=== PATIENT | female | born 1955 | race Caucasian/White ===

== ENCOUNTER 2020-05-30 11:46 | Outpatient (REF) | payer MEDICARE, MEDICAID, SELFPAY | END 2020-05-30 11:47 | disposition home or self-care (01) | LOC: HO.LAB 11:46 | PROVIDERS: Visit Provider Internal Medicine | DX: Z20.822 Contact with and (suspected) exposure to COVID-19 (principal) | CPT/HCPCS: 36415; C9803; U0003; U0005 ==

== ENCOUNTER 2020-06-06 14:12 | Outpatient (REF) | payer MEDICARE, MEDICAID, SELFPAY ==
--- NOTE | ~2020-06-06 | XR_ITS ---
EXAMINATION: XR CHEST CLINICAL INFORMATION: Trauma COMPARISON: Previous chest x-ray September 2015 TECHNIQUE: 2 views of the chest were obtained. FINDINGS: The cardiac and mediastinal contours are stable. The lungs are well inflated. The lungs are clear. There is no pleural effusion or pneumothorax. Bony structures are unremarkable. XR/XR chest 2V IMPRESSION: No evidence for acute disease in the chest.
== END 2020-06-06 14:13 | disposition home or self-care (01) ==
LOC: HO.XRAY 14:12
PROVIDERS: PCP Internal Medicine; Visit Provider Nurse Practitioner Family
DX: S29.9XXA Unspecified injury of thorax, initial encounter (principal)
CPT/HCPCS: 71046

== ENCOUNTER 2020-08-22 08:55 | Outpatient (REF) | payer MEDICARE, MEDICAID, SELFPAY ==
[2020-08-22 09:34] LABS: MANUAL DIFF FLAG NO
[2020-08-22 09:52] LABS: Basophils Percent Auto 0.4 % (0-2); Eosinophils Absolute Auto 0.2 X10*3/uL (0.0-0.4); Eosinophils Percent Auto 2.4 % (0-4); Hematocrit 43.4 % (37-47); Hemoglobin 14.8 g/dl (12.0-16.0); Imm Gran Abs Auto 0.02 X10*3/uL (0.00-0.03); Imm Gran Pct Auto 0.3 % (0.0-0.4); Lymphocytes Absolute Auto 1.7 X10*3/uL (1.2-4.9); Lymphocytes Percent Auto 23.2 % (20-40); Mean Corpuscular HGB Conc 34.1 g/dl (31.0-35.0); Mean Corpuscular Hemoglobin 30.5 pg (27.0-33.0); Mean Corpuscular Volume 89.3 fL (80-98); Mean Platelet Volume 9.1 fL (9.4-12.3); Monocytes Absolute Auto 0.5 X10*3/uL (0.1-1.2); Monocytes Percent Auto 6.9 % (2-11); Neutrophils Absolute Auto 4.8 X10*3/uL (2.0-8.3); Neutrophils Percent Auto 66.8 % (45-73); Platelet Count 224 X10*3/uL (160-400); Red Blood Count 4.86 X10*6/uL (4.20-5.50); Red Cell Distribution Width 13.4 % (11.0-16.0); White Blood Count 7.2 X10*3/uL (4.8-10.8)
[2020-08-22 10:12] LABS: Estimated Average Glucose 123 mg/dL; Hemoglobin A1C 148.4672 umol/L; Hemoglobin A1c % 5.9 %
[2020-08-22 10:17] LABS: Alanine Aminotransferase 11 U/L (0-31); Albumin Level 4.7 g/dL (3.5-5.0); Alkaline Phosphatase 72 U/L (39-117); Anion Gap 12 (12-20); Aspartate Amino Transferase 15 U/L (5-31); Bilirubin Total 0.6 mg/dL (0.0-1.0); Calcium 9.3 mg/dL (8.4-10.2); Carbon Dioxide 30 mmol/L (22-29); Chloride 95 mmol/L (96-108); Cholesterol 224 mg/dL; Estimated Glomerular Filt Rate > 60; Glucose Fasting 117 mg/dL (60-99); HDL Cholesterol 48 mg/dL; LDL Cholesterol Calculated 156 mg/dl; Potassium 4.1 mmol/L (3.3-5.1); Sodium 133 mmol/L (135-145); Total Protein 6.8 g/dL (6.5-8.0); Triglycerides 100 mg/dL
[2020-08-22 10:27] LABS: Free T4 (Free Thyroxine) 0.96 ng/dL (0.71-1.85)
[2020-08-22 10:32] LABS: Blood Urea Nitrogen 2 mg/dL (9-16)
[2020-08-22 11:00] LABS: Folate 6.3 ng/mL (> or = 4.0); Vitamin B12 350 pg/mL (200-900)
== END 2020-08-22 08:56 | disposition home or self-care (01) ==
LOC: HO.LAB 08:55
PROVIDERS: Nurse Practitioner Family; PCP Internal Medicine; Visit Provider Psychiatry & Neurology Psychiatry
DX: E87.1 Hypo-osmolality and hyponatremia (principal); S29.9XXA Unspecified injury of thorax, initial encounter; X58.XXXA Exposure to other specified factors, initial encounter; Y93.9 Activity, unspecified; Y92.9 Unspecified place or not applicable; Y99.9 Unspecified external cause status
CPT/HCPCS: 36415; 80053; 80061; 82607; 82746; 83036; 84439; 84443; 85025

== ENCOUNTER 2020-10-19 11:48 | Outpatient (REF) | payer MEDICARE, MEDICAID, SELFPAY ==
--- NOTE | ~2020-10-19 | XR_ITS ---
EXAMINATION: XR KNEE, RIGHT CLINICAL INFORMATION: Pain in the right knee COMPARISON: None TECHNIQUE: Four views of the right knee. FINDINGS: Bones and soft tissues are normal. No fracture or joint effusion. Alignment is anatomic. Joint spaces are well maintained. No abnormal soft tissue calcification. XR/XR knee RT 4V IMPRESSION: Normal right knee.
== END 2020-10-19 11:49 | disposition home or self-care (01) ==
LOC: HO.XRAY 11:48
PROVIDERS: PCP Internal Medicine; Visit Provider Nurse Practitioner Family
DX: M25.561 Pain in right knee (principal)
CPT/HCPCS: 73564

== ENCOUNTER 2020-10-31 11:43 | Inpatient (IN) | payer MEDICARE, MEDICAID, SELFPAY ==
--- NOTE | ~2020-10-31 | CT_ITS ---
EXAMINATION: CT ABDOMEN AND PELVIS WITH CONTRAST CLINICAL INFORMATION: Right lower quadrant pain with leukocytosis and vomiting. COMPARISON: None TECHNIQUE: Multidetector volumetric images were obtained from the superior aspect of the liver through the pubic symphysis following administration 85 mL of Omnipaque 350 intravenous contrast. Sagittal and coronal reformatted images were obtained on the technologist's workstation. Oral contrast: No This CT examination was performed using dose optimization techniques as appropriate, variously including the following: *Automated exposure control *Adjustment of mA and/or kV according to patient size (this includes techniques or standardized protocols for targeted exams where dose is matched to indication/reason for exam; i.e. extremities or head) *Use of iterative reconstruction technique DLP: 439 mGy-cm FINDINGS: LUNG BASES: The visualized lung bases are unremarkable. Heart normal size. Coronary artery calcifications seen. No pleural or pericardial effusion. LIVER, GALLBLADDER, AND BILIARY TREE: The liver is normal in size, shape, and attenuation. No focal hepatic lesion. There is mild intrahepatic bile duct prominence without filling defects seen within the common bile duct. Status post cholecystectomy. PANCREAS: Unremarkable. SPLEEN: Unremarkable. ADRENAL GLANDS: Unremarkable. KIDNEYS AND URETERS: The kidneys are normal in size, shape, and attenuation. No hydronephrosis, hydroureter, or calculi seen. No perinephric stranding. BLADDER: Unremarkable. GASTROINTESTINAL TRACT: No free air is seen. There is a small amount of fluid seen about the right colon. There are dilated loops of right and transverse colon as well as multiple distended fluid-filled loops of small bowel proximal to a 3.2 x 2.9 x 3.1 cm low density mass in the sigmoid colon but which may be an intramural lesion. This could represent possible malignancy or phlegmon. I do not believe this represents intussusception. No air-fluid level is appreciated within this. Within the right colon there are some peripheral bubbles of gas seen however there is no wall thickening present and this probably does not represent pneumatosis intestinalis. There is sigmoid diverticulosis. No portal venous gas is seen. ABDOMINAL WALL: No significant hernia is appreciated. LYMPH NODES: No lymphadenopathy appreciated. VASCULAR: There is mild calcified plaque seen in the aortoiliac system. There is noted to be some ostial calcification at the origin of the visceral vessels and I cannot tell whether there may be a hemodynamically significant stenosis at the origin of the superior mesenteric artery on this study. PELVIC VISCERA: Sigmoid colon findings as described. No other suspicious mass identified. OSSEOUS STRUCTURES: No destructive bony lesions identified. There are bilateral prominent L5 pars defects with a grade [address]ylolisthesis L5-S1. CT/CT abdomen pelvis w con IMPRESSION: Mild intrahepatic duct dilatation. Approximately 3 cm mass either intramural all within the sigmoid colon with dilated loops of large or small bowel bowel proximal to this. This lesion could represent a malignant or infectious process. Calcified plaque origin of the superior mesenteric artery which may be hemodynamically significant. Grade 3 spondylolisthesis with L5 spondylolysis at the L5-S1 level.
[2020-10-31 11:47] VITALS: BP 141/82; PULSE 101; RESP 16; TEMP 36.8; O2SAT 96; BMI 22.3
[2020-10-31 13:29] LABS: MANUAL DIFF FLAG NO
[2020-10-31 13:32] LABS: Basophils Percent Auto 0.2 % (0-2); Eosinophils Percent Auto 0.1 % (0-4); Hematocrit 44.7 % (37-47); Hemoglobin 15.7 g/dl (12.0-16.0); Imm Gran Abs Auto 0.08 X10*3/uL (0.00-0.03); Imm Gran Pct Auto 0.5 % (0.0-0.4); Lymphocytes Absolute Auto 0.8 X10*3/uL (1.2-4.9); Lymphocytes Percent Auto 4.5 % (20-40); Mean Corpuscular HGB Conc 35.1 g/dl (31.0-35.0); Mean Corpuscular Volume 85.5 fL (80-98); Mean Platelet Volume 8.6 fL (9.4-12.3); Monocytes Absolute Auto 1.2 X10*3/uL (0.1-1.2); Monocytes Percent Auto 6.7 % (2-11); Neutrophils Absolute Auto 15.5 X10*3/uL (2.0-8.3); Platelet Count 319 X10*3/uL (160-400); Red Blood Count 5.23 X10*6/uL (4.20-5.50); White Blood Count 17.6 X10*3/uL (4.8-10.8)
[2020-10-31 14:12] LABS: Anion Gap 16 (12-20); Blood Urea Nitrogen 15 mg/dL (9-16); Calcium 9.7 mg/dL (8.4-10.2); Carbon Dioxide 30 mmol/L (22-29); Chloride 86 mmol/L (96-108); Creatinine Clr Calc Pharmacy 46.2; Estimated Glomerular Filt Rate 54; Glucose Random 166 mg/dL (60-115); Potassium 3.5 mmol/L (3.3-5.1); Sodium 128 mmol/L (135-145)
--- NOTE | 2020-10-31 15:24 | ED_ITS ---
HPI - Abdominal Pain General Chief Complaint: Abdominal Pain Stated Complaint: abd pain Time Seen by Provider: 10/31/20 14:53 Source: patient and family Mode of arrival: ambulatory Limitations: no limitations History of Present Illness HPI narrative: 65 y/o female with history of bipolar disorder, DM, depression/anxiety, history of hepatitis C s/p treatment, s/p cholecystectomy, remote history of alcohol and substance abuse sober since 1979 who presents to the ER from home c/o constant sharp RLQ pain for the last 3 days. She vomited this morning. She had a normal BM yesterday. No fever or chills. MD elicited complaint: abdominal pain Pertinent past history: none Onset (ago): day(s) (3) Pain Consistency: constant Location: RLQ Severity: severe Pain scale (0-10): 8 Quality: stabbing Radiation: none Migration to: no migration Exacerbating factors: nothing Relieving factors: nothing Associated symptoms: nausea and vomiting Related Data Home Medications Medication Instructions Recorded Confirmed buspirone 5 mg tablet 10 mg PO BID 03/30/20 10/19/20 clonidine HCl 0.1 mg tablet 0.1 mg PO BEDTIME 03/30/20 10/19/20 lorazepam 1 mg tablet 1 mg PO TID 03/30/20 10/19/20 sertraline 100 mg tablet 100 mg PO DAILY 03/30/20 10/19/20 aspirin 81 mg tablet,delayed 81 mg PO DAILY 06/06/20 10/19/20 release lactulose 10 gram/15 mL oral 30 ml PO BID PRN 07/04/20 10/19/20 solution ziprasidone HCl 60 mg capsule 60 mg PO BID 07/04/20 10/19/20 Previous Rx's Medication Instructions Recorded multivitamin 1 tab PO DAILY #30 cap 03/24/20 omeprazole 20 mg capsule,delayed 20 mg PO DAILY 90 Days #90 cap 03/28/20 release ondansetron 8 mg disintegrating 8 mg PO Q12H PRN 30 Days #60 tab 05/30/20 tablet ibuprofen 600 mg tablet 600 mg PO Q8H PRN #42 tab 06/08/20 nystatin 100,000 unit/mL oral 8 ml PO QID #320 cap 06/19/20 suspension lactulose 20 gram/30 mL oral 20 g PO BID PRN 30 Days #1800 ml 07/04/20 solution acetaminophen 325 mg capsule 650 mg PO Q6H PRN #40 cap 10/19/20 (Tylenol) simethicone 42 mg chewable tablet 126 mg PO BEDTIME PRN 90 Days #90 10/30/20 (Mylanta Gas Minis) tab Allergies Allergy/AdvReac Type Severity Reaction Status Date / Time No Known Allergies Allergy Verified 10/19/20 11:08 Review of Systems Constitutional: Denies chills and Denies fever(s) Eyes: Reports no additional eye complaints Denies dizziness, Denies odynophagia and Denies sore throat Cardiovascular: Denies chest pain, Denies syncope, Denies lightheadedness and Denies dyspnea Respiratory: Denies cough and Denies dyspnea Gastrointestinal: Reports abdominal pain, Denies change in bowel habits, Denies diarrhea, Reports nausea, Denies odynophagia and Reports vomiting Genitourinary: Denies dysuria Musculoskeletal: Denies myalgias Skin/Breast: Denies rash Denies confusion, Denies dizziness and Denies syncope Psychiatric: Denies confusion Hematologic/Lymphatic: Denies easy bleeding Physical Exam Vital Signs: Vital Signs: Last Vital Signs Temp 98.2 F 10/31/20 15:55 Pulse 91 10/31/20 15:55 Resp 18 10/31/20 15:55 BP 129/73 10/31/20 15:55 Pulse Ox 94 10/31/20 15:55 Body Mass Index 22.3 Const: General: cooperative, comfortable and no acute distress; No confusion Nutritional Appearance: average body habitus Orientation/consciousness: patient oriented x3 and No confusion HENMT: Head: Yes normal to inspection Ears: hearing grossly normal bilaterally General nose exam: Normal external nose present Face and sinus: Yes normal facial exam Mouth: Normal oral and palatal mucosa present and moist mucous membranes Teeth and gingiva: dentition normal and gingiva normal Throat: Yes posterior oropharynx normal Eyes: General: appearance normal, both eyes and all related structures Neck: Neck: Yes normal visual inspection and Yes supple Chest: Chest palpation & inspection: normal inspection of the chest Resp: Effort & Inspection: normal respiratory effort and able to speak in complete sentences Auscultation: clear to auscultation bilaterally Cardio: Rate: regular rate Rhythm: regular rhythm Heart sounds: S1 normal heart sound present and S2 normal heart sound present GI: Inspection: Yes distended Palpation (GI): Soft to palpation and Tenderness to palpation present (GI) in the LLQ and in the RLQ Percussion: Yes dullness to percussion Auscultation: normal bowel sounds Rectal Exam - Female: deferred Skin: General skin exam: no rashes or lesions noted Neuro: General: patient oriented x3 and No confusion Extrem: General: Yes normal to inspection, Yes full ROM and Yes normal exam except as noted Course Course Course Narrative: 65 y/o female presenting with RLQ pain x3 days with associated vomiting this morning. Abd exam reveals moderate distention, RLQ & LLQ tenderness with rebound. She is non-toxic appearing, slightly tachycardic on arrival 101, likely from pain. No fevers. Lab workup showing leukocytosis which could be reactive from vomiting. Will get CT scan to r/o appendicitis and diverticulitis. She also has acute on chronic hyponatremia. Sodium 128 today, 133 two months ago. She most likely has SIADH from her multiple psychaitric medications as well as mild hypovolemia due to vomiting today. IVF ordered. Reevaluation(s) Reevaluation #1: CT scan done. Patient more comfortable after morphine and zofran. Given 1 L IVF. Repeat sodium pending. Reevaluation #2: CT scan showing Mild intrahepatic duct dilatation. Approximately 3 cm mass either intramural all within the sigmoid colon with dilated loops of large or small bowel bowel proximal to this. This lesion could represent a malignant or infectious process.?Calcified plaque origin of the superior mesenteric artery which may be hemodynamically significant. Grade 3 spondylolisthesis with L5 spondylolysis at the L5-S1 level. CT scan was reviewed by Dr. Douglas. He is recommending evaluation via colono scopy. Given her significant leukocytosis and ongoing pain with concern for possible phlegmon, will cover with Zosyn. Will check lactic acid and cultures. Will plan for medicine admission with probable GI and surgical consults. Reevaluation #3: Repeat sodium 128 down to 127 after IVF. Will check urine sodium, serum sodium and plan for fluid restriction and holding her psych meds for now given this is most likely due to SIADH. Additional Reevaluation(s): Spoke with Dr. Rojo, unlikely to have time to perform colonoscopy tomorrow. Hold off on colon prep for now and he will see her tomorrow. Additional IV morphine ordered for ongoing 8/10 pain. Hospitalist TT for admission but will defer to photographer aerial. Consultations Consultation #1: GI - Dr. Rojo. Consultation #2: Dr. Douglas MDM - Abdominal Pain Lab Data Result diagrams: 10/31/20 13:25 10/31/20 16:57 Labs: Lab Results 10/31/20 10/31/20 10/31/20 Range/Units 13:25 13:25 16:57 WBC 17.6 H (4.8-10.8) X10*3/uL RBC 5.23 (4.20-5.50) X10*6/uL Hgb 15.7 (12.0-16.0) g/dl Hct 44.7 (37-47) % MCV 85.5 (80-98) fL MCH 30.0 (27.0-33.0) pg MCHC 35.1 H (31.0-35.0) g/dl RDW 13.0 (11.0-16.0) % Plt Count 319 D (160-400) X10*3/uL MPV 8.6 L (9.4-12.3) fL Immature Gran % (Auto) 0.5 H (0.0-0.4) % Neut % (Auto) 88.0 H (45-73) % Lymph % (Auto) 4.5 L (20-40) % Catron % (Auto) 6.7 (2-11) % Eos % (Auto) 0.1 (0-4) % Baso % (Auto) 0.2 (0-2) % Lymph # (Auto) 0.8 L (1.2-4.9) X10*3/uL Catron # (Auto) 1.2 (0.1-1.2) X10*3/uL Eos # (Auto) 0.0 (0.0-0.4) X10*3/uL Baso # (Auto) 0.0 (0.0-0.2) X10*3/uL Abs Immat Gran (auto) 0.08 H (0.00-0.03) X10*3/uL Absolute Neuts (auto) 15.5 H (2.0-8.3) X10*3/uL Absolute Nucleated RBC 0.000 (0.0-0.012) X10*3/uL Nucleated RBC % (auto) 0.0 (0.0-0.2) /100WBC Sodium 128 L 127 L (135-145) mmol/L Potassium 3.5 (3.3-5.1) mmol/L Chloride 86 L (96-108) mmol/L Carbon Dioxide 30 H (22-29) mmol/L Anion Gap 16 (12-20) BUN 15 D (9-16) mg/dL Creatinine 1.02 (0.5-1.4) mg/dL Estim Creat Clear Calc 46.2 Estimated GFR 54 Random Glucose 166 H (60-115) mg/dL Calcium 9.7 (8.4-10.2) mg/dL Discharge Plan Discharge Clinical Impression: Colonic mass, Hyponatremia Patient Disposition: Admitted As Inpatient [facility] Past Medical History Attestation statement: The following information was validated with the patient. Medical History Bipolar 1 disorder Chronic idiopathic constipation Depression with anxiety Diabetes mellitus Rib injury Right knee pain Surgical History History of cholecystectomy Family History Family History Father No problems noted. Mother No problems noted. Other Mental health disorder Social History Social History Housing: House Alcohol intake: former Patient Tobacco Use Status: Current everyday Tobacco user Tobacco use type: Cigarette Cigarette Packs Per Day: 1 Advance Directives: Yes Advance Directives Information Provided: Yes Advance Directives on File: No service: No Current occupational status: unemployed
[2020-10-31] MEDS: Morphine Sulfate 4 MG/ML CARTRIDGE IVPUSH ×3 (15:31→20:37)
[2020-10-31] MEDS: 0.9 % Sodium Chloride 1,000 ML 999 ML IVCONT (15:31)
[2020-10-31] MEDS: ondansetron HCL 4 MG/2 ML VIAL IVPUSH (15:31)
[2020-10-31 15:55] VITALS: BP 129/73; PULSE 91; RESP 18; TEMP 36.8; O2SAT 94
[2020-10-31] MEDS: iohexoL 350 MG/ML 100 ML INFUS..BTL 85 ML IV (15:55)
[2020-10-31 17:21] LABS: Sodium 127 mmol/L (135-145)
--- NOTE | 2020-10-31 18:02 | PHA.MEDREC ---
Pharmacy Consult ? Medication Reconciliation Pharmacy has completed the medication reconciliation.
[2020-10-31 18:07] VITALS: BP 153/80; PULSE 84; RESP 16; O2SAT 99
[2020-10-31] MEDS: Piperacillin Sodium/Tazobactam 3.375 GM in 0.9 % Sodium Chloride 50 ML IV (18:13)
[2020-10-31] MEDS: Nicotine 21 MG PATCH.TD24 TRANSDERMA (18:13)
[2020-10-31 18:19] LABS: Osmolality, Serum 264 mosm/kg (281-305)
[2020-10-31 18:28] LABS: Glucose Urine UA NEG (NEG); Leukocyte Esterase Urine NEG (NEG); Nitrite Urine NEG (NEG); PH 6.5 (5.0-8.0); UACC Culture Trigger NO; Urine Blood NEG (NEG); Urine Ketones 5 MG/DL (NEG); Urine Protein 2+ MG/DL (NEG-TRACE)
[2020-10-31 18:30] LABS: Appearance Urine CLEAR; Color Urine YELLOW
[2020-10-31 18:33] LABS: Lactic Acid 1.8 mmol/L (0.5-2.0)
[2020-10-31 18:34] LABS: Sodium Urine Random < 20.0 mmol/L
[2020-10-31] MEDS: Nicotine Polacrilex 2 MG GUM BUCCAL (18:43)
[2020-10-31 18:47] LABS: Osmolality Urine 521 mosm/kg (373-1093)
[2020-10-31 19:01] LABS: Bacteria Urine 1+ /LPF; RBC Urine 0-2 /HPF (0); Squamous Epithelial Cell Urine 1+ /LPF; WBC Urine 0 /HPF (0-4)
[2020-10-31 19:22] LABS: Influenza A PCR NEGATIVE (Negative); Influenza B PCR NEGATIVE (Negative); Resp Syncy Virus RNA Qual PCR NEGATIVE (Negative); SARS COV2 PCR INHOUSE NEGATIVE (Negative)
[2020-10-31 20:35] VITALS: BP 136/74; PULSE 84; RESP 16; TEMP 37.5; O2SAT 90
--- NOTE | 2020-10-31 20:39 | PC.NURSE ---
PATIENT SATING 87 ON RA. pLACED ON 2L NC.
[2020-10-31 21:48] VITALS: BP 130/75; PULSE 97; RESP 18; TEMP 37.3; O2SAT 96
[2020-10-31] MEDS: 0.9 % Sodium Chloride Flush 3 ML SYRINGE IVFLUSH (21:52)
[2020-10-31] MEDS: 0.9 % Sodium Chloride 1,000 ML 100 ML IVCONT (21:53)
[2020-10-31 21:54] VITALS: BP 130/75; PULSE 96
[2020-10-31] MEDS: cloNIDine HCL 0.1 MG TABLET PO (21:54)
[2020-10-31] MEDS: busPIRone HCl 10 MG TABLET PO (21:54)
[2020-10-31] MEDS: Heparin Sodium,Porcine 5,000 UNIT/ML VIAL 5000 UNIT SUBCUT (21:55)
[2020-10-31] MEDS: LORazepam 1 MG TABLET PO (21:55)
[2020-10-31] MEDS: Ziprasidone 60 MG CAPSULE PO (21:55)
[2020-10-31] MEDS: metroNIDAZOLE/NS 500 MG/100 ML PIGGYBACK 100 MG IV (21:56)
[2020-10-31 22:29] LABS: Osmolality, Serum 263 mosm/kg (281-305)
[2020-11-01] VITALS (7 sets, daily range): BP systolic 107–170; BP diastolic 51–92; PULSE 70–108; RESP 16–18; TEMP 36.2–36.9; O2SAT 92–98
[2020-11-01] MEDS: cefTRIAXone sodium 1 GM in 0.9 % Sodium Chloride 50 ML IV ×2 (01:19→23:52)
[2020-11-01] MEDS: Nicotine Polacrilex 2 MG GUM 4 MG BUCCAL ×4 (03:05→23:58)
[2020-11-01] MEDS: Omeprazole 20 MG CAPSULE.DR PO (05:55)
[2020-11-01] MEDS: metroNIDAZOLE/NS 500 MG/100 ML PIGGYBACK 100 MG IV ×3 (05:55→21:05)
--- NOTE | 2020-11-01 06:07 | P.HPHOSP_ITS ---
History of Present Illness Date of Service: 10/31/20 Chief Complaint: Abdominal pain This is a 65-year-old female with past medical history of bipolar disorder, chronic idiopathic constipation, depression with anxiety, diabetes, who presents hospital with complaints of abdominal pain. Pain is all over the abdomen but worse on the right lower quadrant. This started 3 days ago, constant, 8/10, nonradiating, worse with movement and walking, better if she lays on her left side. Patient reports constipation, last BM was the day prior to presentation. She has some nausea and 1 episode of vomiting. She denies any recent melena or blood per rectum. She reports about 30 lb weight loss over the past 1 year bec ause she intentionally reduced her oral intake. For the past 3 days she has had loss of appetite, denies any fever or chills. Denies any chest pain, no shortness of breath, no urinary symptoms and no lower extremity edema. No numbness weakness or tingling. On arrival To the ED patient hemodynamically stable with a temperature of 98.2?, heart rate of 101, respiratory rate of 16, blood pressure of 141/82, satting 96% on room air Labs are significant for WBC count of 17.6, sodium of 127 which is chronically low for her, UA positive for protein with no infection, COVID negative, serum osmolality 264, urine osmolality of [address] shows mild intrahepatic duct dilatation, proximally 3 cm mass either intramural within the sigmoid colon with dilated loops of large or small bowels proximal to this. This lesion could represent a malignant or infectious process. Patient reports that she has never had colonoscopy in the past. Patient will be admitted for further evaluation of mass. Review of Systems Review of Systems: Yes all other systems are reviewed and are negative [facility] Medical History Bipolar 1 disorder Chronic idiopathic constipation Depression with anxiety Diabetes mellitus Rib injury Right knee pain Family History Father No problems noted. Mother No problems noted. Other Mental health disorder Surgical History History of cholecystectomy Social History Household Members: Spouse Housing: House Do you presently have visiting nurse or other home services: No Alcohol intake: former Patient Tobacco Use Status: Current everyday Tobacco user Tobacco use type: Cigarette Cigarette Packs Per Day: 1 Smoked in Last 30 Days: Yes Patient Interested in Nicotine Replacement: Yes Patient Given Instructions on How to Stop Smoking: No Second Hand Smoke Exposure: No Use of substances other than those prescribed or required for medical reasons: No Have you been hit, kicked, punched, or otherwise hurt by someone within the past year? If so, by whom?: No Do you feel safe in your current relationship?: No Is there a partner from a previous relationship who is making you feel unsafe now?: No Are you made to feel afraid or neglected: No Advance Directives: No Advance Directives Information Provided: No Advance Directives on File: No Do you have thoughts of harming others: None Do you have a plan to hurt others: No Plan Recently lost weight without trying: No How much weight loss: 24-33 pounds Eating poorly because of decreased appetite: No Nutrition screen score: 3 Nutrition Risks: No Nutritional Risk Patient : No : No Poor oral hygiene: No service: No Current occupational status: unemployed Meds Allergies Allergy/AdvReac Type Severity Reaction Status Date / Time No Known Allergies Allergy Verified 10/19/20 11:08 Active Medications: Current Medications Generic Name Dose Route Start Last Admin Trade Name Freq PRN Reason Stop Dose Admin Acetaminophen 650 mg 10/31/20 21:12 Acetaminophen 325 Mg Tablet PO Q6H PRN Pain, Mild (Pain Scale 1-3) Buspirone HCl 10 mg 10/31/20 21:30 10/31/20 21:54 Buspirone Hcl 10 Mg Tablet PO 10 mg BID MARCI Administration Clonidine HCl 0.1 mg 10/31/20 21:30 10/31/20 21:54 Clonidine Hcl 0.1 Mg Tablet PO 0.1 mg BEDTIME MARCI Administration Protocol Heparin Sodium (Porcine) 5,000 unit 10/31/20 22:00 10/31/20 21:55 Heparin Sodium,Porcine 5,000 Unit/Ml Vial SUBCUT 5,000 unit Q12H MARCI Administration Ceftriaxone Sodium 1 gm/ 50 mls @ 100 mls/hr 10/31/20 23:00 11/01/20 03:02 Sodium Chloride IV Infused Q24H MARCI Infusion Metronidazole 500 mg in 100 mls @ 100 mls/hr 10/31/20 22:00 11/01/20 05:55 Flagyl IV 100 mls/hr Q8H MARCI Administration Sodium Chloride 1,000 mls @ 100 mls/hr 10/31/20 21:30 10/31/20 21:53 Ns IVCONT 100 mls/hr .Q10H MARCI Administration Lactulose 20 gm 10/31/20 21:30 Lactulose 20 Gm/30 Ml Solution PO BID PRN constipation Lorazepam 1 mg 10/31/20 21:30 10/31/20 21:55 Lorazepam 1 Mg Tablet PO 1 mg TID MARCI Administration Morphine Sulfate 4 mg 10/31/20 20:14 10/31/20 20:37 Morphine Sulfate 4 Mg/Ml Cartridge IVPUSH 4 mg Q4H PRN Administration Pain, Severe (Pain Scale 7-10) Protocol Nicotine 21 mg 11/01/20 00:25 11/01/20 03:02 Nicotine 21 Mg Patch.Td24 TRANSDERMA Not Given DAILY [facility] Nicotine Polacrilex 4 mg 11/01/20 02:49 11/01/20 03:05 Nicotine Polacrilex 2 Mg Gum BUCCAL 4 mg Q1H PRN Administration Nicotine Cravings Omeprazole 20 mg 11/01/20 06:30 11/01/20 05:55 Omeprazole 20 Mg Capsule. PO 20 mg DAILY@0630 MARCI Administration Ondansetron HCl 4 mg 10/31/20 21:12 Ondansetron Hcl 4 Mg/2 Ml Vial IVPUSH Q8H PRN Nausea and Vomiting Pharmacy Consult 1 each 10/31/20 17:12 Consult Rx Perform Med Rec MISCELLANE ONCE PRN Consult order Sertraline HCl 100 mg 11/01/20 09:00 Sertraline Hcl 100 Mg Tablet PO DAILY MARCI Sodium Chloride 3 ml 11/01/20 00:00 10/31/20 21:52 0.9 % Sodium Chloride Flush 3 Ml Syringe IVFLUSH 3 ml QSHIFT MARCI Administration Ziprasidone 60 mg 10/31/20 21:30 10/31/20 21:55 Ziprasidone 60 Mg Capsule PO 60 mg BID MARCI Administration Home Medications Medication Instructions Recorded Confirmed Last Taken Type buspirone 5 mg tablet 10 mg PO BID 03/30/20 10/31/20 10/30/20 History clonidine HCl 0.1 mg tablet 0.1 mg PO BEDTIME 03/30/20 10/31/20 10/30/20 History lorazepam 1 mg tablet 1 mg PO TID 03/30/20 10/31/20 10/31/20 History sertraline 100 mg tablet 100 mg PO DAILY 03/30/20 10/31/20 10/30/20 History ziprasidone HCl 60 mg capsule 60 mg PO BID 07/04/20 10/31/20 10/30/20 History ondansetron 8 mg disintegrating 1 tab PO Q12H PRN 10/31/20 10/31/20 Unknown History tablet Physical Exam Vital Signs and Narrative: Vital Signs: Last Vital Signs Temp 98.0 F 11/01/20 04:00 Pulse 70 11/01/20 04:00 Resp 16 11/01/20 04:00 BP 133/64 11/01/20 04:00 Pulse Ox 98 11/01/20 04:00 Body Mass Index 22.3 Const: Other: Patient lying comfortably on her left side in bed General: cooperative and no acute distress Orientation/consciousness: patient oriented x3 Eyes: General: appearance normal, both eyes and all related structures Resp: Effort & Inspection: normal respiratory effort and able to speak in c omplete sentences Auscultation: clear to auscultation bilaterally Cardio: Rate: regular rate Rhythm: regular rhythm GI: Other: Tender in the right lower quadrant, no rebound, no guarding Palpation (GI): Soft to palpation Auscultation: normal bowel sounds Skin: General skin exam: no rashes or lesions noted Neuro: General: patient oriented x3 Cognition (Neuro): normal cognition Extrem: General: Yes normal to inspection and Yes no pedal edema Results Labs CBC and Chem 7: 10/31/20 13:25 10/31/20 16:57 Labs: Laboratory Results - last 24 hr 10/31/20 10/31/20 10/31/20 13:25 13:25 13:25 MCV 85.5 MCH 30.0 MCHC 35.1 H RDW 13.0 Plt Count 319 D MPV 8.6 L Immature Gran % (Auto) 0.5 H Neut % (Auto) 88.0 H Lymph % (Auto) 4.5 L [place] % (Auto) 6.7 Eos % (Auto) 0.1 Baso % (Auto) 0.2 Lymph # (Auto) 0.8 L [place] # (Auto) 1.2 Eos # (Auto) 0.0 Baso # (Auto) 0.0 Abs Immat Gran (auto) 0.08 H Absolute Neuts (auto) 15.5 H Absolute Nucleated RBC 0.000 Nucleated RBC % (auto) 0.0 Anion Gap 16 Estim Creat Clear Calc 46.2 Estimated GFR 54 Random Glucose 166 H Osmolality 264 L Lactic Acid Calcium 9.7 Urine Color Urine Appearance Urine pH Ur Specific [place] Urine Protein Urine Glucose (UA) Urine Ketones Urine Blood Urine Nitrite Ur Leukocyte Esterase Urine RBC Urine WBC Ur Squamous Epith Cells Urine Bacteria Urine Osmolality Ur Random Sodium Coronavirus (PCR) Influenza Type A (PCR) Influenza Type B (PCR) RSV RNA Qual (PCR) 10/31/20 10/31/20 10/31/20 17:49 17:50 17:50 MCV MCH MCHC RDW Plt Count MPV Immature Gran % (Auto) Neut % (Auto) Lymph % (Auto) [place] % (Auto) Eos % (Auto) Baso % (Auto) Lymph # (Auto) [place] # (Auto) Eos # (Auto) Baso # (Auto) Abs Immat Gran (auto) Absolute Neuts (auto) Absolute Nucleated RBC Nucleated RBC % (auto) Anion Gap Estim Creat Clear Calc Estimated GFR Random Glucose Osmolality Lactic Acid Calcium Urine Color YELLOW Urine Appearance CLEAR Urine pH 6.5 Ur Specific [place] 1.010 Urine Protein 2+ H Urine Glucose (UA) NEG Urine Ketones 5 Urine Blood NEG Urine Nitrite NEG Ur Leukocyte Esterase NEG Urine RBC 0-2 Urine WBC 0 Ur Squamous Epith Cells 1+ Urine Bacteria 1+ Urine Osmolality 521 Ur Random Sodium < 20.0 Coronavirus (PCR) Influenza Type A (PCR) Influenza Type B (PCR) RSV RNA Qual (PCR) 10/31/20 10/31/20 10/31/20 18:05 18:05 21:50 MCV MCH MCHC RDW Plt Count MPV Immature Gran % (Auto) Neut % (Auto) Lymph % (Auto) [place] % (Auto) Eos % (Auto) Baso % (Auto) Lymph # (Auto) [place] # (Auto) Eos # (Auto) Baso # (Auto) Abs Immat Gran (auto) Absolute Neuts (auto) Absolute Nucleated RBC Nucleated RBC % (auto) Anion Gap Estim Creat Clear Calc Estimated GFR Random Glucose Osmolality 263 L Lactic Acid 1.8 Calcium Urine Color Urine Appearance Urine pH Ur Specific [place] Urine Protein Urine Glucose (UA) Urine Ketones Urine Blood Urine Nitrite Ur Leukocyte Esterase Urine RBC Urine WBC Ur Squamous Epith Cells Urine Bacteria Urine Osmolality Ur Random Sodium Coronavirus (PCR) NEGATIVE Influenza Type A (PCR) NEGATIVE Influenza Type B (PCR) NEGATIVE RSV RNA Qual (PCR) NEGATIVE Imaging Radiologist's Impressions: Impressions Abdomen/Pelvis CT 10/31/20 14:53 IMPRESSION: Mild intrahepatic duct dilatation. Approximately 3 cm mass either intramural all within the sigmoid colon with dilated loops of large or small bowel bowel proximal to this. This lesion could represent a malignant or infectious process. Calcified plaque origin of the superior mesenteric artery which may be hemodynamically significant. Grade 3 spondylolisthesis with L5 spondylolysis at the L5-S1 level. Assessment and Plan (1) Colonic mass: Status: Acute (2) Hyponatremia: Status: Acute (3) Nausea & vomiting: Status: Acute (4) Leukocytosis: Status: Acute This is a 65-year-old female with past medical history of bipolar disorder, chronic constipation who presents to the hospital with or abdominal pain found to have a sigmoid colon mass. # colonic mass - infectious versus malignant - patient does have leukocytosis, tachycardia which is concerning for infectious etiology - denies any unintentional weight loss and no history of colonoscopy in the past - at this time will start her with ceftriaxone and Flagyl for possible intra- abdominal infection - follow cultures - GI consulted for evaluation with colonoscopy # nausea vomiting - secondary to above - supportive measure - Zofran p.r.n. # leukocytosis -most likely secondary to intra-abdominal infection - antibiotics as above - follow CBC # hyponatremia - patient's baseline sodium is around 133 - and has a serum osmolality of 264 and a urine osmolality of 500 - most likely secondary to her psych medications - nephrology consulted - follow BMP # bipolar disorder - continue home medications DVT prophylaxis: Heparin subQ Quality Stroke Does the patient have a stroke diagnosis?: No VTE Prior VTE?: No VTE Risk Level:: Medical - moderate - high VTE Device Contraindication: Treatment Not Indicated VTE Drug Contraindication: N/A - Med Ordered
[2020-11-01 06:10] LABS: Osmolality Urine 565 mosm/kg (373-1093)
[2020-11-01 06:27] LABS: MANUAL DIFF FLAG NO
[2020-11-01 06:54] LABS: Basophils Percent Auto 0.2 % (0-2); Eosinophils Absolute Auto 0.2 X10*3/uL (0.0-0.4); Eosinophils Percent Auto 1.3 % (0-4); Hemoglobin 13.7 g/dl (12.0-16.0); Imm Gran Abs Auto 0.07 X10*3/uL (0.00-0.03); Imm Gran Pct Auto 0.6 % (0.0-0.4); Lymphocytes Absolute Auto 0.9 X10*3/uL (1.2-4.9); Lymphocytes Percent Auto 6.8 % (20-40); Mean Corpuscular HGB Conc 35.1 g/dl (31.0-35.0); Mean Corpuscular Hemoglobin 30.5 pg (27.0-33.0); Mean Corpuscular Volume 86.9 fL (80-98); Mean Platelet Volume 8.7 fL (9.4-12.3); Monocytes Absolute Auto 0.6 X10*3/uL (0.1-1.2); Neutrophils Absolute Auto 10.9 X10*3/uL (2.0-8.3); Neutrophils Percent Auto 86.1 % (45-73); Platelet Count 247 X10*3/uL (160-400); Red Blood Count 4.49 X10*6/uL (4.20-5.50); Red Cell Distribution Width 13.2 % (11.0-16.0); White Blood Count 12.7 X10*3/uL (4.8-10.8)
[2020-11-01 07:13] LABS: Anion Gap 13 (12-20); Blood Urea Nitrogen 10 mg/dL (9-16); Calcium 7.9 mg/dL (8.4-10.2); Carbon Dioxide 27 mmol/L (22-29); Chloride 91 mmol/L (96-108); Creatinine Clr Calc Pharmacy 66.4; Estimated Glomerular Filt Rate > 60; Glucose Random 149 mg/dL (60-115); Potassium 3.5 mmol/L (3.3-5.1); Sodium 127 mmol/L (135-145)
--- NOTE | 2020-11-01 09:10 | MHC.CM.PN ---
IMM 11/01/20, EMR REVIEWED, PT ADMITTED W/AN ABD MASS AND INTRACTABLE PAIN, CM MET W/PT WHO REPORTS SHE LIVES W/ AND 12YO PUG, PT REPORTS SHE IS INDEPENDENT W/ALL CARE, HAS NO DME OR HOME SERVICES AND IS INTERESTED IN [facility] SERVICES, MAINLY A HOME HEALTH AID TO ASSIST W/CLEANING, REFERRAL DONE IN ALLSCRIPTS. PT VERIFIED PCP, PHARMACY AND DENIES HAVING A HCP, PT PROVIDED W/INFORMATION AND IMPORTANCE OF HCP, PT DECLINING TO COMPLETE AT THIS TIME. D/C PLAN: HOME SELF-CARE W/REFERRAL TO [facility], PT WILL CALL FOR TRANSPORT WHEN READY FOR D/C. PCP: ANAMIKA DONALD
[2020-11-01] MEDS: 0.9 % Sodium Chloride 1,000 ML 100 ML IVCONT ×2 (09:22→20:13)
[2020-11-01] MEDS: Nicotine 21 MG PATCH.TD24 TRANSDERMA (09:22)
[2020-11-01] MEDS: busPIRone HCl 10 MG TABLET PO ×2 (09:23→20:13)
[2020-11-01] MEDS: LORazepam 1 MG TABLET PO ×3 (09:23→20:13)
[2020-11-01] MEDS: Sertraline HCL 100 MG TABLET PO (09:23)
[2020-11-01] MEDS: Ziprasidone 60 MG CAPSULE PO ×2 (09:23→20:13)
[2020-11-01] MEDS: Heparin Sodium,Porcine 5,000 UNIT/ML VIAL 5000 UNIT SUBCUT (09:26)
--- NOTE | 2020-11-01 12:52 | P.CONNP_ITS ---
History of Present Illness Reason for Consult Consult date: 11/01/20 Reason for consult: hyponatremia Chief Complaint Chief complaint: abdominal mass, intractable pain History of Present Illness Narrative: 65-year-old female with past medical history of bipolar disorder, chronic idiopathic constipation, depression with anxiety, diabetes, who presents hospital with complaints of abdominal pain we are asked to see for low na Review of Systems Review of Systems Yes all other systems are reviewed and are negative Constitutional: Denies chills and Denies fever(s) Eyes: Reports no additional eye complaints Denies dizziness, Denies odynophagia and Denies sore throat Cardiovascular: Denies chest pain, Denies syncope, Denies lightheadedness and Denies dyspnea Respiratory: Denies cough and Denies dyspnea Gastrointestinal: Reports abdominal pain, Denies change in bowel habits, Denies diarrhea, Reports nausea, Denies odynophagia and Reports vomiting Musculoskeletal: Denies myalgias Skin/Breast: Denies rash Denies confusion, Denies dizziness and Denies syncope Psychiatric: Denies confusion Hematologic/Lymphatic: Denies easy bleeding PMFSH Past Medical History Medical History Bipolar 1 disorder Chronic idiopathic constipation Depression with anxiety Diabetes mellitus Rib injury Right knee pain Family History Family History Father No problems noted. Mother No problems noted. Other Mental health disorder Surgical History Surgical History History of cholecystectomy Social History Social History Household Members: Spouse Housing: House Do you presently have visiting nurse or other home services: No Alcohol intake: former Patient Tobacco Use Status: Current everyday Tobacco user Tobacco use type: Cigarette Cigarette Packs Per Day: 1 Smoked in Last 30 Days: Yes Patient Interested in Nicotine Replacement: Yes Patient Given Instructions on How to Stop Smoking: No Second Hand Smoke Exposure: No Use of substances other than those prescribed or required for medical reasons: No Currently Displaying Signs/Symptoms of Drug Intoxication Withdrawal: No Have you been hit, kicked, punched, or otherwise hurt by someone within the past year? If so, by whom?: No Do you feel safe in your current relationship?: No Is there a partner from a previous relationship who is making you feel unsafe now?: No Are you made to feel afraid or neglected: No Advance Directives: No Advance Directives Information Provided: No Advance Directives on File: No Do you have thoughts of harming others: None Do you have a plan to hurt others: No Plan Recently lost weight without trying: No How much weight loss: 24-33 pounds Eating poorly because of decreased appetite: No Nutrition screen score: 3 Nutrition Risks: No Nutritional Risk Patient : No : No Poor oral hygiene: No service: No Current occupational status: unemployed Meds Allergies Allergy/AdvReac Type Severity Reaction Status Date / Time No Known Allergies Allergy Verified 10/19/20 11:08 Active Medications: Current Medications Generic Name Dose Route Start Last Admin Trade Name Freq PRN Reason Stop Dose Admin Acetaminophen 650 mg 10/31/20 21:12 Acetaminophen 325 Mg Tablet PO Q6H PRN Pain, Mild (Pain Scale 1-3) Buspirone HCl 10 mg 10/31/20 21:30 11/01/20 09:23 Buspirone Hcl 10 Mg Tablet PO 10 mg BID MARCI Administration Clonidine HCl 0.1 mg 10/31/20 21:30 10/31/20 21:54 Clonidine Hcl 0.1 Mg Tablet PO 0.1 mg BEDTIME MARCI Administration Protocol Heparin Sodium (Porcine) 5,000 unit 10/31/20 22:00 11/01/20 09:26 Heparin Sodium,Porcine 5,000 Unit/Ml Vial SUBCUT 5,000 unit Q12H MARCI Administration Ceftriaxone Sodium 1 gm/ 50 mls @ 100 mls/hr 10/31/20 23:00 11/01/20 03:02 Sodium Chloride IV Infused Q24H MARCI Infusion Metronidazole 500 mg in 100 mls @ 100 mls/hr 10/31/20 22:00 11/01/20 09:26 Flagyl IV Infused Q8H MARCI Infusion Sodium Chloride 1,000 mls @ 100 mls/hr 10/31/20 21:30 11/01/20 09:22 Ns IVCONT 100 mls/hr .Q10H MARCI Administration Lactulose 20 gm 10/31/20 21:30 Lactulose 20 Gm/30 Ml Solution PO BID PRN constipation Lorazepam 1 mg 10/31/20 21:30 11/01/20 09:23 Lorazepam 1 Mg Tablet PO 1 mg TID MARCI Administration Morphine Sulfate 4 mg 10/31/20 20:14 10/31/20 20:37 Morphine Sulfate 4 Mg/Ml Cartridge IVPUSH 4 mg Q4H PRN Administration Pain, Severe (Pain Scale 7-10) Protocol Nicotine 21 mg 11/01/20 00:25 11/01/20 09:22 Nicotine 21 Mg Patch.Td24 TRANSDERMA 21 mg DAILY MARCI Administration Nicotine Polacrilex 4 mg 11/01/20 02:49 11/01/20 10:49 Nicotine Polacrilex 2 Mg Gum BUCCAL 4 mg Q1H PRN Administration Nicotine Cravings Omeprazole 20 mg 11/01/20 06:30 11/01/20 05:55 Omeprazole 20 Mg Capsule. PO 20 mg DAILY@0630 MARCI Administration Ondansetron HCl 4 mg 10/31/20 21:12 Ondansetron Hcl 4 Mg/2 Ml Vial IVPUSH Q8H PRN Nausea and Vomiting Pharmacy Consult 1 each 10/31/20 17:12 Consult Rx Perform Med Rec MISCELLANE ONCE PRN Consult order Sertraline HCl 100 mg 11/01/20 09:00 11/01/20 09:23 Sertraline Hcl 100 Mg Tablet PO 100 mg DAILY MARCI Administration Sodium Chloride 3 ml 11/01/20 00:00 11/01/20 08:59 0.9 % Sodium Chloride Flush 3 Ml Syringe IVFLUSH Not Given QSHIFT MARCI Ziprasidone 60 mg 10/31/20 21:30 11/01/20 09:23 Ziprasidone 60 Mg Capsule PO 60 mg BID MARCI Administration Home Medications Medication Instructions Recorded Confirmed Last Taken Type buspirone 5 mg tablet 10 mg PO BID 03/30/20 10/31/20 10/30/20 History clonidine HCl 0.1 mg tablet 0.1 mg PO BEDTIME 03/30/20 10/31/20 10/30/20 History lorazepam 1 mg tablet 1 mg PO TID 03/30/20 10/31/20 10/31/20 History sertraline 100 mg tablet 100 mg PO DAILY 03/30/20 10/31/20 10/30/20 History ziprasidone HCl 60 mg capsule 60 mg PO BID 07/04/20 10/31/20 10/30/20 History ondansetron 8 mg disintegrating 1 tab PO Q12H PRN 10/31/20 10/31/20 Unknown Hi story tablet Physical Exam Vital Signs: Last Vital Signs Temp 98.5 F 11/01/20 11:17 Pulse 87 11/01/20 11:17 Resp 18 11/01/20 11:17 BP 107/51 L 11/01/20 11:17 Pulse Ox 93 11/01/20 11:17 Body Mass Index 22.3 Const Other: Patient lying comfortably on her left side in bed General: cooperative, comfortable and no acute distress; No confusion Nutritional Appearance: average body habitus Orientation/consciousness: patient oriented x3 and No confusion HENMT Head: Yes normal to inspection Ears: hearing grossly normal bilaterally General nose exam: Normal external nose present Face and sinus: Yes normal facial exam Mouth: Normal oral and palatal mucosa present and moist mucous membranes Teeth and gingiva: dentition normal and gingiva normal Throat: Yes posterior oropharynx normal Eyes General: appearance normal, both eyes and all related structures Neck Neck: Yes normal visual inspection and Yes supple Chest Chest palpation & inspection: normal inspection of the chest Resp Effort & Inspection: normal respiratory effort and able to speak in complete sentences Auscultation: clear to auscultation bilaterally Cardio Rate: regular rate Rhythm: regular rhythm Heart sounds: S1 normal heart sound present and S2 normal heart sound present GI Other: Tender in the right lower quadrant, no rebound, no guarding Inspection: Yes distended Palpation (GI): Soft to palpation and Tenderness to palpation present (GI) in the LLQ and in the RLQ Percussion: Yes dullness to percussion Auscultation: normal bowel sounds Rectal Exam - Female: deferred Skin General skin exam: no rashes or lesions noted Neuro General: patient oriented x3 and No confusion Cognition (Neuro): normal cognition Extrem General: Yes normal to inspection, Yes full ROM, Yes normal exam except as noted and Yes no pedal edema Results Lab Results Result Diagrams: 11/01/20 05:51 11/01/20 05:51 Lab results: Chemistry 10/31/20 10/31/20 11/01/20 13:25 16:57 05:51 Sodium 128 L 127 L 127 L Potassium 3.5 3.5 Carbon Dioxide 30 H 27 BUN 15 D 10 Creatinine 1.02 0.71 Calcium 9.7 7.9 L D Hematology 08/11/21 08/12/21 13:25 05:51 WBC 17.6 H 12.7 H Hgb 15.7 13.7 Plt Count 319 D 247 Urinalysis 10/31/20 17:50 Urine Color YELLOW Urine Appearance CLEAR Urine pH 6.5 Ur Specific [place] 1.010 Urine Protein 2+ H Urine Glucose (UA) NEG Urine Ketones 5 Urine Blood NEG Urine Nitrite NEG Ur Leukocyte Esterase NEG Urine RBC 0-2 Urine WBC 0 Ur Squamous Epith Cells 1+ Urine Studies 10/31/20 11/01/20 17:50 05:20 Urine Osmolality 521 565 Assessment and Plan (1) Colonic mass: Status: Acute (2) Hyponatremia: Status: Acute she has a low urine na. the hyponatremia is 2nd to volume depletion. it should resolve with IV NS and limit water PO (3) Nausea & vomiting: Status: Acute (4) Leukocytosis: Status: Acute This is a 65-year-old female with past medical history of bipolar disorder, chronic constipation who presents to the hospital with or abdominal pain found to have a sigmoid colon mass. # colonic mass - infectious versus malignant - patient does have leukocytosis, tachycardia which is concerning for infectious etiology - denies any unintentional weight loss and no history of colonoscopy in the past - at this time will start her with ceftriaxone and Flagyl for possible intra-abd ominal infection - follow cultures - GI consulted for evaluation with colonoscopy # nausea vomiting - secondary to above - supportive measure - Zofran p.r.n. # leukocytosis -most likely secondary to intra-abdominal infection - antibiotics as above - follow CBC # hyponatremia - patient's baseline sodium is around 133 - and has a serum osmolality of 264 and a urine osmolality of 500 - most likely secondary to her psych medications - nephrology consulted - follow BMP # bipolar disorder - continue home medications DVT prophylaxis: Heparin subQ Procedures Date of Service Date of Service: 11/01/20
[2020-11-01] MEDS: PEG 3350/Na Sulf,Bicarb,Cl/KCL 4,000 ML SOLN.RECON 4000 ML PO (13:06)
[2020-11-01] MEDS: Morphine Sulfate 4 MG/ML CARTRIDGE IVPUSH (16:16)
--- NOTE | 2020-11-01 16:56 | HO.PM.IMPN ---
Subjective Subjective Date of Service: 11/01/20 Interval History: the patient was seen and evaluated this morning Laying in bed, feels comfortable Complaining for nausea Denies any fever, chills or shortness of breath No reported other overnight events. Systemic review: No fever, chills or weakness No chest pain, palpitation No shortness of breath or coughing No abdominal pain, but has nausea o No urinary symptoms No any rash or wounds Physical Exam Vital Signs: Vital Signs: Last Vital Signs Temp 97.8 F 11/01/20 15:09 Pulse 103 H 11/01/20 15:09 Resp 17 11/01/20 15:09 BP 166/92 H 11/01/20 15:09 Pulse Ox 96 11/01/20 15:09 Body Mass Index 22.3 Const: Other: Constitutional : Alert, oriented, not in distress Neck : Normal inspection, Supple Cardiovascular : RRR, S1 S2, no lower extremity edema Respiratory : Good bilateral air entry, no crackles, wheezes or rhonchi Gastrointestinal: soft, lax, Normal bowel sounds, Non tender Skin : Warm, Dry Neurological : Alert & oriented x3, No focal deficit Objective Data Current Medications Generic Name Dose Route Start Last Admin Trade Name Freq PRN Reason Stop Dose Admin Acetaminophen 650 mg 10/31/20 21:12 Acetaminophen 325 Mg Tablet PO Q6H PRN Pain, Mild (Pain Scale 1-3) Buspirone HCl 10 mg 10/31/20 21:30 11/01/20 09:23 Buspirone Hcl 10 Mg Tablet PO 10 mg BID MARCI Administration Clonidine HCl 0.1 mg 10/31/20 21:30 10/31/20 21:54 Clonidine Hcl 0.1 Mg Tablet PO 0.1 mg BEDTIME MARCI Administration Protocol Heparin Sodium (Porcine) 5,000 unit 10/31/20 22:00 11/01/20 09:26 Heparin Sodium,Porcine 5,000 Unit/Ml Vial SUBCUT 5,000 unit Q12H MARCI Administration Ceftriaxone Sodium 1 gm/ 50 mls @ 100 mls/hr 10/31/20 23:00 11/01/20 03:02 Sodium Chloride IV Infused Q24H MARCI Infusion Metronidazole 500 mg in 100 mls @ 100 mls/hr 10/31/20 22:00 11/01/20 15:23 Flagyl IV Infused Q8H MARCI Infusion Sodium Chloride 1,000 mls @ 100 mls/hr 10/31/20 21:30 11/01/20 09:22 Ns IVCONT 100 mls/hr .Q10H MARCI Administration Lactulose 20 gm 10/31/20 21:30 Lactulose 20 Gm/30 Ml Solution PO BID PRN constipation Lorazepam 1 mg 10/31/20 21:30 11/01/20 15:40 Lorazepam 1 Mg Tablet PO 1 mg TID MARCI Administration Morphine Sulfate 4 mg 10/31/20 20:14 11/01/20 16:16 Morphine Sulfate 4 Mg/Ml Cartridge IVPUSH 4 mg Q4H PRN Administration Pain, Severe (Pain Scale 7-10) Protocol Nicotine 21 mg 11/01/20 00:25 11/01/20 09:22 Nicotine 21 Mg Patch.Td24 TRANSDERMA 21 mg DAILY MARCI Administration Nicotine Polacrilex 4 mg 11/01/20 02:49 11/01/20 10:49 Nicotine Polacrilex 2 Mg Gum BUCCAL 4 mg Q1H PRN Administration Nicotine Cravings Omeprazole 20 mg 11/01/20 06:30 11/01/20 05:55 Omeprazole 20 Mg Capsule.Dr PO 20 mg DAILY@0630 MARCI Administration Ondansetron HCl 4 mg 10/31/20 21:12 Ondansetron Hcl 4 Mg/2 Ml Vial IVPUSH Q8H PRN Nausea and Vomiting Pharmacy Consult 1 each 10/31/20 17:12 Consult Rx Perform Med Rec MISCELLANE ONCE PRN Consult order Sertraline HCl 100 mg 11/01/20 09:00 11/01/20 09:23 Sertraline Hcl 100 Mg Tablet PO 100 mg DAILY MARCI Administration Sodium Chloride 3 ml 11/01/20 00:00 11/01/20 15:40 0.9 % Sodium Chloride Flush 3 Ml Syringe IVFLUSH Not Given QSHIFT MARCI Ziprasidone 60 mg 10/31/20 21:30 11/01/20 09:23 Ziprasidone 60 Mg Capsule PO 60 mg BID MARCI Administration Labs CBC & Chem 7: 11/01/20 05:51 11/01/20 05:51 Labs: Laboratory Results - last 24 hr 10/31/20 10/31/20 10/31/20 13:25 17:49 17:50 MCV MCH MCHC RDW Plt Count MPV Immature Gran % (Auto) Neut % (Auto) Lymph % (Auto) [place] % (Auto) Eos % (Auto) Baso % (Auto) Lymph # (Auto) [place] # (Auto) Eos # (Auto) Baso # (Auto) Abs Immat Gran (auto) Absolute Neuts (auto) Absolute Nucleated RBC Nucleated RBC % (auto) Anion Gap Estim Creat Clear Calc Estimated GFR Random Glucose Osmolality 264 L Lactic Acid Calcium Urine Color YELLOW Urine Appearance CLEAR Urine pH 6.5 Ur Specific [place] 1.010 Urine Protein 2+ H Urine Glucose (UA) NEG Urine Ketones 5 Urine Blood NEG Urine Nitrite NEG Ur Leukocyte Esterase NEG Urine RBC 0-2 Urine WBC 0 Ur Squamous Epith Cells 1+ Urine Bacteria 1+ Urine Osmolality Ur Random Sodium < 20.0 Coronavirus (PCR) Influenza Type A (PCR) Influenza Type B (PCR) RSV RNA Qual (PCR) 10/31/20 10/31/20 10/31/20 17:50 18:05 18:05 MCV MCH MCHC RDW Plt Count MPV Immature Gran % (Auto) Neut % (Auto) Lymph % (Auto) [place] % (Auto) Eos % (Auto) Baso % (Auto) Lymph # (Auto) [place] # (Auto) Eos # (Auto) Baso # (Auto) Abs Immat Gran (auto) Absolute Neuts (auto) Absolute Nucleated RBC Nucleated RBC % (auto) Anion Gap Estim Creat Clear Calc Estimated GFR Random Glucose Osmolality Lactic Acid 1.8 Calcium Urine Color Urine Appearance Urine pH Ur Specific [place] Urine Protein Urine Glucose (UA) Urine Ketones Urine Blood Urine Nitrite Ur Leukocyte Esterase Urine RBC Urine WBC Ur Squamous Epith Cells Urine Bacteria Urine Osmolality 521 Ur Random Sodium Coronavirus (PCR) NEGATIVE Influenza Type A (PCR) NEGATIVE Influenza Type B (PCR) NEGATIVE RSV RNA Qual (PCR) NEGATIVE 10/31/20 11/01/20 11/01/20 21:50 05:20 05:51 MCV 86.9 MCH 30.5 MCHC 35.1 H RDW 13.2 Plt Count 247 MPV 8.7 L Immature Gran % (Auto) 0.6 H Neut % (Auto) 86.1 H Lymph % (Auto) 6.8 L [place] % (Auto) 5.0 Eos % (Auto) 1.3 Baso % (Auto) 0.2 Lymph # (Auto) 0.9 L [place] # (Auto) 0.6 Eos # (Auto) 0.2 Baso # (Auto) 0.0 Abs Immat Gran (auto) 0.07 H Absolute Neuts (auto) 10.9 H Absolute Nucleated RBC 0.000 Nucleated RBC % (auto) 0.0 Anion Gap Estim Creat Clear Calc Estimated GFR Random Glucose Osmolality 263 L Lactic Acid Calcium Urine Color Urine Appearance Urine pH Ur Specific [place] Urine Protein Urine Glucose (UA) Urine Ketones Urine Blood Urine Nitrite Ur Leukocyte Esterase Urine RBC Urine WBC Ur Squamous Epith Cells Urine Bacteria Urine Osmolality 565 Ur Random Sodium Coronavirus (PCR) Influenza Type A (PCR) Influenza Type B (PCR) RSV RNA Qual (PCR) 11/01/20 05:51 MCV MCH MCHC RDW Plt Count MPV Immature Gran % (Auto) Neut % (Auto) Lymph % (Auto) [place] % (Auto) Eos % (Auto) Baso % (Auto) Lymph # (Auto) [place] # (Auto) Eos # (Auto) Baso # (Auto) Abs Immat Gran (auto) Absolute Neuts (auto) Absolute Nucleated RBC Nucleated RBC % (auto) Anion Gap 13 Estim Creat Clear Calc 66.4 Estimated GFR > 60 Random Glucose 149 H Osmolality Lactic Acid Calcium 7.9 L D Urine Color Urine Appearance Urine pH Ur Specific [place] Urine Protein Urine Glucose (UA) Urine Ketones Urine Blood Urine Nitrite Ur Leukocyte Esterase Urine RBC Urine WBC Ur Squamous Epith Cells Urine Bacteria Urine Osmolality Ur Random Sodium Coronavirus (PCR) Influenza Type A (PCR) Influenza Type B (PCR) RSV RNA Qual (PCR) Assessment and Plan (1) Hyponatremia: Status: Acute (2) Colonic mass: Status: Acute (3) Nausea & vomiting: Status: Acute (4) Leukocytosis: Status: Acute Assessment and Plan: This is a 65-year-old female with past medical history of bipolar disorder, chronic constipation who presents to the hospital with or abdominal pain found to have a sigmoid colon mass. # colonic mass # possible colitis infection versus malignant Has leukocytosis, tachycardia which is concerning for infectious etiology No history of weight loss and no history of colonoscopy in the past Continue ceftriaxone and Flagyl for possible intra-abdominal infection follow cultures GI consult pending Claudia p.r.n. # hyponatremia baseline sodium is around 133, today 127 serum osmolality of 264 and a urine osmolality of 500 secondary to dehydration nephrology input appreciated follow BMP # bipolar disorder continue home medications DVT prophylaxis: Heparin subQ Quality Stroke Does the patient have a stroke diagnosis?: No VTE Prior VTE?: No VTE Risk Level:: Medical - moderate - high VTE Device Contraindication: Treatment Not Indicated VTE Drug Contraindication: N/A - Med Ordered
--- NOTE | 2020-11-01 18:53 | CONS_ITS ---
DATE OF SERVICE: 11/01/2020 REFERRING PHYSICIAN: Azeem Remy REASON FOR CONSULTATION: Abnormal CT scan of the colon. HISTORY OF PRESENT ILLNESS: The patient is a 65-year-old woman, who was admitted to the hospital after presenting to the emergency room with 3 days of abdominal pain and cramping. There was associated nausea and a single non-bloody emesis. She has a history of chronic constipation, for which she takes lactulose and has been moving her bowels without much difficulty. She has never undergone colonoscopy. She does report voluntary weight loss over the past year by restricting calories. She was evaluated in the emergency room and CT scanning was obtained, which shows a mass in the sigmoid that was thought to be possibly intramural. The differential diagnosis included a mass versus abscess. The patient has had no fevers or chills and denies a prior history of diverticular disease. PAST MEDICAL HISTORY: 1. Chronic constipation. 2. Anxiety/depression. 3. Diabetes. 4. Knee pain. 5. Bipolar disorder. CURRENT MEDICATIONS: Her current medication list is reviewed in the chart. ALLERGIES: THERE ARE NONE REPORTED. FAMILY HISTORY: This is negative for GI malignancy. SOCIAL HISTORY: She does smoke. She formally used marijuana and alcohol, but quit these several years ago. REVIEW OF SYSTEMS: SKIN: No pruritus. HEENT: Negative. CARDIOPULMONARY: She denies shortness of breath or chest pain. GASTROINTESTINAL: As above. GENITOURINARY: Negative. NEUROPSYCHIATRIC: Negative. PHYSICAL EXAMINATION: GENERAL: Shows a pleasant female, sitting up in bed. VITAL SIGNS: Reviewed in the electronic medical record and are stable. SKIN: Anicteric. HEENT: Shows no scleral icterus. NECK: Without lymphadenopathy or thyromegaly. LUNGS: Clear. HEART: Shows a regular rate and rhythm. S1, S2. No murmur. ABDOMEN: Soft without focal masses or tenderness. Bowel sounds are present. There is mild diffuse tenderness to palpation. No organomegaly is noted. EXTREMITIES: Without edema. LABORATORY DATA: Reviewed as is her CT scan. IMPRESSION: Abnormal CT scan of the colon. I discussed with her the need for colonoscopy for further evaluation of this lesion to determine if it is an abscess or mass due to malignancy. We discussed risks and benefits of colonoscopy today. She understands these and agrees to proceed. This will be scheduled for tomorrow. MD DENI Cortes/LILIANE / [phone]
[2020-11-01 19:28] LABS: Anion Gap 14 (12-20); Blood Urea Nitrogen 5 mg/dL (9-16); Calcium 7.7 mg/dL (8.4-10.2); Carbon Dioxide 27 mmol/L (22-29); Chloride 91 mmol/L (96-108); Creatinine Clr Calc Pharmacy 68.3; Estimated Glomerular Filt Rate > 60; Glucose Random 231 mg/dL (60-115); Potassium 2.9 mmol/L (3.3-5.1); Sodium 129 mmol/L (135-145)
[2020-11-01] MEDS: cloNIDine HCL 0.1 MG TABLET PO (20:13)
[2020-11-01] MEDS: Magnesium Hydrox/Alum Hydrox 30 ML ORAL.SUSP PO (20:13)
[2020-11-02] VITALS (7 sets, daily range): BP systolic 138–174; BP diastolic 77–85; PULSE 84–103; RESP 17–20; TEMP 36.9–37.6; O2SAT 92–94
[2020-11-02] MEDS: metroNIDAZOLE/NS 500 MG/100 ML PIGGYBACK 100 MG IV ×3 (05:38→21:09)
[2020-11-02 06:58] LABS: Anion Gap 13 (12-20); Blood Urea Nitrogen 4 mg/dL (9-16); Calcium 7.5 mg/dL (8.4-10.2); Carbon Dioxide 27 mmol/L (22-29); Chloride 90 mmol/L (96-108); Creatinine Clr Calc Pharmacy 85.7; Estimated Glomerular Filt Rate > 60; Glucose Random 121 mg/dL (60-115); Potassium 2.4 mmol/L (3.3-5.1); Sodium 128 mmol/L (135-145)
--- NOTE | 2020-11-02 07:01 | PM.EVENT ---
Event Note Date of Service: 11/02/20 Event Note: hypokalemic. will give 40 of IV K
[2020-11-02] MEDS: Nicotine 21 MG PATCH.TD24 TRANSDERMA (07:25)
[2020-11-02] MEDS: Potassium Chloride/H20 10 MEQ/100 ML PIGGYBACK 100 MEQ IV ×4 (07:26→11:11)
--- NOTE | 2020-11-02 07:30 | PC.NURSE ---
ALERTED BY FACILITIES OPERATIONS TECHNICIAN OF PATIENTS POTASSIUM LEVEL OF 2.4 THIS AM. PATIENT WAS PREPPED, WASHED, VOIDED, AND WAS SITTING IN WHEELCHAIR FOR DELIVERY TO [facility] FOR PLANNED COLONOSCOPY. MD ALERTED AND IV K INFUSION ORDERED AND WILL BE ACKNOWLEDGED AND ADMINISTERED BY DAY RN. [facility]SS RN CAME TO FLOOR TO TRANSPORT PT, HOSPITALIST WAS ASKED AND STATED OKAY TO CONTINUE WITH SCOPE PLAN, HOWEVER, [facility] SECOND RN TEXTED THEY NEED A K OF 2.7 TO GO FORWARD. WILL RECHECK LEVEL AFTER INFUSION AND DAY RN UPDATED ON ALL MESSAGES AND WILL CONTINUE TO FOLLOW THRU WITH ALL CARE
[2020-11-02] MEDS: Ziprasidone 60 MG CAPSULE PO ×2 (07:34→20:09)
[2020-11-02] MEDS: LORazepam 1 MG TABLET PO ×3 (07:34→20:08)
[2020-11-02] MEDS: Omeprazole 20 MG CAPSULE.DR PO ×2 (07:34→07:37)
[2020-11-02] MEDS: busPIRone HCl 10 MG TABLET PO ×2 (07:34→20:09)
[2020-11-02] MEDS: Sertraline HCL 100 MG TABLET PO (07:35)
[2020-11-02] MEDS: Nicotine Polacrilex 2 MG GUM 4 MG BUCCAL ×2 (08:59→20:07)
--- NOTE | 2020-11-02 09:19 | PM.PNNEP ---
Subjective Subjective Date of Service: 11/02/20 Interval history: the patient was seen and evaluated this morning Laying in bed, feels comfortable Physical Exam Vital Signs: Vital Signs: Last Vital Signs Temp 98.5 F 11/02/20 08:00 Pulse 88 11/02/20 08:00 Resp 17 11/02/20 08:00 BP 138/77 11/02/20 08:00 Pulse Ox 92 11/02/20 08:00 Body Mass Index 22.3 Const: Other: Constitutional : Alert, oriented, not in distress Neck : Normal inspection, Supple Cardiovascular : RRR, S1 S2, no lower extremity edema Respiratory : Good bilateral air entry, no crackles, wheezes or rhonchi Gastrointestinal: soft, lax, Normal bowel sounds, Non tender Skin : Warm, Dry Neurological : Alert & oriented x3, No focal deficit General: cooperative, comfortable and no acute distress; No confusion Nutritional Appearance: average body habitus Orientation/consciousness: patient oriented x3 and No confusion HENMT: Head: Yes normal to inspection Ears: hearing grossly normal bilaterally General nose exam: Normal external nose present Face and sinus: Yes normal facial exam Mouth: Normal oral and palatal mucosa present and moist mucous membranes Teeth and gingiva: dentition normal and gingiva normal Throat: Yes posterior oropharynx normal Eyes: General: appearance normal, both eyes and all related structures Neck: Neck: Yes normal visual inspection and Yes supple Chest: Chest palpation & inspection: normal inspection of the chest Resp: Effort & Inspection: normal respiratory effort and able to speak in complete sentences Auscultation: clear to auscultation bilaterally Cardio: Rate: regular rate Rhythm: regular rhythm Heart sounds: S1 normal heart sound present and S2 normal heart sound present GI: Other: Tender in the right lower quadrant, no rebound, no guarding Inspection: Yes distended Palpation (GI): Soft to palpation and Tenderness to palpation present (GI) in the LLQ and in the RLQ Percussion: Yes dullness to percussion Auscultation: normal bowel sounds Rectal Exam - Female: deferred Skin: General skin exam: no rashes or lesions noted Neuro: General: patient oriented x3 and No confusion Cognition (Neuro): normal cognition Extrem: General: Yes normal to inspection, Yes full ROM, Yes normal exam except as noted and Yes no pedal edema Objective Data Labs CBC & Chem 7: 11/01/20 05:51 11/02/20 05:43 Labs: Laboratory Results - last 24 hr 11/01/20 11/02/20 18:48 05:43 Sodium 129 L 128 L Potassium 2.9 L 2.4 L* Chloride 91 L 90 L Carbon Dioxide 27 27 Anion Gap 14 13 BUN 5 L 4 L Creatinine 0.69 0.55 Estim Creat Clear Calc 68.3 85.7 Estimated GFR > 60 > 60 Random Glucose 231 H D 121 H D Calcium 7.7 L 7.5 L Microbiology Microbiology Results: Microbiology 10/31/20 18:05 Blood - Venous Blood Culture - Preliminary No growth after 24 hours. 10/31/20 18:05 Blood - Venous Blood Culture - Preliminary No growth after 24 hours. Procedures Date of Service Date of Service: 11/02/20 Assessment & Plan Assessment and plan (1) Hyponatremia: Status: Acute Assessment and Plan: stable low brijesh c/w pre renal picture K dropped more give IV kcl (2) Colonic mass: Status: Acute (3) Nausea & vomiting: Status: Acute (4) Leukocytosis: Status: Acute Assessment and Plan: This is a 65-year-old female with past medical history of bipolar disorder, chronic constipation who presents to the hospital with or abdominal pain found to have a sigmoid colon mass. # colonic mass # possible colitis infection versus malignant Has leukocytosis, tachycardia which is concerning for infectious etiology No history of weight loss and no history of colonoscopy in the past Continue ceftriaxone and Flagyl for possible intra-abdominal infection follow cultures GI consult pending Claudia p.r.n. # hyponatremia baseline sodium is around 133, today 127 serum osmolality of 264 and a urine osmolality of 500 secondary to dehydration Time Spent With Patient Time: Total time spent is greater than 50% in coordination of care (as documented) at patient's floor/unit and/or counseling patient: Progress Note: Quality Stroke Does the patient have a stroke diagnosis?: No
[2020-11-02 10:37] LABS: Anion Gap 11 (12-20); Blood Urea Nitrogen 3 mg/dL (9-16); Calcium 7.6 mg/dL (8.4-10.2); Carbon Dioxide 31 mmol/L (22-29); Chloride 89 mmol/L (96-108); Creatinine Clr Calc Pharmacy 78.5; Estimated Glomerular Filt Rate > 60; Glucose Random 117 mg/dL (60-115); Potassium 2.4 mmol/L (3.3-5.1); Sodium 129 mmol/L (135-145)
--- NOTE | 2020-11-02 10:49 | PM.GIPN ---
Subjective Subjective Date of Service: 11/02/20 Critical Care Time (minutes): 0 Comment: no complaints of abd pain Physical Exam Vital Signs: Vital Signs: Last Vital Signs Temp 98.5 F 11/02/20 08:00 Pulse 88 11/02/20 08:00 Resp 17 11/02/20 08:00 BP 138/77 11/02/20 08:00 Pulse Ox 92 11/02/20 08:00 Body Mass Index 22.3 Const: Other: alert and oriented GI: Other: soft, nontender, no masses Objective Data Labs CBC & Chem 7: 11/01/20 05:51 11/02/20 09:54 Microbiology Microbiology Results: Microbiology 10/31/20 18:05 Blood - Venous Blood Culture - Preliminary No growth after 24 hours. 10/31/20 18:05 Blood - Venous Blood Culture - Preliminary No growth after 24 hours. Procedures Date of Service Date of Service: 11/02/20 Progress Note: A&P Assessment and plan (1) Abnormal CT scan, colon: Status: Acute Assessment and Plan: colonoscopy cancelled by Dr West today because of hypokalemia. currently receiving potassium replacement. Dr De Los Santos has graciously agreed to do colonoscopy tomorrow after potassium is corrected. Patient is aware and consents. Clear liquids today and NPO after MN except meds for procedure 11/03. Fall Risk Details Current Medications: Current Medications Generic Name Dose Route Start Last Admin Trade Name Freq PRN Reason Stop Dose Admin Acetaminophen 650 mg 10/31/20 21:12 Acetaminophen 325 Mg Tablet PO Q6H PRN Pain, Mild (Pain Scale 1-3) Al Hydroxide/Mg Hydroxide 30 ml 11/01/20 19:55 11/01/20 20:13 Magnesium Hydrox/Alum Hydrox 30 Ml Oral.Susp PO 30 ml Q4H PRN Administration Heartburn Buspirone HCl 10 mg 10/31/20 21:30 11/02/20 07:34 Buspirone Hcl 10 Mg Tablet PO 10 mg BID MARCI Administration Clonidine HCl 0.1 mg 10/31/20 21:30 11/01/20 20:13 Clonidine Hcl 0.1 Mg Tablet PO 0.1 mg BEDTIME MARCI Administration Protocol Heparin Sodium (Porcine) 5,000 unit 10/31/20 22:00 11/01/20 19:39 Heparin Sodium,Porcine 5,000 Unit/Ml Vial SUBCUT Not Given Q12H MARCI Ceftriaxone Sodium 1 gm/ 50 mls @ 100 mls/hr 10/31/20 23:00 11/02/20 00:29 Sodium Chloride IV Infused Q24H MARCI Infusion Metronidazole 500 mg in 100 mls @ 100 mls/hr 10/31/20 22:00 11/02/20 06:40 Flagyl IV Infused Q8H MARCI Infusion Potassium Chloride 10 meq in 100 mls @ 100 mls/hr 11/02/20 07:00 11/02/20 10:05 IV 11/02/20 10:59 100 mls/hr Q1H MARCI Administration Lactated Ringer's 1,000 mls @ 80 mls/hr 11/02/20 08:30 Lr IVCONT .[id number] MARCI Lactulose 20 gm 10/31/20 21:30 Lactulose 20 Gm/30 Ml Solution PO BID PRN constipation Lorazepam 1 mg 10/31/20 21:30 11/02/20 07:34 Lorazepam 1 Mg Tablet PO 1 mg TID MARCI Administration Morphine Sulfate 4 mg 10/31/20 20:14 11/01/20 16:16 Morphine Sulfate 4 Mg/Ml Cartridge IVPUSH 4 mg Q4H PRN Administration Pain, Severe (Pain Scale 7-10) Protocol Nicotine 21 mg 11/01/20 00:25 11/02/20 07:25 Nicotine 21 Mg Patch.Td24 TRANSDERMA 21 mg DAILY MARCI Administration Nicotine Polacrilex 4 mg 11/01/20 02:49 11/02/20 08:59 Nicotine Polacrilex 2 Mg Gum BUCCAL 4 mg Q1H PRN Administration Nicotine Cravings Omeprazole 20 mg 11/01/20 06:30 11/02/20 07:37 Omeprazole 20 Mg Capsule.Dr PO 20 mg DAILY@0630 MARCI Administration Ondansetron HCl 4 mg 10/31/20 21:12 Ondansetron Hcl 4 Mg/2 Ml Vial IVPUSH Q8H PRN Nausea and Vomiting Pharmacy Consult 1 each 10/31/20 17:12 Consult Rx Perform Med Rec MISCELLANE ONCE PRN Consult order Potassium Chloride 40 meq 11/02/20 08:30 Potassium Chloride Packet 20 Meq Packet PO 11/02/20 20:31 Q4H MARCI Sertraline HCl 100 mg 11/01/20 09:00 11/02/20 07:35 Sertraline Hcl 100 Mg Tablet PO 100 mg DAILY MARCI Administration Sodium Chloride 3 ml 11/01/20 00:00 11/02/20 07:34 0.9 % Sodium Chloride Flush 3 Ml Syringe IVFLUSH Not Given QSHIFT MARCI Ziprasidone 60 mg 10/31/20 21:30 11/02/20 07:34 Ziprasidone 60 Mg Capsule PO 60 mg BID MARCI Administration Time Spent With Patient Time: Total time spent is greater than 50% in coordination of care (as documented) at patient's floor/unit and/or counseling patient: Time with patient: less than 15 minutes Quality Stroke Does the patient have a stroke diagnosis?: No VTE Prior VTE?: No VTE Risk Level:: Medical - moderate - high VTE Device Contraindication: Treatment Not Indicated VTE Drug Contraindication: N/A - Med Ordered
[2020-11-02] MEDS: Lactated Ringers 1,000 ML 80 ML IVCONT ×2 (11:13→22:33)
[2020-11-02] MEDS: Potassium Chloride Packet 20 MEQ PACKET 40 MEQ PO ×4 (11:14→20:08)
--- NOTE | 2020-11-02 12:11 | MHC.CM.PN ---
EMR REVIEWED, PT'S K WAS 2.4 THIS AM PER NSGING PT WILL NEED A K OF 2.7 TO PROCEED W/COLONOSCOPY, PT TRANSFUSED A K REMAINS AT 2.4, PER HOSPITALIST COLONOSCOPY SCHEDULED FOR TOMORROW , NO PLAN FOR D/C TODAY, ANTICIPATE PT WILL REMAIN INPT THROUGH [facility]. D/C PLAN: HOME W/NEW REFERRAL FOR [facility], TO [facility].
--- NOTE | 2020-11-02 13:44 | MHC.CLN ---
NUTRITION ASKED PATIENT ABOUT REPORTED WEIGHT LOSS OF 30#. STATED THAT WEIGHT LOSS OCCURRED A WHILE AGO . REVIEW OF WEIGHT HISTORY X 6 MONTHS SHOWS WEIGHT ESSENTIALLY STABLE X 6 MONTHS. 10/31=59 KG; 10/20=61.3 KG; 07/05=60.3 KG;06/05=61.2 KG. PATIENT SCHEDULED FOR COLONOSCOPY TOMORROW.
--- NOTE | 2020-11-02 14:36 | HO.PM.IMPN ---
Subjective Subjective Date of Service: 11/02/20 Interval History: the patient was seen and evaluated this morning Laying in bed, feels comfortable Found to have hyponatremia and hypokalemia this morning Colonoscopy postpone until tomorrow Denies any fever, chills or shortness of breath No reported other overnight events. Systemic review: No fever, chills or weakness No chest pain, palpitation No shortness of breath or coughing No abdominal pain, but has nausea o No urinary symptoms No any rash or wounds Physical Exam Vital Signs: Vital Signs: Last Vital Signs Temp 98.5 F 11/02/20 08:00 Pulse 88 11/02/20 08:00 Resp 17 11/02/20 08:00 BP 138/77 11/02/20 08:00 Pulse Ox 92 11/02/20 08:00 Body Mass Index 22.3 Const: Other: Constitutional : Alert, oriented, not in distress Neck : Normal inspection, Supple Cardiovascular : RRR, S1 S2, no lower extremity edema Respiratory : Good bilateral air entry, no crackles, wheezes or rhonchi Gastrointestinal: soft, lax, Normal bowel sounds, Non tender Skin : Warm, Dry Neurological : Alert & oriented x3, No focal deficit Objective Data Current Medications Generic Name Dose Route Start Last Admin Trade Name Freq PRN Reason Stop Dose Admin Acetaminophen 650 mg 10/31/20 21:12 Acetaminophen 325 Mg Tablet PO Q6H PRN Pain, Mild (Pain Scale 1-3) Al Hydroxide/Mg Hydroxide 30 ml 11/01/20 19:55 11/01/20 20:13 Magnesium Hydrox/Alum Hydrox 30 Ml Oral.Susp PO 30 ml Q4H PRN Administration Heartburn Buspirone HCl 10 mg 10/31/20 21:30 11/02/20 07:34 Buspirone Hcl 10 Mg Tablet PO 10 mg BID MARCI Administration Clonidine HCl 0.1 mg 10/31/20 21:30 11/01/20 20:13 Clonidine Hcl 0.1 Mg Tablet PO 0.1 mg BEDTIME MARCI Administration Protocol Heparin Sodium (Porcine) 5,000 unit 10/31/20 22:00 11/01/20 19:39 Heparin Sodium,Porcine 5,000 Unit/Ml Vial SUBCUT Not Given Q12H MARCI Ceftriaxone Sodium 1 gm/ 50 mls @ 100 mls/hr 10/31/20 23:00 11/02/20 00:29 Sodium Chloride IV Infused Q24H MARCI Infusion Metronidazole 500 mg in 100 mls @ 100 mls/hr 10/31/20 22:00 11/02/20 14:02 Flagyl IV 100 mls/hr Q8H MARCI Administration Lactated Ringer's 1,000 mls @ 80 mls/hr 11/02/20 08:30 11/02/20 11:13 Lr IVCONT 80 mls/hr .[id number] MARCI Administration Lactulose 20 gm 10/31/20 21:30 Lactulose 20 Gm/30 Ml Solution PO BID PRN constipation Lorazepam 1 mg 10/31/20 21:30 11/02/20 14:00 Lorazepam 1 Mg Tablet PO 1 mg TID MARCI Administration Morphine Sulfate 4 mg 10/31/20 20:14 11/01/20 16:16 Morphine Sulfate 4 Mg/Ml Cartridge IVPUSH 4 mg Q4H PRN Administration Pain, Severe (Pain Scale 7-10) Protocol Nicotine 21 mg 11/01/20 00:25 11/02/20 07:25 Nicotine 21 Mg Patch.Td24 TRANSDERMA 21 mg DAILY MARCI Administration Nicotine Polacrilex 4 mg 11/01/20 02:49 11/02/20 08:59 Nicotine Polacrilex 2 Mg Gum BUCCAL 4 mg Q1H PRN Administration Nicotine Cravings Omeprazole 20 mg 11/01/20 06:30 11/02/20 07:37 Omeprazole 20 Mg Capsule.Dr PO 20 mg DAILY@0630 MARCI Administration Ondansetron HCl 4 mg 10/31/20 21:12 Ondansetron Hcl 4 Mg/2 Ml Vial IVPUSH Q8H PRN Nausea and Vomiting Pharmacy Consult 1 each 10/31/20 17:12 Consult Rx Perform Med Rec MISCELLANE ONCE PRN Consult order Potassium Chloride 40 meq 11/02/20 08:30 11/02/20 14:01 Potassium Chloride Packet 20 Meq Packet PO 11/02/20 20:31 40 meq Q4H MARCI Administration Sertraline HCl 100 mg 11/01/20 09:00 11/02/20 07:35 Sertraline Hcl 100 Mg Tablet PO 100 mg DAILY MARCI Administration Sodium Chloride 3 ml 11/01/20 00:00 11/02/20 07:34 0.9 % Sodium Chloride Flush 3 Ml Syringe IVFLUSH Not Given QSHIFT MARCI Ziprasidone 60 mg 10/31/20 21:30 11/02/20 07:34 Ziprasidone 60 Mg Capsule PO 60 mg BID MARCI Administration Labs CBC & Chem 7: 11/01/20 05:51 11/02/20 09:54 Labs: Laboratory Results - last 24 hr 11/01/20 11/02/20 11/02/20 18:48 05:43 09:54 Anion Gap 14 13 11 L Estim Creat Clear Calc 68.3 85.7 78.5 Estimated GFR > 60 > 60 > 60 Random Glucose 231 H D 121 H D 117 H Calcium 7.7 L 7.5 L 7.6 L Microbiology Microbiology Results: Microbiology 10/31/20 18:05 Blood Culture - Preliminary Blood - Venous No growth after 24 hours. 10/31/20 18:05 Blood Culture - Preliminary Blood - Venous No growth after 24 hours. Assessment and Plan (1) Nausea & vomiting: Status: Acute (2) Abnormal CT scan, colon: Status: Acute (3) Hyponatremia: Status: Acute (4) Hypokalemia: Status: Acute Assessment and Plan: This is a 65-year-old female with past medical history of bipolar disorder, chronic constipation who presents to the hospital with or abdominal pain found to have a sigmoid colon mass. # colonic mass # possible colitis infection versus malignant No history of weight loss and no history of colonoscopy in the past Continue ceftriaxone and Flagyl follow cultures GI consult , for colonoscopy tomorrow Zofran p.r.n. # hyponatremia baseline sodium is around 133, today 129 serum osmolality of 264 and a urine osmolality of 500 secondary to dehydration nephrology input appreciated, continue IV fluids follow BMP # hypokalemia Potassium of 2.4 this morning and on recurrence To give replacement IV and p.o. Repeat BMP The # bipolar disorder continue home medications DVT prophylaxis: Heparin subQ Quality Stroke Does the patient have a stroke diagnosis?: No VTE Prior VTE?: No VTE Risk Level:: Medical - moderate - high VTE Device Contraindication: Treatment Not Indicated VTE Drug Contraindication: N/A - Med Ordered
[2020-11-02 15:26] LABS: Anion Gap 12 (12-20); Blood Urea Nitrogen 2 mg/dL (9-16); Calcium 7.7 mg/dL (8.4-10.2); Carbon Dioxide 28 mmol/L (22-29); Chloride 92 mmol/L (96-108); Creatinine Clr Calc Pharmacy 72.5; Estimated Glomerular Filt Rate > 60; Glucose Random 196 mg/dL (60-115); Sodium 129 mmol/L (135-145)
--- NOTE | 2020-11-02 15:40 | PC.NURSE ---
1200 Maintaining cl liq diet. scheduled colonoscopy postponed until tomorrow am Pt aware, due to low potassium recieved replacement KCL IV and PO.
[2020-11-02] MEDS: cloNIDine HCL 0.1 MG TABLET PO (20:08)
[2020-11-02] MEDS: cefTRIAXone sodium 1 GM in 0.9 % Sodium Chloride 50 ML IV (22:33)
[2020-11-03] VITALS (14 sets, daily range): BP systolic 112–190; BP diastolic 57–95; PULSE 68–92; RESP 16–85; TEMP 36.1–37.4; O2SAT 90–97
[2020-11-03] MEDS: metroNIDAZOLE/NS 500 MG/100 ML PIGGYBACK 100 MG IV ×3 (05:14→21:06)
[2020-11-03 06:49] LABS: Hematocrit 33.1 % (37-47); Hemoglobin 11.4 g/dl (12.0-16.0); Mean Corpuscular HGB Conc 34.4 g/dl (31.0-35.0); Mean Corpuscular Hemoglobin 29.8 pg (27.0-33.0); Mean Corpuscular Volume 86.6 fL (80-98); Platelet Count 225 X10*3/uL (160-400); Red Blood Count 3.82 X10*6/uL (4.20-5.50); White Blood Count 9.7 X10*3/uL (4.8-10.8)
[2020-11-03 07:10] LABS: Anion Gap 11 (12-20); Calcium 7.9 mg/dL (8.4-10.2); Carbon Dioxide 31 mmol/L (22-29); Chloride 92 mmol/L (96-108); Creatinine Clr Calc Pharmacy 81.3; Estimated Glomerular Filt Rate > 60; Glucose Random 117 mg/dL (60-115); Potassium 3.1 mmol/L (3.3-5.1); Sodium 131 mmol/L (135-145)
[2020-11-03 07:28] LABS: Blood Urea Nitrogen < 2 mg/dL (9-16)
[2020-11-03] MEDS: Ziprasidone 60 MG CAPSULE PO ×2 (07:28→20:17)
[2020-11-03] MEDS: Sertraline HCL 100 MG TABLET PO (07:28)
[2020-11-03] MEDS: Nicotine 21 MG PATCH.TD24 TRANSDERMA (07:29)
[2020-11-03] MEDS: LORazepam 1 MG TABLET PO ×3 (07:29→20:17)
[2020-11-03] MEDS: busPIRone HCl 10 MG TABLET PO ×2 (07:29→20:17)
[2020-11-03] MEDS: Nicotine Polacrilex 2 MG GUM 4 MG BUCCAL ×2 (07:33→17:41)
--- NOTE | 2020-11-03 11:56 | P.CONAN_ITS ---
[facility] Active Problems Active Problems: All Active Problems (Updated 11/02/20 @ 14:45 by Joesph mendoza MD) Hypokalemia (Acute) Abnormal CT scan, colon (Acute) Leukocytosis (Acute) Nausea & vomiting (Acute) Colonic mass (Acute) Hyponatremia (Acute) Right knee pain (Acute) Depression with anxiety (Acute) Chronic idiopathic constipation (Acute) Bipolar 1 disorder (Acute) Rib injury (Acute) Chest pain (Acute) Diabetes mellitus (Acute) Past Medical History Medical History Bipolar 1 disorder Chronic idiopathic constipation Depression with anxiety Diabetes mellitus Rib injury Right knee pain Functional capacity: independent ambulation Patient : No Family History Family History Father No problems noted. Mother No problems noted. Other Mental health disorder Surgical History Surgical History History of cholecystectomy History of Problems with Anesthesia: No Social History Social History Household Members: Spouse Housing: House Do you presently have visiting nurse or other home services: No Alcohol intake: former Patient Tobacco Use Status: Current everyday Tobacco user Tobacco use type: Cigarette Cigarette Packs Per Day: 1 Smoked in Last 30 Days: Yes Patient Interested in Nicotine Replacement: Yes Patient Given Instructions on How to Stop Smoking: No Second Hand Smoke Exposure: No Use of substances other than those prescribed or required for medical reasons: No Currently Displaying Signs/Symptoms of Drug Intoxication Withdrawal: No Have you been hit, kicked, punched, or otherwise hurt by someone within the past year? If so, by whom?: No Do you feel safe in your current relationship?: No Is there a partner from a previous relationship who is making you feel unsafe now?: No Are you made to feel afraid or neglected: No Advance Directives: No Advance Directives Information Provided: No Advance Directives on File: No Do you have thoughts of harming others: None Do you have a plan to hurt others: No Plan Recently lost weight without trying: No How much weight loss: 24-33 pounds Eating poorly because of decreased appetite: No Nutrition screen score: 3 Nutrition Risks: No Nutritional Risk Patient : No : No Poor oral hygiene: No service: No Current occupational status: unemployed Meds Allergies Allergy/AdvReac Type Severity Reaction Status Date / Time No Known Allergies Allergy Verified 10/19/20 11:08 Active Medications: Current Medications Generic Name Dose Route Start Last Admin Trade Name Freq PRN Reason Stop Dose Admin Acetaminophen 650 mg 10/31/20 21:12 Acetaminophen 325 Mg Tablet PO Q6H PRN Pain, Mild (Pain Scale 1-3) Al Hydroxide/Mg Hydroxide 30 ml 11/01/20 19:55 11/01/20 20:13 Magnesium Hydrox/Alum Hydrox 30 Ml Oral.Susp PO 30 ml Q4H PRN Administration Heartburn Buspirone HCl 10 mg 10/31/20 21:30 11/03/20 07:29 Buspirone Hcl 10 Mg Tablet PO 10 mg BID MARCI Administration Clonidine HCl 0.1 mg 10/31/20 21:30 11/02/20 20:08 Clonidine Hcl 0.1 Mg Tablet PO 0.1 mg BEDTIME MARCI Administration Protocol Heparin Sodium (Porcine) 5,000 unit 10/31/20 22:00 11/03/20 10:33 Heparin Sodium,Porcine 5,000 Unit/Ml Vial SUBCUT Not Given Q12H MARCI Ceftriaxone Sodium 1 gm/ 50 mls @ 100 mls/hr 10/31/20 23:00 11/02/20 23:25 Sodium Chloride IV Infused Q24H MARCI Infusion Metronidazole 500 mg in 100 mls @ 100 mls/hr 10/31/20 22:00 11/03/20 06:21 Flagyl IV Infused Q8H MARCI Infusion Lactated Ringer's 1,000 mls @ 80 mls/hr 11/02/20 08:30 11/03/20 06:21 Lr IVCONT 80 mls/hr .[id number] MARCI Infusion Lactulose 20 gm 10/31/20 21:30 Lactulose 20 Gm/30 Ml Solution PO BID PRN constipation Lorazepam 1 mg 10/31/20 21:30 11/03/20 07:29 Lorazepam 1 Mg Tablet PO 1 mg TID MARCI Administration Morphine Sulfate 4 mg 10/31/20 20:14 11/01/20 16:16 Morphine Sulfate 4 Mg/Ml Cartridge IVPUSH 4 mg Q4H PRN Administration Pain, Severe (Pain Scale 7-10) Protocol Nicotine 21 mg 11/01/20 00:25 11/03/20 07:29 Nicotine 21 Mg Patch.Td24 TRANSDERMA 21 mg DAILY MARCI Administration Nicotine Polacrilex 4 mg 11/01/20 02:49 11/03/20 07:33 Nicotine Polacrilex 2 Mg Gum BUCCAL 4 mg Q1H PRN Administration Nicotine Cravings Omeprazole 20 mg 11/01/20 06:30 11/02/20 07:37 Omeprazole 20 Mg Capsule.Dr PO 20 mg DAILY@0630 MARCI Administration Ondansetron HCl 4 mg 10/31/20 21:12 Ondansetron Hcl 4 Mg/2 Ml Vial IVPUSH Q8H PRN Nausea and Vomiting Pharmacy Consult 1 each 10/31/20 17:12 Consult Rx Perform Med Rec MISCELLANE ONCE PRN Consult order Sertraline HCl 100 mg 11/01/20 09:00 11/03/20 07:28 Sertraline Hcl 100 Mg Tablet PO 100 mg DAILY MARCI Administration Sodium Chloride 3 ml 11/01/20 00:00 11/03/20 07:34 0.9 % Sodium Chloride Flush 3 Ml Syringe IVFLUSH Not Given QSHIFT MARCI Ziprasidone 60 mg 10/31/20 21:30 11/03/20 07:28 Ziprasidone 60 Mg Capsule PO 60 mg BID MARCI Administration Home Medications Medication Instructions Recorded Confirmed Last Taken Type buspirone 5 mg tablet 10 mg PO BID 03/30/20 10/31/20 10/30/20 History clonidine HCl 0.1 mg tablet 0.1 mg PO BEDTIME 03/30/20 10/31/20 10/30/20 History lorazepam 1 mg tablet 1 mg PO TID 03/30/20 10/31/20 10/31/20 History sertraline 100 mg tablet 100 mg PO DAILY 03/30/20 10/31/20 10/30/20 History ziprasidone HCl 60 mg capsule 60 mg PO BID 07/04/20 10/31/20 10/30/20 History ondansetron 8 mg disintegrating 1 tab PO Q12H PRN 10/31/20 10/31/20 Unknown History tablet Exam Exam Date and Time: November 03, 2020 1156 Height,Weight and Vital Signs: Height 5 ft 4 in Weight 58.967 kg Last Vital Signs Temp 98 F 11/03/20 11:14 Pulse 85 11/03/20 11:14 Resp 85 H 11/03/20 11:14 BP 178/95 H 11/03/20 11:14 Pulse Ox 96 11/03/20 11:14 Pertinent Lab Results Pertinent Lab Results: Laboratory Tests 10/31/20 10/31/20 10/31/20 13:25 13:25 13:25 WBC 17.6 H RBC 5.23 Hgb 15.7 Hct 44.7 MCV 85.5 MCH 30.0 MCHC 35.1 H RDW 13.0 Plt Count 319 D MPV 8.6 L Immature Gran % (Auto) 0.5 H Neut % (Auto) 88.0 H Lymph % (Auto) 4.5 L [place] % (Auto) 6.7 Eos % (Auto) 0.1 Baso % (Auto) 0.2 Lymph # (Auto) 0.8 L [place] # (Auto) 1.2 Eos # (Auto) 0.0 Baso # (Auto) 0.0 Abs Immat Gran (auto) 0.08 H Absolute Neuts (auto) 15.5 H Absolute Nucleated RBC 0.000 Nucleated RBC % (auto) 0.0 Sodium 128 L Potassium 3.5 Chloride 86 L Carbon Dioxide 30 H Anion Gap 16 BUN 15 D Creatinine 1.02 Estim Creat Clear Calc 46.2 Estimated GFR 54 Random Glucose 166 H Osmolality 264 L Lactic Acid Calcium 9.7 Urine Color Urine Appearance Urine pH Ur Specific [place] Urine Protein Urine Glucose (UA) Urine Ketones Urine Blood Urine Nitrite Ur Leukocyte Esterase Urine RBC Urine WBC Ur Squamous Epith Cells Urine Bacteria Urine Osmolality Ur Random Sodium Coronavirus (PCR) Influenza Type A (PCR) Influenza Type B (PCR) RSV RNA Qual (PCR) 10/31/20 10/31/20 10/31/20 16:57 17:49 17:50 WBC RBC Hgb Hct MCV MCH MCHC RDW Plt Count MPV Immature Gran % (Auto) Neut % (Auto) Lymph % (Auto) [place] % (Auto) Eos % (Auto) Baso % (Auto) Lymph # (Auto) [place] # (Auto) Eos # (Auto) Baso # (Auto) Abs Immat Gran (auto) Absolute Neuts (auto) Absolute Nucleated RBC Nucleated RBC % (auto) Sodium 127 L Potassium Chloride Carbon Dioxide Anion Gap BUN Creatinine Estim Creat Clear Calc Estimated GFR Random Glucose Osmolality Lactic Acid Calcium Urine Color YELLOW Urine Appearance CLEAR Urine pH 6.5 Ur Specific [place] 1.010 Urine Protein 2+ H Urine Glucose (UA) NEG Urine Ketones 5 Urine Blood NEG Urine Nitrite NEG Ur Leukocyte Esterase NEG Urine RBC 0-2 Urine WBC 0 Ur Squamous Epith Cells 1+ Urine Bacteria 1+ Urine Osmolality Ur Random Sodium < 20.0 Coronavirus (PCR) Influenza Type A (PCR) Influenza Type B (PCR) RSV RNA Qual (PCR) 10/31/20 10/31/20 10/31/20 17:50 18:05 18:05 WBC RBC Hgb Hct MCV MCH MCHC RDW Plt Count MPV Immature Gran % (Auto) Neut % (Auto) Lymph % (Auto) [place] % (Auto) Eos % (Auto) Baso % (Auto) Lymph # (Auto) [place] # (Auto) Eos # (Auto) Baso # (Auto) Abs Immat Gran (auto) Absolute Neuts (auto) Absolute Nucleated RBC Nucleated RBC % (auto) Sodium Potassium Chloride Carbon Dioxide Anion Gap BUN Creatinine Estim Creat Clear Calc Estimated GFR Random Glucose Osmolality Lactic Acid 1.8 Calcium Urine Color Urine Appearance Urine pH Ur Specific [place] Urine Protein Urine Glucose (UA) Urine Ketones Urine Blood Urine Nitrite Ur Leukocyte Esterase Urine RBC Urine WBC Ur Squamous Epith Cells Urine Bacteria Urine Osmolality 521 Ur Random Sodium Coronavirus (PCR) NEGATIVE Influenza Type A (PCR) NEGATIVE Influenza Type B (PCR) NEGATIVE RSV RNA Qual (PCR) NEGATIVE 10/31/20 11/01/20 11/01/20 21:50 05:20 05:51 WBC 12.7 H RBC 4.49 Hgb 13.7 Hct 39.0 MCV 86.9 MCH 30.5 MCHC 35.1 H RDW 13.2 Plt Count 247 MPV 8.7 L Immature Gran % (Auto) 0.6 H Neut % (Auto) 86.1 H Lymph % (Auto) 6.8 L [place] % (Auto) 5.0 Eos % (Auto) 1.3 Baso % (Auto) 0.2 Lymph # (Auto) 0.9 L [place] # (Auto) 0.6 Eos # (Auto) 0.2 Baso # (Auto) 0.0 Abs Immat Gran (auto) 0.07 H Absolute Neuts (auto) 10.9 H Absolute Nucleated RBC 0.000 Nucleated RBC % (auto) 0.0 Sodium Potassium Chloride Carbon Dioxide Anion Gap BUN Creatinine Estim Creat Clear Calc Estimated GFR Random Glucose Osmolality 263 L Lactic Acid Calcium Urine Color Urine Appearance Urine pH Ur Specific [place] Urine Protein Urine Glucose (UA) Urine Ketones Urine Blood Urine Nitrite Ur Leukocyte Esterase Urine RBC Urine WBC Ur Squamous Epith Cells Urine Bacteria Urine Osmolality 565 Ur Random Sodium Coronavirus (PCR) Influenza Type A (PCR) Influenza Type B (PCR) RSV RNA Qual (PCR) 11/01/20 11/01/20 11/02/20 05:51 18:48 05:43 WBC RBC Hgb Hct MCV MCH MCHC RDW Plt Count MPV Immature Gran % (Auto) Neut % (Auto) Lymph % (Auto) [place] % (Auto) Eos % (Auto) Baso % (Auto) Lymph # (Auto) [place] # (Auto) Eos # (Auto) Baso # (Auto) Abs Immat Gran (auto) Absolute Neuts (auto) Absolute Nucleated RBC Nucleated RBC % (auto) Sodium 127 L 129 L 128 L Potassium 3.5 2.9 L 2.4 L* Chloride 91 L 91 L 90 L Carbon Dioxide 27 27 27 Anion Gap 13 14 13 BUN 10 5 L 4 L Creatinine 0.71 0.69 0.55 Estim Creat Clear Calc 66.4 68.3 85.7 Estimated GFR > 60 > 60 > 60 Random Glucose 149 H 231 H D 121 H D Osmolality Lactic Acid Calcium 7.9 L D 7.7 L 7.5 L Urine Color Urine Appearance Urine pH Ur Specific [place] Urine Protein Urine Glucose (UA) Urine Ketones Urine Blood Urine Nitrite Ur Leukocyte Esterase Urine RBC Urine WBC Ur Squamous Epith Cells Urine Bacteria Urine Osmolality Ur Random Sodium Coronavirus (PCR) Influenza Type A (PCR) Influenza Type B (PCR) RSV RNA Qual (PCR) 11/02/20 11/02/20 11/03/20 09:54 14:54 05:57 WBC 9.7 RBC 3.82 L Hgb 11.4 L Hct 33.1 L MCV 86.6 MCH 29.8 MCHC 34.4 RDW 13.0 Plt Count 225 MPV 9.0 L Immature Gran % (Auto) Neut % (Auto) Lymph % (Auto) [place] % (Auto) Eos % (Auto) Baso % (Auto) Lymph # (Auto) [place] # (Auto) Eos # (Auto) Baso # (Auto) Abs Immat Gran (auto) Absolute Neuts (auto) Absolute Nucleated RBC 0.000 Nucleated RBC % (auto) 0.0 Sodium 129 L 129 L Potassium 2.4 L* 3.0 L D Chloride 89 L 92 L Carbon Dioxide 31 H 28 Anion Gap 11 L 12 BUN 3 L 2 L Creatinine 0.60 0.65 Estim Creat Clear Calc 78.5 72.5 Estimated GFR > 60 > 60 Random Glucose 117 H 196 H D Osmolality Lactic Acid Calcium 7.6 L 7.7 L Urine Color Urine Appearance Urine pH Ur Specific [place] Urine Protein Urine Glucose (UA) Urine Ketones Urine Blood Urine Nitrite Ur Leukocyte Esterase Urine RBC Urine WBC Ur Squamous Epith Cells Urine Bacteria Urine Osmolality Ur Random Sodium Coronavirus (PCR) Influenza Type A (PCR) Influenza Type B (PCR) RSV RNA Qual (PCR) 11/03/20 05:57 WBC RBC Hgb Hct MCV MCH MCHC RDW Plt Count MPV Immature Gran % (Auto) Neut % (Auto) Lymph % (Auto) [place] % (Auto) Eos % (Auto) Baso % (Auto) Lymph # (Auto) [place] # (Auto) Eos # (Auto) Baso # (Auto) Abs Immat Gran (auto) Absolute Neuts (auto) Absolute Nucleated RBC Nucleated RBC % (auto) Sodium 131 L Potassium 3.1 L Chloride 92 L Carbon Dioxide 31 H Anion Gap 11 L BUN < 2 L Creatinine 0.58 Estim Creat Clear Calc 81.3 Estimated GFR > 60 Random Glucose 117 H D Osmolality Lactic Acid Calcium 7.9 L Urine Color Urine Appearance Urine pH Ur Specific [place] Urine Protein Urine Glucose (UA) Urine Ketones Urine Blood Urine Nitrite Ur Leukocyte Esterase Urine RBC Urine WBC Ur Squamous Epith Cells Urine Bacteria Urine Osmolality Ur Random Sodium Coronavirus (PCR) Influenza Type A (PCR) Influenza Type B (PCR) RSV RNA Qual (PCR) Airway Mallampati Class: II Neck ROM: Full Heart: RRR Lungs: CTA Assessment and Plan Final Anesthetic Review History of Problems with Anesthesia: No
--- NOTE | 2020-11-03 12:04 | P.BOP_ITS ---
Brief Operative Note Date of Service: 11/03/20 Pre-op diagnosis: Partial colon obstruction, abnormal CT scan of [place] Post-op diagnosis: other (severe diverticulosis with sigmoid colon stricture, colon polyp, hemorrhoids) Procedure: FLEXIBLE SIGMOIDOSCOPY TILL 60 CMS WITH BIOPSIES Consent: Indications for the procedure and potential complications of bleeding, perforation, reaction to medications and missed diagnosis were discussed with the patient and informed consent was obtained. Instrument: Olympus PCF H 190 L variable stiffness pediatric colonoscope and Mid size upper endoscope Monitoring: Vital signs and clinical assessment, intermittent blood pressure monitoring, continuous EKG monitoring, Pulse oximetry and Carbon Dioxide monitoring were done throughout the procedure. Procedure: The patient was placed in the left lateral decubitis position and pre-procedure medications were administered. After a digital rectal examination of the ano-rectum, the video colonoscope was inserted into the rectum and advanced through the colon to 50 cms. It was not possible to advance further due to severe diverticulosis with stricture. The colonoscopy was removed, a mid-size upper endoscope was introduced into the rectum and advanced to the sigmoid colon to 60 cms. It was not possible to advanced further due to narrowing and looping of the scope. The upper endoscope was slowly withdrawn in a retrograde panoramic fashion and the colon mucosa was carefully examined including a retroflexed view of the rectum. Findings and interventions are described below. Procedure Difficulty: difficult due to sigmoid stricture, incomplete col onoscopy Findings: Sigmoid Colon: Severe diverticulosis with edematous folds and luminal narrowing and tight stricture from 25 to 55 cms - biopsies were obtained. An 8-9 mm sessile polyp within a diverticulum at 25 cms - not removed. No mass lesion was seen. Ainsley ink was injected at 25 cms - at the distal end of sigmoid stricture Rectum: Normal Ano-rectum: Moderate internal hemorrhoids Colon preparation: Good after some irrigation Impression and Post Procedure Diagnosis: Colonoscopy Findings: An 8-9 mm sessile polyp within a diverticulum at 25 cms - not removed. Severe diverticulosis with edematous folds and luminal narrowing and tight stricture from 25 to 55 cms - biopsies were obtained. No mass visualized Moderate hemorrhoids on retroflexed exam. Plan: Await pathology results Surgery consult - pt discussed with Dr Mccormick. Full colonoscopy in 1 year or after patient recovers from surgery Above findings were reviewed with the patient. Surgeon: Mahsa De Los Santos MD Anesthesia: MAC (Dr Salas) Was an Auto Suspension And Steering Mechanic used for this Procedure?: Yes Auto Suspension And Steering Mechanic: Yulisa Andrea Estimated blood loss (mL): 0 Pathology: other (a: bx's sigmoid stricture at 50 cm) Condition: stable Disposition: PACU
--- NOTE | 2020-11-03 12:04 | MHC.SHP ---
Pre-Procedural Eval Section A Date of Service: 11/03/20 The patient is an INPATIENT: Yes Changes since office visit: Yes New Medical Problems, Yes Changes in Medication and Yes Patient answered all questions; No Cold of Flu in the past 2 weeks The History & Physical has been completed within 30 days and I have reviewed it.: Yes Section B Chief Complaint: abdominal mass, intractable pain Allergies: Allergies Allergy/AdvReac Type Severity Reaction Status Date / Time No Known Allergies Allergy Verified 10/19/20 11:08 Plan I have reviewed the history and physical and performed a pertinent physical examination on my patient. No changes have occurred unless specified.
[2020-11-03] MEDS: Labetalol HCL 100 MG/20 ML VIAL 20 MG IVPUSH (13:34)
--- NOTE | 2020-11-03 15:36 | HO.PM.IMPN ---
Subjective Subjective Date of Service: 11/04/20 Interval History: the patient was seen and evaluated this morning Laying in bed, feels comfortable waiting colonoscopy Denies any fever, chills or shortness of breath No reported other overnight events. Systemic review: No fever, chills or weakness No chest pain, palpitation No shortness of breath or coughing No abdominal pain, but has nausea o No urinary symptoms No any rash or wounds Physical Exam Vital Signs: Vital Signs: Last Vital Signs Temp 98 F 11/03/20 14:08 Pulse 68 11/03/20 14:08 Resp 20 11/03/20 14:08 BP 158/80 H 11/03/20 14:08 Pulse Ox 95 11/03/20 14:08 Body Mass Index 22.3 Const: Other: Constitutional : Alert, oriented, not in distress Neck : Normal inspection, Supple Cardiovascular : RRR, S1 S2, no lower extremity edema Respiratory : Good bilateral air entry, no crackles, wheezes or rhonchi Gastrointestinal: soft, lax, Normal bowel sounds, Non tender Skin : Warm, Dry Neurological : Alert & oriented x3, No focal deficit Objective Data Current Medications Generic Name Dose Route Start Last Admin Trade Name Freq PRN Reason Stop Dose Admin Acetaminophen 650 mg 10/31/20 21:12 Acetaminophen 325 Mg Tablet PO Q6H PRN Pain, Mild (Pain Scale 1-3) Al Hydroxide/Mg Hydroxide 30 ml 11/01/20 19:55 11/01/20 20:13 Magnesium Hydrox/Alum Hydrox 30 Ml Oral.Susp PO 30 ml Q4H PRN Administration Heartburn Buspirone HCl 10 mg 10/31/20 21:30 11/03/20 07:29 Buspirone Hcl 10 Mg Tablet PO 10 mg BID MARCI Administration Clonidine HCl 0.1 mg 10/31/20 21:30 11/02/20 20:08 Clonidine Hcl 0.1 Mg Tablet PO 0.1 mg BEDTIME MARCI Administration Protocol Heparin Sodium (Porcine) 5,000 unit 10/31/20 22:00 11/03/20 10:33 Heparin Sodium,Porcine 5,000 Unit/Ml Vial SUBCUT Not Given Q12H MARCI Ceftriaxone Sodium 1 gm/ 50 mls @ 100 mls/hr 10/31/20 23:00 11/02/20 23:25 Sodium Chloride IV Infused Q24H MARCI Infusion Metronidazole 500 mg in 100 mls @ 100 mls/hr 10/31/20 22:00 11/03/20 14:22 Flagyl IV 100 mls/hr Q8H MARCI Administration Labetalol HCl 20 mg 11/03/20 13:25 11/03/20 13:34 Labetalol Hcl 100 Mg/20 Ml Vial IVPUSH 20 mg Q20M PRN Administration SBP > 160 Lactulose 20 gm 10/31/20 21:30 Lactulose 20 Gm/30 Ml Solution PO BID PRN constipation Lorazepam 1 mg 10/31/20 21:30 11/03/20 14:20 Lorazepam 1 Mg Tablet PO 1 mg TID MARCI Administration Morphine Sulfate 4 mg 10/31/20 20:14 11/01/20 16:16 Morphine Sulfate 4 Mg/Ml Cartridge IVPUSH 4 mg Q4H PRN Administration Pain, Severe (Pain Scale 7-10) Protocol Nicotine 21 mg 11/01/20 00:25 11/03/20 07:29 Nicotine 21 Mg Patch.Td24 TRANSDERMA 21 mg DAILY MARCI Administration Nicotine Polacrilex 4 mg 11/01/20 02:49 11/03/20 07:33 Nicotine Polacrilex 2 Mg Gum BUCCAL 4 mg Q1H PRN Administration Nicotine Cravings Omeprazole 20 mg 11/01/20 06:30 11/02/20 07:37 Omeprazole 20 Mg Capsule.Dr PO 20 mg DAILY@0630 MARCI Administration Ondansetron HCl 4 mg 10/31/20 21:12 Ondansetron Hcl 4 Mg/2 Ml Vial IVPUSH Q8H PRN Nausea and Vomiting Pharmacy Consult 1 each 10/31/20 17:12 Consult Rx Perform Med Rec MISCELLANE ONCE PRN Consult order Sertraline HCl 100 mg 11/01/20 09:00 11/03/20 07:28 Sertraline Hcl 100 Mg Tablet PO 100 mg DAILY MARCI Administration Sodium Chloride 3 ml 11/01/20 00:00 11/03/20 07:34 0.9 % Sodium Chloride Flush 3 Ml Syringe IVFLUSH Not Given QSHIFT MARCI Ziprasidone 60 mg 10/31/20 21:30 11/03/20 07:28 Ziprasidone 60 Mg Capsule PO 60 mg BID MARCI Administration Labs CBC & Chem 7: 11/03/20 05:57 11/04/20 05:39 Labs: Laboratory Results - last 24 hr 11/03/20 11/03/20 05:57 05:57 MCV 86.6 MCH 29.8 MCHC 34.4 RDW 13.0 Plt Count 225 MPV 9.0 L Absolute Nucleated RBC 0.000 Nucleated RBC % (auto) 0.0 Anion Gap 11 L Estim Creat Clear Calc 81.3 Estimated GFR > 60 Random Glucose 117 H D Calcium 7.9 L Microbiology Microbiology Results: Microbiology 10/31/20 18:05 Blood Culture - Preliminary Blood - Venous No growth after 48 hours. 10/31/20 18:05 Blood Culture - Preliminary Blood - Venous No growth after 48 hours. Assessment and Plan (1) Hypokalemia: Status: Acute (2) Leukocytosis: Status: Acute (3) Colon stricture: Status: Acute Assessment and Plan: This is a 65-year-old female with past medical history of bipolar disorder, chronic constipation who presents to the hospital with or abdominal pain found to have a sigmoid colon mass. # colonic mass # possible colitis infection versus malignant No history of weight loss and no history of colonoscopy in the past Continue ceftriaxone and Flagyl negative cultures GI following, Colonoscopy showed long partially obstructing stricture Pending surgery cecily Taylor p.r.n. # hyponatremia baseline sodium is around 133, today 131 serum osmolality of 264 and a urine osmolality of 500 secondary to dehydration nephrology input appreciated, continue IV fluids follow BMP # hypokalemia Potassium of 3.1 this morning and on recurrence To give replacement IV and p.o. Repeat BMP # bipolar disorder continue home medications DVT prophylaxis: Heparin subQ Quality Stroke Does the patient have a stroke diagnosis?: No VTE Prior VTE?: No VTE Risk Level:: Medical - moderate - high VTE Device Contraindication: Treatment Not Indicated VTE Drug Contraindication: N/A - Med Ordered
--- NOTE | 2020-11-03 15:40 | P.CONGS_ITS ---
History of Present Illness Consult details Consult date: 11/03/20 Requesting physician: Mahsa De Los Santos Narrative: This is a 65-year-old female who presented to the emergency department 2 days ago for evaluation of abdominal pain. She reports that, prior to admission, she had moderately severe diffuse abdominal pain for 3 days. She had 1 episode of bilious vomiting. She gives a long history of constipation. She reports that she had been passing flatus. She has not had similar problems in the past. CT scan of the abdomen and pelvis was obtained in the emergency department and demonstrated findings of a 3 cm mass possibly within the wall or the lumen of t he sigmoid colon. The more proximal colon and small bowel were noted to be dilated and fluid filled. She was able to tolerate a bowel prep and underwent colonoscopy today with Dr. De Los Santos. Dr. De Los Santos identified an inflamed and narrowed area of colon extending from 25 cm to at least 60 cm. A sessile polyp was present within a diverticulum at 25 cm and was not removed. Based upon findings, it appeared that surgical resection of the involved segment of colon including the area containing the polyp would be needed. The patient reports no prior history of diverticulitis. Review of Systems Constitutional: Constitutional: Denies chills, Denies fever(s) and Reports weight loss (Over past year, intentional, approximately 25 lb) Cardiovascular: Cardiovascular: Denies chest pain, Denies dyspnea and Denies paroxysmal nocturnal dyspnea Respiratory: Respiratory: Reports cough, Denies dyspnea and Denies wheezing Gastrointestinal: Gastrointestinal: Reports as per HPI Musculoskeletal: Musculoskeletal: Reports no additional musculoskeletal complaints Psychiatric: Comments: History of bipolar disorder Allergic/Immunologic: Allergic/Immunologic: Denies wheezing PMFSH Past Medical History Medical History Bipolar 1 disorder Chronic idiopathic constipation Depression with anxiety Diabetes mellitus Rib injury Right knee pain Functional capacity: independent ambulation Family History Family History Father No problems noted. Mother No problems noted. Other Mental health disorder Surgical History Surgical History History of cholecystectomy Social History Social History Household Members: Spouse Housing: House Do you presently have visiting nurse or other home services: No Alcohol intake: former Patient Tobacco Use Status: Current everyday Tobacco user Tobacco use type: Cigarette Cigarette Packs Per Day: 1 Smoked in Last 30 Days: Yes Patient Interested in Nicotine Replacement: Yes Patient Given Instructions on How to Stop Smoking: No Second Hand Smoke Exposure: No Use of substances other than those prescribed or required for medical reasons: No Currently Displaying Signs/Symptoms of Drug Intoxication Withdrawal: No Have you been hit, kicked, punched, or otherwise hurt by someone within the past year? If so, by whom?: No Do you feel safe in your current relationship?: No Is there a partner from a previous relationship who is making you feel unsafe now?: No Are you made to feel afraid or neglected: No Advance Directives: No Advance Directives Information Provided: No Advance Directives on File: No Do you have thoughts of harming others: None Do you have a plan to hurt others: No Plan Recently lost weight without trying: No How much weight loss: 24-33 pounds Eating poorly because of decreased appetite: No Nutrition screen score: 3 Nutrition Risks: No Nutritional Risk Patient : No : No Poor oral hygiene: No service: No Current occupational status: unemployed Meds Allergies Allergy/AdvReac Type Severity Reaction Status Date / Time No Known Allergies Allergy Verified 10/19/20 11:08 Active Medications: Current Medications Generic Name Dose Route Start Last Admin Trade Name Freq PRN Reason Stop Dose Admin Acetaminophen 650 mg 10/31/20 21:12 Acetaminophen 325 Mg Tablet PO Q6H PRN Pain, Mild (Pain Scale 1-3) Al Hydroxide/Mg Hydroxide 30 ml 11/01/20 19:55 11/01/20 20:13 Magnesium Hydrox/Alum Hydrox 30 Ml Oral.Susp PO 30 ml Q4H PRN Administration Heartburn Buspirone HCl 10 mg 10/31/20 21:30 11/03/20 07:29 Buspirone Hcl 10 Mg Tablet PO 10 mg BID MARCI Administration Clonidine HCl 0.1 mg 10/31/20 21:30 11/02/20 20:08 Clonidine Hcl 0.1 Mg Tablet PO 0.1 mg BEDTIME MARCI Administration Protocol Heparin Sodium (Porcine) 5,000 unit 10/31/20 22:00 11/03/20 10:33 Heparin Sodium,Porcine 5,000 Unit/Ml Vial SUBCUT Not Given Q12H MARCI Ceftriaxone Sodium 1 gm/ 50 mls @ 100 mls/hr 10/31/20 23:00 11/02/20 23:25 Sodium Chloride IV Infused Q24H MARCI Infusion Metronidazole 500 mg in 100 mls @ 100 mls/hr 10/31/20 22:00 11/03/20 14:22 Flagyl IV 100 mls/hr Q8H MARCI Administration Labetalol HCl 20 mg 11/03/20 13:25 11/03/20 13:34 Labetalol Hcl 100 Mg/20 Ml Vial IVPUSH 20 mg Q20M PRN Administration SBP > 160 Lactulose 20 gm 10/31/20 21:30 Lactulose 20 Gm/30 Ml Solution PO BID PRN constipation Lorazepam 1 mg 10/31/20 21:30 11/03/20 14:20 Lorazepam 1 Mg Tablet PO 1 mg TID MARCI Administration Morphine Sulfate 4 mg 10/31/20 20:14 11/01/20 16:16 Morphine Sulfate 4 Mg/Ml Cartridge IVPUSH 4 mg Q4H PRN Administration Pain, Severe (Pain Scale 7-10) Protocol Nicotine 21 mg 11/01/20 00:25 11/03/20 07:29 Nicotine 21 Mg Patch.Td24 TRANSDERMA 21 mg DAILY MARCI Administration Nicotine Polacrilex 4 mg 11/01/20 02:49 11/03/20 07:33 Nicotine Polacrilex 2 Mg Gum BUCCAL 4 mg Q1H PRN Administration Nicotine Cravings Omeprazole 20 mg 11/01/20 06:30 11/02/20 07:37 Omeprazole 20 Mg Capsule.Dr PO 20 mg DAILY@0630 MARCI Administration Ondansetron HCl 4 mg 10/31/20 21:12 Ondansetron Hcl 4 Mg/2 Ml Vial IVPUSH Q8H PRN Nausea and Vomiting Pharmacy Consult 1 each 10/31/20 17:12 Consult Rx Perform Med Rec MISCELLANE ONCE PRN Consult order Sertraline HCl 100 mg 11/01/20 09:00 11/03/20 07:28 Sertraline Hcl 100 Mg Tablet PO 100 mg DAILY MARCI Administration Sodium Chloride 3 ml 11/01/20 00:00 11/03/20 07:34 0.9 % Sodium Chloride Flush 3 Ml Syringe IVFLUSH Not Given QSHIFT [facility] Ziprasidone 60 mg 10/31/20 21:30 11/03/20 07:28 Ziprasidone 60 Mg Capsule PO 60 mg BID MARCI Administration Home Medications Medication Instructions Recorded Confirmed Last Taken Type buspirone 5 mg tablet 10 mg PO BID 03/30/20 10/31/20 10/30/20 History clonidine HCl 0.1 mg tablet 0.1 mg PO BEDTIME 03/30/20 10/31/20 10/30/20 History lorazepam 1 mg tablet 1 mg PO TID 03/30/20 10/31/20 10/31/20 History sertraline 100 mg tablet 100 mg PO DAILY 03/30/20 10/31/20 10/30/20 History ziprasidone HCl 60 mg capsule 60 mg PO BID 07/04/20 10/31/20 10/30/20 History ondansetron 8 mg disintegrating 1 tab PO Q12H PRN 10/31/20 10/31/20 Unknown History tablet Physical Exam Vital Signs: Vital Signs: Last Vital Signs Temp 97.9 F 11/03/20 15:38 Pulse 69 11/03/20 15:38 Resp 16 11/03/20 15:38 BP 125/88 11/03/20 15:38 Pulse Ox 97 11/03/20 15:38 Body Mass Index 22.3 Const: General: cooperative, no acute distress and alert HENMT: Head: Yes normocephalic and Yes atraumatic Resp: Effort & Inspection: normal respiratory effort Auscultation: clear to auscultation bilaterally and diminished lung sounds bilateral Cardio: Rate: regular rate Rhythm: regular rhythm GI: Other: Round, soft, mildly distended, nontender, no palpable masses Skin: General skin exam: no rashes or lesions noted Extrem: General: Yes normal to inspection Results Labs Result diagrams: 11/03/20 05:57 11/03/20 05:57 Labs: Abnormal lab results 11/03/20 11/03/20 Range/Units 05:57 05:57 RBC 3.82 L (4.20-5.50) X10*6/uL Hgb 11.4 L (12.0-16.0) g/dl Hct 33.1 L (37-47) % MPV 9.0 L (9.4-12.3) fL Sodium 131 L (135-145) mmol/L Potassium 3.1 L (3.3-5.1) mmol/L Chloride 92 L (96-108) mmol/L Carbon Dioxide 31 H (22-29) mmol/L Anion Gap 11 L (12-20) BUN < 2 L (9-16) mg/dL Random Glucose 117 H D (60-115) mg/dL Calcium 7.9 L (8.4-10.2) mg/dL Short CBC 11/03/20 Range/Units 05:57 WBC 9.7 (4.8-10.8) X10*3/uL Hgb 11.4 L (12.0-16.0) g/dl Hct 33.1 L (37-47) % Plt Count 225 (160-400) X10*3/uL BMP 11/03/20 05:57 Sodium 131 L Potassium 3.1 L Chloride 92 L Carbon Dioxide 31 H BUN < 2 L Creatinine 0.58 Calcium 7.9 L Urine 10/31/20 Range/Units 17:50 Urine Color YELLOW Urine Appearance CLEAR Urine pH 6.5 (5.0-8.0) Ur Specific [place] 1.010 (1.005-1.025) Urine Protein 2+ H (NEG-TRACE) MG/DL Urine Glucose (UA) NEG (NEG) MG/DL All other labs normal. Assessment and Plan (1) Abnormal CT scan, colon: Status: Acute (2) Nausea & vomiting: Status: Acute (3) Colonic mass: Status: Acute 65-year-old female with long segment of inflamed and narrowed sigmoid colon causing partial obstruction. Diverticular stricture appears the most likely etiology at this time, but other etiologies are possible. Biopsies were taken at colonoscopy today. Based upon findings, it appears highly likely that resection will be needed. I have discussed this with her and with her who was present at the time of my visit. We discussed the possibility that she will not tolerate a solid diet and also reviewed the need for repeat bowel prep preoperatively and the reasons for it, primarily risks of anastomotic leak and postoperative infection. We reviewed that a temporary colostomy might be needed. We also discussed the role of smoking in impaired wound healing. Will await results of biopsies. Anticipate that surgery will be scheduled in the coming week. Procedures Date of Service Date of Service: 11/03/20
[2020-11-03] MEDS: 0.9 % Sodium Chloride Flush 3 ML SYRINGE IVFLUSH (17:42)
[2020-11-03] MEDS: cloNIDine HCL 0.1 MG TABLET PO (20:17)
[2020-11-03] MEDS: Heparin Sodium,Porcine 5,000 UNIT/ML VIAL 5000 UNIT SUBCUT (20:18)
[2020-11-03] MEDS: cefTRIAXone sodium 1 GM in 0.9 % Sodium Chloride 50 ML IV (22:16)
[2020-11-04] VITALS (7 sets, daily range): BP systolic 120–168; BP diastolic 59–87; PULSE 64–82; RESP 16–20; TEMP 35.5–36.7; O2SAT 92–98
[2020-11-04] MEDS: 0.9 % Sodium Chloride Flush 3 ML SYRINGE IVFLUSH ×3 (00:34→15:41)
[2020-11-04] MEDS: Nicotine Polacrilex 2 MG GUM 4 MG BUCCAL ×3 (04:53→19:55)
[2020-11-04] MEDS: Omeprazole 20 MG CAPSULE.DR PO (06:23)
[2020-11-04] MEDS: metroNIDAZOLE/NS 500 MG/100 ML PIGGYBACK 100 MG IV ×3 (06:24→21:08)
[2020-11-04 07:18] LABS: Anion Gap 13 (12-20); Blood Urea Nitrogen 2 mg/dL (9-16); Calcium 7.9 mg/dL (8.4-10.2); Carbon Dioxide 32 mmol/L (22-29); Chloride 88 mmol/L (96-108); Creatinine Clr Calc Pharmacy 71.4; Estimated Glomerular Filt Rate > 60; Glucose Random 232 mg/dL (60-115); Potassium 2.9 mmol/L (3.3-5.1); Sodium 130 mmol/L (135-145)
--- NOTE | 2020-11-04 07:58 | P.PNNP_ITS ---
Subjective Subjective Date of Service: 11/04/20 Interval history: the patient was seen and evaluated this morning Physical Exam Vital Signs: Vital Signs: Last Vital Signs Temp 97 F 11/04/20 06:51 Pulse 72 11/04/20 06:51 Resp 20 11/04/20 06:51 BP 120/59 L 11/04/20 06:51 Pulse Ox 92 11/04/20 06:51 Body Mass Index 22.3 Const: Other: Constitutional : Alert, oriented, not in distress Neck : Normal inspection, Supple Cardiovascular : RRR, S1 S2, no lower extremity edema Respiratory : Good bilateral air entry, no crackles, wheezes or rhonchi Gastrointestinal: soft, lax, Normal bowel sounds, Non tender Skin : Warm, Dry Neurological : Alert & oriented x3, No focal deficit General: cooperative, comfortable, no acute distress and alert; No confusion Nutritional Appearance: average body habitus Orientation/consciousness: patient oriented x3 and No confusion HENMT: Head: Yes normal to inspection, Yes normocephalic and Yes atraumatic Ears: hearing grossly normal bilaterally General nose exam: Normal external nose present Face and sinus: Yes normal facial exam Mouth: Normal oral and palatal mucosa present and moist mucous membranes Teeth and gingiva: dentition normal and gingiva normal Throat: Yes posterior oropharynx normal Eyes: General: appearance normal, both eyes and all related structures Neck: Neck: Yes normal visual inspection and Yes supple Chest: Chest palpation & inspection: normal inspection of the chest Resp: Effort & Inspection: normal respiratory effort and able to speak in complete sentences Auscultation: clear to auscultation bilaterally and diminished lung sounds bilateral Cardio: Rate: regular rate Rhythm: regular rhythm Heart sounds: S1 normal heart sound present and S2 normal heart sound present GI: Other: Round, soft, mildly distended, nontender, no palpable masses Inspe ction: Yes distended Palpation (GI): Soft to palpation and Tenderness to palpation present (GI) in the LLQ and in the RLQ Percussion: Yes dullness to percussion Auscultation: normal bowel sounds Rectal Exam - Female: deferred Skin: General skin exam: no rashes or lesions noted Neuro: General: patient oriented x3 and No confusion Cognition (Neuro): normal cognition Extrem: General: Yes normal to inspection, Yes full ROM, Yes normal exam except as noted and Yes no pedal edema Objective Data Labs CBC & Chem 7: 11/03/20 05:57 11/04/20 05:39 Labs: Laboratory Results - last 24 hr 11/04/20 05:39 Sodium 130 L Potassium 2.9 L Chloride 88 L Carbon Dioxide 32 H Anion Gap 13 BUN 2 L Creatinine 0.66 Estim Creat Clear Calc 71.4 Estimated GFR > 60 Random Glucose 232 H D Calcium 7.9 L Microbiology Microbiology Results: Microbiology 10/31/20 18:05 Blood - Venous Blood Culture - Preliminary No growth after 48 hours. 10/31/20 18:05 Blood - Venous Blood Culture - Preliminary No growth after 48 hours. Procedures Date of Service Date of Service: 11/04/20 Assessment & Plan Assessment and plan (1) Hypokalemia: Status: Acute Assessment and Plan: persistant low K will check urine K to see if renal wasting (2) Hyponatremia: Status: Acute Assessment and Plan: persistant low na with a low urine na will repeat brijesh this am Assessment and Plan: 65-year-old female with long segment of inflamed and narrowed sigmoid colon causing partial obstruction. Time Spent With Patient Time: Total time spent is greater than 50% in coordination of care (as documented) at patient's floor/unit and/or counseling patient: Progress Note: Quality Stroke Does the patient have a stroke diagnosis?: No
[2020-11-04] MEDS: LORazepam 1 MG TABLET PO ×3 (08:09→19:57)
[2020-11-04] MEDS: busPIRone HCl 10 MG TABLET PO ×2 (08:09→19:56)
[2020-11-04] MEDS: Sertraline HCL 100 MG TABLET PO (08:09)
[2020-11-04] MEDS: Ziprasidone 60 MG CAPSULE PO ×2 (08:09→19:57)
[2020-11-04] MEDS: Potassium Chloride ER 20 MEQ TAB.ER.PRT PO ×2 (08:09→19:57)
[2020-11-04] MEDS: Nicotine 21 MG PATCH.TD24 TRANSDERMA (08:10)
[2020-11-04] MEDS: Heparin Sodium,Porcine 5,000 UNIT/ML VIAL 5000 UNIT SUBCUT ×2 (08:10→21:08)
[2020-11-04] MEDS: Potassium Chloride/H20 10 MEQ/100 ML PIGGYBACK 100 MEQ IV ×2 (10:07→11:13)
[2020-11-04 11:12] LABS: Potassium Urine Random 6.6 mmol/L
[2020-11-04] MEDS: Acetaminophen 325 MG TABLET 650 MG PO (11:12)
[2020-11-04 11:15] LABS: Osmolality Urine 112 mosm/kg (373-1093)
[2020-11-04 11:18] LABS: Creatinine Urine 10.83 mg/dL; Microalbumin Urine < 5.0 mg/L
--- NOTE | 2020-11-04 11:47 | PM.PNGS ---
Subjective Subjective Date of Service: 11/04/20 Interval history: On commode continuously this morning. Reports passing stool. Tolerating low residue diet. No significant abdominal pain or nausea. Very focused on IV medications and on eating. It difficult to conduct a coherent discussion with her about plans for surgery. Physical Exam Vital Signs: Vital Signs: Last Vital Signs Temp 96 F L 11/04/20 10:55 Pulse 72 11/04/20 10:55 Resp 20 11/04/20 10:55 BP 140/72 H 11/04/20 10:55 Pulse Ox 94 11/04/20 10:55 Body Mass Index 22.3 Laboratory Results - last 24 hr 11/04/20 11/04/20 11/04/20 05:39 10:30 10:30 Sodium 130 L Potassium 2.9 L Chloride 88 L Carbon Dioxide 32 H Anion Gap 13 BUN 2 L Creatinine 0.66 Estim Creat Clear Calc 71.4 Estimated GFR > 60 Random Glucose 232 H D Calcium 7.9 L Urine Osmolality Ur Random Sodium 36.0 Ur Random Potassiu m Urine Creatinine Cancelled 10.83 Urine Microalbumin < 5.0 Microalb/Creat Rat io TNP 11/04/20 11/04/20 10:30 10:30 Sodium Potassium Chloride Carbon Dioxide Anion Gap BUN Creatinine Estim Creat Clear Calc Estimated GFR Random Glucose Calcium Urine Osmolality 112 L Ur Random Sodium Ur Random Potassiu m 6.6 Urine Creatinine Urine Microalbumin Microalb/Creat Rat io Const: General: no acute distress and alert Procedures Date of Service Date of Service: 11/04/20 Progress Note: A&P Assessment and plan (1) Colonic mass: Status: Acute (2) Abnormal CT scan, colon: Status: Acute Assessment and Plan: 65-year-old female presenting with strictured area sigmoid colon and partial bowel obstruction. She is passing flatus and moving her bowels. On low residue diet. Resection will be needed. Biopsy results are pending. Anticipate that resection will be performed sometime this week by either Dr. Douglas or Dr. Kim. I reviewed the anticipated course of postoperative hospitalization with the patient and her and also reviewed the need for preoperative bowel preparation. Because the date of surgery is unknown at this time and because bowel prep will be needed preoperatively, I will place her back on a clear liquid diet after midnight tonight pending decision regarding the timing of surgery. I discussed this with them and explained the reasons for it. Received p.o. potassium this morning and is receiving an IV bolus for treatment of hypokalemia. Also has hyponatremia with sodium of 130. This appears to be more chronic in nature. Fall Risk Details Current Medications: Current Medications Generic Name Dose Route Start Last Admin Trade Name Freq PRN Reason Stop Dose Admin Acetaminophen 650 mg 10/31/20 21:12 11/04/20 11:12 Acetaminophen 325 Mg Tablet PO 650 mg Q6H PRN Administration Pain, Mild (Pain Scale 1-3) Al Hydroxide/Mg Hydroxide 30 ml 11/01/20 19:55 11/01/20 20:13 Magnesium Hydrox/Alum Hydrox 30 Ml Oral.Susp PO 30 ml Q4H PRN Administration Heartburn Buspirone HCl 10 mg 10/31/20 21:30 11/04/20 08:09 Buspirone Hcl 10 Mg Tablet PO 10 mg BID MARCI Administration Clonidine HCl 0.1 mg 10/31/20 21:30 11/03/20 20:17 Clonidine Hcl 0.1 Mg Tablet PO 0.1 mg BEDTIME MARCI Administration Protocol Heparin Sodium (Porcine) 5,000 unit 10/31/20 22:00 11/04/20 08:10 Heparin Sodium,Porcine 5,000 Unit/Ml Vial SUBCUT 5,000 unit Q12H MARCI Administration Ceftriaxone Sodium 1 gm/ 50 mls @ 100 mls/hr 10/31/20 23:00 11/03/20 22:49 Sodium Chloride IV Infused Q24H MARCI Infusion Metronidazole 500 mg in 100 mls @ 100 mls/hr 10/31/20 22:00 11/04/20 07:36 Flagyl IV Infused Q8H MARCI Infusion Potassium Chloride 10 meq in 100 mls @ 100 mls/hr 11/04/20 10:00 11/04/20 11:13 IV 11/04/20 11:59 100 mls/hr Q1H MARCI Administration Labetalol HCl 20 mg 11/03/20 13:25 11/03/20 13:34 Labetalol Hcl 100 Mg/20 Ml Vial IVPUSH 20 mg Q20M PRN Administration SBP > 160 Lactulose 20 gm 10/31/20 21:30 Lactulose 20 Gm/30 Ml Solution PO BID PRN constipation Lorazepam 1 mg 10/31/20 21:30 11/04/20 08:09 Lorazepam 1 Mg Tablet PO 1 mg TID MARCI Administration Morphine Sulfate 4 mg 10/31/20 20:14 11/01/20 16:16 Morphine Sulfate 4 Mg/Ml Cartridge IVPUSH 4 mg Q4H PRN Administration Pain, Severe (Pain Scale 7-10) Protocol Nicotine 21 mg 11/01/20 00:25 11/04/20 08:10 Nicotine 21 Mg Patch.Td24 TRANSDERMA 21 mg DAILY MARCI Administration Nicotine Polacrilex 4 mg 11/01/20 02:49 11/04/20 04:53 Nicotine Polacrilex 2 Mg Gum BUCCAL 4 mg Q1H PRN Administration Nicotine Cravings Omeprazole 20 mg 11/01/20 06:30 11/04/20 06:23 Omeprazole 20 Mg Capsule.Dr PO 20 mg DAILY@0630 MARCI Administration Ondansetron HCl 4 mg 10/31/20 21:12 Ondansetron Hcl 4 Mg/2 Ml Vial IVPUSH Q8H PRN Nausea and Vomiting Pharmacy Consult 1 each 10/31/20 17:12 Consult Rx Perform Med Rec MISCELLANE ONCE PRN Consult order Potassium Chloride 20 meq 11/04/20 09:00 11/04/20 08:09 Potassium Chloride Er 20 Meq Tab.Er.Prt PO 20 meq BID MARCI Administration Sertraline HCl 100 mg 11/01/20 09:00 11/04/20 08:09 Sertraline Hcl 100 Mg Tablet PO 100 mg DAILY MARCI Administration Sodium Chloride 3 ml 11/01/20 00:00 11/04/20 08:09 0.9 % Sodium Chloride Flush 3 Ml Syringe IVFLUSH 3 ml QSHIFT MARCI Administration Ziprasidone 60 mg 10/31/20 21:30 11/04/20 08:09 Ziprasidone 60 Mg Capsule PO 60 mg BID MARCI Administration Time Spent With Patient Time: Total time spent is greater than 50% in coordination of care (as documented) at patient's floor/unit and/or counseling patient: Time with patient: less than 15 minutes Quality Stroke Does the patient have a stroke diagnosis?: No VTE Prior VTE?: No VTE Risk Level:: Medical - moderate - high VTE Device Contraindication: Treatment Not Indicated VTE Drug Contraindication: N/A - Med Ordered
--- NOTE | 2020-11-04 12:17 | HO.PM.IMPN ---
Subjective Subjective Date of Service: 11/04/20 Interval History: the patient was seen and evaluated this morning Laying in bed, feels comfortable Tolerating diet, plan for surgery during next week Denies any fever, chills or shortness of breath No reported other overnight events. Systemic review: No fever, chills or weakness No chest pain, palpitation No shortness of breath or coughing No abdominal pain, but has nausea o No urinary symptoms No any rash or wounds Physical Exam Vital Signs: Vital Signs: Last Vital Signs Temp 96 F L 11/04/20 10:55 Pulse 72 11/04/20 10:55 Resp 20 11/04/20 10:55 BP 140/72 H 11/04/20 10:55 Pulse Ox 94 11/04/20 10:55 Body Mass Index 22.3 Const: Other: Constitutional : Alert, oriented, not in distress Neck : Normal inspection, Supple Cardiovascular : RRR, S1 S2, no lower extremity edema Respiratory : Good bilateral air entry, no crackles, wheezes or rhonchi Gastrointestinal: soft, lax, Normal bowel sounds, Non tender Skin : Warm, Dry Neurological : Alert & oriented x3, No focal deficit Objective Data Current Medications Generic Name Dose Route Start Last Admin Trade Name Freq PRN Reason Stop Dose Admin Acetaminophen 650 mg 10/31/20 21:12 11/04/20 11:12 Acetaminophen 325 Mg Tablet PO 650 mg Q6H PRN Administration Pain, Mild (Pain Scale 1-3) Al Hydroxide/Mg Hydroxide 30 ml 11/01/20 19:55 11/01/20 20:13 Magnesium Hydrox/Alum Hydrox 30 Ml Oral.Susp PO 30 ml Q4H PRN Administration Heartburn Buspirone HCl 10 mg 10/31/20 21:30 11/04/20 08:09 Buspirone Hcl 10 Mg Tablet PO 10 mg BID MARCI Administration Clonidine HCl 0.1 mg 10/31/20 21:30 11/03/20 20:17 Clonidine Hcl 0.1 Mg Tablet PO 0.1 mg BEDTIME MARCI Administration Protocol Heparin Sodium (Porcine) 5,000 unit 10/31/20 22:00 11/04/20 08:10 Heparin Sodium,Porcine 5,000 Unit/Ml Vial SUBCUT 5,000 unit Q12H MARCI Administration Ceftriaxone Sodium 1 gm/ 50 mls @ 100 mls/hr 10/31/20 23:00 11/03/20 22:49 Sodium Chloride IV Infused Q24H MARCI Infusion Metronidazole 500 mg in 100 mls @ 100 mls/hr 10/31/20 22:00 11/04/20 07:36 Flagyl IV Infused Q8H MARCI Infusion Labetalol HCl 20 mg 11/03/20 13:25 11/03/20 13:34 Labetalol Hcl 100 Mg/20 Ml Vial IVPUSH 20 mg Q20M PRN Administration SBP > 160 Lactulose 20 gm 10/31/20 21:30 Lactulose 20 Gm/30 Ml Solution PO BID PRN constipation Lorazepam 1 mg 10/31/20 21:30 11/04/20 08:09 Lorazepam 1 Mg Tablet PO 1 mg TID MARCI Administration Morphine Sulfate 4 mg 10/31/20 20:14 11/01/20 16:16 Morphine Sulfate 4 Mg/Ml Cartridge IVPUSH 4 mg Q4H PRN Administration Pain, Severe (Pain Scale 7-10) Protocol Nicotine 21 mg 11/01/20 00:25 11/04/20 08:10 Nicotine 21 Mg Patch.Td24 TRANSDERMA 21 mg DAILY MARCI Administration Nicotine Polacrilex 4 mg 11/01/20 02:49 11/04/20 04:53 Nicotine Polacrilex 2 Mg Gum BUCCAL 4 mg Q1H PRN Administration Nicotine Cravings Omeprazole 20 mg 11/01/20 06:30 11/04/20 06:23 Omeprazole 20 Mg Capsule.Dr PO 20 mg DAILY@0630 MARCI Administration Ondansetron HCl 4 mg 10/31/20 21:12 Ondansetron Hcl 4 Mg/2 Ml Vial IVPUSH Q8H PRN Nausea and Vomiting Pharmacy Consult 1 each 10/31/20 17:12 Consult Rx Perform Med Rec MISCELLANE ONCE PRN Consult order Potassium Chloride 20 meq 11/04/20 09:00 11/04/20 08:09 Potassium Chloride Er 20 Meq Tab.Er.Prt PO 20 meq BID MARCI Administration Sertraline HCl 100 mg 11/01/20 09:00 11/04/20 08:09 Sertraline Hcl 100 Mg Tablet PO 100 mg DAILY MARCI Administration Sodium Chloride 3 ml 11/01/20 00:00 11/04/20 08:09 0.9 % Sodium Chloride Flush 3 Ml Syringe IVFLUSH 3 ml QSHIFT MARCI Administration Ziprasidone 60 mg 10/31/20 21:30 08/15/21 08:09 Ziprasidone 60 Mg Capsule PO 60 mg BID MARCI Administration Labs CBC & Chem 7: 11/03/20 05:57 11/04/20 05:39 Labs: Laboratory Results - last 24 hr 11/04/20 11/04/20 11/04/20 05:39 10:30 10:30 Anion Gap 13 Estim Creat Clear Calc 71.4 Estimated GFR > 60 Random Glucose 232 H D Calcium 7.9 L Urine Osmolality Ur Random Sodium 36.0 Ur Random Potassium Urine Creatinine Cancelled 10.83 Urine Microalbumin < 5.0 Microalb/Creat Ratio TNP 11/04/20 11/04/20 10:30 10:30 Anion Gap Estim Creat Clear Calc Estimated GFR Random Glucose Calcium Urine Osmolality 112 L Ur Random Sodium Ur Random Potassium 6.6 Urine Creatinine Urine Microalbumin Microalb/Creat Ratio Assessment and Plan (1) Colon stricture: Status: Acute (2) Hypokalemia: Status: Acute Assessment and Plan: This is a 65-year-old female with past medical history of bipolar disorder, chronic constipation who presents to the hospital with or abdominal pain found to have a sigmoid colon mass. # colonic stricture # colitis/diverticulitis GI following, Colonoscopy showed long partially obstructing stricture Continue ceftriaxone and Flagyl negative cultures Surgery input appreciated, patient will need resection to be done this week Zofran p.r.n. # hyponatremia baseline sodium is around 133, today 131 serum osmolality of 264 and a urine osmolality of 500 secondary to dehydration nephrology input appreciated Discontinue IVF follow BMP # hypokalemia Potassium of 2.9 To give replacement IV and p.o. Repeat BMP # bipolar disorder continue home medications DVT prophylaxis: Heparin subQ Quality Stroke Does the patient have a stroke diagnosis?: No VTE Prior VTE?: No VTE Risk Level:: Medical - moderate - high VTE Device Contraindication: Treatment Not Indicated VTE Drug Contraindication: N/A - Med Ordered
[2020-11-04 15:29] LABS: Magnesium 1.4 mg/dL (1.6-2.6)
[2020-11-04] MEDS: Magnesium Sulfate/H2O 2 GM/50 ML PIGGYBACK IV (15:36)
[2020-11-04] MEDS: Potassium Chloride ER 20 MEQ TAB.ER.PRT 40 MEQ PO (15:36)
[2020-11-04] MEDS: cloNIDine HCL 0.1 MG TABLET PO (19:57)
[2020-11-04] MEDS: cefTRIAXone sodium 1 GM in 0.9 % Sodium Chloride 50 ML IV (22:34)
[2020-11-05] MEDS: 0.9 % Sodium Chloride Flush 3 ML SYRINGE IVFLUSH ×3 (00:01→15:20)
[2020-11-05 04:00] VITALS: BP 119/70; PULSE 78; RESP 18; TEMP 36; O2SAT 94
[2020-11-05] MEDS: metroNIDAZOLE/NS 500 MG/100 ML PIGGYBACK 100 MG IV ×3 (06:30→21:14)
[2020-11-05] MEDS: Omeprazole 20 MG CAPSULE.DR PO (06:30)
[2020-11-05 06:52] LABS: Anion Gap 12 (12-20); Blood Urea Nitrogen < 2 mg/dL (9-16); Calcium 7.9 mg/dL (8.4-10.2); Carbon Dioxide 30 mmol/L (22-29); Chloride 93 mmol/L (96-108); Creatinine Clr Calc Pharmacy 74.8; Estimated Glomerular Filt Rate > 60; Glucose Random 103 mg/dL (60-115); Potassium 3.5 mmol/L (3.3-5.1); Sodium 131 mmol/L (135-145)
[2020-11-05] MEDS: LORazepam 1 MG TABLET PO ×3 (07:35→20:10)
[2020-11-05] MEDS: busPIRone HCl 10 MG TABLET PO ×2 (07:35→20:12)
[2020-11-05] MEDS: Potassium Chloride ER 20 MEQ TAB.ER.PRT PO ×2 (07:35→20:10)
[2020-11-05] MEDS: Ziprasidone 60 MG CAPSULE PO ×2 (07:35→20:10)
[2020-11-05] MEDS: Nicotine 21 MG PATCH.TD24 TRANSDERMA (07:36)
[2020-11-05] MEDS: Sertraline HCL 100 MG TABLET PO (07:36)
[2020-11-05 08:00] VITALS: BP 165/87; PULSE 87; RESP 17; TEMP 36.3; O2SAT 96
--- NOTE | 2020-11-05 09:50 | P.PNGS_ITS ---
Subjective Subjective Date of Service: 11/05/20 Interval history: Denies abdominal pain Says she is hungry Stated that she preferred regular food rather than clear liquids No nausea or vomiting Passing flatus without problems Physical Exam Vital Signs: Vital Signs: Last Vital Signs Temp 97.3 F 11/05/20 08:00 Pulse 87 11/05/20 08:00 Resp 17 11/05/20 08:00 BP 165/87 H 11/05/20 08:00 Pulse Ox 96 11/05/20 08:00 Body Mass Index 22.3 Const: General: comfortable and no acute distress Resp: Effort & Inspection: normal respiratory effort Cardio: Rhythm: regular rhythm GI: Palpation (GI): Soft to palpation, not firm and nontender Procedures Date of Service Date of Service: 11/05/20 Progress Note: A&P Assessment and plan (1) Abnormal CT scan, colon: Status: Acute Assessment and Plan: Sigmoid lesion on colonoscopy done last Thursday Path report pending Clinically not obstructed Abdomen soft and benign Explained the above to the patient She has a little difficulty with comprehension and focusing Will follow Likely sigmoid resection down the line Fall Risk Details Current Medications: Current Medications Generic Name Dose Route Start Last Admin Trade Name Freq PRN Reason Stop Dose Admin Acetaminophen 650 mg 10/31/20 21:12 11/04/20 11:12 Acetaminophen 325 Mg Tablet PO 650 mg Q6H PRN Administration Pain, Mild (Pain Scale 1-3) Al Hydroxide/Mg Hydroxide 30 ml 11/01/20 19:55 11/01/20 20:13 Magnesium Hydrox/Alum Hydrox 30 Ml Oral.Susp PO 30 ml Q4H PRN Administration Heartburn Buspirone HCl 10 mg 10/31/20 21:30 11/05/20 07:35 Buspirone Hcl 10 Mg Tablet PO 10 mg BID MARCI Administration Clonidine HCl 0.1 mg 10/31/20 21:30 11/04/20 19:57 Clonidine Hcl 0.1 Mg Tablet PO 0.1 mg BEDTIME MARCI Administration Protocol Heparin Sodium (Porcine) 5,000 unit 10/31/20 22:00 11/04/20 21:08 Heparin Sodium,Porcine 5,000 Unit/Ml Vial SUBCUT 5,000 unit Q12H MARCI Administration Ceftriaxone Sodium 1 gm/ 50 mls @ 100 mls/hr 10/31/20 23:00 11/04/20 23:09 Sodium Chloride IV Infused Q24H MARCI Infusion Metronidazole 500 mg in 100 mls @ 100 mls/hr 10/31/20 22:00 11/05/20 07:39 Flagyl IV Infused Q8H MARCI Infusion Magnesium Sulfate 2 gm in 50 mls @ 25 mls/hr 11/05/20 08:36 Magnesium Sulfate/H2o IV 11/05/20 10:35 ONCE ONE Labetalol HCl 20 mg 11/03/20 13:25 11/03/20 13:34 Labetalol Hcl 100 Mg/20 Ml Vial IVPUSH 20 mg Q20M PRN Administration SBP > 160 Lactulose 20 gm 10/31/20 21:30 Lactulose 20 Gm/30 Ml Solution PO BID PRN constipation Lorazepam 1 mg 10/31/20 21:30 11/05/20 07:35 Lorazepam 1 Mg Tablet PO 1 mg TID MARCI Administration Morphine Sulfate 4 mg 10/31/20 20:14 11/01/20 16:16 Morphine Sulfate 4 Mg/Ml Cartridge IVPUSH 4 mg Q4H PRN Administration Pain, Severe (Pain Scale 7-10) Protocol Nicotine 21 mg 11/01/20 00:25 11/05/20 07:36 Nicotine 21 Mg Patch.Td24 TRANSDERMA 21 mg DAILY MARCI Administration Nicotine Polacrilex 4 mg 11/01/20 02:49 11/04/20 19:55 Nicotine Polacrilex 2 Mg Gum BUCCAL 4 mg Q1H PRN Administration Nicotine Cravings Omeprazole 20 mg 11/01/20 06:30 11/05/20 06:30 Omeprazole 20 Mg Capsule.Dr PO 20 mg DAILY@0630 MARCI Administration Ondansetron HCl 4 mg 10/31/20 21:12 Ondansetron Hcl 4 Mg/2 Ml Vial IVPUSH Q8H PRN Nausea and Vomiting Pharmacy Consult 1 each 10/31/20 17:12 Consult Rx Perform Med Rec MISCELLANE ONCE PRN Consult order Potassium Chloride 20 meq 11/04/20 09:00 11/05/20 07:35 Potassium Chloride Er 20 Meq Tab.Er.Prt PO 20 meq BID MARCI Administration Sertraline HCl 100 mg 11/01/20 09:00 11/05/20 07:36 Sertraline Hcl 100 Mg Tablet PO 100 mg DAILY MARCI Administration Sodium Chloride 3 ml 11/01/20 00:00 11/05/20 07:37 0.9 % Sodium Chloride Flush 3 Ml Syringe IVFLUSH 3 ml QSHIFT MARCI Administration Ziprasidone 60 mg 10/31/20 21:30 11/05/20 07:35 Ziprasidone 60 Mg Capsule PO 60 mg BID MARCI Administration Time Spent With Patient Time: Total time spent is greater than 50% in coordination of care (as documente d) at patient's floor/unit and/or counseling patient: Time with patient: 15 - 24 minutes Quality Stroke Does the patient have a stroke diagnosis?: No VTE Prior VTE?: No VTE Risk Level:: Medical - moderate - high VTE Device Contraindication: Treatment Not Indicated VTE Drug Contraindication: N/A - Med Ordered
[2020-11-05] MEDS: Heparin Sodium,Porcine 5,000 UNIT/ML VIAL 5000 UNIT SUBCUT ×2 (11:35→21:14)
[2020-11-05] MEDS: Magnesium Sulfate/H2O 2 GM/50 ML PIGGYBACK IV (11:35)
[2020-11-05] MEDS: Nicotine Polacrilex 2 MG GUM 4 MG BUCCAL ×3 (11:42→19:36)
--- NOTE | 2020-11-05 12:21 | P.PNNP_ITS ---
Subjective Subjective Date of Service: 11/05/20 Interval history: Seen and examined, events noted Physical Exam Vital Signs: Vital Signs: Last Vital Signs Temp 97.3 F 11/05/20 08:00 Pulse 87 11/05/20 08:00 Resp 17 11/05/20 08:00 BP 165/87 H 11/05/20 08:00 Pulse Ox 96 11/05/20 08:00 Body Mass Index 22.3 Const: Other: Constitutional : Alert, oriented, not in distress Neck : Normal inspection, Supple Cardiovascular : RRR, S1 S2, no lower extremity edema Respiratory : Good bilateral air entry, no crackles, wheezes or rhonchi Gastrointestinal: soft, lax, Normal bowel sounds, Non tender Skin : Warm, Dry Neurological : Alert & oriented x3, No focal deficit General: cooperative, comfortable, no acute distress and alert; No confusion Nutritional Appearance: average body habitus Orientation/consciousness: patient oriented x3 and No confusion HENMT: Head: Yes normal to inspection, Yes normocephalic and Yes atraumatic Ears: hearing grossly normal bilaterally General nose exam: Normal external nose present Face and sinus: Yes normal facial exam Mouth: Normal oral and palatal mucosa present and moist mucous membranes Teeth and gingiva: dentition normal and gingiva normal Throat: Yes posterior oropharynx normal Eyes: General: appearance normal, both eyes and all related structures Neck: Neck: Yes normal visual inspection and Yes supple Chest: Chest palpation & inspection: normal inspection of the chest Resp: Effort & Inspection: normal respiratory effort and able to speak in complete sentences Auscultation: clear to auscultation bilaterally and diminished lung sounds bilateral Cardio: Rate: regular rate Rhythm: regular rhythm Heart sounds: S1 normal heart sound present and S2 normal heart sound present GI: Other: Round, soft, mildly distended, nontender, no palpable masses Inspection: Yes distended Palpation (GI): Soft to palpation, not firm and nontender Percussion: Yes dullness to percussion Auscultation: normal bowel sounds Rectal Exam - Female: deferred Skin: General skin exam: no rashes or lesions noted Neuro: General: patient oriented x3 and No confusion Cognition (Neuro): normal cognition Extrem: General: Yes normal to inspection, Yes full ROM, Yes normal exam except as noted and Yes no pedal edema Objective Data Labs CBC & Chem 7: 11/03/20 05:57 11/05/20 06:04 Labs: Laboratory Results - last 24 hr 11/04/20 11/05/20 11/05/20 05:39 06:04 06:04 Sodium 131 L Potassium 3.5 D Chloride 93 L Carbon Dioxide 30 H Anion Gap 12 BUN < 2 L Creatinine 0.63 Estim Creat Clear Calc 74.8 Estimated GFR > 60 Random Glucose 103 D Calcium 7.9 L Magnesium 1.4 L* Blood Type O Positive Antibody Screen NEGATIVE Microbiology Microbiology Results: Microbiology 10/31/20 18:05 Blood - Venous Blood Culture - Preliminary No growth after 48 hours. 10/31/20 18:05 Blood - Venous Blood Culture - Preliminary No growth after 48 hours. Procedures Date of Service Date of Service: 11/05/20 Assessment & Plan Assessment and plan (1) Abnormal CT scan, colon: Status: Acute Assessment and Plan: HypoNatremia: appears to be a chronic prob going back several years with SNa typically in 128-133 range; ques of combinaiton of excess pO fluid intake and in tristen ADH---her Uosmon adm was quite high c/w dehydration or inapp ADh and then her Uosmwentto 112 yesterday--again either d/t intermittent inapp ADh or perhaps dehydrated on adm HypoK: c/w dehydration and 2ry incr Felipe REC: check TSH/free T4 and am cortisol; contpo fluid restriction and track SNa w th goal > 130 Will follow with team Time Spent With Patient Time: Total time spent is greater than 50% in coordination of care (as documented) at patient's floor/unit and/or counseling patient: Progress Note: Quality Stroke Does the patient have a stroke diagnosis?: No
--- NOTE | 2020-11-05 12:59 | HO.PM.IMPN ---
Subjective Subjective Date of Service: 11/05/20 Interval History: the patient was seen and evaluated this morning Laying in bed, feels comfortable Tolerating diet, plan for surgery to be scheduled Denies any fever, chills or shortness of breath No reported other overnight events. Systemic review: No fever, chills or weakness No chest pain, palpitation No shortness of breath or coughing No abdominal pain, but has nausea o No urinary symptoms No any rash or wounds Physical Exam Vital Signs: Vital Signs: Last Vital Signs Temp 97.3 F 11/05/20 08:00 Pulse 87 11/05/20 08:00 Resp 17 11/05/20 08:00 BP 165/87 H 11/05/20 08:00 Pulse Ox 96 11/05/20 08:00 Body Mass Index 22.3 Const: Other: Constitutional : Alert, oriented, not in distress Neck : Normal inspection, Supple Cardiovascular : RRR, S1 S2, no lower extremity edema Respiratory : Good bilateral air entry, no crackles, wheezes or rhonchi Gastrointestinal: soft, lax, Normal bowel sounds, Non tender Skin : Warm, Dry Neurological : Alert & oriented x3, No focal deficit Objective Data Current Medications Generic Name Dose Route Start Last Admin Trade Name Freq PRN Reason Stop Dose Admin Acetaminophen 650 mg 10/31/20 21:12 11/04/20 11:12 Acetaminophen 325 Mg Tablet PO 650 mg Q6H PRN Administration Pain, Mild (Pain Scale 1-3) Al Hydroxide/Mg Hydroxide 30 ml 11/01/20 19:55 11/01/20 20:13 Magnesium Hydrox/Alum Hydrox 30 Ml Oral.Susp PO 30 ml Q4H PRN Administration Heartburn Buspirone HCl 10 mg 10/31/20 21:30 11/05/20 07:35 Buspirone Hcl 10 Mg Tablet PO 10 mg BID MARCI Administration Clonidine HCl 0.1 mg 10/31/20 21:30 11/04/20 19:57 Clonidine Hcl 0.1 Mg Tablet PO 0.1 mg BEDTIME MARCI Administration Protocol Heparin Sodium (Porcine) 5,000 unit 10/31/20 22:00 11/05/20 11:35 Heparin Sodium,Porcine 5,000 Unit/Ml Vial SUBCUT 5,000 unit Q12H MARCI Administration Ceftriaxone Sodium 1 gm/ 50 mls @ 100 mls/hr 10/31/20 23:00 11/04/20 23:09 Sodium Chloride IV Infused Q24H MARCI Infusion Metronidazole 500 mg in 100 mls @ 100 mls/hr 10/31/20 22:00 11/05/20 07:39 Flagyl IV Infused Q8H MARCI Infusion Labetalol HCl 20 mg 11/03/20 13:25 11/03/20 13:34 Labetalol Hcl 100 Mg/20 Ml Vial IVPUSH 20 mg Q20M PRN Administration SBP > 160 Lactulose 20 gm 10/31/20 21:30 Lactulose 20 Gm/30 Ml Solution PO BID PRN constipation Lorazepam 1 mg 10/31/20 21:30 11/05/20 07:35 Lorazepam 1 Mg Tablet PO 1 mg TID MARCI Administration Morphine Sulfate 4 mg 10/31/20 20:14 11/01/20 16:16 Morphine Sulfate 4 Mg/Ml Cartridge IVPUSH 4 mg Q4H PRN Administration Pain, Severe (Pain Scale 7-10) Protocol Nicotine 21 mg 11/01/20 00:25 11/05/20 07:36 Nicotine 21 Mg Patch.Td24 TRANSDERMA 21 mg DAILY MARCI Administration Nicotine Polacrilex 4 mg 11/01/20 02:49 11/05/20 11:42 Nicotine Polacrilex 2 Mg Gum BUCCAL 4 mg Q1H PRN Administration Nicotine Cravings Omeprazole 20 mg 11/01/20 06:30 11/05/20 06:30 Omeprazole 20 Mg Capsule.Dr PO 20 mg DAILY@0630 MARCI Administration Ondansetron HCl 4 mg 10/31/20 21:12 Ondansetron Hcl 4 Mg/2 Ml Vial IVPUSH Q8H PRN Nausea and Vomiting Pharmacy Consult 1 each 10/31/20 17:12 Consult Rx Perform Med Rec MISCELLANE ONCE PRN Consult order Potassium Chloride 20 meq 11/04/20 09:00 11/05/20 07:35 Potassium Chloride Er 20 Meq Tab.Er.Prt PO 20 meq BID MARCI Administration Sertraline HCl 100 mg 11/01/20 09:00 11/05/20 07:36 Sertraline Hcl 100 Mg Tablet PO 100 mg DAILY MARCI Administration Sodium Chloride 3 ml 11/01/20 00:00 11/05/20 07:37 0.9 % Sodium Chloride Flush 3 Ml Syringe IVFLUSH 3 ml QSHIFT MARCI Administration Ziprasidone 60 mg 10/31/20 21:30 11/05/20 07:35 Ziprasidone 60 Mg Capsule PO 60 mg BID MARCI Administration Labs CBC & Chem 7: 11/03/20 05:57 11/05/20 06:04 Labs: Laboratory Results - last 24 hr 11/04/20 11/05/20 11/05/20 05:39 06:04 06:04 Anion Gap 12 Estim Creat Clear Calc 74.8 Estimated GFR > 60 Random Glucose 103 D Calcium 7.9 L Magnesium 1.4 L* Blood Type O Positive Antibody Screen NEGATIVE Assessment and Plan (1) Colon stricture: Status: Acute (2) Hypokalemia: Status: Acute (3) Hypomagnesemia: Status: Acute Assessment and Plan: This is a 65-year-old female with past medical history of bipolar disorder, chronic constipation who presents to the hospital with or abdominal pain found to have a sigmoid colon mass. # colonic stricture # colitis/diverticulitis GI following, Colonoscopy showed long partially obstructing stricture Continue ceftriaxone and Flagyl Day 6 negative cultures Surgery input appreciated, patient will need resection to be done this week Claudia p.r.n. # hyponatremia baseline sodium is around 133, today 131 serum osmolality of 264 and a urine osmolality of 500 secondary to dehydration nephrology input appreciated Discontinue IVF follow BMP # hypokalemia Potassium of 3.5 Repeat BMP # Hypomagnesemia Mg of 1.4 To give replacement and follow # bipolar disorder continue home medications DVT prophylaxis: Heparin subQ Quality Stroke Does the patient have a stroke diagnosis?: No VTE Prior VTE?: No VTE Risk Level:: Medical - moderate - high VTE Device Contraindication: Treatment Not Indicated VTE Drug Contraindication: N/A - Med Ordered
--- NOTE | 2020-11-05 13:32 | MHC.CM.PN ---
EMR REVIEWED, PER HOSPITALIST PT WILL HAVE COLON RESECTION THIS WEEK, PT REMAINS ON IV ABX/FLAGYL AND CLEAR LIQUIDS. CM WILL CONT TO FOLLOW D/C NEEDS.
--- NOTE | 2020-11-05 14:12 | HO.POSTANES ---
Post Anesthesia Evaluation Post Anesthesia Evaluation Vital Signs: Vital Signs Temp Pulse Resp BP Pulse Ox 11/05/20 08:00 97.3 F 87 17 165/87 H 96 11/05/20 04:00 96.8 F 78 18 119/70 94 Anesthesia: Monitored Mental Status: Awake Pain Control: Satisfactory Nausea/Vomiting: None Hydration: Adequate Anesthesia-Related Issues: No Anes. Related Issues
[2020-11-05 15:46] VITALS: BP 171/85; PULSE 75; RESP 17; TEMP 36.3; O2SAT 98
[2020-11-05] MEDS: Magnesium Hydrox/Alum Hydrox 30 ML ORAL.SUSP PO (17:20)
[2020-11-05] MEDS: Morphine Sulfate 4 MG/ML CARTRIDGE IVPUSH (18:02)
[2020-11-05 19:34] VITALS: BP 163/91; PULSE 80; RESP 15; TEMP 36.3; O2SAT 98
[2020-11-05 20:10] VITALS: BP 141/76; PULSE 88
[2020-11-05] MEDS: cloNIDine HCL 0.1 MG TABLET PO (20:10)
[2020-11-05] MEDS: cefTRIAXone sodium 1 GM in 0.9 % Sodium Chloride 50 ML IV (22:22)
[2020-11-05 23:41] VITALS: BP 167/77; PULSE 74; RESP 18; TEMP 36.1; O2SAT 92
[2020-11-06] MEDS: 0.9 % Sodium Chloride Flush 3 ML SYRINGE IVFLUSH ×4 (00:01→21:06)
[2020-11-06 03:41] VITALS: BP 128/65; PULSE 86; RESP 18; TEMP 36.4; O2SAT 95
[2020-11-06] MEDS: Omeprazole 20 MG CAPSULE.DR PO (06:11)
[2020-11-06] MEDS: metroNIDAZOLE/NS 500 MG/100 ML PIGGYBACK 100 MG IV ×2 (06:11→13:04)
[2020-11-06] MEDS: Nicotine Polacrilex 2 MG GUM 4 MG BUCCAL ×5 (06:12→21:09)
[2020-11-06 07:23] VITALS: BP 128/73; PULSE 72; RESP 18; TEMP 36.1; O2SAT 97
[2020-11-06] MEDS: Potassium Chloride ER 20 MEQ TAB.ER.PRT PO ×2 (07:25→19:43)
[2020-11-06] MEDS: Ziprasidone 60 MG CAPSULE PO ×2 (07:25→19:43)
[2020-11-06] MEDS: busPIRone HCl 10 MG TABLET PO ×2 (07:26→19:42)
[2020-11-06] MEDS: Sertraline HCL 100 MG TABLET PO (07:26)
[2020-11-06] MEDS: Nicotine 21 MG PATCH.TD24 TRANSDERMA (07:26)
[2020-11-06 08:33] LABS: Anion Gap 14 (12-20); Blood Urea Nitrogen 2 mg/dL (9-16); Calcium 8.3 mg/dL (8.4-10.2); Carbon Dioxide 27 mmol/L (22-29); Chloride 91 mmol/L (96-108); Estimated Glomerular Filt Rate > 60; Glucose Random 166 mg/dL (60-115); Magnesium 1.9 mg/dL (1.6-2.6); Potassium 3.7 mmol/L (3.3-5.1); Sodium 128 mmol/L (135-145)
[2020-11-06 08:55] LABS: TSH reflex Free T4 2.59 uIU/mL (0.32-4.0)
[2020-11-06] MEDS: Heparin Sodium,Porcine 5,000 UNIT/ML VIAL 5000 UNIT SUBCUT ×2 (09:08→21:04)
[2020-11-06 11:38] VITALS: BP 149/84; PULSE 77; RESP 18; TEMP 36; O2SAT 98
--- NOTE | 2020-11-06 12:28 | P.PNNP_ITS ---
Subjective Subjective Date of Service: 11/06/20 Interval history: Seen and examined. Full water pitvcher at bedside Physical Exam Vital Signs: Vital Signs: Last Vital Signs Temp 96.8 F 11/06/20 11:38 Pulse 77 11/06/20 11:38 Resp 18 11/06/20 11:38 BP 149/84 H 11/06/20 11:38 Pulse Ox 98 11/06/20 11:38 Body Mass Index 22.3 Const: Other: Constitutional : Alert, oriented, not in distress Neck : Normal inspection, Supple Cardiovascular : RRR, S1 S2, no lower extremity edema Respiratory : Good bilateral air entry, no crackles, wheezes or rhonchi Gastrointestinal: soft, lax, Normal bowel sounds, Non tender Skin : Warm, Dry Neurological : Alert & oriented x3, No focal deficit General: cooperative, comfortable, no acute distress and alert; No confusion Nutritional Appearance: average body habitus Orientation/consciousness: patient oriented x3 and No confusion HENMT: Head: Yes normal to inspection, Yes normocephalic and Yes atraumatic Ears: hearing grossly normal bilaterally General nose exam: Normal external nose present Face and sinus: Yes normal facial exam Mouth: Normal oral and palatal mucosa present and moist mucous membranes Teeth and gingiva: dentition normal and gingiva normal Throat: Yes posterior oropharynx normal Eyes: General: appearance normal, both eyes and all related structures Neck: Neck: Yes normal visual inspection and Yes supple Chest: Chest palpation & inspection: normal inspection of the chest Resp: Effort & Inspection: normal respiratory effort and able to speak in complete sentences Auscultation: clear to auscultation bilaterally and diminished lung sounds bilateral Cardio: Rate: regular rate Rhythm: regular rhythm Heart sounds: S1 normal heart sound present and S2 normal heart sound present GI: Other: Round, soft, mildly distended, nontender, no palpable masses Insp ection: Yes distended Palpation (GI): Soft to palpation, not firm and nontender Percussion: Yes dullness to percussion Auscultation: normal bowel sounds Rectal Exam - Female: deferred Skin: General skin exam: no rashes or lesions noted Neuro: General: patient oriented x3 and No confusion Cognition (Neuro): normal cognition Extrem: General: Yes normal to inspection, Yes full ROM, Yes normal exam except as noted and Yes no pedal edema Objective Data Labs CBC & Chem 7: 11/03/20 05:57 11/06/20 07:33 Labs: Laboratory Results - last 24 hr 11/06/20 07:33 Sodium 128 L Potassium 3.7 Chloride 91 L Carbon Dioxide 27 Anion Gap 14 BUN 2 L Creatinine 0.76 Estim Creat Clear Calc 62.0 Estimated GFR > 60 Random Glucose 166 H D Calcium 8.3 L Magnesium 1.9 TSH 2.59 Microbiology Microbiology Results: Microbiology 10/31/20 18:05 Blood - Venous Blood Culture - Final No growth after 5 days. 10/31/20 18:05 Blood - Venous Blood Culture - Final No growth after 5 days. Procedures Date of Service Date of Service: 11/06/20 Assessment & Plan Assessment and plan (1) Abnormal CT scan, colon: Status: Acute Assessment and Plan: HypoNatremia: appears to be a chronic prob going back several years with SNa typically in 128-133 range; ques of combinaiton of excess pO fluid intake and inapp ADH---her Uosmon adm was quite high c/w dehydration or inapp ADh and then her Uosm went to 132 yesterday--again either d/t intermittent inapp ADh or perhaps dehydrated on adm She is on SSRI which can be assoc with SIADH Hypothyroid r/o Cortisol pending to r/o adrenal insuff HypoK: c/w dehydration and 2ry incr Felipe REC: agree with starting URea 15 gm qd and incr bid with goal of grad incr SNa to 135 range; cont with po fluid restrition; cont SSRI for now Will follow with team Time Spent With Patient Time: Total time spent is greater than 50% in coordination of care (as documented) at patient's floor/unit and/or counseling patient: Progress Note: Quality Stroke Does the patient have a stroke diagnosis?: No
--- NOTE | 2020-11-06 12:36 | HO.PM.IMPN ---
Subjective Subjective Date of Service: 11/06/20 Interval History: the patient was seen and evaluated this morning Laying in bed, feels comfortable Tolerating diet, plan for surgery to be scheduled Denies any fever, chills or shortness of breath No reported other overnight events. Systemic review: No fever, chills or weakness No chest pain, palpitation No shortness of breath or coughing No abdominal pain, but has nausea o No urinary symptoms No any rash or wounds Physical Exam Vital Signs: Vital Signs: Last Vital Signs Temp 96.8 F 11/06/20 11:38 Pulse 77 11/06/20 11:38 Resp 18 11/06/20 11:38 BP 149/84 H 11/06/20 11:38 Pulse Ox 98 11/06/20 11:38 Body Mass Index 22.3 Const: Other: Constitutional : Alert, oriented, not in distress Neck : Normal inspection, Supple Cardiovascular : RRR, S1 S2, no lower extremity edema Respiratory : Good bilateral air entry, no crackles, wheezes or rhonchi Gastrointestinal: soft, lax, Normal bowel sounds, Non tender Skin : Warm, Dry Neurological : Alert & oriented x3, No focal deficit Objective Data Current Medications Generic Name Dose Route Start Last Admin Trade Name Freq PRN Reason Stop Dose Admin Acetaminophen 650 mg 10/31/20 21:12 11/04/20 11:12 Acetaminophen 325 Mg Tablet PO 650 mg Q6H PRN Administration Pain, Mild (Pain Scale 1-3) Al Hydroxide/Mg Hydroxide 30 ml 11/01/20 19:55 11/05/20 17:20 Magnesium Hydrox/Alum Hydrox 30 Ml Oral.Susp PO 30 ml Q4H PRN Administration Heartburn Buspirone HCl 10 mg 10/31/20 21:30 11/06/20 07:26 Buspirone Hcl 10 Mg Tablet PO 10 mg BID MARCI Administration Clonidine HCl 0.1 mg 10/31/20 21:30 11/05/20 20:10 Clonidine Hcl 0.1 Mg Tablet PO 0.1 mg BEDTIME MARCI Administration Protocol Heparin Sodium (Porcine) 5,000 unit 10/31/20 22:00 11/06/20 09:08 Heparin Sodium,Porcine 5,000 Unit/Ml Vial SUBCUT 5,000 unit Q12H MARCI Administration Ceftriaxone Sodium 1 gm/ 50 mls @ 100 mls/hr 10/31/20 23:00 11/05/20 23:39 Sodium Chloride IV Infused Q24H MARCI Infusion Metronidazole 500 mg in 100 mls @ 100 mls/hr 10/31/20 22:00 11/06/20 07:12 Flagyl IV Infused Q8H MARCI Infusion Labetalol HCl 20 mg 11/03/20 13:25 11/03/20 13:34 Labetalol Hcl 100 Mg/20 Ml Vial IVPUSH 20 mg Q20M PRN Administration SBP > 160 Lactulose 20 gm 10/31/20 21:30 Lactulose 20 Gm/30 Ml Solution PO BID PRN constipation Nicotine 21 mg 11/01/20 00:25 11/06/20 07:26 Nicotine 21 Mg Patch.Td24 TRANSDERMA 21 mg DAILY MARCI Administration Nicotine Polacrilex 4 mg 11/01/20 02:49 11/06/20 12:30 Nicotine Polacrilex 2 Mg Gum BUCCAL 4 mg Q1H PRN Administration Nicotine Cravings Omeprazole 20 mg 11/01/20 06:30 11/06/20 06:11 Omeprazole 20 Mg Capsule. PO 20 mg DAILY@0630 MARCI Administration Ondansetron HCl 4 mg 10/31/20 21:12 Ondansetron Hcl 4 Mg/2 Ml Vial IVPUSH Q8H PRN Nausea and Vomiting Pharmacy Consult 1 each 10/31/20 17:12 Consult Rx Perform Med Rec MISCELLANE ONCE PRN Consult order Potassium Chloride 20 meq 11/04/20 09:00 11/06/20 07:25 Potassium Chloride Er 20 Meq Tab.Er.Prt PO 20 meq BID MARCI Administration Sertraline HCl 100 mg 11/01/20 09:00 11/06/20 07:26 Sertraline Hcl 100 Mg Tablet PO 100 mg DAILY MARCI Administration Sodium Chloride 3 ml 11/01/20 00:00 11/06/20 07:26 0.9 % Sodium Chloride Flush 3 Ml Syringe IVFLUSH 3 ml QSHIFT MARCI Administration Ziprasidone 60 mg 10/31/20 21:30 11/06/20 07:25 Ziprasidone 60 Mg Capsule PO 60 mg BID MARCI Administration Labs CBC & Chem 7: 11/03/20 05:57 11/06/20 07:33 Labs: Laboratory Results - last 24 hr 11/06/20 07:33 Anion Gap 14 Estim Creat Clear Calc 62.0 Estimated GFR > 60 Random Glucose 166 H D Calcium 8.3 L Magnesium 1.9 TSH 2.59 Microbiology Microbiology Results: Microbiology 10/31/20 18:05 Blood Culture - Final Blood - Venous No growth after 5 days. 10/31/20 18:05 Blood Culture - Final Blood - Venous No growth after 5 days. Assessment and Plan (1) Hypomagnesemia: Status: Acute (2) Colon stricture: Status: Acute (3) Hypokalemia: Status: Acute (4) Hyponatremia: Status: Acute Assessment and Plan: This is a 65-year-old female with past medical history of bipolar disorder, chronic constipation who presents to the hospital with or abdominal pain found to have a sigmoid colon mass. # colonic stricture # colitis/diverticulitis GI following, Colonoscopy showed long partially obstructing stricture Finished ceftriaxone and Flagyl Day 09/26 negative cultures Surgery input appreciated, patient will need resection to be done when biopsy result available Zofran p.r.n. # hyponatremia baseline sodium is around 133, today 128 serum osmolality of 264 and a urine osmolality of 500 To give urea p.o. Free water restriction nephrology input appreciated follow BMP # hypokalemia Potassium of 3.8 Repeat BMP # Hypomagnesemia Mg of 1.9 To follow # bipolar disorder continue home medications DVT prophylaxis: Heparin subQ Quality Stroke Does the patient have a stroke diagnosis?: No VTE Prior VTE?: No VTE Risk Level:: Medical - moderate - high VTE Device Contraindication: Treatment Not Indicated VTE Drug Contraindication: N/A - Med Ordered
[2020-11-06] MEDS: Sodium Chloride Tab 1 GM TABLET PO ×2 (13:29→19:42)
[2020-11-06 15:41] VITALS: BP 153/80; PULSE 98; RESP 17; TEMP 36.4; O2SAT 96
--- NOTE | 2020-11-06 16:59 | PM.PNGS ---
Subjective Subjective Date of Service: 11/06/20 Interval history: Says she feels well Denies abdominal pain Passing flatus and BMs Tolerating diet Denies nausea vomiting Physical Exam Vital Signs: Vital Signs: Last Vital Signs Temp 97.5 F 11/06/20 15:41 Pulse 98 11/06/20 15:41 Resp 17 11/06/20 15:41 BP 153/80 H 11/06/20 15:41 Pulse Ox 96 11/06/20 15:41 Body Mass Index 22.3 Chemistry 11/04/20 11/05/20 11/06/20 05:39 06:04 07:33 Sodium 130 L 131 L 128 L Potassium 2.9 L 3.5 D 3.7 Carbon Dioxide 32 H 30 H 27 BUN 2 L < 2 L 2 L Creatinine 0.66 0.63 0.76 Calcium 7.9 L 7.9 L 8.3 L Urine Studies 11/04/20 11/04/20 11/04/20 10:30 10:30 10:30 Urine Osmolality 112 L Urine Creatinine Cancelled 10.83 Const: General: comfortable and no acute distress Resp: Effort & Inspection: normal respiratory effort Cardio: Rate: regular rate GI: Palpation (GI): Soft to palpation, not firm, nontender, no guarding and not rigid Procedures Date of Service Date of Service: 11/06/20 Progress Note: A&P Assessment and plan (1) Abnormal CT scan, colon: Status: Acute Assessment and Plan: Thickening/long stricture in the sigmoid Biopsies shows normal colonic mucosa Likely to be from diverticular disease Explained to the patient it would be best to proceed with resection in view of progression to complete obstruction Currently, she is passing flatus and BMs and she says is thinking of going home I however told her that I can do the procedure this week - ? Keep on clear liquids for now Discussed with family at bedside Fall Risk Details Current Medications: Current Medications Generic Name Dose Route Start Last Admin Trade Name Freq PRN Reason Stop Dose Admin Acetaminophen 650 mg 10/31/20 21:12 11/04/20 11:12 Acetaminophen 325 Mg Tablet PO 650 mg Q6H PRN Administration Pain, Mild (Pain Scale 1-3) Al Hydroxide/Mg Hydroxide 30 ml 11/01/20 19:55 11/05/20 17:20 Magnesium Hydrox/Alum Hydrox 30 Ml Oral.Susp PO 30 ml Q4H PRN Administration Heartburn Buspirone HCl 10 mg 10/31/20 21:30 11/06/20 07:26 Buspirone Hcl 10 Mg Tablet PO 10 mg BID MARCI Administration Clonidine HCl 0.1 mg 10/31/20 21:30 11/05/20 20:10 Clonidine Hcl 0.1 Mg Tablet PO 0.1 mg BEDTIME MARCI Administration Protocol Heparin Sodium (Porcine) 5,000 unit 10/31/20 22:00 11/06/20 09:08 Heparin Sodium,Porcine 5,000 Unit/Ml Vial SUBCUT 5,000 unit Q12H MARCI Administration Labetalol HCl 20 mg 11/03/20 13:25 11/03/20 13:34 Labetalol Hcl 100 Mg/20 Ml Vial IVPUSH 20 mg Q20M PRN Administration SBP > 160 Lactulose 20 gm 10/31/20 21:30 Lactulose 20 Gm/30 Ml Solution PO BID PRN constipation Nicotine 21 mg 11/01/20 00:25 11/06/20 07:26 Nicotine 21 Mg Patch.Td24 TRANSDERMA 21 mg DAILY MARCI Administration Nicotine Polacrilex 4 mg 11/01/20 02:49 11/06/20 15:41 Nicotine Polacrilex 2 Mg Gum BUCCAL 4 mg Q1H PRN Administration Nicotine Cravings Omeprazole 20 mg 11/01/20 06:30 11/06/20 06:11 Omeprazole 20 Mg Capsule.Dr PO 20 mg DAILY@0630 MARCI Administration Ondansetron HCl 4 mg 10/31/20 21:12 Ondansetron Hcl 4 Mg/2 Ml Vial IVPUSH Q8H PRN Nausea and Vomiting Pharmacy Consult 1 each 10/31/20 17:12 Consult Rx Perform Med Rec MISCELLANE ONCE PRN Consult order Potassium Chloride 20 meq 11/04/20 09:00 11/06/20 07:25 Potassium Chloride Er 20 Meq Tab.Er.Prt PO 20 meq BID MARCI Administration Sertraline HCl 100 mg 11/01/20 09:00 11/06/20 07:26 Sertraline Hcl 100 Mg Tablet PO 100 mg DAILY MARCI Administration Sodium Chloride 3 ml 11/01/20 00:00 11/06/20 15:42 0.9 % Sodium Chloride Flush 3 Ml Syringe IVFLUSH 3 ml QSHIFT MARCI Administration Sodium Chloride 1 gm 11/06/20 13:30 11/06/20 13:29 Sodium Chloride Tab 1 Gm Tablet PO 1 gm BID MARCI Administration Ziprasidone 60 mg 10/31/20 21:30 11/06/20 07:25 Ziprasidone 60 Mg Capsule PO 60 mg BID MARCI Administration Time Spent With Patient Time: Total time spent is greater than 50% in coordination of care (as documented) at patient's floor/unit and/or counseling patient: Time with patient: 15 - 24 minutes Quality Stroke Does the patient have a stroke diagnosis?: No VTE Prior VTE?: No VTE Risk Level:: Medical - moderate - high VTE Device Contraindication: Treatment Not Indicated VTE Drug Contraindication: N/A - Med Ordered
[2020-11-06] MEDS: Magnesium Hydrox/Alum Hydrox 30 ML ORAL.SUSP PO (17:20)
[2020-11-06] MEDS: LORazepam 0.5 MG TABLET PO (19:42)
[2020-11-06 20:00] VITALS: BP 153/80; PULSE 98; RESP 17; TEMP 36.4; O2SAT 96
[2020-11-06] MEDS: Acetaminophen 325 MG TABLET 650 MG PO (20:25)
[2020-11-06] MEDS: cloNIDine HCL 0.1 MG TABLET PO (21:04)
[2020-11-07] VITALS: BP 159/85; PULSE 72; RESP 16; TEMP 37.1; O2SAT 96
[2020-11-07] MEDS: Melatonin 3 MG TABLET 6 MG PO (00:19)
[2020-11-07 04:00] VITALS: BP 169/86; PULSE 73; RESP 18; TEMP 36.1; O2SAT 95
[2020-11-07] MEDS: Nicotine Polacrilex 2 MG GUM 4 MG BUCCAL ×2 (04:39→07:50)
[2020-11-07] MEDS: Omeprazole 20 MG CAPSULE.DR PO (05:47)
[2020-11-07] MEDS: Nicotine 21 MG PATCH.TD24 TRANSDERMA (05:55)
[2020-11-07 07:20] LABS: Anion Gap 14 (12-20); Blood Urea Nitrogen 2 mg/dL (9-16); Calcium 8.6 mg/dL (8.4-10.2); Carbon Dioxide 29 mmol/L (22-29); Chloride 95 mmol/L (96-108); Creatinine Clr Calc Pharmacy 68.3; Estimated Glomerular Filt Rate > 60; Glucose Random 133 mg/dL (60-115); Magnesium 1.9 mg/dL (1.6-2.6); Sodium 134 mmol/L (135-145)
[2020-11-07] MEDS: Potassium Chloride ER 20 MEQ TAB.ER.PRT PO (07:49)
[2020-11-07] MEDS: busPIRone HCl 10 MG TABLET PO (07:49)
[2020-11-07] MEDS: Sodium Chloride Tab 1 GM TABLET PO (07:50)
[2020-11-07] MEDS: 0.9 % Sodium Chloride Flush 3 ML SYRINGE IVFLUSH (07:50)
[2020-11-07] MEDS: Sertraline HCL 100 MG TABLET PO (07:50)
[2020-11-07] MEDS: Ziprasidone 60 MG CAPSULE PO (07:50)
[2020-11-07 08:00] VITALS: BP 145/80; PULSE 69; RESP 17; TEMP 36.7; O2SAT 96
[2020-11-07] MEDS: Heparin Sodium,Porcine 5,000 UNIT/ML VIAL 5000 UNIT SUBCUT (09:33)
[2020-11-07 11:45] VITALS: BP 170/81; PULSE 76; RESP 17; TEMP 36.2; O2SAT 94
--- NOTE | 2020-11-07 12:30 | PC.NURSE ---
pt refused enema , pt states she having multiple BMs today
--- NOTE | 2020-11-07 13:05 | PM.DS ---
DS: Providers Provider Date of Service: 11/07/20 Date of admission: 10/31/20 20:05 Primary care physician: Sloane Mccarthy MD Consults: 10/31/20 21:12 Consult to Gastroenterology Routine Consulting Provider: Adryan Rojo Reason for consultation: sigmoid colon mass Has provider been notified: Yes Consult to Nephrology Routine Consulting Provider: [facility] Reason for consultation: hyponatremia Has provider been notified: No 11/03/20 13:22 Consult to General Surgery Routine Consulting Provider: Delilah Mccormick Reason for consultation: sigmoid stricture with partial obstruction Has provider been notified: Yes DS: Diagnosis Discharge Diagnosis (1) Abnormal CT scan, colon: Status: Acute DS: Medications Discharge Medications Home Medications: Home Medications Medication Instructions Recorded Confirmed buspirone 5 mg tablet 10 mg PO BID 03/30/20 10/31/20 clonidine HCl 0.1 mg tablet 0.1 mg PO BEDTIME 03/30/20 10/31/20 lorazepam 1 mg tablet 1 mg PO TID 03/30/20 10/31/20 sertraline 100 mg tablet 100 mg PO DAILY 03/30/20 10/31/20 ziprasidone HCl 60 mg capsule 60 mg PO BID 07/04/20 10/31/20 ondansetron 8 mg disintegrating 1 tab PO Q12H PRN 10/31/20 10/31/20 tablet Previous Rx's Medication Instructions Recorded omeprazole 20 mg capsule,delayed 20 mg PO DAILY 90 Days #90 cap 03/28/20 release lactulose 20 gram/30 mL oral 20 g PO BID PRN 30 Days #1800 ml 07/04/20 solution DS: Summary Hospital Course Hospital Course: patient was admitted for abdominal shore and sigmoif colon mass, on colonoscopy found to have partially obstructing strictire, preilom biopsy benign, completed 7 days titus hayden. plan for was for possible resection 11/08, however, patient did not want to stay and left against medical advice. Time Spent with Patient Time attestation: Total time spent providing and/or coordinating discharge services: Discharge coordination time: Greater than 30 minutes Quality: Stroke Does the patient have a stroke diagnosis?: No Physical Exam Vital Signs: Vital Signs: Last Vital Signs Temp 97.2 F 11/07/20 11:45 Pulse 76 11/07/20 11:45 Resp 17 11/07/20 11:45 BP 170/81 H 11/07/20 11:45 Pulse Ox 94 11/07/20 11:45 Body Mass Index 22.3 General: AO X 3, no acute distress Resp: CTA bilateral CVS: S1,S2,RRR GI: soft, non tender, non distended Neuro: motor grossly intact Psych: appropriate affect DS: Data Data Completed and Pending Completed studies during hospitalization [Text1]: Pending at discharge 11/03/20 12:44 Surgical [PTH] Routine Labs on day of discharge: Laboratory Results - last 24 hr 11/07/20 06:10 Sodium 134 L Potassium 4.0 Chloride 95 L Carbon Dioxide 29 Anion Gap 14 BUN 2 L Creatinine 0.69 Estim Creat Clear Calc 68.3 Estimated GFR > 60 Random Glucose 133 H Calcium 8.6 Magnesium 1.9 Discharge Plan Discharge Patient Disposition: Left Against Medical Advice Discharge Diagnosis: coloinc mass Referrals: Sloane Cody MD [Primary Care Provider] - 1 Week Discharge Medications: No Action omeprazole 20 mg capsule,delayed release(DR/EC) 20 mg PO DAILY 90 Days Qty: 90 RF: 1 ondansetron 8 mg tablet,disintegrating 1 tab PO Q12H PRN (Reason: nausea/vomiting) RF: 0 sertraline 100 mg tablet 100 mg PO DAILY RF: 0 lorazepam 1 mg tablet 1 mg PO TID RF: 0 buspirone 5 mg tablet 10 mg PO BID RF: 0 clonidine HCl 0.1 mg tablet 0.1 mg PO BEDTIME RF: 0 ziprasidone HCl 60 mg capsule 60 mg PO BID RF: 0 lactulose 20 gram/30 mL solution 20 g PO BID PRN (Reason: constipation) 30 Days Qty: 1800 RF: 6 Discharge Orders: Discharge Order (Routine); Ordered 11/07/20 Ordered By: Jorge Jackson Diet: advance to usual diet Activity on Discharge: As tolerated Care Plan Goals: recovery Health Concerns: colonic stricture Plan of Treatment: follow up surgery Assessment: see above Discharge Date/Time: 11/07/20 13:01
--- NOTE | 2020-11-07 13:54 | PM.PNGS ---
Subjective Subjective Date of Service: 11/07/20 Interval history: States she has good bowel movements and passing flatus Denies abdominal pain Says she wants to go home, saying that she feels well Physical Exam Vital Signs: Vital Signs: Last Vital Signs Temp 97.2 F 11/07/20 11:45 Pulse 76 11/07/20 11:45 Resp 17 11/07/20 11:45 BP 170/81 H 11/07/20 11:45 Pulse Ox 94 11/07/20 11:45 Body Mass Index 22.3 Const: General: comfortable and no acute distress Resp: Effort & Inspection: normal respiratory effort Cardio: Rate: regular rate GI: Other: Soft, nondistended, no guarding/ rebound, no tenderness Procedures Date of Service Date of Service: 11/07/20 Progress Note: A&P Assessment and plan (1) Abnormal CT scan, colon: Status: Acute Assessment and Plan: She appears to have a long stricture in the sigmoid I therefore had a long discussion with her about proceeding with sigmoid resection, possible colostomy. I explained to her the technique of this procedure. I reviewed the risks including but not limited to bleeding, infections, bowel injury, injury to the urinary tract, as well as the benefits and alternatives. I told her that we can do the procedure this Thursday She understands but states that she really wants to go home and says that she is thinking of signing out against medical advise I explained to her the possible consequences of going home including obstruction She says she understands and stated that she feels she does not need any surgery at this time Time Spent With Patient Time: Total time spent is greater than 50% in coordination of care (as documented) at patient's floor/unit and/or counseling patient: Time with patient: 25 - 35 minutes Quality Stroke Does the patient have a stroke diagnosis?: No VTE Prior VTE?: No VTE Risk Level:: Medical - moderate - high VTE Device Contraindication: Treatment Not Indicated VTE Drug Contraindication: N/A - Med Ordered
--- NOTE | 2020-11-07 14:14 | MHC.CM.PN ---
PT DISCHARGED AMA, CM WILL UPDATE [facility] REFERRAL,PT ARRANGED TRANSPORT.
--- NOTE | 2020-11-13 18:45 | W.PM.OPN ---
Operative Note Operative Note Date of Service: 11/03/20 Narrative: Pre-op diagnosis:?Partial colon obstruction, abnormal CT scan of [place] Post-op diagnosis:?other (severe diverticulosis with sigmoid colon stricture, colon polyp, hemorrhoids) Procedure:? FLEXIBLE SIGMOIDOSCOPY TILL 60 CMS WITH BIOPSIES Consent: Indications for the procedure and potential complications of bleeding, perforation, reaction to medications and missed diagnosis were discussed with the patient and informed consent was obtained. Instrument: Olympus PCF H 190 L variable stiffness pediatric colonoscope and Mid size upper endoscope Monitoring: Vital signs and clinical assessment, intermittent blood pressure monitoring, continuous EKG monitoring, Pulse oximetry and Carbon Dioxide monitoring were done throughout the procedure. Procedure: The patient was placed in the left lateral decubitis position and pre-procedure medications were administered. After a digital rectal examination of the ano-rectum, the video colonoscope was inserted into the rectum and advanced through the colon to? 50 cms.? It was not possible to advance further due to severe diverticulosis with stricture.? The colonoscopy was removed, a mid-size upper endoscope was introduced into the rectum and advanced to the sigmoid colon to 60 cms.? It was not possible to advanced further due to narrowing and looping of the scope. The upper endoscope was slowly withdrawn in a retrograde panoramic fashion and the colon mucosa was carefully examined including a retroflexed view of the rectum. Findings and interventions are described below. Procedure Difficulty:? difficult due to sigmoid stricture, incomplete colonoscopy Findings: Sigmoid Colon:? Severe diverticulosis with edematous folds and luminal narrowing and tight stricture from 25 to 55 cms - biopsies were obtained.? An 8-9 mm sessile polyp within a diverticulum at 25 cms - not removed.? No mass lesion was seen. Ainsley ink was injected at 25 cms - at the distal end of sigmoid stricture Rectum:? Normal Ano-rectum:? Moderate internal hemorrhoids Colon preparation:? Good after some irrigation Impression and Post Procedure Diagnosis: Colonoscopy Findings: An 8-9 mm sessile polyp within a diverticulum at 25 cms - not removed. Severe diverticulosis with edematous folds and luminal narrowing and tight stricture from 25 to 55 cms - biopsies were obtained.? No mass visualized Moderate hemorrhoids on retroflexed exam. Plan: Await pathology results Surgery consult - pt discussed with Dr Mccormick. Full colonoscopy in 1 year or after patient recovers from surgery Above findings were reviewed with the patient. Surgeon:?Mahsa De Los Santos MD Anesthesia:?MAC (Dr Salas) Was an Advertising Supervisor used for this Procedure?:?Yes Advertising Supervisor:?Yulisa Andrea Estimated blood loss (mL):?0 Pathology:?other (a: bx's sigmoid stricture at 50 cm) Condition:?stable Disposition:?PACU
== END 2020-11-07 13:01 | disposition left against medical advice (07) | DRG 389 ==
LOC: HO.ED 17:26 → HO.EDOVER 20:41 → HO.S3 20:54
PROVIDERS: Internal Medicine Gastroenterology; Internal Medicine Nephrology; Physician Assistant; Student in an Organized Health Care Education/Training Program; Admitting Provider Internal Medicine; Emergency Provider Emergency Medicine; PCP Internal Medicine; Visit Provider Internal Medicine
PROC: 0DJD8ZZ Inspection of Lower Intestinal Tract, Via Natural or Artificial Opening Endoscopic (ICD-10-PCS; CPT 45378; principal; 2020-11-03 12:00)
DX: K56.699 Other intestinal obstruction unspecified as to partial versus complete obstruction (principal); E87.1 Hypo-osmolality and hyponatremia; K57.30 Diverticulosis of large intestine without perforation or abscess without bleeding; E83.42 Hypomagnesemia; K63.5 Polyp of colon; K64.8 Other hemorrhoids; D72.829 Elevated white blood cell count, unspecified; E87.6 Hypokalemia; F31.9 Bipolar disorder, unspecified; Z20.822 Contact with and (suspected) exposure to COVID-19; F17.210 Nicotine dependence, cigarettes, uncomplicated; Z71.6 Tobacco abuse counseling; Z79.899 Other long term (current) drug therapy
CPT/HCPCS: 0241U; 36415; 74177; 80048; 81001; 82043; 82533; 83605; 83735; 83930; 83935; 84133; 84295; 84300; 84443; 85025; 85027; 86850; 86900; 86901; 87040; 88305; 96361; 96365; 96375; 96376; 99285; J0696; J2270; J2405; J2543; J3475; Q9967

== ENCOUNTER 2020-12-14 17:13 | Outpatient (REF) | payer MEDICARE, MEDICAID, SELFPAY ==
[2020-12-14 18:08] LABS: Alanine Aminotransferase 8 U/L (0-31); Albumin Level 4.4 g/dL (3.5-5.0); Alkaline Phosphatase 64 U/L (39-117); Anion Gap 12 (12-20); Aspartate Amino Transferase 13 U/L (5-31); Bilirubin Total 0.4 mg/dL (0.0-1.0); Blood Urea Nitrogen 4 mg/dL (9-16); Calcium 8.9 mg/dL (8.4-10.2); Carbon Dioxide 28 mmol/L (22-29); Chloride 92 mmol/L (96-108); Estimated Glomerular Filt Rate > 60; Glucose Fasting 95 mg/dL (60-99); Magnesium 1.7 mg/dL (1.6-2.6); Potassium 3.9 mmol/L (3.3-5.1); Sodium 128 mmol/L (135-145); Total Protein 6.4 g/dL (6.5-8.0)
== END 2020-12-14 17:14 | disposition home or self-care (01) ==
LOC: HO.LAB 17:13
PROVIDERS: PCP Internal Medicine; Visit Provider Internal Medicine
DX: E83.42 Hypomagnesemia (principal); E87.1 Hypo-osmolality and hyponatremia
CPT/HCPCS: 36415; 80053; 83735

== ENCOUNTER 2021-01-23 11:25 | Outpatient (REF) | payer MEDICARE, MEDICAID, SELFPAY ==
[2021-01-23 13:28] LABS: Blood Urea Nitrogen 3 mg/dL (9-16); Estimated Glomerular Filt Rate > 60
== END 2021-01-23 11:26 | disposition home or self-care (01) ==
LOC: HO.LAB 11:25
PROVIDERS: PCP Internal Medicine; Referring Provider Internal Medicine; Visit Provider Surgery
DX: K56.699 Other intestinal obstruction unspecified as to partial versus complete obstruction (principal)
CPT/HCPCS: 36415; 82565; 84520; 99212

== ENCOUNTER 2021-02-20 09:37 | Outpatient (REF) | payer MEDICARE, MEDICAID, SELFPAY ==
--- NOTE | ~2021-02-20 | CT_ITS ---
EXAMINATION: CT ABDOMEN AND PELVIS WITH CONTRAST CLINICAL INFORMATION: Obstruction COMPARISON: Previous CT of the abdomen and pelvis October 2020 TECHNIQUE: Multidetector volumetric images were obtained from the superior aspect of the liver through the pubic symphysis following administration 85 mL of Omnipaque 350 intravenous contrast. Sagittal and coronal reformatted images were obtained on the technologist's workstation. Oral contrast: Yes This CT examination was performed using dose optimization techniques as appropriate, variously including the following: *Automated exposure control *Adjustment of mA and/or kV according to patient size (this includes techniques or standardized protocols for targeted exams where dose is matched to indication/reason for exam; i.e. extremities or head) *Use of iterative reconstruction technique DLP: 289 mGy-cm FINDINGS: LUNG BASES: The visualized lung bases are unremarkable. LIVER, GALLBLADDER, AND BILIARY TREE: The liver is normal in size, shape, and attenuation. No focal hepatic lesion or biliary ductal dilatation is present. The gallbladder has been removed. PANCREAS: Unremarkable. SPLEEN: Unremarkable. ADRENAL GLANDS: Unremarkable. KIDNEYS AND URETERS: The kidneys are normal in size, shape, and attenuation. No hydronephrosis, hydroureter, or calculi seen. No perinephric stranding. BLADDER: Unremarkable. GASTROINTESTINAL TRACT: There is diverticulosis of the colon. There is long segment wall thickening of the sigmoid colon questionable for colitis or diverticulitis. No evidence of obstruction, perforation or abscess is seen. Small and large bowel is otherwise unremarkable. The appendix is normal. ABDOMINAL WALL: There is a small umbilical hernia containing fat. LYMPH NODES: Normal. VASCULAR: There is evidence of atherosclerotic disease. There is significant calcified plaque at the SMA origin. There are prominent bilateral ovarian veins.. PELVIC VISCERA: There is increased soft tissue seen in the left pelvis measuring 5.6 x 6.7 cm for example axial image 57 series 3 and coronal reconstructed image 28 and sagittal reconstructed image 56. This may be related to the uterus/subserosal fibroid. Adnexal mass cannot be excluded and follow-up pelvic ultrasound recommended. OSSEOUS STRUCTURES: There is grade 2 anterior subluxation of L5 with respect to S1 and pars defect. There are degenerative changes of the spine. CT/CT abdomen pelvis w con IMPRESSION: Diverticulosis of the colon. Long segment wall thickening of the sigmoid colon suggestive of diverticulitis or colitis.. No evidence of obstruction. 5.6 x 6.7 cm left pelvic mass, question related to the uterus or adnexa. Follow-up pelvic ultrasound recommended. Fleischner guidelines were followed. Findings will be communicated by the [place] work flow harness maker Demetria Burrows.
[2021-02-20] MEDS: iohexoL 350 MG/ML 100 ML INFUS..BTL IV (10:39)
[2021-02-20 10:43] LABS: Osmolality Urine 156 mosm/kg (373-1093)
[2021-02-20 10:45] LABS: Anion Gap 12 (12-20); Blood Urea Nitrogen 3 mg/dL (9-16); Calcium 9.5 mg/dL (8.4-10.2); Carbon Dioxide 27 mmol/L (22-29); Chloride 96 mmol/L (96-108); Estimated Glomerular Filt Rate > 60; Potassium 3.6 mmol/L (3.3-5.1); Sodium 131 mmol/L (135-145)
[2021-02-20 11:03] LABS: Cortisol Random 20.8 ug/dL
[2021-02-20 11:06] LABS: TSH reflex Free T4 3.17 uIU/mL (0.32-4.0)
== END 2021-02-20 09:38 | disposition home or self-care (01) ==
LOC: HO.CT 09:37
PROVIDERS: Internal Medicine Nephrology; Visit Provider Surgery
DX: K56.699 Other intestinal obstruction unspecified as to partial versus complete obstruction (principal); E87.1 Hypo-osmolality and hyponatremia
CPT/HCPCS: 36415; 74177; 80051; 82310; 82533; 82565; 83935; 84300; 84443; 84520; 84550; Q9967

== ENCOUNTER → 2021-03-11 09:34 | Outpatient (BNVA) | payer MEDICARE, MEDICAID, SELFPAY | PROVIDERS: PCP Internal Medicine; Referring Provider Internal Medicine; Visit Provider Surgery | DX: N94.89 Other specified conditions associated with female genital organs and menstrual cycle (principal); K56.699 Other intestinal obstruction unspecified as to partial versus complete obstruction | CPT/HCPCS: 99212 ==

== ENCOUNTER → 2021-03-28 09:27 | Outpatient (BNVA) | payer MEDICARE, MEDICAID, SELFPAY | PROVIDERS: PCP Internal Medicine; Visit Provider Surgery Vascular Surgery | DX: I73.9 Peripheral vascular disease, unspecified (principal) | CPT/HCPCS: 99202 ==

== ENCOUNTER 2021-04-03 14:21 | Outpatient (REF) | payer MEDICARE, MEDICAID, SELFPAY ==
--- NOTE | ~2021-04-03 | US_ITS ---
EXAMINATION: US PELVIS CLINICAL INFORMATION: Other specified contusions associated with female COMPARISON: 02/20/2021 TECHNIQUE: Ultrasound of the pelvis is performed using both transabdominal and transvaginal transducers along with Doppler. Transvaginal imaging is performed due to inadequate visualization transabdominally. FINDINGS: Uterus: The uterus is anteverted and measures 7.1 x 2.7 x 3.7 cm. Thin endometrial stripe. No visible fibroid. Adnexa: Normal-appearing right ovary measures 2.4 x 2.3 x 1.3 cm. Normal-appearing left ovary is not seen. Again seen is a 5.8 x 5.1 x 6.6 cm solid left adnexal mass. This is separate from the uterus. No ascites. US/US pelvic and transvaginal IMPRESSION: 6.6 cm solid left adnexal mass again seen. In a postmenopausal female patient, the appearance is highly suspicious for ovarian malignancy. Recommend gynecology consultation to guide further management. The report will be called to the ordering clinician by a [place] [facility]iology Physician Press Puller.
== END 2021-04-03 14:22 | disposition home or self-care (01) ==
LOC: HO.US 14:21
PROVIDERS: PCP Internal Medicine; Visit Provider Surgery
DX: N94.89 Other specified conditions associated with female genital organs and menstrual cycle (principal)
CPT/HCPCS: 76830; 76856

== ENCOUNTER 2021-04-12 09:20 | Outpatient (REF) | payer MEDICARE, MEDICAID, SELFPAY ==
[2021-04-12 12:07] LABS: Binax Internal Control QC Valid; Binax Now Covid-19 Ag Negative (Negative)
== END 2021-04-12 09:21 | disposition home or self-care (01) ==
LOC: HO.LAB 09:20
PROVIDERS: Visit Provider Internal Medicine
DX: Z20.822 Contact with and (suspected) exposure to COVID-19 (principal)
CPT/HCPCS: C9803

== ENCOUNTER 2021-04-22 12:13 | Outpatient (REF) | payer MEDICARE, MEDICAID, SELFPAY ==
[2021-04-26 19:52] LABS: CA-125 8 U/mL (<35)
== END 2021-04-22 12:14 | disposition home or self-care (01) ==
LOC: HO.LAB 12:13
PROVIDERS: PCP Internal Medicine; Visit Provider Obstetrics & Gynecology
DX: N94.89 Other specified conditions associated with female genital organs and menstrual cycle (principal); F17.210 Nicotine dependence, cigarettes, uncomplicated
CPT/HCPCS: 36415; 86304; 99202

== ENCOUNTER 2021-05-02 09:45 | Outpatient (REF) | payer MEDICARE, MEDICAID, SELFPAY ==
[2021-05-02 10:19] LABS: COVID-19 Test Negative (Negative)
== END 2021-05-02 09:46 | disposition home or self-care (01) ==
LOC: HO.LAB 09:45
PROVIDERS: Visit Provider Internal Medicine
DX: Z20.822 Contact with and (suspected) exposure to COVID-19 (principal)
CPT/HCPCS: 87635; C9803

== ENCOUNTER 2021-09-21 09:31 | Outpatient (REF) | payer MEDICARE, MEDICAID, SELFPAY ==
--- NOTE | ~2021-09-21 | XR_ITS ---
EXAMINATION: XR LUMBOSACRAL SPINE CLINICAL INFORMATION: Pain. COMPARISON: Previous CT of the abdomen and pelvis September 2021 TECHNIQUE: 3 views of the lumbosacral spine. FINDINGS: There is a 2 cm anterior subluxation of L5 with respect to S1 suggestive of grade 2 spondylolisthesis and spondylolysis. Bone alignment is otherwise normal. No fracture or dislocation is seen. The bones are osteopenic. There is degenerative disc disease at L5-S1. There is lower lumbar spine facet arthritis. There is evidence of atherosclerotic disease. XR/XR lumbar spine 2-3V IMPRESSION: L5-S1 spondylolysis and grade 2 spondylolisthesis. Degenerative disc disease at L5-S1 and lower lumbar spine facet arthritis.
== END 2021-09-21 09:32 | disposition home or self-care (01) ==
LOC: HO.XRAY 09:31
PROVIDERS: PCP Internal Medicine; Visit Provider Nurse Practitioner Family
DX: M54.50 Low back pain, unspecified (principal)
CPT/HCPCS: 72100

== ENCOUNTER 2021-09-23 09:12 | Emergency (ER) | payer MEDICARE, MEDICAID, SELFPAY ==
--- NOTE | ~2021-09-23 | CT_ITS ---
EXAMINATION: CT CHEST, ABDOMEN AND PELVIS WITHOUT CONTRAST CLINICAL INFORMATION: Low back pain after fall COMPARISON: CT abdomen of February 20, 2021 TECHNIQUE: Multidetector volumetric imaging was performed from the thoracic inlet through the pubic. Sagittal and coronal reformatted images were obtained on the technologist workstation. DLP: 201.92 and 382.69 mGy-cm. FINDINGS: CHEST: Lungs: There are moderate changes of centrilobular emphysema seen bilaterally. There is some mild peripheral interstitial disease which may be chronic about the lateral right lower lobe. No confluent airspace disease is identified. Central airways are patent. There is bronchial wall thickening present centrally without evidence of bronchiectasis. A few calcified granulomas are present. A few sub-4 mm densities are present. There is an 8 mm noncalcified nodule seen within the right lower lobe on image 311 of 535 in series #6. Mediastinum: Heart normal size. Prominent coronary artery calcifications are present. No thoracic aortic aneurysm. No pericardial effusion. No mediastinal or hilar lymphadenopathy is appreciated. There is nonocclusive calcified plaque seen within the aortic arch. Pleura: There is no significant effusion. No pleural mass or thickening. Chest Wall/Axilla: No axillary lymphadenopathy. There is a nondisplaced posterior right 11th rib fracture. ABDOMEN/PELVIS: Liver, Gallbladder, Biliary Tree: The liver is normal in size, shape, and attenuation. No focal hepatic lesion or biliary ductal dilatation is present. No hepatic laceration identified. No abnormal subcapsular fluid collection. Status post cholecystectomy. Pancreas: Unremarkable. Spleen: Unremarkable. No evidence of laceration. No subcapsular fluid collection. Adrenal Glands: Unremarkable. Kidneys and Ureters: The kidneys are normal in size, shape, and attenuation. No hydronephrosis or hydroureter or calculi seen. No perinephric stranding. Bladder: Unremarkable. Gastrointestinal Tract: No dilated loops of large or small bowel identified. No free air or free fluid. There is noted to be prominent diverticular disease present with some regions of wall thickening and some pericolonic stranding which could be related to colitis or diverticulitis however no abscess is identified and this appearance was present previously and may be chronic. Clinical correlation is suggested. No evidence of acute appendicitis. Abdominal Wall: No hernia is demonstrated. Lymph Nodes: No lymphadenopathy appreciated. Vascular: Moderate aortoiliac calcified plaque without abdominal aortic aneurysm. Pelvic Viscera: No suspicious pelvic mass. Osseous Structures: No suspicious destructive bony lesions identified. There is a grade 3 L5-S1 spondylolysis with bilateral L5 pars defects.. There is multilevel degenerative disc disease present with facet arthropathy. No acute vertebral body fracture is appreciated. There is a nondisplaced fracture of the posterior right 11th rib. CT/CT abdomen pelvis wo con IMPRESSION: Posterior nondisplaced right 11th rib fracture without evidence of hepatic laceration or subcapsular fluid collection. Moderate changes of centrilobular emphysema with old granulomatous disease. 8 mm noncalcified right lower lobe nodule. Sigmoid diverticular disease as described above with acute diverticulitis is not excluded. Clinical correlation suggested. Grade 3 L5-S1 spondylolysis with bilateral L5 pars defects. According to the UPDATED 2017 Fleischner Society recommendations, the advised follow-up imaging for a single solid nodule measuring 8 mm or greater is: Consider CT, PET/CT, or tissue sampling at 3 months.
[2021-09-23 09:50] VITALS: BP 160/77; PULSE 60; RESP 16; TEMP 36.7; O2SAT 96; BMI 21.4
--- NOTE | 2021-09-23 10:13 | ED_ITS ---
HPI - General Adult General Chief complaint: Back Pain/Injury Stated complaint: BACK PAIN, INJ Time Seen by Provider: 09/23/21 10:13 Source: patient Mode of arrival: ambulatory Limitations: no limitations History of Present Illness HPI narrative: Patient is a 66 year old female presenting to the emergency department today with right sided low back pain. Patient states that 2 day ago, she tripped and f ell on her back against her stairs. Patient denies hitting his head with the incident. Patient denies any loss of consciousness from the incident. Patient denies any dizziness, lightheadedness, abdominal pain, nausea, vomiting, fever, chills, blurry vision, double vision, loss of vision, chest pain, difficulty breathing, shortness of breath, night sweats, pain with urination, increased urinary frequency, increased urinary urgency, blood in his urine or stool, syncope or a near syncopal episode, recent trauma or falls, bowel incontinence, bladder incontinence, bowel retention, bladder retention, or any other complaints at this time. Onset (ago): day(s) (2) Location: back Radiation: non-radiation Severity: mild Severity scale (1-10): 3 Quality: aching and dull Pain Consistency: constant Relieving factors: none Exacerbating factors: other (deep breaths) Associated symptoms: denies other symptoms Treatments prior to arrival: none Related Data Home Medications Medication Instructions Recorded Confirmed buspirone 5 mg tablet 10 mg PO BID 03/30/20 04/17/21 clonidine HCl 0.1 mg tablet 0.1 mg PO BEDTIME 03/30/20 04/17/21 lorazepam 1 mg tablet 1 mg PO TID 03/30/20 04/17/21 sertraline 100 mg tablet 100 mg PO DAILY 03/30/20 04/17/21 ziprasidone HCl 60 mg capsule 60 mg PO BID 07/04/20 04/17/21 ondansetron 8 mg disintegrating 1 tab PO Q12H PRN nausea/vomiting 10/31/20 04/17/21 tablet Previous Rx's Medication Instructions Recorded lactulose 20 gram/30 mL oral 20 g (30 mL) PO BID PRN 01/20/21 solution constipation 30 days #1,800 mL acetaminophen 325 mg tablet 650 mg PO Q6H PRN pain 30 days 04/23/21 #240 tabs ibuprofen 600 mg tablet 600 mg PO TID PRN pain 30 days #90 05/30/21 tabs nystatin 100,000 unit/mL oral 1 ml PO QID 10 days #40 mL 08/26/21 suspension omeprazole 20 mg capsule,delayed 20 mg PO DAILY #90 caps 09/08/21 release Allergies Allergy/AdvReac Type Severity Reaction Status Date / Time No Known Allergies Allergy Verified 09/18/21 16:25 Review of Systems Constitutional: Constitutional: Reports no additional constitutional complain ts, Denies chills, Denies fever(s) and Denies night sweats Eyes: Eyes: Reports no additional eye complaints, Denies blurry vision, Denies change in vision, Denies diplopia, Denies eye discharge, Denies loss of vision and Denies eye pain ENT: Denies dizziness Cardiovascular: Cardiovascular: Reports no additional cardiovascular complaints, Denies chest pain, Denies lightheadedness, Denies Loss of Consciousness and Denies dyspnea Respiratory: Respiratory: Reports no additional respiratory complaints and Denies dyspnea Gastrointestinal: Gastrointestinal: Reports no additional gastrointestinal complaints, Denies abdominal pain, Denies melena, Denies hematochezia, Denies change in bowel habits and Denies change in stool character Genitourinary: Genitourinary: Denies hematuria, Denies urinary frequency, Denies dysuria, Denies urinary incontinence, Denies urinary hesitancy and Denies urinary urgency Musculoskeletal: Musculoskeletal: Reports no additional musculoskeletal complaints, Reports back pain, Denies numbness and Denies tingling Neurologic: Denies dizziness, Denies loss of vision, Denies numbness and Denies tingling Psychiatric: Psychiatric: Reports no additional psychiatric complaints Endocrine: Endocrine: Reports no additional endocrine complaints Hematologic/Lymphatic: Hematologic/Lymphatic: Reports no additional hematologic/lymphatic complaints Allergic/Immunologic: Allergic/Immunologic: Reports no additional allergic/immunologic complaints [facility] Past Medical History Attestation statement: The following information was validated with the patient. Source: old records reviewed Medical History Adnexal mass Adnexal mass Arterial calcification Bipolar 1 disorder Chronic idiopathic constipation Depression with anxiety Diabetes mellitus Diverticular stricture Foot pain Impaired glucose tolerance Paronychia of great toe, right Rib injury Right knee pain Smoker Superior mesenteric artery thrombosis Surgical History History of cholecystectomy Hx of section Family History Family History Father No problems noted. Mother No problems noted. Other Mental health disorder Social History Social History Household Members: Spouse Housing: House Do you presently have visiting nurse or other home services: No Alcohol intake: former Patient Tobacco Use Status: Current everyday Tobacco user Tobacco use type: Cigarette Cigarette Packs Per Day: 1 Cigarettes Per Day: 20 e-Cigarette/Vaping Use: Never Used Second Hand Smoke Exposure: No Advance Directives: No Advance Directives Information Provided: No service: No Current occupational status: unemployed and disabled Cognitive needs: No Hearing needs: No Vision needs: No Physical Exam ED Vital Signs: Vital Signs - 24 hr 09/23/21 09:50 09/23/21 10:41 Temperature 98.0 F Pulse Rate 60 58 Respiratory Rate 16 18 Blood Pressure 160/77 H 136/67 Pulse Oximetry 96 98 Oxygen Delivery Method Room Air Room Air BMI result Body Mass Index 21.4 Const General: cooperative, no acute distress, alert and awake Nutritional Appearance: well nourished Orientation/consciousness: patient oriented x3 Limitations: no limitations HENMT Head: Yes normal to inspection and Yes atraumatic Ears: hearing grossly normal bilaterally and external ears normal General nose exam: Normal external nose present, no nasal discharge noted and no epistaxis Face and sinus: Yes normal facial exam, No abrasion and No laceration Mouth: Normal oral and palatal mucosa present, no drooling and no muffled voice Eyes General: appearance normal, both eyes and all related structures Periorbital: periorbital findings normal Eyelids: Yes eyelids normal Conjunctivae: conjunctivae normal Pupils: Equal, round and reactive pupils present EOM: EOMs intact bilaterally Neck Neck: Yes normal visual inspection, Yes full ROM and Yes no lymphadenopathy Chest Chest palpation & inspection: normal inspection of the chest Resp Effort & Inspection: normal respiratory effort and able to speak in complete sentences Auscultation: clear to auscultation bilaterally Cardio Rate: regular rate Rhythm: regular rhythm GI Inspection: Yes normal to inspection General: Yes no CVA tenderness Back/Spine/Pelvis Back: no CVA tenderness Cervical Spine: normal cervical lordosis and cervical ROM normal Thoracic/Lumbar Spine: thoracic and lumbar spine normal to inspection and thoraco-lumbar ROM normal Pelvis: no pain with anterior-posterior compression Neuro General: patient oriented x3 and moves all extremities Cranial nerves: Yes Equal, round and reactive pupils present Cognition (Neuro): normal cognition Motor exam (neuro): 5/5 motor strength present throughout Sensory Exam: Normal double simultaneous stimulation for sensation Coordination: [id number] test normal Extrem General: Yes normal to inspection, Yes full ROM and Yes capillary refill normal Psych Appearance: grossly normal Mental Status: mental status grossly normal Affect: normal affect Attitude: cooperative Thought process: Normal thought process present Thought content: Normal thought content present Insight: Good insight present (Psych) Medical Decision Making MDM Narrative Medical decision making narrative: Patient is a 66 year old female presenting to the emergency department today with right sided low back pain. Patient's physical exam was unremarkable. Patient's chest and abd/pelvis CT showed a posterior 11th rib fracture. I explained my physical exam findings as well as all test results to the patient. I answered all questions asked by the patient. Patient received PO Tylenol and IM Toradol which she stated helped her pain significantly. I stressed the importance of the patient taking her medication as prescribed. I stressed the importance of the patient following up with her primary care provider. I stressed the importance of the patient returning to the emergency department immediately if her symptoms were to worsen or if she were to develop any dizziness, shortness of breath, difficulty breathing, chest pain, blurry vision, loss of vision, nausea, vomiting, abdominal pain, fever, chills, back pain, or any other complaints. Patient verbalized agreement and understanding with this treatment plan and discharge. Differential Diagnosis Differential Diagnosis: rib fracture, chronic back pain Medical Records Medical records reviewed: Yes I reviewed the patient's medical records. Imaging Data CT abd/pelvis/Chest: Attestation: I personally reviewed and interpreted this imaging study as follows: My impression: 11th rib fracture of the right side Radiologist's impression: EXAMINATION: CT CHEST, ABDOMEN AND PELVIS WITHOUT CONTRAST CLINICAL INFORMATION: Low back pain after fall COMPARISON: CT abdomen of February 20, 2021 TECHNIQUE: Multidetector volumetric imaging was performed from the thoracic inlet through the pubic. Sagittal and coronal reformatted images were obtained on the technologist workstation. DLP: 201.92 and 382.69 mGy-cm. FINDINGS: CHEST: Lungs: There are moderate changes of centrilobular emphysema seen bilaterally. There is some mild peripheral interstitial disease which may be chronic about the lateral right lower lobe. No confluent airspace disease is identified. Central airways are patent. There is bronchial wall thickening present centrally without evidence of bronchiectasis. A few calcified granulomas are present. A few sub-4 mm densities are present. There is an 8 mm noncalcified nodule seen within the right lower lobe on image 311 of 535 in series #6. Mediastinum: Heart normal size. Prominent coronary artery calcifications are present. No thoracic aortic aneurysm. No pericardial effusion. No mediastinal or hilar lymphadenopathy is appreciated. There is nonocclusive calcified plaque seen within the aortic arch. Pleura: There is no significant effusion. No pleural mass or thickening. Chest Wall/Axilla: No axillary lymphadenopathy. There is a nondisplaced posterior right 11th rib fracture. ABDOMEN/PELVIS: Liver, Gallbladder, Biliary Tree: The liver is normal in size, shape, and attenuation. No focal hepatic lesion or biliary ductal dilatation is present. No hepatic laceration identified. No abnormal subcapsular fluid collection. Status post cholecystectomy. Pancreas: Unremarkable. Spleen: Unremarkable. No evidence of laceration. No subcapsular fluid collection. Adrenal Glands: Unremarkable. Kidneys and Ureters: The kidneys are normal in size, shape, and attenuation. No hydronephrosis or hydroureter or calculi seen. No perinephric stranding. Bladder: Unremarkable. Gastrointestinal Tract: No dilated loops of large or small bowel identified. No free air or free fluid. There is noted to be prominent diverticular disease present with some regions of wall thickening and some pericolonic stranding which could be related to colitis or diverticulitis however no abscess is identified and this appearance was present previously and may be chronic. Clinical correlation is suggested. No evidence of acute appendicitis. Abdominal Wall: No hernia is demonstrated. ? Lymph Nodes: No lymphadenopathy appreciated. Vascular: Moderate aortoiliac calcified plaque without abdominal aortic aneurysm. Pelvic Viscera: No suspicious pelvic mass. Osseous Structures: No suspicious destructive bony lesions identified. There is a grade 3 L5-S1 spondylolysis with bilateral L5 pars defects.. There is multilevel degenerative disc disease present with facet arthropathy. No acute vertebral body fracture is appreciated. There is a nondisplaced fracture of the posterior right 11th rib.? CT/CT chest wo con IMPRESSION: Posterior nondisplaced right 11th rib fracture without evidence of hepatic laceration or subcapsular fluid collection. ? Moderate changes of centrilobular emphysema with old granulomatous disease. ? ?8 mm noncalcified right lower lobe nodule. ? Sigmoid diverticular disease as described above with acute diverticulitis is not excluded. Clinical correlation suggested. ? Grade 3 L5-S1 spondylolysis with bilateral L5 pars defects. ? According to the UPDATED 2017 Fleischner Society recommendations, the advised follow-up imaging for a single solid nodule measuring 8 mm or greater is:? Consider CT, PET/CT, or tissue sampling at 3 months. Dictated By: Henry Diaz MD Signed By: Electronically signed by Henry Diaz MD 09/23/21 1524 Discharge Plan Discharge Clinical Impression: Fracture of rib Patient Disposition: Home, Self-Care Instructions: Rib Fracture (ED) Additional Instructions: Follow up with your primary care provider. Return to the emergency department immediately if your symptoms worsen or if you develop any dizziness, shortness of breath, difficulty breathing, chest pain, blurry vision, loss of vision, nausea, vomiting, abdominal pain, fever, chills, back pain, or any other complaints. Prescriptions: No Action lactulose 20 gram/30 mL solution 20 g PO BID PRN (Reason: constipation) 30 Days Qty: 1800 6RF acetaminophen 325 mg tablet 650 mg PO Q6H PRN (Reason: pain) 30 Days Qty: 240 2RF ibuprofen 600 mg tablet 600 mg PO TID PRN (Reason: pain) 30 Days Qty: 90 0RF nystatin 100,000 unit/mL suspension 1 ml PO QID 10 Days Qty: 40 3RF omeprazole 20 mg capsule,delayed release(DR/EC) 20 mg PO DAILY Qty: 90 1RF ondansetron 8 mg tablet,disintegrating 1 tab PO Q12H PRN (Reason: nausea/vomiting) sertraline 100 mg tablet 100 mg PO DAILY lorazepam 1 mg tablet 1 mg PO TID buspirone 5 mg tablet 10 mg PO BID clonidine HCl 0.1 mg tablet 0.1 mg PO BEDTIME ziprasidone HCl 60 mg capsule 60 mg PO BID Referrals: Sloane Cody MD [Primary Care Provider] - Interventions: ED Discharge Assessment Last Done: 09/23/21 12:12 Discharge Date/Time: 09/23/21 12:13 Print Language: Nauruan
[2021-09-23 10:41] VITALS: BP 136/67; PULSE 58; RESP 18; O2SAT 98
[2021-09-23] MEDS: Ketorolac Tromethamine 15 MG/ML VIAL IM (11:40)
[2021-09-23] MEDS: Acetaminophen 325 MG TABLET 650 MG PO (11:41)
== END 2021-09-23 12:13 | disposition home or self-care (01) ==
PROVIDERS: Emergency Provider Emergency Medicine Emergency Medical Services; PCP Internal Medicine
DX: S22.31XA Fracture of one rib, right side, initial encounter for closed fracture (principal); W10.8XXA Fall (on) (from) other stairs and steps, initial encounter; E11.9 Type 2 diabetes mellitus without complications; F17.200 Nicotine dependence, unspecified, uncomplicated; Y93.89 Activity, other specified; Y92.9 Unspecified place or not applicable; Y99.9 Unspecified external cause status
CPT/HCPCS: 71250; 74176; 96372; 99283; 99284; J1885

== ENCOUNTER 2021-11-21 09:34 | Emergency (ER) | payer MEDICARE, MEDICAID, SELFPAY ==
--- NOTE | ~2021-11-21 | XR_ITS ---
EXAMINATION: XR ELBOW, RIGHT CLINICAL INFORMATION: Pain and swelling COMPARISON: 11/11/2017 TECHNIQUE: Four views of the right elbow. FINDINGS: No fracture or dislocation. Alignment is anatomic at the elbow with joint space is maintained. There is prominent soft tissue swelling at the dorsal aspect of the elbow overlying the olecranon. XR/XR elbow RT min 3V IMPRESSION: Prominent dorsal soft tissue swelling overlies the olecranon, which can be seen with olecranon bursitis.
[2021-11-21 09:42] VITALS: BP 141/62; PULSE 66; RESP 19; TEMP 36.1; O2SAT 98; BMI 22.1
--- NOTE | 2021-11-21 10:35 | ED.EXTPRO ---
HPI - Extremity Problem General Chief complaint: Extremity Injury, Upper Stated complaint: Fall R arm swollen Time Seen by Provider: 11/21/21 10:15 Source: patient Mode of arrival: ambulatory Limitations: no limitations History of Present Illness HPI Narrative: 66-year-old female with a history of emphysema, diabetes, neuropathy, P 80, bipolar, depression, anxiety who presents to the ER for evaluation of right elbow pain, swelling and bruising for the last few weeks. Initially she denied any known injury but states about a month ago she fell out of bed and banged her right elbow on the side table. She had a similar event when she fell off of the couch and banged her right elbow on the coffee table. She reports significant swelling of the elbow for the last couple of weeks. She has bruising on her forearm that she reports is overall improved. She is not on anticoagulation but takes aspirin. She is able to fully bend and extend the elbow but has some tenderness in the joint when she touches it. She denies any redness or warmth. She is right-hand dominant MD Complaint: joint swelling Onset (ago): week(s) Pain Consistency: constant Location: right and upper extremity Severity scale (1-10): 4 Quality: aching Radiation: none Exacerbating factors: palpation Associated symptoms: denies other symptoms Related Data Home Medications Medication Instructions Recorded Confirmed buspirone 5 mg tablet 10 mg PO BID 03/30/20 04/17/21 clonidine HCl 0.1 mg tablet 0.1 mg PO BEDTIME 03/30/20 04/17/21 lorazepam 1 mg tablet 1 mg PO TID 03/30/20 04/17/21 sertraline 100 mg tablet 100 mg PO DAILY 03/30/20 04/17/21 ziprasidone HCl 60 mg capsule 60 mg PO BID 07/04/20 04/17/21 ondansetron 8 mg disintegrating 1 tab PO Q12H PRN nausea/vomiting 10/31/20 04/17/21 tablet Previous Rx's Medication Instructions Recorded lactulose 20 gram/30 mL oral 20 g (30 mL) PO BID PRN 01/20/21 solution constipation 30 days #1,800 mL acetaminophen 325 mg tablet 650 mg PO Q6H PRN pain 30 days 04/23/21 #240 tabs omeprazole 20 mg capsule,delayed 20 mg PO DAILY #90 caps 09/08/21 release meloxicam 15 mg tablet 15 mg PO DAILY 90 days #90 tabs 09/26/21 nystatin 100,000 unit/mL oral 1 ml PO QID 30 days #120 mL 11/08/21 suspension diabetic shoes and inserts #1 ea 11/12/21 tobramycin 0.3 % eye drops 1 drp ophthalmic (eye) Q4H 5 days 11/12/21 #5 mL Allergies Allergy/AdvReac Type Severity Reaction Status Date / Time No Known Allergies Allergy Verified 09/18/21 16:25 Review of Systems Review of Systems: Constitutional: No Fever, No Chills Cardiovascular: No Chest Pain, No SOB Respiratory: No Cough, No Sputum Genitourinary: No Hematuria Musculoskeletal: + joint pain, No Myalgias Skin: No Skin Lesions, No rash Neuro: No Weakness, No Numbness Psych: No Anxiety/Panic, No Depression Heme/Lymph: + Bruising, No Lymphadenopathy Endocrine: No Polyuria, No Polydipsia [facility] Past Medical History Medical History (Updated 11/21/21 @ 11:30 by ELGIN Alexis) Adnexal mass Adnexal mass Arterial calcification Bipolar 1 disorder Chronic idiopathic constipation Depression with anxiety Diverticular stricture Foot pain Paronychia of great toe, right Rib injury Right knee pain Smoker Superior mesenteric artery thrombosis Surgical History History of cholecystectomy Hx of section Family History Family History Father No problems noted. Mother No problems noted. Other Mental health disorder Social History Social History Household Members: Spouse Housing: House Do you presently have visiting nurse or other home services: No Alcohol intake: former Patient Tobacco Use Status: Current everyday Tobacco user Tobacco use type: Cigarette Cigarette Packs Per Day: 1 Cigarettes Per Day: 20 e-Cigarette/Vaping Use: Never Used Second Hand Smoke Exposure: No Advance Directives: No Advance Directives Information Provided: No service: No Current occupational status: unemployed and disabled Cognitive needs: No Hearing needs: No Vision needs: No Physical Exam Vital Signs: Vital Signs: Last Vital Signs Temp 97 F 11/21/21 09:42 Pulse 66 09/01/22 09:42 Resp 19 11/21/21 09:42 BP 141/62 H 11/21/21 09:42 Pulse Ox 98 11/21/21 09:42 O2 Del Method 11/21/21 09:42 BMI result Body Mass Index 22.1 Appearance: Alert. Oriented X3. No acute distress. HEENT: normal inspection CVS: Normal heart rate and rhythm. Pulses normal. Respiratory: No respiratory distress. Skin: Skin warm and dry. Normal skin color. Normal skin turgor. No rashes. Extremities: Right upper extremity with moderate size ecchymosis of the dorsal forearm, mild swelling. Compartments are soft and compressible. Neurovascularly intact distally. 2+ radial pulse. Equal gold layer strength bilaterally. Right elbow has a soft, mobile mass over the olecranon bursa. Minimal tenderness. No erythema, warmth. Normal range of motion of the right elbow and right shoulder. Neuro: Oriented X 3. No motor deficit. No sensory deficit. Course Course Course Narrative: 66-year-old female presents to the ER for evaluation of right elbow swelling and bruising after to traumatic events about a month ago. She has some tenderness medially with palpable fluid-filled bursa. Will get x-ray to rule out traumatic injury. Reevaluation(s) Reevaluation #1: X-ray showing no fractures. Evidence of olecranon bursitis noted. She was wrapped in Mateus wrap for compression and support. Management was discussed with the patient. Will give her referral for Ortho if compression NSAIDs do not improve her symptoms. Stable for discharge home. Procedures Orthopedic Splinting/Casting Injury #1: Side: right Upper Extremity Injury Location: elbow Upper Extremity Immobilizer: Mateus wrap Critical Care Time Critical Care Time Critical Care Time: No Discharge Plan Discharge Clinical Impression: Bursitis of right elbow Patient Disposition: Home, Self-Care Instructions: Elbow Bursitis (ED) Additional Instructions: Your x-ray today did not show any broken bones. It showed evidence of bursitis. See the information provided. Treatment is compression with an Mateus wrap. Pain control with anti-inflammatory medications like ibuprofen, Aleve, Motrin. Recommend ice and elevation. Recommend following up with Orthopedics. Number below. If you develop new or worsening symptoms call 911 or come back to the ER for further evaluation. Prescriptions: No Action lactulose 20 gram/30 mL solution 20 g PO BID PRN (Reason: constipation) 30 Days Qty: 1800 6RF acetaminophen 325 mg tablet 650 mg PO Q6H PRN (Reason: pain) 30 Days Qty: 240 2RF omeprazole 20 mg capsule,delayed release(DR/EC) 20 mg PO DAILY Qty: 90 1RF meloxicam 15 mg tablet 15 mg PO DAILY 90 Days Qty: 90 0RF nystatin 100,000 unit/mL suspension 1 ml PO QID 30 Days Qty: 120 3RF tobramycin 0.3 % drops 1 drp ophthalmic (eye) Q4H 5 Days Qty: 5 0RF (DME) diabetic shoes and inserts 10 See Rx Instructions .Route .MEDSUPPLY Qty: 1 0RF Rx Instructions: As directed ondansetron 8 mg tablet,disintegrating 1 tab PO Q12H PRN (Reason: nausea/vomiting) sertraline 100 mg tablet 100 mg PO DAILY lorazepam 1 mg tablet 1 mg PO TID buspirone 5 mg tablet 10 mg PO BID clonidine HCl 0.1 mg tablet 0.1 mg PO BEDTIME ziprasidone HCl 60 mg capsule 60 mg PO BID Referrals: Daljit Gonzalez MD [Physician] - (Traumatic right elbow bursitis)
== END 2021-11-21 11:41 | disposition home or self-care (01) ==
PROVIDERS: Emergency Provider Student in an Organized Health Care Education/Training Program; PCP Internal Medicine
DX: M70.21 Olecranon bursitis, right elbow (principal); Y93.9 Activity, unspecified; F17.210 Nicotine dependence, cigarettes, uncomplicated
CPT/HCPCS: 73080; 99283

== ENCOUNTER → 2021-12-11 15:00 | Outpatient (BNVA) | payer MEDICARE, MEDICAID, SELFPAY | PROVIDERS: PCP Internal Medicine; Visit Provider Internal Medicine Pulmonary Disease | DX: R91.8 Other nonspecific abnormal finding of lung field (principal); J44.9 Chronic obstructive pulmonary disease, unspecified | CPT/HCPCS: 99202 ==

== ENCOUNTER 2021-12-17 13:08 | Emergency (ER) | payer MEDICARE, MEDICAID, SELFPAY | END 2021-12-17 15:03 | disposition left against medical advice (07) | PROVIDERS: Emergency Provider Emergency Medicine; PCP Internal Medicine | DX: M25.421 Effusion, right elbow (principal) ==

== ENCOUNTER → 2021-12-20 10:28 | Outpatient (BNVA) | payer MEDICARE, MEDICAID, SELFPAY | PROVIDERS: PCP Internal Medicine; Visit Provider Physician Assistant | DX: M70.21 Olecranon bursitis, right elbow (principal) | CPT/HCPCS: 99202 ==

== ENCOUNTER → 2022-01-06 14:46 | Outpatient (BNVA) | payer MEDICARE, MEDICAID, SELFPAY | PROVIDERS: PCP Internal Medicine; Visit Provider Psychiatry & Neurology Psychiatry | DX: F31.31 Bipolar disorder, current episode depressed, mild (principal) | CPT/HCPCS: 99212 ==

== ENCOUNTER 2022-03-03 10:09 | Outpatient (REF) | payer MEDICARE, MEDICAID, SELFPAY ==
[2022-03-03 10:36] LABS: COVID-19 Test Negative (Negative); IDNOW Serial# 16C4AD1C
== END 2022-03-03 10:10 | disposition home or self-care (01) ==
LOC: HO.LAB 10:09
PROVIDERS: Visit Provider Internal Medicine
DX: Z20.822 Contact with and (suspected) exposure to COVID-19 (principal); F31.31 Bipolar disorder, current episode depressed, mild; E11.9 Type 2 diabetes mellitus without complications; G62.9 Polyneuropathy, unspecified
CPT/HCPCS: 87635; 90833; C9803; Q3014

== ENCOUNTER 2022-04-02 08:17 | Outpatient (REF) | payer MEDICARE, MEDICAID, SELFPAY ==
[2022-04-02 08:31] LABS: MANUAL DIFF FLAG NO
[2022-04-02 08:56] LABS: Basophils Absolute Auto 0.1 X10*3/uL (0.0-0.2); Basophils Percent Auto 0.7 % (0-2); Eosinophils Absolute Auto 0.2 X10*3/uL (0.0-0.4); Eosinophils Percent Auto 2.5 % (0-4); Hematocrit 40.4 % (37.0-47.0); Hemoglobin 13.9 g/dl (12.0-16.0); Imm Gran Abs Auto 0.03 X10*3/uL (0.00-0.03); Imm Gran Pct Auto 0.4 % (0.0-0.4); Lymphocytes Absolute Auto 1.9 X10*3/uL (1.2-4.9); Lymphocytes Percent Auto 25.1 % (20-40); Mean Corpuscular HGB Conc 34.4 g/dl (31.0-35.0); Mean Corpuscular Hemoglobin 30.5 pg (27.0-33.0); Mean Corpuscular Volume 88.6 fL (80.0-98.0); Mean Platelet Volume 8.5 fL (9.4-12.3); Monocytes Absolute Auto 0.5 X10*3/uL (0.1-1.2); Monocytes Percent Auto 6.4 % (2-11); Neutrophils Absolute Auto 4.9 x10*3/uL (2.0-8.3); Neutrophils Percent Auto 64.9 % (45-73); Platelet Count 218 X10*3/uL (160-400); Red Blood Count 4.56 X10*6/uL (4.20-5.50); Red Cell Distribution Width 15.1 % (11.0-16.0); White Blood Count 7.5 X10*3/uL (4.8-10.8)
[2022-04-02 09:28] LABS: Estimated Average Glucose 117 mg/dL; Hemoglobin A1c % 5.7 %
[2022-04-02 09:34] LABS: Alanine Aminotransferase < 6 U/L (0-31); Albumin Level 4.3 g/dL (3.5-5.0); Alkaline Phosphatase 74 U/L (39-117); Anion Gap 12 (12-20); Aspartate Amino Transferase 12 U/L (5-31); Bilirubin Total 0.4 mg/dL (0.0-1.0); Blood Urea Nitrogen 5 mg/dL (9-16); Calcium 9.1 mg/dL (8.4-10.2); Carbon Dioxide 27 mmol/L (22-29); Chloride 94 mmol/L (96-108); Cholesterol 212 mg/dL; Estimated Glomerular Filt Rate > 60; Glucose Fasting 106 mg/dL (60-99); HDL Cholesterol 48 mg/dL; LDL Cholesterol Calculated 149 mg/dl; Sodium 129 mmol/L (135-145); Total Protein 6.2 g/dL (6.5-8.0); Triglycerides 76 mg/dL
[2022-04-02 09:52] LABS: TSH reflex Free T4 2.34 uIU/mL (0.32-4.0)
[2022-04-02 10:04] LABS: Folate 3.7 ng/mL (> or = 4.0); Vitamin B12 344 pg/mL (200-900)
[2022-04-02 16:04] LABS: Reflex LDLD? No
== END 2022-04-02 08:18 | disposition home or self-care (01) ==
LOC: HO.LAB 08:17
PROVIDERS: PCP Internal Medicine; Visit Provider Psychiatry & Neurology Psychiatry
DX: F31.31 Bipolar disorder, current episode depressed, mild (principal); G62.9 Polyneuropathy, unspecified; E87.1 Hypo-osmolality and hyponatremia; M70.21 Olecranon bursitis, right elbow; E11.9 Type 2 diabetes mellitus without complications
CPT/HCPCS: 36415; 80053; 80061; 82607; 82746; 83036; 84443; 85025

== ENCOUNTER → 2022-06-09 15:55 | Outpatient (BNVA) | payer MEDICARE, MEDICAID, SELFPAY | PROVIDERS: PCP Internal Medicine; Visit Provider Psychiatry & Neurology Psychiatry | DX: F31.31 Bipolar disorder, current episode depressed, mild (principal); G62.9 Polyneuropathy, unspecified; J44.9 Chronic obstructive pulmonary disease, unspecified; J91.8 Pleural effusion in other conditions classified elsewhere | CPT/HCPCS: Q3014 ==

== ENCOUNTER → 2022-06-12 13:38 | Outpatient (BNVA) | payer MEDICARE, MEDICAID, SELFPAY | PROVIDERS: PCP Internal Medicine; Referring Provider Nurse Practitioner Family; Visit Provider Surgery | DX: K46.9 Unspecified abdominal hernia without obstruction or gangrene (principal) | CPT/HCPCS: 99212 ==

== ENCOUNTER → 2022-07-10 13:42 | Outpatient (BNVA) | payer MEDICARE, MEDICAID, SELFPAY | PROVIDERS: PCP Internal Medicine; Visit Provider Surgery | DX: K46.9 Unspecified abdominal hernia without obstruction or gangrene (principal); K59.09 Other constipation; Z90.49 Acquired absence of other specified parts of digestive tract | CPT/HCPCS: 99212 ==

== ENCOUNTER 2022-07-14 15:14 | Outpatient (REF) | payer MEDICARE, MEDICAID, SELFPAY ==
--- NOTE | ~2022-07-14 | CT_ITS ---
EXAMINATION: CT ABDOMEN AND PELVIS WITHOUT CONTRAST CLINICAL INFORMATION: Abdominal hernia COMPARISON: Previous CT of the abdomen and pelvis September 2021 TECHNIQUE: Multidetector volumetric imaging was performed from the superior aspect of the liver through the pubic symphysis. Sagittal and coronal reformatted images were obtained on the technologist's workstation. This CT examination was performed using dose optimization techniques as appropriate, variously including the following: *Automated exposure control *Adjustment of mA and/or kV according to patient size (this includes techniques or standardized protocols for targeted exams where dose is matched to indication/reason for exam; i.e. extremities or head) *Use of iterative reconstruction technique DLP: 374 mGy-cm FINDINGS: LUNG BASES: 4 mm right lower lobe nodule stable from previous exams. LIVER, GALLBLADDER, AND BILIARY TREE: The liver is normal in size, shape, and attenuation. No focal hepatic lesion or biliary ductal dilatation is present. The gallbladder has been removed. PANCREAS: Unremarkable. SPLEEN: Unremarkable. ADRENAL GLANDS: Unremarkable. KIDNEYS AND URETERS: The kidneys are normal in size, shape, and attenuation. No hydronephrosis, hydroureter, or calculi seen. No perinephric stranding. BLADDER: Unremarkable. GASTROINTESTINAL TRACT: There is severe diverticulosis. There is marked wall thickening of the sigmoid colon and some some stranding of the fat mild sigmoid diverticulitis. No evidence of obstruction perforation or abscess. The small and large bowel is otherwise normal. The appendix is unremarkable. ABDOMINAL WALL: Small umbilical hernia containing fat. No other hernia.. LYMPH NODES: Normal. VASCULAR: Atherosclerotic disease. No aneurysm. PELVIC VISCERA: Unremarkable. OSSEOUS STRUCTURES: Grade 2 spondylolisthesis, spondylolysis and degenerative disc disease at L5-S1. Degenerative disc disease at L3-L4. CT/CT abdomen pelvis wo IV con IMPRESSION: Small umbilical hernia containing fat. No other hernia seen. Severe diverticulosis of the colon and question mild sigmoid diverticulitis. Fleischner guidelines were followed.
== END 2022-07-14 15:15 | disposition home or self-care (01) ==
LOC: HO.CT 15:14
PROVIDERS: PCP Internal Medicine; Visit Provider Surgery
DX: K46.9 Unspecified abdominal hernia without obstruction or gangrene (principal)
CPT/HCPCS: 74176

== ENCOUNTER → 2022-07-25 14:06 | Outpatient (BNVA) | payer MEDICARE, MEDICAID, SELFPAY | PROVIDERS: PCP Internal Medicine; Referring Provider Internal Medicine; Visit Provider Surgery | DX: K46.9 Unspecified abdominal hernia without obstruction or gangrene (principal); K59.09 Other constipation; E11.9 Type 2 diabetes mellitus without complications; E87.1 Hypo-osmolality and hyponatremia | CPT/HCPCS: 99212 ==

== ENCOUNTER 2022-10-06 14:02 | Outpatient (AMB) | payer MEDICARE, MEDICAID, SELFPAY ==
--- NOTE | 2022-10-06 14:10 | MHC.PC.OV ---
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 Accompanied by: Self / Same As Patient Allergies No Known Allergies Allergy (Verified 10/06/22 14:20) Medication List - Last Reconciled 10/06/22 by Sloane Mccarthy MD buspirone 10 mg (2 x 5 mg) PO BID 3 months clonidine HCl 0.2 mg (2 x 0.1 mg) PO BEDTIME 3 months [diabetic shoes and inserts As directed] docusate sodium (Colace) 100 mg PO BID 3 months folic acid 0.8 mg PO DAILY 30 days lactulose 20 grams (30 mL) PO BID PRN 30 days lorazepam 0.5 - 1 mg (0.5 - 1 x 1 mg) PO TID 30 days nystatin 500,000 units (5 mL) PO TID 30 days omeprazole 20 mg PO DAILY sertraline 100 mg PO DAILY ziprasidone HCl 60 mg PO BID Tobacco use date assessed: 06/06/22 Fall risk assessment: No Falls in past year Last assessed Fall Risk: 10/06/22 Dental Screening Dental Screen Date: 10/06/22 Did you have a dental visit in the last 12 months?: Yes Did you have a dental problem in the last 6 months where you did not have access to dental care?: No Was dental information given to patient?: Patient has dentist HPI HPI Comments History of Present Illness Details This is a 67-year-old female with diabetes mellitus type 2 controlled with diet, COPD, bipolar disorder and chronic constipation that comes today for follow-up on her conditions. A1c within goal. She does not use any inhaler for her COPD. Bipolar disorder follow by Psychiatry in stable with sertraline. Has chronic constipation stable with lactulose. She is a smoker and was advised to quit. [facility] Medical History Adnexal mass Adnexal mass Arterial calcification Bipolar 1 disorder Chronic constipation Chronic idiopathic constipation Depression with anxiety Diverticular stricture Foot pain Paronychia of great toe, right Rib injury Right knee pain Smoker Superior mesenteric artery thrombosis Surgical History History of cholecystectomy Hx of section Incisional hernia Family History Father No problems noted. Mother No problems noted. Other Mental health disorder Social History Household Members: Spouse Housing: House Do you presently have visiting nurse or other home services: No Alcohol intake: former Patient Tobacco Use Status: Current everyday Tobacco user Tobacco use type: Cigarette Cigarette Packs Per Day: 1 Cigarettes Per Day: 20 e-Cigarette/Vaping Use: Never Used Second Hand Smoke Exposure: No service: No Current occupational status: unemployed and disabled Cognitive needs: No Hearing needs: No Vision needs: No Female Reproductive History Menstrual Age of Menarche: 9 Questionnaire Thrive Questionnaire Date Thrive assessed: 06/06/22 FARRUKH-7 AMB Questionnaire FARRUKH-7 Date FARRUKH - 7 assessed: 06/06/22 Source: Developed by Drs. Yonas Sepulveda, Lynn Yu, Ry Wilkerson and colleagues, with an educational sascha from [employer]. Review of Systems Const All systems reviewed & are unremarkable except as noted in HPI and below Eyes Reports no additional complaints, Denies change in vision and Denies other visual disturbances Card Denies chest pain at rest, Denies chest pain with activity, Denies edema, Denies irregular heart rhythm, Denies claudication, Denies dyspnea, Denies dyspnea on exertion, Denies orthopnea, Denies paroxysmal nocturnal dyspnea and Denies slow heart rate Resp Denies cough, Denies dyspnea and Denies dyspnea on exertion GI Denies abdominal pain, Denies change in bowel habits, Denies excessive flatus, Denies nausea and Denies vomiting Denies urinary incontinence, Denies urinary hesitancy and Denies urinary urgency Musc Denies abnormal gait, Denies atrophy, Denies deformity and Denies limited range of motion Skin/Breast Denies bleeding lesions, Denies changing lesions and Denies rash Neuro Denies abnormal gait and Denies lack of coordination Physical exam (Primary Care) Vital Signs: Last Vital Signs BP 140/90 H 10/06/22 14:13 BMI result Body Mass Index 23.4 Tobacco/Smoking Status: Tobacco use Status Tobacco use date assessed 06/06/22 10/06/22 14:12 Patient Tobacco Use Status Current everyday Tobacco 10/06/22 14:12 Tobacco use type Cigarette 10/06/22 14:12 e-Cigarette/Vaping Use Never Used 10/06/22 14:12 Thrive Assessment: Date of Thrive Assessment Date Thrive assessed 06/06/22 10/06/22 14:12 Eyes General: appearance normal, both eyes and all related structures Eyelids: Yes eyelids normal Conjunctivae: conjunctivae normal Neck Neck: Yes normal visual inspection and Yes supple Resp Effort & Inspection: normal respiratory effort Auscultation: clear to auscultation bilaterally Cardio Jugular venous distension: no JVD Rate: regular rate Rhythm: regular rhythm Heart sounds: S1 normal heart sound present and S2 normal heart sound present Extrem General: Yes full ROM Results AMB Hemoglobin A1c AMB Hemoglobin A1c 5.9 % Last Edit by LESLIE Ramos on 10/06/22 14:27 Results Reviewed Results Reviewed: Laboratory Last Values Hgb A1c (Clinic) 5.9 % (4.0-6.0) 10/06/22 14:21 Assessment and Plan Assessment & Plan (1) Diabetes mellitus: Code(s): E11.9 - Type 2 diabetes mellitus without complications Plan: Continue low-carbohydrate diet. A1c goal is equal or less than 7%. (2) COPD (chronic obstructive pulmonary disease): Code(s): J44.9 - Chronic obstructive pulmonary disease, unspecified Plan: Consider the use of an inhaler. (3) Bipolar 1 disorder, depressed, mild: Code(s): F31.31 - Bipolar disorder, current episode depressed, mild Plan: Continue sertraline. Follow-up with psychiatry. (4) Chronic constipation: Code(s): K59.09 - Other constipation Plan: Continue lactulose as needed. Orders: Orders Comprehensive [place]. Panel Fast Today E11.9 - Type 2 diabetes mellitus without complications Lipid Panel Today E78.5 - Hyperlipidemia, unspecified Vitamin D 25-OH Total Today E55.9 - Vitamin D deficiency, unspecified Microalbumin, Random (w Creat) Today E11.9 - Type 2 diabetes mellitus without complications AMB Hemoglobin A1c Today E11.9 - Type 2 diabetes mellitus without complications Coding Level of Care Code Est Pt Level 4 (39115) Diagnoses Diabetes mellitus E11.9 COPD (chronic obstructive pulmonary disease) J44.9 Bipolar 1 disorder, depressed, mild F31.31 Chronic constipation K59.09 Time Spent (min) 23
[2022-10-06 14:13] VITALS: BP 140/90; BMI 23.4
[2022-10-06 16:17] VITALS: BP 138/80
== END 2022-10-06 14:31 | disposition home or self-care (01) ==
PROVIDERS: Visit Provider Internal Medicine
DX: E11.9 Type 2 diabetes mellitus without complications (principal); J44.9 Chronic obstructive pulmonary disease, unspecified; F31.31 Bipolar disorder, current episode depressed, mild; K59.09 Other constipation
CPT/HCPCS: 83036; 99214

== ENCOUNTER 2022-10-16 14:01 | Outpatient (AMB) | payer MEDICARE, MEDICAID, SELFPAY ==
--- NOTE | 2022-10-16 14:16 | A.OFFPSYCH_ITS ---
Intake Intake Visit Reasons: depression Allergies No Known Allergies Allergy (Verified 10/30/22 13:40) HPI- Psychiatric Chief Complaint: depression HPI Narrative: Patient seen psychiatric follow-up patient seen in person. 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 She states this is not bother her and has not been interested in any suppressive therapy nor in lowering antipsychotics over time. She has not described any manic or psychotic symptoms. She seems somewhat a motivational passive and somewhat apathetic. She does continue to go in [place]. Who patient has difficulty enjoying things often staying home alone denies SI. Limited social interactions Past Psychiatric History: Past history of psychiatric hospitalization psychotic mixed state episodes. Has been stable for many years Mental Status Exam Mental Status Exam Narrative: mouth movements not tongue no swallowing problems Patient Appearance: Well Grooomed Patient Orientation: Person, Place, Time and Situation Level of Consciousness: Awake Patient Behavior: Appropriate Mood Description: Calm, Apathetic, Appropriate and Depressed Affect Description: Constricted, Blunted and Flat Ability to Follow Directions: Good Speech Pattern: Clear Memory Description: Intact Hallucinations: None Delusions: Not Present Thought Process: Intact Thought Content: positive for Intact, positive for [place], negative for Suicidal Ideation or negative for Homicidal Ideation Depressive Symptoms: Low Self Esteem and Loss of Energy Judgement: Fair Assessment and Plan Assessment & Plan (1) Bipolar 1 disorder, depressed, mild: Status: Acute Code(s): F31.31 - Bipolar disorder, current episode depressed, mild (2) COPD (chronic obstructive pulmonary disease): Status: Acute Code(s): J44.9 - Chronic obstructive pulmonary disease, unspecified (3) Lung nodules: Status: Acute Code(s): R91.8 - Other nonspecific abnormal finding of lung field (4) Centrilobular emphysema: Status: Acute Code(s): J43.2 - Centrilobular emphysema Plan Discussed with patient trying to lower gabapentin to 40 b.i.d. would avoid increasing sertraline secondary to chronic hyponatremia which is monitored on regular basis by her PCP this has been generally within a stable range for period of time no acute symptoms noted from this might benefit from addition of L methyl folate consider low-dose Wellbutrin Patient courage to get labs that already or ordered and chest CT scan which has also been ordered to follow-up on nodules Discussed strategies for patient to deal with current symptoms apathy disinterest Medications: Changed From ziprasidone HCl 60 mg PO BID 60 caps 3RF To ziprasidone HCl give with food (meal/snack) 40 mg PO BID 60 caps 2RF Counseling and coordination of Care Pt. Self Management counselin Step program (FARRUKH) and Behavior activation Details-Self Mgmt counseling: Encouraged daily walking behavioral activation Medication management counseling: Effectiveness and Side effects Diagnosis and Prognosis Counseling: Accuracy of diagnosis, Problematic behaviors secondary to diagnosis and Adequacy of current interventions Details: I spent [37] minutes reviewing the record, seeing the patient and documenting in the medical record. Counseling provided to the patient/caregiver as outlined below. Addressed patient/caregiver concerns regarding current medication regime including effective adherence. Addressed patient/caregiver concerns regarding diagnosis and prognosis including accuracy of diagnosis, prognosis over time, impact of diagnosis. Addressed patient/caregiver concerns regarding impact of recent stressors. [facility] Medical History Adnexal mass Adnexal mass Arterial calcification Bipolar 1 disorder Chronic constipation Chronic idiopathic constipation Depression with anxiety Diverticular stricture Foot pain Paronychia of great toe, right Rib injury Right knee pain Smoker Superior mesenteric artery thrombosis Surgical History History of cholecystectomy Hx of section Incisional hernia Family History Father No problems noted. Mother No problems noted. Other Mental health disorder Social History Household Members: Spouse Housing: House Do you presently have visiting nurse or other home services: No Alcohol intake: former Patient Tobacco Use Status: Current everyday Tobacco user Tobacco use type: Cigarette Cigarette Packs Per Day: 1 Cigarettes Per Day: 20 e-Cigarette/Vaping Use: Never Used Second Hand Smoke Exposure: No service: No Current occupational status: unemployed and disabled Cognitive needs: No Hearing needs: No Vision needs: No Social History: Family history of alcohol abuse. Patient lives with her has 1 daughter who lives in [place] 1 son. Patient does have grandchildren close with family. Substance History: Past history of alcohol belongs to [place] Trauma History: na Coding Level of Care Code Est Pt Level 3 (33526) Therapy 30m w/E&M (06472) Diagnoses Bipolar 1 disorder, depressed, mild F31.31 COPD (chronic obstructive pulmonary disease) J44.9 Lung nodules R91.8 Centrilobular emphysema J43.2
== END 2022-10-16 15:47 | disposition home or self-care (01) ==
LOC: HO.HOP 14:01
PROVIDERS: PCP Internal Medicine; Visit Provider Psychiatry & Neurology Psychiatry
DX: F31.31 Bipolar disorder, current episode depressed, mild (principal); R91.8 Other nonspecific abnormal finding of lung field; J43.2 Centrilobular emphysema
CPT/HCPCS: 90833; 99213

== ENCOUNTER → 2022-10-16 14:01 | Outpatient (BNVA) | payer MEDICARE, MEDICAID, SELFPAY | PROVIDERS: PCP Internal Medicine; Visit Provider Psychiatry & Neurology Psychiatry | DX: F31.31 Bipolar disorder, current episode depressed, mild (principal); J43.2 Centrilobular emphysema; R91.8 Other nonspecific abnormal finding of lung field | CPT/HCPCS: 90833; 99212 ==

== ENCOUNTER 2022-10-21 08:59 | Outpatient (REF) | payer MEDICARE, MEDICAID, SELFPAY ==
[2022-10-21 11:06] LABS: Estimated Average Glucose 114 mg/dL; Hemoglobin A1c % 5.6 %
[2022-10-21 11:40] LABS: Folate > 20.0 ng/mL (> or = 4.0); Vitamin B12 353 pg/mL (200-900)
[2022-10-21 11:57] LABS: Creatinine Urine 51.59 mg/dL; Microalbum/Creatinine Ratio Ur 38.7 ug/mg cr
== END 2022-10-21 09:00 | disposition home or self-care (01) ==
LOC: HO.LAB 08:59
PROVIDERS: PCP Internal Medicine; Visit Provider Psychiatry & Neurology Psychiatry
DX: E11.9 Type 2 diabetes mellitus without complications (principal); F31.31 Bipolar disorder, current episode depressed, mild; G62.9 Polyneuropathy, unspecified
CPT/HCPCS: 36415; 82043; 82607; 82746; 83036

== ENCOUNTER 2022-10-30 13:35 | Outpatient (AMB) | payer MEDICARE, MEDICAID, SELFPAY ==
--- NOTE | 2022-10-30 13:40 | A.OFFVIS_ITS ---
Intake Vital Signs 10/30/22 13:42 Height 5 ft 3 in Weight 126 lb BMI 22.3 BP 112/59 L Blood Pressure Location Lt brachial Position Sitting Pulse 67 Intake Visit Reasons: pre colonoscopy screening Intake Note: Patient follow up Patient cc: right side of abdominal pain on and off, constipation and denies any other GI issues. 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 by: Spouse Allergies No Known Allergies Allergy (Verified 10/30/22 13:40) Medication List - Last Reconciled 10/30/22 by Mahsa De Los Santos MD buspirone 10 mg (2 x 5 mg) PO BID 3 months clonidine HCl 0.2 mg (2 x 0.1 mg) PO BEDTIME 3 months [diabetic shoes and inserts As directed] docusate sodium (Colace) 100 mg PO BID 3 months folic acid 0.8 mg PO DAILY 30 days lactulose 20 grams (30 mL) PO BID PRN 30 days lorazepam 0.5 - 1 mg (0.5 - 1 x 1 mg) PO TID 30 days nystatin 500,000 units (5 mL) PO TID 30 days omeprazole 20 mg PO DAILY sertraline 100 mg PO DAILY ziprasidone HCl 40 mg PO BID HPI pre colonoscopy screening HPI Details GI clinic visit for this 67 YF for FU of a tight stricture in the sigmoid colon LABS IN [facility] : reviewed IMAGING STUDIES: 06/[address] SCAN SHOWED: GASTROINTESTINAL TRACT: There is severe diverticulosis. There is marked wall thickening of the sigmoid colon and some some stranding of the fat mild sigmoid diverticulitis. No evidence of obstruction perforation or abscess. The small and large bowel is otherwise normal. The appendix is unremarkable.? ABDOMINAL WALL: Small umbilical hernia containing fat. No other hernia..? IMPRESSION: Small umbilical hernia containing fat. No other hernia seen. Severe diverticulosis of the colon and question mild sigmoid diverticulitis. ? ENDOSCOPIC STUDIES: 10/2020 FLEXIBLE SIGMOIDOSCOPY SHOWED: An 8-9 mm sessile polyp within a diverticulum at 25 cms - not removed. Severe diverticulosis with edematous folds and luminal narrowing and tight stricture from 25 to 55 cms - biopsies were obtained.? No mass visualized Moderate hemorrhoids on retroflexed exam. Plan: Surgery consult - pt discussed with Dr Mccormick. Full colonoscopy in 1 year or after patient recovers from surgery Patient left AMA and did not have surgery performed TODAY'S VISIT: Patient is accompanied by her . I am having problems with my anus for ? 6 months or less Can get a twinge of pain in the right abdomen once in a while. Has to apply pressure on the anus to have a BM. Takes lactulose for constipation daily or every other days. Takes a stool softener intermittently Takes Omeprazole once daily for GERD with adequate control - occasional breakthrough symptoms depending on her diet. Has lost some wt over the past year (from 150 lbs) Patient denies symptoms of dysphagia. Nausea once in a while and dark stools sometimes Denies recent black stools or rectal bleeding. Patient denies major cardiac or pulmonary problems, loud snoring or sleep apnea Smokes 1 to 1.5 PPD x 60 yrs Has been in [facility] x 43 yrs Denies being on chronic anticoagulation. Patient denies known family history of colon polyps, colon cancer or other GI malignancies. Dad from cancer of mouth at age 65 to 70 yrs. PAST GI HISTORY BY REVIEW OF MEDICAL RECORDS: Patient was seen by Dr. Rojo during hospitalization in 10/2020 The patient is a 65-year-old woman, who was admitted to the hospital after presenting to the emergency room with 3 days of abdominal pain and cramping. There was associated nausea and a single non-bloody emesis.? She has a history of chronic constipation, for which she takes lactulose and has been moving her bowels without much difficulty.? She has never undergone colonoscopy.? She does report voluntary weight loss over the past year by restricting calories. ?She was evaluated in the emergency room and CT scanning was obtained, which shows a mass in the sigmoid that was thought to be possibly intramural.? The differential diagnosis included a mass versus abscess.? The patient has had no fevers or chills and denies a prior history of diverticular disease. IMPRESSION:? Abnormal CT scan of the colon. ? I discussed with her the need for colonoscopy for further evaluation of this lesion to determine if it is an abscess or mass due to malignancy.? We discussed risks and benefits of colonoscopy today.? She understands these and agrees to proceed.? This will be scheduled for tomorrow. [facility] Medical History Adnexal mass Adnexal mass Arterial calcification Bipolar 1 disorder Chronic constipation Chronic idiopathic constipation Depression with anxiety Diverticular stricture Foot pain Paronychia of great toe, right Rib injury Right knee pain Smoker Superior mesenteric artery thrombosis Surgical History History of cholecystectomy Hx of section Incisional hernia Family History Father No problems noted. Mother No problems noted. Other Mental health disorder Social History Household Members: Spouse Housing: House Do you presently have visiting nurse or other home services: No Alcohol intake: former Patient Tobacco Use Status: Current everyday Tobacco user Tobacco use type: Cigarette Cigarette Packs Per Day: 1 Cigarettes Per Day: 20 e-Cigarette/Vaping Use: Never Used Second Hand Smoke Exposure: No service: No Current occupational status: unemployed and disabled Cognitive needs: No Hearing needs: No Vision needs: No Female Reproductive History Menstrual Age of Menarche: 9 Review of Systems Const All systems reviewed & are unremarkable except as noted in HPI and below Physical Exam Vital Signs: Last Vital Signs Pulse 67 10/30/22 13:42 BP 112/59 L 10/30/22 13:42 BMI result Body Mass Index 22.3 Const General: no acute distress Nutritional Appearance: average body habitus Orientation/consciousness: patient oriented x3 Limitations: no limitations HEENT Head: Yes normal to inspection Ears: hearing grossly normal bilaterally Eyes Sclerae: sclerae normal Pupils: Equal, round and reactive pupils present Neck Neck: Yes normal visual inspection Chest Chest palpation & inspection: normal inspection of the chest Resp Effort & Inspection: normal respiratory effort Auscultation: clear to auscultation bilaterally Cardio Palpation: normal PMI Rate: regular rate Rhythm: regular rhythm Heart sounds: S1 normal heart sound present, S2 normal heart sound present and no murmurs GI Palpation (GI): Soft to palpation, nontender and No hepatosplenomegaly present Auscultation: normal bowel sounds Rectal Exam - Female: normal sphincter tone and Visual inspection abnormal (perianal skin tags) Skin General skin exam: no rashes or lesions noted Neuro General: patient oriented x3, gait normal and moves all extremities Cranial nerves: Yes Equal, round and reactive pupils present Psych Appearance: grossly normal Mental Status: mental status grossly normal Assessment & Plan Assessment & Plan (1) Chronic constipation: Code(s): K59.09 - Other constipation (2) Diverticular stricture: Code(s): K56.699 - Other intestinal obstruction unspecified as to partial versus complete obstruction (3) Abnormal CT scan, colon: Code(s): R93.3 - Abnormal findings on diagnostic imaging of other parts of digestive tract Plan 67 year old female with bipolar disorder, diabetes mellitus, hypertension seen in GI for chronic constipation and known history of sigmoid stricture due to severe diverticulosis. Pt was hospitalized at [facility] in 10/2020 with 3 days of abdominal pain and cramping. Abd CT scan showed severe diverticulosis with marked wall thickening of the sigmoid colon and some some stranding of the fat suggestive of mild sigmoid diverticulitis. No evidence of obstruction perforation or abscess. Sigmoidoscopy showed severe diverticulosis with edematous folds and luminal narrowing and tight stricture from 25 to 55 cms. Complete colonoscopy could not be performed due to severe narrowing of the sigmoid colon (despite using a mid size upper endoscope) Pt was advised surgery and left AMA. Pt was advised to have a stool cologuard checked for colon cancer screening - I will contact her with test results when they are available. Continue Lactulose daily and stool softeners p.r.n. for constipaton If constipation gets worse or pt develops symptoms of colon obstruction, sigmoid resection can be considered for management of diverticular stricture of the sigmoid colon FU in 6 months Orders: Referrals Cologuard Test Z12.11 - Encounter for screening for malignant neoplasm of colon Medications: New bisacodyl (Dulcolax (bisacodyl)) 10 mg [place] DAILY 30 days PRN 12 ea 2RF constipation K59.09 - Other constipation Quality Reporting (2019) Adult ([facility] 138/05/14/68) Smoking risk assessment performed?: Yes Patient Tobacco Use Status: Current everyday Tobacco user Coding Level of Care Code Est Pt Level 4 (04962) Diagnoses Chronic constipation K59.09 Diverticular stricture K56.[address] scan, colon R93.3 Time Spent (min) 27
[2022-10-30 13:42] VITALS: BP 112/59; PULSE 67; BMI 22.3
== END 2022-10-30 14:39 | disposition home or self-care (01) ==
PROVIDERS: PCP Internal Medicine; Visit Provider Internal Medicine Gastroenterology
DX: K59.09 Other constipation (principal); K56.699 Other intestinal obstruction unspecified as to partial versus complete obstruction; R93.3 Abnormal findings on diagnostic imaging of other parts of digestive tract
CPT/HCPCS: 99214

== ENCOUNTER → 2022-10-30 13:35 | Outpatient (BNVA) | payer MEDICARE, MEDICAID, SELFPAY | PROVIDERS: PCP Internal Medicine; Visit Provider Internal Medicine Gastroenterology | DX: Z01.818 Encounter for other preprocedural examination (principal); K59.09 Other constipation; K56.699 Other intestinal obstruction unspecified as to partial versus complete obstruction; R93.3 Abnormal findings on diagnostic imaging of other parts of digestive tract | CPT/HCPCS: 99212 ==

== ENCOUNTER 2022-12-08 14:37 | Outpatient (AMB) | payer MEDICARE, MEDICAID, SELFPAY ==
--- NOTE | 2022-12-08 14:51 | MHC.OFFVISPS ---
Intake Intake Visit Reasons: depression Allergies No Known Allergies Allergy (Verified 10/30/22 13:40) HPI- Psychiatric Chief Complaint: depression HPI Narrative: Patient states she has generally been doing okay some obsessional thoughts tends to be flat and some difficulty enjoying things has tends to be staying home this is different than her prior presentation but patient states she is comfortable with how she is feeling and doing. No psychotic symptoms no SI Patient on sertraline Geodon she is noted to have tardive dyskinesia this is not distressing to her Past Psychiatric History: Past history of psychiatric hospitalization psychotic mixed state episodes. Has been stable for many years Mental Status Exam Mental Status Exam Narrative: mouth movements not tongue no swallowing problems Patient Appearance: Well Grooomed Patient Orientation: Person, Place, Time and Situation Level of Consciousness: Awake Patient Behavior: Appropriate Mood Description: Calm, Apathetic, Appropriate and Depressed Affect Description: Constricted, Blunted and Flat Ability to Follow Directions: Good Speech Pattern: Clear Memory Description: Intact Hallucinations: None Delusions: Not Present Thought Process: Intact Thought Content: positive for Intact, positive for [place], negative for Suicidal Ideation or negative for Homicidal Ideation Depressive Symptoms: Low Self Esteem and Loss of Energy Judgement: Fair Assessment and Plan Assessment & Plan (1) Bipolar 1 disorder, depressed, mild: Status: Acute Code(s): F31.31 - Bipolar disorder, current episode depressed, mild (2) COPD (chronic obstructive pulmonary disease): Status: Acute Code(s): J44.9 - Chronic obstructive pulmonary disease, unspecified (3) Neuroleptic-induced tardive dyskinesia: Status: Acute Code(s): G24.01 - Drug induced subacute dyskinesia; T43.505A - Adverse effect of unspecified antipsychotics and neuroleptics, initial encounter Plan Patient's Geodon has been lowered monitor child of dyskinesia monitor for psychosis mood instability she does have a 20 mg p.r.n. in addition to her scheduled dose continue sertraline check sodium history of hyponatremia continue sertraline lorazepam has been gradually taper down Tardive dyskinesia as has not interfered with patient some functioning Medications: New ziprasidone HCl (Geodon) as needed agitation 20 mg PO DAILY 30 caps 2RF Counseling and coordination of Care Pt. Self Management counseling: Sleep hygiene and Behavior activation Medication management counseling: Effectiveness and Side effects Diagnosis and Prognosis Counseling: Impact of diagnosis on life functions and Problematic behaviors secondary to diagnosis Details: I spent [30] minutes reviewing the record, seeing the patient and documenting in the medical record. Counseling provided to the patient/caregiver as outlined below. Addressed patient/caregiver concerns regarding current medication regime including effective adherence. Addressed patient/caregiver concerns regarding diagnosis and prognosis including accuracy of diagnosis, prognosis over time, impact of diagnosis. Addressed patient/caregiver concerns regarding impact of recent stressors. [facility] Medical History (Updated 12/26/22 @ 17:18 by Baldemar Xiong MD) Neuroleptic-induced tardive dyskinesia Chronic constipation Foot pain Adnexal mass Arterial calcification Superior mesenteric artery thrombosis Adnexal mass Smoker Diverticular stricture Paronychia of great toe, right Right knee pain Depression with anxiety Chronic idiopathic constipation Bipolar 1 disorder Rib injury Surgical History Incisional hernia Hx of section History of cholecystectomy Family History Father No problems noted. Mother No problems noted. Other Mental health disorder Social History Household Members: Spouse Housing: House Do you presently have visiting nurse or other home services: No Alcohol intake: former Patient Tobacco Use Status: Current everyday Tobacco user Tobacco use type: Cigarette Cigarette Packs Per Day: 1 Cigarettes Per Day: 20 e-Cigarette/Vaping Use: Never Used Second Hand Smoke Exposure: No service: No Current occupational status: unemployed and disabled Cognitive needs: No Hearing needs: No Vision needs: No Social History: Family history of alcohol abuse. Patient lives with her has 1 daughter who lives in [place] 1 son. Patient does have grandchildren close with family. Substance History: Past history of alcohol belongs to [place] Trauma History: na Coding Level of Care Code Est Pt Level 4 (33341) Diagnoses Bipolar 1 disorder, depressed, mild F31.31 COPD (chronic obstructive pulmonary disease) J44.9 Neuroleptic-induced tardive dyskinesia G24.01; T43.505A
== END 2022-12-08 14:38 | disposition home or self-care (01) ==
LOC: HO.HOP 14:38
PROVIDERS: PCP Internal Medicine; Visit Provider Psychiatry & Neurology Psychiatry
DX: F31.31 Bipolar disorder, current episode depressed, mild (principal); J44.9 Chronic obstructive pulmonary disease, unspecified; G24.01 Drug induced subacute dyskinesia; T43.505A Adverse effect of unspecified antipsychotics and neuroleptics, initial encounter
CPT/HCPCS: 99214

== ENCOUNTER → 2022-12-08 14:37 | Outpatient (BNVA) | payer MEDICARE, MEDICAID, SELFPAY | PROVIDERS: PCP Internal Medicine; Visit Provider Psychiatry & Neurology Psychiatry | DX: G24.01 Drug induced subacute dyskinesia (principal); T43.505A Adverse effect of unspecified antipsychotics and neuroleptics, initial encounter; F31.31 Bipolar disorder, current episode depressed, mild; J44.9 Chronic obstructive pulmonary disease, unspecified | CPT/HCPCS: 99212 ==

== ENCOUNTER 2023-01-06 09:51 | Emergency (ER) | payer MEDICARE, MEDICAID, SELFPAY ==
--- NOTE | ~2023-01-06 | XR_ITS ---
EXAMINATION: XR KNEE, LEFT CLINICAL INFORMATION: Status post fall with knee pain. COMPARISON: None available. TECHNIQUE: Four views of the left knee. FINDINGS: No fracture or joint effusion. Alignment is anatomic. Joint spaces are maintained. No abnormal soft tissue calcification. XR/XR knee LT 4V IMPRESSION: The tricompartment joint space is preserved. No visible acute fracture or dislocation seen. There is mild suprapatellar joint effusion.
[2023-01-06 10:10] VITALS: BP 144/80; PULSE 58; RESP 16; TEMP 36.7; O2SAT 96; BMI 22.6
--- NOTE | 2023-01-06 10:57 | ED.LOWEXIN ---
HPI - Extremity Injury (Lower) General Chief Complaint: Extremity Injury, Lower Stated Complaint: L knee inj Time Seen by Provider: 01/06/23 10:20 History of Present Illness HPI Narrative: This is a 67yo female with PMH of COPD, DM, PAD, Biploar 1 disorder, and chronic constipation, presents after sustaining a fall with injury to the left knee last night. She is able to ambulate w/o assistance. She denies dizziness, lightheadedness prior to the fall and did not hit her head or lose consciousness. She reports a TAPIA but this is nothing new. She is not on a blood thinner. Patient states this morning she started feeling cold and nauseous but her reports she always feels cold. Patient denies vision changes, chest pain, SOB, vomiting, diarrhea, abdominal pain. No history of falls. MD complaint: knee injury (left) and fall Onset (ago): hour(s) Injury: Left: knee (fall) Type of Injury: blunt Place: home Severity: mild Severity scale (1-10): 3 Relieving factors: nothing Exacerbating factors: palpation Related Data Previous Rx's Medication Instructions Recorded lactulose 20 gram/30 mL oral 20 g (30 mL) PO BID PRN 03/03/22 solution constipation 30 days #1,800 mL diabetic shoes and inserts #1 ea 03/06/22 omeprazole 20 mg capsule,delayed 20 mg PO DAILY #90 caps 08/07/22 release buspirone 5 mg tablet 10 mg (2 x 5 mg) PO BID 3 months 08/19/22 #360 tabs clonidine HCl 0.1 mg tablet 0.2 mg (2 x 0.1 mg) PO BEDTIME 3 09/01/22 months #180 tabs docusate sodium 100 mg capsule 100 mg PO BID 3 months #180 caps 10/06/22 (Colace) nystatin 100,000 unit/mL oral 500,000 unit (5 mL) PO TID 30 days 10/14/22 suspension #450 mL ziprasidone HCl 40 mg capsule 40 mg PO BID #60 caps 10/16/22 bisacodyl 10 mg rectal suppository 10 mg KS DAILY PRN constipation 30 10/30/22 (Dulcolax (bisacodyl)) days #12 ea sertraline 100 mg tablet 100 mg PO DAILY #30 tabs 11/19/22 ziprasidone HCl 20 mg capsule 20 mg PO DAILY #30 caps 12/08/22 (Geodon) lorazepam 1 mg tablet 0.5 - 1 mg (0.5 - 1 x 1 mg) PO TID 12/15/22 30 days #75 tabs folic acid 800 mcg tablet 0.8 mg PO DAILY #30 tabs 12/20/22 Allergies Allergy/AdvReac Type Severity Reaction Status Date / Time No Known Allergies Allergy Verified 10/30/22 13:40 Review of Systems Review of Systems: Constitutional: No Fever, No Chills, reports feeling cold ENT/Mouth: No sore throat, No Rhinorrhea, No Swallowing Difficulty Eyes: No Eye Pain, No Swelling, No Redness Cardiovascular: No Chest Pain, No SOB, No Orthopnea, No Edema Respiratory: No Cough, No Sputum, No Wheezing, No dyspnea Gastrointestinal: No Nausea, No Vomiting, No Diarrhea, No abdominal Pain, No Hematochezia, No Melena Genitourinary: No Dysuria, No Urinary Frequency, No Hematuria Musculoskeletal: No Myalgias, +reports left knee tenderness and pain with movement. Is able to ambulate w/o assistance. Denies left knee swelling. Skin: No Skin Lesions, No rash Neuro: No Weakness, No Numbness, No Dizziness, +Headache which she reports is common for her Psych: No Anxiety/Panic, No Depression Heme/Lymph: No Bruising, No Lymphadenopathy Endocrine: No Polyuria, No Polydipsia [facility] Past Medical History Medical History (Updated 01/06/23 @ 11:25 by ELGIN Alexis) Neuroleptic-induced tardive dyskinesia Chronic constipation Foot pain Adnexal mass Arterial calcification Superior mesenteric artery thrombosis Adnexal mass Smoker Diverticular stricture Paronychia of great toe, right Right knee pain Depression with anxiety Chronic idiopathic constipation Bipolar 1 disorder Rib injury Surgical History Incisional hernia Hx of section History of cholecystectomy Family History Family History Father No problems noted. Mother No problems noted. Other Mental health disorder Social History Social History Household Members: Spouse Housing: House Do you presently have visiting nurse or other home services: No Alcohol intake: former Patient Tobacco Use Status: Current everyday Tobacco user Tobacco use type: Cigarette Cigarette Packs Per Day: 1 Cigarettes Per Day: 20 e-Cigarette/Vaping Use: Never Used Second Hand Smoke Exposure: No Advance Directives: No Advance Directives Information Provided: No service: No Current occupational status: unemployed and disabled Cognitive needs: No Hearing needs: No Vision needs: No Physical Exam Vital Signs: Vital Signs: Last Vital Signs Temp 98.1 F 01/06/23 10:10 Pulse 58 01/06/23 10:10 Resp 16 01/06/23 10:10 BP 144/80 H 01/06/23 10:10 Pulse Ox 96 01/06/23 10:10 O2 Del Method Room Air 01/06/23 10:10 BMI result Body Mass Index 22.6 Appearance: Alert. Oriented X3. No acute distress. Head: normocephalic, atraumatic. Eyes: Pupils equal, round and reactive to light. ENT: Pharynx normal. No tonsillar swelling or exudate. Neck: Normal inspection. Neck supple. CVS: Normal heart rate and rhythm. Pulses normal. Respiratory: No respiratory distress. Breath sounds normal. Abdomen: Soft and nontender. +BS x4 Skin: Skin warm and dry. Normal skin color. Normal skin turgor. No rashes. Extremities: No lower extremity edema. No joint swelling. +anterior left knee tender to palpation. Full passive and active ROM. No left knee joint swelling or ecchymosis. +small flat erythematous macule on anterior left knee. Neuro/psych: Oriented X 3. No motor deficit. No sensory deficit. CN II-XII intact. Normal speech and cognition. Medications Administered Discontinued Medications Generic Name Dose Route Start Last Admin Trade Name Hortencia PRN Reason Stop Dose Admin Acetaminophen 975 mg 01/06/23 11:15 01/06/23 11:23 Acetaminophen 325 Mg Tablet PO 01/06/23 11:16 975 mg ONCE ONE Administration Ondansetron HCl 4 mg 01/06/23 11:15 01/06/23 11:23 Ondansetron Odt 4 Mg Tab.Rapdis TRANSLINGU 01/06/23 11:16 4 mg ONCE ONE Administration Medical Decision Making Medical Decision Making MDM Narrative: This is a 67yo female with PMH of COPD, DM, PAD, Biploar 1 disorder, and chronic constipation, presents after sustaining a fall with injury to the left knee last night. She is not on a blood thinner and did not hit her head. Vitals stable. L knee has normal passive/active ROM and showed no swelling or ecchymosis. Xray showed small left knee joint effusion and arthritic changes. Based on patient clincals presentation and xray findings, patient has a small left knee joint effusion w/o fracture or dislocation. Patient was given Zofran and Tylenol at ED. She is ambulatory. Patient was sent home with instructions of Mateus wrap, ice and elevation of the left knee and to take motrin/tylenol as needed. If symptoms persist or get, patient was instructed to return to ED. Differential Diagnosis Differential Diagnoses: The differential diagnosis associated with the presentation includes Left knee Joint Effusion, patellar fracture, ligament strain, prepatellar bursitis. Less concern for ligament tear, septic joint. Independent Interpretation I performed an independent interpretation of an: Plain X-Ray Interpretation: no large effusion or fracture appreciated Radiology Impression Discussion of test interpretation with radiology: I have reviewed the radiologist's reading. Radiologist Impression: EXAMINATION: XR KNEE, LEFT CLINICAL INFORMATION: Status post fall with knee pain. COMPARISON: None available. TECHNIQUE: Four views of the left knee. FINDINGS: No fracture or joint effusion. Alignment is anatomic. Joint spaces are maintained. No abnormal soft tissue calcification. XR/XR knee LT 4V IMPRESSION: The tricompartment joint space is preserved. No visible acute fracture or dislocation seen. There is mild suprapatellar joint effusion. Independent Historian Clinical information obtained from an independent historian. History obtained from or confirmed by: Spouse External Record Review External record reviewed: Outpatient record, Prior outpatient labs and Prior outpatient radiology Prescription Management I considered prescription management with: Pain Medication Chronic Conditions Patient?s care impacted by: Diabetes and Other (bipolar disorder) Critical Care Time Critical Care Time Critical Care Time: No Discharge Plan Discharge Clinical Impression: Effusion of knee Qualifiers: Laterality: left Qualified Code(s): M25.462 - Effusion, left knee Patient Disposition: Home, Self-Care Instructions: Swollen Knee Joint (ED) Additional Instructions: Your x-ray today did not show any broken bones. Rest your knee and elevate your leg when possible. Recommend MATEUS wrap for support and compression. Use ice several times per day for the next 48 hours. You may bear weight as tolerated. Take Motrin and/or Tylenol as needed for pain. Follow up with your doctor as needed. Prescriptions: No Action lactulose 20 gram/30 mL solution 20 g PO BID PRN (Reason: constipation) 30 Days Qty: 1800 6RF (DME) diabetic shoes and inserts 10 See Rx Instructions .Route .MEDSUPPLY Qty: 1 0RF Rx Instructions: As directed omeprazole 20 mg capsule,delayed release(DR/EC) 20 mg PO DAILY Qty: 90 1RF buspirone 5 mg tablet 10 mg PO BID 90 Days Qty: 360 1RF clonidine HCl 0.1 mg tablet 0.2 mg PO BEDTIME 90 Days Qty: 180 1RF docusate sodium [Colace] 100 mg capsule 100 mg PO BID 90 Days Qty: 180 0RF nystatin 100,000 unit/mL suspension 500,000 unit PO TID 30 Days Qty: 450 1RF sertraline 100 mg tablet 100 mg PO DAILY Qty: 30 2RF lorazepam 1 mg tablet 0.5 - 1 mg PO TID 30 Days Qty: 75 2RF Rx Instructions: try and gradually lower to half tab up to 3 x day folic acid 800 mcg tablet 0.8 mg PO DAILY Qty: 30 3RF bisacodyl [Dulcolax (bisacodyl)] 10 mg suppository 10 mg KS DAILY PRN (Reason: constipation) 30 Days Qty: 12 2RF ziprasidone HCl 40 mg capsule 40 mg PO BID Qty: 60 2RF Rx Instructions: give with food (meal/snack) ziprasidone HCl [Geodon] 20 mg capsule 20 mg PO DAILY Qty: 30 2RF Rx Instructions: as needed agitation Interventions: ED Discharge Assessment Last Done: 01/06/23 11:28 Discharge Date/Time: 01/06/23 11:28
[2023-01-06] MEDS: Acetaminophen 325 MG TABLET 975 MG PO (11:23)
[2023-01-06] MEDS: Ondansetron ODT 4 MG TAB.RAPDIS TRANSLINGU (11:23)
== END 2023-01-06 11:28 | disposition home or self-care (01) ==
PROVIDERS: Emergency Provider Emergency Medicine Emergency Medical Services; PCP Internal Medicine
DX: M25.462 Effusion, left knee (principal); M25.562 Pain in left knee; F17.210 Nicotine dependence, cigarettes, uncomplicated
CPT/HCPCS: 73564; 99283

== ENCOUNTER → 2023-01-16 15:00 | Outpatient (BNV) | payer MEDICARE, MEDICAID, SELFPAY | PROVIDERS: PCP Internal Medicine; Visit Provider Radiology Diagnostic Radiology | DX: Z12.31 Encounter for screening mammogram for malignant neoplasm of breast (principal) | CPT/HCPCS: 77063; 77067 ==

== ENCOUNTER 2023-01-16 15:01 | Outpatient (REF) | payer MEDICARE, MEDICAID, SELFPAY ==
--- NOTE | ~2023-01-16 | MM_ITS ---
EXAMINATION: MM SCREENING DIGITAL BREAST TOMOSYNTHESIS, BILATERAL CLINICAL INFORMATION: Screening. Asymptomatic. COMPARISON: Mammography: This study is compared with prior exams dating back to 2015. TECHNIQUE: Digital breast tomosynthesis is performed in both the craniocaudal and mediolateral oblique views along with computer-aided detection (CAD). Synthesized 2D images are generated from the tomosynthesis. FINDINGS: There are scattered areas of fibroglandular density (ACR BI-RADS breast composition Category b). There are no significant masses, abnormal calcifications, or other abnormalities. MM/MM tomosynthesis screening BI IMPRESSION: No mammographic evidence of malignancy. ASSESSMENT: BI-RADS BI-RADS 1 - Negative RECOMMENDATION: Routine annual mammography screening. 1 year F/U This examination should not preclude the clinical evaluation of a suspicious palpable abnormality. This patient's information was entered into a reminder system with a target due date for their next mammogram.
== END 2023-01-16 15:02 | disposition home or self-care (01) ==
LOC: HO.MAMMO 15:01
PROVIDERS: PCP Internal Medicine; Visit Provider Internal Medicine
DX: Z12.31 Encounter for screening mammogram for malignant neoplasm of breast (principal)
CPT/HCPCS: 77063; 77067

== ENCOUNTER 2023-02-04 15:41 | Outpatient (AMB) | payer MEDICARE, MEDICAID, SELFPAY ==
[2023-02-04 15:53] VITALS: BP 120/72; PULSE 70; O2SAT 95; BMI 20.9
--- NOTE | 2023-02-04 15:53 | A.OFFPC_ITS ---
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: No Accompanied by: Self / Same As Patient Allergies No Known Allergies Allergy (Verified 02/04/23 16:03) Medication List - Last Reconciled 02/04/23 by Sloane Mccarthy MD buspirone 10 mg (2 x 5 mg) PO BID 3 months clonidine HCl 0.2 mg (2 x 0.1 mg) PO BEDTIME 3 months [diabetic shoes and inserts As directed] folic acid 0.8 mg PO DAILY lactulose 20 grams (30 mL) PO BID PRN 30 days lorazepam 0.5 - 1 mg (0.5 - 1 x 1 mg) PO TID 30 days nystatin 500,000 units (5 mL) PO TID 30 days omeprazole 40 mg PO DAILY 90 days sertraline 100 mg PO DAILY ziprasidone HCl 40 mg PO BID ziprasidone HCl (Geodon) 20 mg PO DAILY Tobacco use date assessed: 06/06/22 Fall risk assessment: 1 Fall in past year Last assessed Fall Risk: 02/04/23 Dental Screening Dental Screen Date: 02/04/23 Did you have a dental visit in the last 12 months?: Yes Did you have a dental problem in the last 6 months where you did not have access to dental care?: No Was dental information given to patient?: Patient has dentist HPI HPI Comments History of Present Illness Details This is a 66-year-old female with bipolar disorder, diabetes mellitus type 2 and COPD that comes today complaining of low back pain and bilateral hip pain that started few days ago when she fell and hit her right knee and her lower back. Right knee is not painful, swollen or deformed. Lower back still hurts. Bipolar disorder stable with medications and this is follow by Psychiatry. Has COPD and denies any shortness of breath or cough. Still smokes. Blood glucose has been well controlled with diet. [facility] Medical History (Updated 02/04/23 @ 16:12 by Sloane Mccarthy MD) Neuroleptic-induced tardive dyskinesia Chronic constipation Foot pain Adnexal mass Arterial calcification Superior mesenteric artery thrombosis Adnexal mass Smoker Diverticular stricture Paronychia of great toe, right Right knee pain Depression with anxiety Chronic idiopathic constipation Bipolar 1 disorder Rib injury Surgical History Incisional hernia Hx of section History of cholecystectomy Family History Father No problems noted. Mother No problems noted. Other Mental health disorder Social History Household Members: Spouse Housing: House Do you presently have visiting nurse or other home services: No Alcohol intake: former Patient Tobacco Use Status: Current everyday Tobacco user Tobacco use type: Cigarette Cigarette Packs Per Day: 1 Cigarettes Per Day: 20 e-Cigarette/Vaping Use: Never Used Second Hand Smoke Exposure: No service: No Current occupational status: unemployed and disabled Cognitive needs: No Hearing needs: No Vision needs: Yes Female Reproductive History Menstrual Age of Menarche: 9 Questionnaire Thrive Questionnaire Date Thrive assessed: 06/06/22 FARRUKH-7 AMB Questionnaire FARRUKH-7 Date FARRUKH - 7 assessed: 06/06/22 Source: Developed by Drs. Yonas Sepulveda, Lynn Yu, Ry Wilkerson and colleagues, with an educational sascha from [employer]. Review of Systems Const All systems reviewed & are unremarkable except as noted in HPI and below Eyes Reports no additional complaints, Denies change in vision and Denies other visual disturbances Card Denies chest pain at rest, Denies chest pain with activity, Denies edema, Denies irregular heart rhythm, Denies claudication, Denies dyspnea, Denies dyspnea on exertion, Denies orthopnea, Denies paroxysmal nocturnal dyspnea and Denies slow heart rate Resp Denies cough, Denies dyspnea and Denies dyspnea on exertion GI Denies abdominal pain, Denies change in bowel habits, Denies excessive flatus, D enies nausea and Denies vomiting Denies urinary incontinence, Denies urinary hesitancy and Denies urinary urgency Musc Denies abnormal gait, Reports back pain, Denies atrophy, Denies deformity and Denies limited range of motion Skin/Breast Denies bleeding lesions, Denies changing lesions and Denies rash Neuro Denies abnormal gait and Denies lack of coordination Physical exam (Primary Care) Vital Signs: Last Vital Signs Pulse 70 02/04/23 15:53 BP 120/72 02/04/23 15:53 Pulse Ox 95 02/04/23 15:53 Oxygen Delivery Method Room Air 02/04/23 15:53 BMI result Body Mass Index 20.9 Tobacco/Smoking Status: Tobacco use Status Tobacco use date assessed 06/06/22 02/04/23 16:02 Patient Tobacco Use Status Current everyday Tobacco 02/04/23 16:02 Tobacco use type Cigarette 02/04/23 16:02 e-Cigarette/Vaping Use Never Used 02/04/23 16:02 Thrive Assessment: Date of Thrive Assessment Date Thrive assessed 06/06/22 02/04/23 16:02 Eyes General: appearance normal, both eyes and all related structures Eyelids: Yes eyelids normal Conjunctivae: conjunctivae normal Neck Neck: Yes normal visual inspection and Yes supple Resp Effort & Inspection: normal respiratory effort Auscultation: clear to auscultation bilaterally Cardio Jugular venous distension: no JVD Rate: regular rate Rhythm: regular rhythm Heart sounds: S1 normal heart sound present and S2 normal heart sound present Extrem General: Yes full ROM Office Procedures Flu Questionnaire Does the patient have a severe egg allergy?: No Immunizations flu vacc [id number] 6mos up(PF) 60 mcg(15 mcgx4)/0.5 mL IM syringe Performing Provider: Sloane Mccarthy MD [facility] Documented (not given) by: LESLIE Ramos on 02/04/23 16:03 Reason Not Given: Patient Refused Assessment and Plan Assessment & Plan (1) Lumbar pain: Code(s): M54.50 - Low back pain, unspecified Plan: X-ray ordered. (2) Right hip pain: Code(s): M25.551 - Pain in right hip Plan: X-ray ordered. (3) Left hip pain: Code(s): M25.552 - Pain in left hip Plan: X-ray ordered. (4) Bipolar 1 disorder, depressed, mild: Code(s): F31.31 - Bipolar disorder, current episode depressed, mild Plan: Continue ziprasidone. Follow-up with psychiatry. (5) Diabetes mellitus: Code(s): E11.9 - Type 2 diabetes mellitus without complications Plan: Continue low-carbohydrate diet. A1c goal is equal or less than 7%. (6) COPD (chronic obstructive pulmonary disease): Code(s): J44.9 - Chronic obstructive pulmonary disease, unspecified Plan: Use rescue inhaler for shortness of breath. At the moment no shortness of breath. Orders: Orders Influenza [id number] Immunization Today Z23 - Encounter for immunization XR hip LT min 2V Today M25.552 - Pain in left hip Microalbumin, Random (w Creat) 2 Months E11.9 - Type 2 diabetes mellitus without complications Vitamin D 25-OH Total 2 Months E55.9 - Vitamin D deficiency, unspecified Comprehensive [place]. Panel Fast 2 Months M54.50 - Low back pain, unspecified Complete Blood Count Auto Diff 2 Months D72.829 - Elevated white blood cell count, unspecified XR lumbar spine 2-3V Today M54.50 - Low back pain, unspecified XR hip RT min 2V Today M25.551 - Pain in right hip Lipid Panel 2 Months E78.5 - Hyperlipidemia, unspecified Hemoglobin A1c 2 Months E11.40 - Type 2 diabetes mellitus with diabetic neuropathy, unspecified Vitamin B12 and Folate 2 Months E53.8 - Deficiency of other specified B group vitamins Coding Level of Care Code Est Pt Level 4 (83517) Diagnoses Lumbar pain M54.50 Right hip pain M25.551 Left hip pain M25.552 Bipolar 1 disorder, depressed, mild F31.31 Diabetes mellitus E11.9 COPD (chronic obstructive pulmonary disease) J44.9 Time Spent (min) 23
== END 2023-02-04 16:13 | disposition home or self-care (01) ==
PROVIDERS: PCP Internal Medicine; Visit Provider Internal Medicine
DX: M54.50 Low back pain, unspecified (principal); F31.31 Bipolar disorder, current episode depressed, mild; E11.9 Type 2 diabetes mellitus without complications; J44.9 Chronic obstructive pulmonary disease, unspecified; M25.551 Pain in right hip; M25.552 Pain in left hip
CPT/HCPCS: 99214

== ENCOUNTER 2023-02-04 16:19 | Outpatient (REF) | payer MEDICARE, MEDICAID, SELFPAY ==
--- NOTE | ~2023-02-04 | XR_ITS ---
STUDY: Lumbar spine and bilateral hips INDICATION: Low back and bilateral hip pain. COMPARISON: 09/21/2021. TECHNIQUE: 3 view lumbar spine, 2 views of the chest FINDINGS: Lumbar spine: Diffuse demineralization. Evaluation of the lower lumbar and lumbosacral regions limited due to overlying bony overlap. Grade 2 anterolisthesis L5 on S1 with disc space narrowing and sclerosis. Likely associated bilateral spondylolyses. Hypertrophic facet changes, L5 pedicles are obscured. SI joints within normal limits. Cholecystectomy clips. Pelvic soft tissue density likely bladder. Phleboliths. Vascular calcifications. Left hip: Moderate left hip joint narrowing. Femoral head remains seated in the bony acetabulum. No fracture or dislocation. Right hip: Moderate right hip joint narrowing. No fracture or dislocation. Calcification adjacent to the right greater trochanter. XR/XR hip RT min 2V IMPRESSION: Stable degenerative changes and grade 2 anterolisthesis L5 on S1. Bilateral moderate hip joint narrowings. Question right greater trochanteric calcific tendinopathy.
--- NOTE | ~2023-02-04 | XR_ITS ---
STUDY: Lumbar spine and bilateral hips INDICATION: Low back and bilateral hip pain. COMPARISON: 09/21/2021. TECHNIQUE: 3 view lumbar spine, 2 views of the chest FINDINGS: Lumbar spine: Diffuse demineralization. Evaluation of the lower lumbar and lumbosacral regions limited due to overlying bony overlap. Grade 2 anterolisthesis L5 on S1 with disc space narrowing and sclerosis. Likely associated bilateral spondylolyses. Hypertrophic facet changes, L5 pedicles are obscured. SI joints within normal limits. Cholecystectomy clips. Pelvic soft tissue density likely bladder. Phleboliths. Vascular calcifications. Left hip: Moderate left hip joint narrowing. Femoral head remains seated in the bony acetabulum. No fracture or dislocation. Right hip: Moderate right hip joint narrowing. No fracture or dislocation. Calcification adjacent to the right greater trochanter. XR/XR lumbar spine 2-3V IMPRESSION: Stable degenerative changes and grade 2 anterolisthesis L5 on S1. Bilateral moderate hip joint narrowings. Question right greater trochanteric calcific tendinopathy.
--- NOTE | ~2023-02-04 | XR_ITS ---
STUDY: Lumbar spine and bilateral hips INDICATION: Low back and bilateral hip pain. COMPARISON: 09/21/2021. TECHNIQUE: 3 view lumbar spine, 2 views of the chest FINDINGS: Lumbar spine: Diffuse demineralization. Evaluation of the lower lumbar and lumbosacral regions limited due to overlying bony overlap. Grade 2 anterolisthesis L5 on S1 with disc space narrowing and sclerosis. Likely associated bilateral spondylolyses. Hypertrophic facet changes, L5 pedicles are obscured. SI joints within normal limits. Cholecystectomy clips. Pelvic soft tissue density likely bladder. Phleboliths. Vascular calcifications. Left hip: Moderate left hip joint narrowing. Femoral head remains seated in the bony acetabulum. No fracture or dislocation. Right hip: Moderate right hip joint narrowing. No fracture or dislocation. Calcification adjacent to the right greater trochanter. XR/XR hip LT min 2V IMPRESSION: Stable degenerative changes and grade 2 anterolisthesis L5 on S1. Bilateral moderate hip joint narrowings. Question right greater trochanteric calcific tendinopathy.
== END 2023-02-04 16:20 | disposition home or self-care (01) ==
LOC: HO.XRAY 16:19
PROVIDERS: PCP Internal Medicine; Visit Provider Internal Medicine
DX: M54.50 Low back pain, unspecified (principal); M25.552 Pain in left hip; M25.551 Pain in right hip
CPT/HCPCS: 72100; 73502

== ENCOUNTER 2023-02-17 | Outpatient (REF) | payer MEDICARE, MEDICAID, SELFPAY ==
[2023-02-18 12:39] LABS: Influenza A PCR NEGATIVE (Negative); Influenza B PCR NEGATIVE (Negative); Resp Syncy Virus RNA Qual PCR NEGATIVE (Negative); SARS COV2 PCR INHOUSE NEGATIVE (Negative)
== END 2023-02-17 00:01 | disposition home or self-care (01) ==
LOC: HO.HMGCLNP
PROVIDERS: Visit Provider Internal Medicine
DX: R43.9 Unspecified disturbances of smell and taste (principal); Z20.822 Contact with and (suspected) exposure to COVID-19
CPT/HCPCS: 0241U

== ENCOUNTER 2023-02-17 14:42 | Outpatient (AMB) | payer MEDICARE, MEDICAID, SELFPAY ==
--- NOTE | 2023-02-17 15:40 | AM.OFFWIN_ITS ---
Intake Vital Signs 02/17/23 15:41 Height 5 ft 4 in Weight 127 lb BMI 21.8 BP 120/70 Blood Pressure Location Rt brachial Position Sitting Pulse 70 Pulse Source Pulse Oximeter Temp 97.1 F Temp Source Temporal Artery Scan Pulse Oximetry (%) 97 Oxygen Delivery Method Room Air Intake Visit Reasons: EP runny nose cough sweats chills Masked Intake Note: pt is here today for runny nose cough sweats chills started Patient Tobacco Use Status: Current everyday Tobacco user Allergies No Known Allergies Allergy (Verified 02/17/23 15:57) Medication List - Last Reconciled 02/17/23 by Jonatan Beckett MD buspirone 10 mg (2 x 5 mg) PO BID 3 months clonidine HCl 0.2 mg (2 x 0.1 mg) PO BEDTIME 3 months [diabetic shoes and inserts As directed] folic acid 0.8 mg PO DAILY lactulose 20 grams (30 mL) PO BID PRN 30 days lorazepam 0.5 - 1 mg (0.5 - 1 x 1 mg) PO TID 30 days nystatin 500,000 units (5 mL) PO TID 30 days omeprazole 40 mg PO DAILY 90 days sertraline 100 mg PO DAILY ziprasidone HCl (Geodon) 20 mg PO DAILY ziprasidone HCl 40 mg PO BID Do you need a note to return to daycare/school/sports/work: No HPI EP runny nose cough sweats chills Masked HPI Details Patient presents for a sick visit. Reporting symptoms of sinus congestion, sore throat and difficulty swallowing. Low-grade fever. No family member is sick. No recent travel. Patient reports symptoms of malaise and fatigue. [facility] Medical History Neuroleptic-induced tardive dyskinesia Chronic constipation Foot pain Adnexal mass Arterial calcification Superior mesenteric artery thrombosis Adnexal mass Smoker Diverticular stricture Paronychia of great toe, right Right knee pain Depression with anxiety Chronic idiopathic constipation Bipolar 1 disorder Rib injury Surgical History Incisional hernia Hx of section History of cholecystectomy Family History Father No problems noted. Mother No problems noted. Other Mental health disorder Social History Household Members: Spouse Housing: House Do you presently have visiting nurse or other home services: No Alcohol intake: former Comment: refuse alarm, but is using call bel approp Patient Tobacco Use Status: Current everyday Tobacco user Tobacco use type: Cigarette Cigarette Packs Per Day: 1 Cigarettes Per Day: 20 e-Cigarette/Vaping Use: Never Used Second Hand Smoke Exposure: No service: No Current occupational status: unemployed and disabled Cognitive needs: No Hearing needs: No Vision needs: Yes Female Reproductive History Menstrual Age of Menarche: 9 Physical Exam Vital Signs: Last Vital Signs Temp 97.1 F 02/17/23 15:41 Pulse 70 02/17/23 15:41 BP 120/70 02/17/23 15:41 Pulse Ox 97 02/17/23 15:41 Oxygen Delivery Method Room Air 02/17/23 15:41 BMI result Body Mass Index 21.8 Const General: cooperative and healthy appearing Nutritional Appearance: well nourished Orientation/consciousness: patient oriented x3 Limitations: no limitations HEENT Head: Yes normal to inspection Eyes General: appearance normal, both eyes and all related structures Neck Neck: Yes normal visual inspection Chest Chest palpation & inspection: normal palpation of entire chest wall Resp Effort & Inspection: normal respiratory effort Neuro General: patient oriented x3 Assessment & Plan Assessment & Plan (1) Upper respiratory tract infection: Code(s): J06.9 - Acute upper respiratory infection, unspecified Plan: No antibiotics needed. Increase fluid intake. Tylenol for aches and pains. If symptoms worsen, follow-up here for a recheck. Orders: Orders SARS-CoV2/FLU/RSV Today R43.9 - Unspecified disturbances of smell and taste Coding Level of Care Code Est Pt Level 3 (05823) Diagnoses Upper respiratory tract infection J06.9
[2023-02-17 15:41] VITALS: BP 120/70; PULSE 70; TEMP 36.2; O2SAT 97; BMI 21.8
== END 2023-02-17 16:06 | disposition home or self-care (01) ==
PROVIDERS: PCP Internal Medicine; Visit Provider Internal Medicine
DX: J06.9 Acute upper respiratory infection, unspecified (principal)
CPT/HCPCS: 99213

== ENCOUNTER 2023-02-22 13:14 | Emergency (ER) | payer MEDICARE, MEDICAID, SELFPAY ==
--- NOTE | ~2023-02-22 | XR_ITS ---
EXAMINATION: XR LUMBOSACRAL SPINE CLINICAL INFORMATION: Back pain COMPARISON: Lumbar spine radiographs 02/04/2023. TECHNIQUE: Three views of the lumbosacral spine. FINDINGS: There are 5 nonrib-bearing lumbar type vertebra. No evidence of acute fracture. Unchanged grade 2 anterolisthesis of L5 on S1 with likely bilateral pars defects. Vertebral body heights are maintained. Redemonstrated moderate L5-S1 disc space height loss. Mild multilevel disc space height loss of the remaining lower lumbar spine, more pronounced at L3-L4, unchanged. Moderate to severe lower lumbar facet arthropathy again seen. Surgical clips overlie the right upper abdomen. Aortic vascular calcifications. Soft tissues are unremarkable. XR/XR lumbar spine 2-3V IMPRESSION: Compared to 02/04/2023, unchanged moderate multilevel lower lumbar spondylosis with grade 2 anterolisthesis of L5 on S1 and likely spondylolysis at that level.
[2023-02-22 13:37] VITALS: BP 135/81; PULSE 73; RESP 18; TEMP 36.6; O2SAT 98; BMI 21.3
--- NOTE | 2023-02-22 13:43 | ED.GENADULT ---
HPI - General Adult General Chief complaint: Back Pain/Injury Stated complaint: Back pain Time Seen by Provider: 02/22/23 16:21 Source: patient Mode of arrival: ambulatory Limitations: no limitations History of Present Illness HPI narrative: 67yo female with PMH of COPD, DM, PAD, Biploar 1 disorder, and chronic constipation here with complaints of lower back pain x 1 week after lifting her pug at home. No radiation of pain. No numbness/tingling in the LE or the groin. No bowel or bladder incontinence. No fevers, chills, Using ASA at home with continued symptoms. Related Data Previous Rx's Medication Instructions Recorded lactulose 20 gram/30 mL oral 20 g (30 mL) PO BID PRN 03/03/22 solution constipation 30 days #1,800 mL diabetic shoes and inserts #1 ea 03/06/22 clonidine HCl 0.1 mg tablet 0.2 mg (2 x 0.1 mg) PO BEDTIME 3 09/01/22 months #180 tabs ziprasidone HCl 20 mg capsule 20 mg PO DAILY #30 caps 12/08/22 (Geodon) lorazepam 1 mg tablet 0.5 - 1 mg (0.5 - 1 x 1 mg) PO TID 12/15/22 30 days #75 tabs folic acid 800 mcg tablet 0.8 mg PO DAILY #30 tabs 12/20/22 omeprazole 40 mg capsule,delayed 40 mg PO DAILY 90 days #90 caps 01/12/23 release nystatin 100,000 unit/mL oral 500,000 unit (5 mL) PO TID 30 days 02/06/23 suspension #450 mL buspirone 5 mg tablet 10 mg (2 x 5 mg) PO BID 3 months 02/16/23 #360 tabs sertraline 100 mg tablet 100 mg PO DAILY #30 tabs 02/16/23 ziprasidone HCl 40 mg capsule 40 mg PO BID #60 caps 02/16/23 cyclobenzaprine 10 mg tablet 10 mg PO TID PRN muscle spasm #15 02/22/23 tabs lidocaine 5 % topical patch 1 patch topical DAILY #15 ea 02/22/23 (Lidoderm) Allergies Allergy/AdvReac Type Severity Reaction Status Date / Time No Known Allergies Allergy Verified 02/22/23 13:37 Review of Systems Review of Systems: Yes all other systems are reviewed and are negative Constitutional: Constitutional: Reports no additional constitutional complaints, Denies body ache(s), Denies chills, Denies fever(s), Denies headache(s) and Denies weakness Eyes: Eyes: Reports no additional eye complaints and Denies change in vision ENT: Reports system reviewed and no additional complaints, except as documented, Denies dizziness, Denies headache(s), Denies nasal congestion, Denies nasal discharge and Denies neck pain Cardiovascular: Cardiovascular: Reports no additional cardiovascular complaints, Denies chest pain, Denies leg edema and Denies dyspnea Respiratory: Respiratory: Reports no additional respiratory complaints, Denies cough and Denies dyspnea Gastrointestinal: Gastrointestinal: Reports no additional gastrointestinal complaints, Denies abdominal pain, Denies diarrhea, Denies nausea and Denies vomiting Genitourinary: Genitourinary: Reports no additional female genitourinary complaints and Denies urinary incontinence Musculoskeletal: Musculoskeletal: Reports no additional musculoskeletal complaints, Reports back pain, Denies arthralgias, Denies joint swelling, Denies neck pain, Denies numbness and Denies tingling Integumentary/Breasts: Skin/Breast: Reports system reviewed and no additional complaints, except as docu and Denies rash Neurologic: Reports system reviewed and no additional complaints, except as documented, Denies Abnormal speech present, Denies dizziness, Denies headache(s), Denies numbness, Denies tingling and Denies weakness PMFSH Past Medical History Attestation statement: The following information was validated with the patient. Source: old records reviewed and nursing notes reviewed Medical History Neuroleptic-induced tardive dyskinesia Chronic constipation Foot pain Adnexal mass Arterial calcification Superior mesenteric artery thrombosis Adnexal mass Smoker Diverticular stricture Paronychia of great toe, right Right knee pain Depression with anxiety Chronic idiopathic constipation Bipolar 1 disorder Rib injury Surgical History Incisional hernia Hx of section History of cholecystectomy Family History Family History Father No problems noted. Mother No problems noted. Other Mental health disorder Social History Social History Household Members: Spouse Housing: House Do you presently have visiting nurse or other home services: No Alcohol intake: former Comment: refuse alarm, but is using call bel approp Patient Tobacco Use Status: Current everyday Tobacco user Tobacco use type: Cigarette Cigarette Packs Per Day: 1 Cigarettes Per Day: 20 e-Cigarette/Vaping Use: Never Used Second Hand Smoke Exposure: No service: No Current occupational status: unemployed and disabled Cognitive needs: No Hearing needs: No Vision needs: Yes Physical Exam ED Vital Signs: Vital Signs - 24 hr 02/22/23 13:37 Temperature 98 F Pulse Rate 73 Respiratory Rate 18 Blood Pressure 135/81 Pulse Oximetry 98 Oxygen Delivery Method Room Air BMI result Body Mass Index 21.3 Const General: cooperative, healthy appearing, comfortable and no acute distress Orientation/consciousness: patient oriented x3 Limitations: no limitations HENMT Head: Yes normal to inspection Ears: hearing grossly normal bilaterally General nose exam: Normal external nose present Face and sinus: Yes normal facial exam Mouth: Normal oral and palatal mucosa present Throat: Yes posterior oropharynx normal Eyes General: appearance normal, both eyes and all related structures Pupils: Equal, round and reactive pupils present Neck Neck: Yes normal visual inspection Chest Chest palpation & inspection: normal inspection of the chest Resp Effort & Inspection: normal respiratory effort Auscultation: clear to auscultation bilaterally Cardio Rate: regular rate Rhythm: regular rhythm Peripheral pulses: Peripheral pulses 2+ throughout GI Inspection: Yes normal to inspection Palpation (GI): Soft to palpation and nontender Auscultation: normal bowel sounds Back/Spine/Pelvis Other: TTP to lumbar mid spine and bilateral soft tissues worsened with flexion/extension of the lumbar spine Thoracic/Lumbar Spine: thoracic and lumbar spine normal to inspection Skin General skin exam: no rashes or lesions noted Neuro General: patient oriented x3, no focal motor deficits and normal sensation to monofilament Cranial nerves: Yes Equal, round and reactive pupils present Cognition (Neuro): normal cognition Speech: No Abnormal speech present Gait exam (Neuro): Normal gait present Motor exam (neuro): 5/5 motor strength present throughout Sensory Exam: Normal double simultaneous stimulation for sensation Deep tendon reflexes (DTR's): Right patellar reflex intensity grade: 2+ and Left patellar reflex intensity grade: 2+ Extrem General: Yes normal to inspection, Yes no pedal edema and Yes no calf tenderness Course Course Course Narrative: RME: 67 yold female presents to the ED for lower back pain after llifting her dog. hurt on range of motion. patient also states headache. UA, lumbar xray, and SARS ordered Reevaluation(s) Reevaluation #1: x-ray of lumbar spine shows degenerative changes. UA is negative for infection. Viral testing is negative. Likely lumbar strain. Patient will be sent home with muscle relaxants and medicated patches as she already has NSAIDs at home. Reviewed worrisome signs and symptoms of when to return to the emergency room. Comfortable plan for discharge home. Medical Decision Making Medical Decision Making [facility] Narrative: 67yo female with PMH of COPD, DM, PAD, Biploar 1 disorder, and chronic constipation here with complaints of lower back pain x 1 week after lifting her pug at home. No radiation of pain. No numbness/tingling in the LE or the groin. No bowel or bladder incontinence. No fevers, chills, Using ASA at home with continued symptoms. TTP to lumbar lower spine with no step offs or deformities. No neurological deficits or red flag symptoms. Likely lumbar strain. Will review x-ray, UA, viral testing ordered from triage Differential Diagnosis Differential Diagnoses: The differential diagnosis associated with the presentation includes lumbar strain low concern for epidural abscess, AAA, renal colic, pyelonephritis, cord compression, caude equina, malignancy with gradual onset of symptoms, no weight loss/night sweats, no neurological deficits or red flag symptoms, immunocompromised state, IVDA abuse Admission/Observation Consideration of admission/observation: Escalation of care including admission/observation considered low concern for epidural abscess, AAA, renal colic, pyelonephritis, cord compression, caude equina, malignancy with gradual onset of symptoms, no weight loss/night sweats, no neurological deficits or red flag symptoms, immunocompromised state, IVDA abuse to suggest need for advanced imaging, and or admission Lab Data [facility] Lab Attestation statement: I reviewed the patient's lab results. Labs: Lab Results 02/22/23 02/22/23 Range/Units 15:30 16:19 Urine Color Yellow Urine Appearance Clear Urine pH 5.5 (5.0-9.0) Ur Specific Bryant <= 1.005 (1.005-1.025) Urine Protein Negative (Neg-Trace) mg/dL Urine Glucose (UA) Negative (Negative) mg/dL Urine Ketones Negative (Negative) mg/dL Urine Blood Negative (Negative) Urine Nitrite Negative (Negative) Ur Leukocyte Esterase Negative (Negative) Influenza Type A (PCR) NEGATIVE (Negative) Influenza Type B (PCR) NEGATIVE (Negative) RSV RNA Qual (PCR) NEGATIVE (Negative) SARS-CoV-2 RNA (RT-PCR) NEGATIVE (Negative) Independent Interpretation I performed an independent interpretation of an: Plain X-Ray Interpretation: I independently reviewed the x-ray and agree with rad report Radiology Impression Discussion of test interpretation with radiology: I have reviewed the radiologist's reading. Radiologist Impression: [address] [address] XRay Report Signed Patient: Alma Mera MR#: [id number] : 1955 Acct:[id number] Age/Sex: 67 / F ADM Date: 02/22/23 Loc: .ED Attending Dr: Ordering Physician: Davis Gandhi Date of Service: 02/22/23 Procedure(s): XR lumbar spine 2-3V Accession Number(s): [id number] cc: Davis Gandhi; Sloane Cody MD~ EXAMINATION: XR LUMBOSACRAL SPINE CLINICAL INFORMATION: Back pain COMPARISON: Lumbar spine radiographs 02/04/2023. TECHNIQUE: Three views of the lumbosacral spine. FINDINGS: There are 5 nonrib-bearing lumbar type vertebra. No evidence of acute fracture. Unchanged grade 2 anterolisthesis of L5 on S1 with likely bilateral pars defects. Vertebral body heights are maintained. Redemonstrated moderate L5-S1 disc space height loss. Mild multilevel disc space height loss of the remaining lower lumbar spine, more pronounced at L3-L4, unchanged. Moderate to severe lower lumbar facet arthropathy again seen. Surgical clips overlie the right upper abdomen. Aortic vascular calcifications. Soft tissues are unremarkable. XR/XR lumbar spine 2-3V IMPRESSION: Compared to 02/04/2023, unchanged moderate multilevel lower lumbar spondylosis with grade 2 anterolisthesis of L5 on S1 and likely spondylolysis at that level. Tests considered The following testing was considered but not selected: low concern for epidural abscess, AAA, renal colic, pyelonephritis, cord compression, caude equina, malignancy with gradual onset of symptoms, no weight loss/night sweats, no neurological deficits or red flag symptoms, immunocompromised state, IVDA abuse to suggest need for CT or MRI Prescription Management I considered prescription management with: Pain Medication Discharge Plan Discharge Clinical Impression: Strain of lumbar region Patient Disposition: Home, Self-Care Instructions: Low Back Strain (ED) Additional Instructions: Heat or ice Gentle stretching No heavy lifting or bending Follow-up with your PCP for continued symptoms Take ibuprofen three times daily and alternate with tylenol every 4 hours for pain Prescriptions: New cyclobenzaprine 10 mg tablet 10 mg PO TID PRN (Reason: muscle spasm) Qty: 15 0RF lidocaine [Lidoderm] 5 % adhesive patch,medicated 1 patch topical DAILY Qty: 15 0RF Rx Instructions: leave on most painful area for up to 12 hrs No Action lactulose 20 gram/30 mL solution 20 g PO BID PRN (Reason: constipation) 30 Days Qty: 1800 6RF (DME) diabetic shoes and inserts 10 See Rx Instructions .Route .MEDSUPPLY Qty: 1 0RF Rx Instructions: As directed clonidine HCl 0.1 mg tablet 0.2 mg PO BEDTIME 90 Days Qty: 180 1RF lorazepam 1 mg tablet 0.5 - 1 mg PO TID 30 Days Qty: 75 2RF Rx Instructions: try and gradually lower to half tab up to 3 x day folic acid 800 mcg tablet 0.8 mg PO DAILY Qty: 30 3RF omeprazole 40 mg capsule,delayed release(DR/EC) 40 mg PO DAILY 90 Days Qty: 90 1RF nystatin 100,000 unit/mL suspension 500,000 unit PO TID 30 Days Qty: 450 1RF sertraline 100 mg tablet 100 mg PO DAILY Qty: 30 2RF ziprasidone HCl 40 mg capsule 40 mg PO BID Qty: 60 2RF Rx Instructions: give with food (meal/snack) buspirone 5 mg tablet 10 mg PO BID 90 Days Qty: 360 1RF ziprasidone HCl [Geodon] 20 mg capsule 20 mg PO DAILY Qty: 30 2RF Rx Instructions: as needed agitation Referrals: Sloane Cody MD [Primary Care Provider] - 1 week Interventions: ED Discharge Assessment Last Done: 02/22/23 16:51 Discharge Date/Time: 02/22/23 16:52
[2023-02-22 16:11] LABS: Influenza A PCR NEGATIVE (Negative); Influenza B PCR NEGATIVE (Negative); Resp Syncy Virus RNA Qual PCR NEGATIVE (Negative); SARS COV2 PCR INHOUSE NEGATIVE (Negative)
[2023-02-22 16:36] LABS: Appearance Urine Clear; Color Urine Yellow; Glucose Urine UA Negative (Negative); Leukocyte Esterase Urine Negative (Negative); Nitrite Urine Negative (Negative); PH 5.5 (5.0-9.0); Specific Gravity - Urine <= 1.005 (1.005-1.025); Urine Blood Negative (Negative); Urine Ketones Negative (Negative); Urine Protein Negative (Neg-Trace)
== END 2023-02-22 16:52 | disposition home or self-care (01) ==
PROVIDERS: Physician Assistant; Emergency Provider Emergency Medicine; PCP Internal Medicine
DX: S39.012A Strain of muscle, fascia and tendon of lower back, initial encounter (principal); X50.9XXA Other and unspecified overexertion or strenuous movements or postures, initial encounter; Y93.89 Activity, other specified; Y92.9 Unspecified place or not applicable; Y99.9 Unspecified external cause status; K59.09 Other constipation; E11.9 Type 2 diabetes mellitus without complications; J44.9 Chronic obstructive pulmonary disease, unspecified; Z20.822 Contact with and (suspected) exposure to COVID-19; Z20.828 Contact with and (suspected) exposure to other viral communicable diseases
CPT/HCPCS: 0241U; 72100; 81003; 99282; 99284

== ENCOUNTER 2023-03-04 14:01 | Outpatient (AMB) | payer MEDICARE, MEDICAID, SELFPAY ==
[2023-03-04 14:03] VITALS: BP 130/82; BMI 21.3
--- NOTE | 2023-03-04 14:03 | MHC.PC.OV ---
Vital Signs 03/04/23 14:03 Height 5 ft 3 in Weight 120 lb BMI 21.3 BP 130/82 Blood Pressure Location Lt brachial Position Sitting Intake Visit Reasons: back pain Intake Note: Patient here for back pain, dizziness Support Technician Required: No Accompanied by: Self / Same As Patient Allergies No Known Allergies Allergy (Verified 03/04/23 14:18) Medication List - Last Reconciled 03/04/23 by Sloane Mccarthy MD buspirone 10 mg (2 x 5 mg) PO BID 3 months clonidine HCl 0.2 mg (2 x 0.1 mg) PO BEDTIME 3 months cyclobenzaprine 10 mg PO TID PRN [diabetic shoes and inserts As directed] folic acid 0.8 mg PO DAILY lactulose 20 grams (30 mL) PO BID PRN 30 days lidocaine 5% (Lidoderm) 1 patch topical DAILY lorazepam 0.5 - 1 mg (0.5 - 1 x 1 mg) PO TID 30 days nabumetone 750 mg PO BID PRN 7 days nystatin 500,000 units (5 mL) PO TID 30 days omeprazole 40 mg PO DAILY 90 days sertraline 100 mg PO DAILY ziprasidone HCl (Geodon) 20 mg PO DAILY ziprasidone HCl 40 mg PO BID Tobacco use date assessed: 06/06/22 Fall risk assessment: 2 + Falls in past year Last assessed Fall Risk: 03/04/23 HPI HPI Comments History of Present Illness Details This is a 67-year-old female with COPD, diabetes mellitus type 2, chronic constipation and bipolar disorder that complains of low back pain has been present for the past month. She has been having loss of balance and gait instability associated with frequent falling that has been present for the last month. Had x-ray showing moderate degenerative disc disease. Has a rectal lump and feels in all pressure. Will order MRI of lumbar spine. Has bilateral leg weakness and numbness. Denies any fever, bowel or bladder incontinence. Has been using nabumetone and cyclobenzaprine with no significant relief. Had colonoscopy few years ago. Will be referred to Gastroenterology due to rectal lump. Chronic constipation is stable with lactulose as needed. She declines to use of inhalers for her COPD because she does not feel short of breath. Last A1c was within goal and diabetes is controlled with diet. Has bipolar disorder follow by Psychiatry that has been stable with medications. Patient is accompanied by . [facility] Medical History (Updated 03/04/23 @ 14:40 by Sloane Mccarthy MD) Neuroleptic-induced tardive dyskinesia Chronic constipation Foot pain Adnexal mass Arterial calcification Superior mesenteric artery thrombosis Adnexal mass Smoker Diverticular stricture Paronychia of great toe, right Right knee pain Depression with anxiety Chronic idiopathic constipation Bipolar 1 disorder Rib injury Surgical History (Reviewed 03/04/23 @ 14:03 by Alexa Tripathi COUNT INCLUDES THE [facility]) Incisional hernia Hx of section History of cholecystectomy Family History Father No problems noted. Mother No problems noted. Other Mental health disorder Social History Household Members: Spouse Housing: House Do you presently have visiting nurse or other home services: No Alcohol intake: former Comment: refuse alarm, but is using call bel approp Patient Tobacco Use Status: Current everyday Tobacco user Tobacco use type: Cigarette Cigarette Packs Per Day: 1 Cigarettes Per Day: 20 e-Cigarette/Vaping Use: Never Used Second Hand Smoke Exposure: No service: No Current occupational status: unemployed and disabled Cognitive needs: No Hearing needs: No Vision needs: Yes Female Reproductive History Menstrual Age of Menarche: 9 Questionnaire Thrive Questionnaire Date Thrive assessed: 06/06/22 FARRUKH-7 AMB Questionnaire FARRUKH-7 Date FARRUKH - 7 assessed: 06/06/22 Source: Developed by Drs. Yonas Sepulveda, Lynn Yu, Ry Wilkerson and colleagues, with an educational sascha from [employer]. Review of Systems Const All systems reviewed & are unremarkable except as noted in HPI and below Eyes Reports no additional complaints, Denies change in vision and Denies other visual disturbances Card Denies chest pain at rest, Denies chest pain with activity, Denies edema, Denies irregular heart rhythm, Denies claudication, Denies dyspnea, Denies dyspnea on exertion, Denies orthopnea, Denies paroxysmal nocturnal dyspnea and Denies slow heart rate Resp Denies cough, Denies dyspnea and Denies dyspnea on exertion GI Denies abdominal pain, Denies change in bowel habits, Denies excessive flatus, Denies nausea and Denies vomiting Denies urinary incontinence, Denies urinary hesitancy and Denies urinary urgency Musc Denies abnormal gait, Reports back pain, Denies atrophy, Denies deformity, Denies limited range of motion, Reports muscle weakness, Reports numbness and Reports radiating pain into limb Skin/Breast Denies bleeding lesions, Denies changing lesions and Denies rash Neuro Denies abnormal gait, Denies behavioral changes, Denies lack of coordination and Reports numbness Psych Denies behavioral changes Physical exam (Primary Care) Vital Signs: Last Vital Signs BP 130/82 03/04/23 14:03 BMI result Body Mass Index 21.3 Tobacco/Smoking Status: Tobacco use Status Tobacco use date assessed 06/06/22 03/04/23 14:11 Patient Tobacco Use Status Current everyday Tobacco 03/04/23 14:11 Tobacco use type Cigarette 03/04/23 14:11 e-Cigarette/Vaping Use Never Used 03/04/23 14:11 Thrive Assessment: Date of Thrive Assessment Date Thrive assessed 06/06/22 03/04/23 14:11 Eyes General: appearance normal, both eyes and all related structures Eyelids: Yes eyelids normal Conjunctivae: conjunctivae normal Neck Neck: Yes normal visual inspection and Yes supple Resp Effort & Inspection: normal respiratory effort Auscultation: clear to auscultation bilaterally Cardio Jugular venous distension: no JVD Rate: regular rate Rhythm: regular rhythm Heart sounds: S1 normal heart sound present and S2 normal heart sound present GI Rectal Exam - Female: normal sphincter tone, External hemorrhoid(s) present and mass Extrem General: Yes full ROM Assessment and Plan Assessment & Plan (1) Lumbar pain: Code(s): M54.50 - Low back pain, unspecified Plan: Discontinue nabumetone. Start diclofenac. MRI of lumbar spine order. (2) Rectal lump: Code(s): K62.89 - Other specified diseases of anus and rectum Plan: Referred to Gastroenterology. (3) Bipolar 1 disorder, depressed, mild: Code(s): F31.31 - Bipolar disorder, current episode depressed, mild Plan: Continue ziprasidone. Follow-up with psychiatry. (4) GERD (gastroesophageal reflux disease): Code(s): K21.9 - Gastro-esophageal reflux disease without esophagitis Plan: Continue PPIs as needed. (5) Chronic constipation: Code(s): K59.09 - Other constipation Plan: Continue lactulose as needed. (6) COPD (chronic obstructive pulmonary disease): Code(s): J44.9 - Chronic obstructive pulmonary disease, unspecified Plan: Declines a use of inhaler. Was advised to stop smoking. (7) Diabetes mellitus: Code(s): E11.9 - Type 2 diabetes mellitus without complications Plan: Continue low-carbohydrate diet. A1c goal is equal or less than 7%. Orders: Orders Lipid Panel Today E78.5 - Hyperlipidemia, unspecified Microalbumin, Random (w Creat) Today E11.9 - Type 2 diabetes mellitus without complications Comprehensive [place]. Panel Fast Today E11.9 - Type 2 diabetes mellitus without complications MR lumbar spine wo con Today E11.9 - Type 2 diabetes mellitus without complications, M54.16 - Radiculopathy, lumbar region Referrals Gastroenterology Referral K62.89 - Other specified diseases of anus and rectum Medications: New diclofenac sodium 75 mg PO BID 5 days PRN 10 tabs 0RF pain Changed From cyclobenzaprine 10 mg PO TID PRN 15 tabs 0RF muscle spasm E11.9 - Type 2 diabetes mellitus without complications To cyclobenzaprine 10 mg PO BEDTIME 30 days PRN 30 tabs 0RF muscle spasm E11.9 - Type 2 diabetes mellitus without complications Coding Level of Care Code Est Pt Level 4 (66662) Diagnoses Lumbar pain M54.50 Rectal lump K62.89 Bipolar 1 disorder, depressed, mild F31.31 GERD (gastroesophageal reflux disease) K21.9 Chronic constipation K59.09 COPD (chronic obstructive pulmonary disease) J44.9 Diabetes mellitus E11.9 Time Spent (min) 21
== END 2023-03-04 14:44 | disposition home or self-care (01) ==
PROVIDERS: PCP Internal Medicine; Visit Provider Internal Medicine
DX: J44.9 Chronic obstructive pulmonary disease, unspecified (principal); M54.50 Low back pain, unspecified; F31.31 Bipolar disorder, current episode depressed, mild; E11.9 Type 2 diabetes mellitus without complications; K62.89 Other specified diseases of anus and rectum; K21.9 Gastro-esophageal reflux disease without esophagitis; K59.09 Other constipation
CPT/HCPCS: 99214

== ENCOUNTER 2023-03-11 08:35 | Outpatient (REF) | payer MEDICARE, MEDICAID, SELFPAY ==
[2023-03-11 09:58] LABS: Creatinine Urine 22.41 mg/dL; Microalbumin Urine < 5.0 mg/L
[2023-03-11 10:01] LABS: Alanine Aminotransferase 8 U/L (0-31); Alkaline Phosphatase 92 U/L (39-117); Anion Gap 13 (12-20); Aspartate Amino Transferase 15 U/L (5-31); Bilirubin Total 0.3 mg/dL (0.0-1.0); Blood Urea Nitrogen 6 mg/dL (9-16); Calcium 8.8 mg/dL (8.4-10.2); Carbon Dioxide 30 mmol/L (22-29); Chloride 95 mmol/L (96-108); Cholesterol 208 mg/dL (<200); Estimated Glomerular Filt Rate > 60; Glucose Fasting 87 mg/dL (60-99); HDL Cholesterol 47 mg/dL (>40); LDL Cholesterol Calculated 140 mg/dL (<100); Potassium 4.3 mmol/L (3.3-5.1); Sodium 134 mmol/L (135-145); Total Protein 6.4 g/dL (6.5-8.0); Triglycerides 107 mg/dL (<150); Vitamin D 25-OH Total 12.2 ng/mL (>30)
== END 2023-03-11 08:36 | disposition home or self-care (01) ==
LOC: HO.LAB 08:35
PROVIDERS: PCP Internal Medicine; Visit Provider Internal Medicine
DX: E78.5 Hyperlipidemia, unspecified (principal); E11.9 Type 2 diabetes mellitus without complications; E55.9 Vitamin D deficiency, unspecified
CPT/HCPCS: 36415; 80053; 80061; 82306; 82570

== ENCOUNTER 2023-03-31 13:38 | Outpatient (REF) | payer MEDICARE, MEDICAID, SELFPAY ==
--- NOTE | ~2023-03-31 | XR_ITS ---
EXAMINATION: XR LUMBOSACRAL SPINE CLINICAL INFORMATION: Low back pain, unspecified COMPARISON: 02/22/2023 TECHNIQUE: Three views of the lumbosacral spine. FINDINGS: Severe generalized demineralization is again evident with mild loss of height at L1 and T12, age indeterminate. Grade 2 spondylolisthesis is again noted at L5-S1. There are probable bilateral pars defects. Surgical clips are evident in the right upper quadrant. The sacrum and sacroiliac joints are intact. Left pelvic phlebolith is stable. XR/XR lumbar spine 2-3V IMPRESSION: 1. No significant change since 02/22/2023, again noting grade 2 spondylolisthesis at L5-S1 with bilateral spondylolysis. 2. Generalized demineralization with mild loss of height in lower thoracic and upper lumbar vertebrae, unchanged.
--- NOTE | ~2023-03-31 | XR_ITS ---
EXAMINATION: XR KNEE, RIGHT CLINICAL INFORMATION: Right knee pain, fall COMPARISON: None available. TECHNIQUE: Frontal, lateral and patellar views of the right knee. FINDINGS: No acute fracture or location. No significant joint effusion. Slight lateral patellar subluxation, presumably degenerative in nature. XR/XR knee RT 2V IMPRESSION: No acute fracture or dislocation of the right knee.
== END 2023-03-31 13:39 | disposition home or self-care (01) ==
LOC: HO.XRAY 13:38
PROVIDERS: PCP Internal Medicine; Visit Provider Internal Medicine
DX: M54.50 Low back pain, unspecified (principal); S89.91XA Unspecified injury of right lower leg, initial encounter
CPT/HCPCS: 72100; 73560

== ENCOUNTER 2023-04-06 12:50 | Outpatient (AMB) | payer MEDICARE, MEDICAID, SELFPAY ==
--- NOTE | 2023-04-06 14:25 | A.OFFPSYCH_ITS ---
Intake Intake Visit Reasons: Depression Allergies No Known Allergies Allergy (Verified 03/04/23 14:18) HPI- Psychiatric Chief Complaint: Depression HPI Past Psychiatric History: Past history of psychiatric hospitalization psychotic mixed state episodes. Has been stable for many years Mental Status Exam Mental Status Exam Patient Appearance: Appropriate Patient Orientation: Person, Place, Time and Situation Level of Consciousness: Awake Patient Behavior: Appropriate Mood Description: Calm, Appropriate and Depressed Affect Description: Appropriate, Blunted and Flat Ability to Follow Directions: Good Speech Pattern: Clear Memory Description: Intact and Episodic Impaired Hallucinations: None Delusions: Not Present Thought Process: Intact Thought Content: positive for Intact, positive for [place], negative for Suicidal Ideation or negative for Homicidal Ideation Depressive Symptoms: Low Self Esteem and Loss of Energy Judgement: Fair Judgement and Insight: Tendency to be dismissive regarding medical issues was alert oriented seem logical agreeable to lowering medication Telehealth Telehealth Location of provider rendering services: practice address Telehealth method: video Patient verbally consented to treatment: Yes Patient verbally consented to billing insurance company: Yes Minutes spent on Phone/Video with Pt.: 19 Assessment and Plan Assessment & Plan (1) Bipolar 1 disorder, depressed, mild: Status: Acute Code(s): F31.31 - Bipolar disorder, current episode depressed, mild (2) Neuropathy: Status: Acute Code(s): G62.9 - Polyneuropathy, unspecified (3) PAD (peripheral artery disease): Status: Acute Code(s): I73.9 - Peripheral vascular disease, unspecified (4) Hypovitaminosis D: Status: Acute Code(s): E55.9 - Vitamin D deficiency, unspecified Plan The patient is a history of bipolar disorder has not had a psychotic episode extended period of time had a fall recently unclear if related to balance or syncope. She has been following up with her primary care. Recommended physical therapy but patient has been worried about co-pay. Discussed with patient risks of lorazepam which we have discussed over time and we have gradually decreased. Discussed lowering lorazepam 2 0.5 mg in the morning 0.5 mg in the afternoon 1 mg at bedtime. Discussed if having any dizziness when standing up too lower clonidine to 1 tablet at bedtime she generally denies this and I have encouraged her to come to an appointment in person. The patient and I also discussed trying to lower Geodon to 40 mg daily from 80 mg a day with the option of taking a 40 mg occasionally as needed p.r.n.. She has not had mood swings or psychosis for an extended period of time discussed risks benefits. No obvious oral facial dyskinesia on exam. Patient does tend to neglect her medical condition she does have hypovitaminosis D encourage her to take daily vitamin D she is also supposed to have a follow-up chest CT scan and there is a question of peripheral vascular disease which may also be a contributing factor. Follow-up 6 weeks patient to increase Geodon back to 80 mg daily if she were to have paranoia hallucinations or cycling Questionable bowl history of schizoaffective disorder bipolar type versus bipolar disorder 1 patient to call if further balance issues Chart reviewed labs CT scan last medical note reviewed Medications: Changed From lorazepam 1 tab in am 1 tab afternoon 2 tabs bedtime may take 1 tab daily as needed for anxiety 0.5 mg (1/2 x 1 mg) PO DIRECTED 30 days 150 tabs 2RF To lorazepam 0.5 mg orally; 1 tab in am 1 tab in afternoon 2 tabs bedtime may take additional tab daily as needed for severe anxiety caution sedating may cause balance problems 150 tabs 1RF anxiety From lorazepam try and gradually lower to half tab up to 3 x day 0.5 - 1 mg (0.5 - 1 x 1 mg) PO TID 30 days 75 tabs 0RF To lorazepam 1 tab in am 1 tab afternoon 2 tabs bedtime may take 1 tab daily as needed for anxiety 0.5 mg (1/2 x 1 mg) PO DIRECTED 30 days 150 tabs 2RF From ziprasidone HCl give with food (meal/snack) 40 mg PO BID 60 caps 2RF To ziprasidone HCl give with food (meal/snack) 1 tab daily may take additional tab daily as needed agitation 40 mg PO DIRECTED 60 caps 2RF Discontinued ziprasidone HCl (Geodon) as needed agitation Discontinued Reason: Doctor's Order 20 mg PO DAILY 30 caps 2RF Counseling and coordination of Care Pt. Self Management counseling: Light exposure, Med illness tx adherence and Behavior activation Medication management counseling: Effectiveness, Side effects and Dosing range Diagnosis and Prognosis Counseling: Adequacy of current interventions Details: I spent [27] minutes reviewing the record, seeing the patient and documenting in the medical record. Counseling provided to the patient/caregiver as outlined below. Addressed patient/caregiver concerns regarding current medication regime including effective adherence. Addressed patient/caregiver concerns regarding diagnosis and prognosis including accuracy of diagnosis, prognosis over time, impact of diagnosis. Addressed patient/caregiver concerns regarding impact of recent stressors. [facility] Medical History Neuroleptic-induced tardive dyskinesia Chronic constipation Foot pain Adnexal mass Arterial calcification Superior mesenteric artery thrombosis Adnexal mass Smoker Diverticular stricture Paronychia of great toe, right Right knee pain Depression with anxiety Chronic idiopathic constipation Bipolar 1 disorder Rib injury Surgical History Incisional hernia Hx of section History of cholecystectomy Family History Father No problems noted. Mother No problems noted. Other Mental health disorder Social History Household Members: Spouse Housing: House Do you presently have visiting nurse or other home services: No Alcohol intake: former Comment: refuse alarm, but is using call bel approp Patient Tobacco Use Status: Current everyday Tobacco user Tobacco use type: Cigarette Cigarette Packs Per Day: 1 Cigarettes Per Day: 20 e-Cigarette/Vaping Use: Never Used Second Hand Smoke Exposure: No service: No Current occupational status: unemployed and disabled Cognitive needs: No Hearing needs: No Vision needs: Yes Social History: Family history of alcohol abuse. Patient lives with her has 1 daughter who lives in [place] 1 son. Patient does have grandchildren close with family. Substance History: Past history of alcohol belongs to [place] Trauma History: na Coding Level of Care Code Est Pt Level 4 (28010) Diagnoses Bipolar 1 disorder, depressed, mild F31.31 Neuropathy G62.9 PAD (peripheral artery disease) I73.9 Hypovitaminosis D E55.9
== END 2023-04-06 15:03 | disposition home or self-care (01) ==
LOC: HO.HOP 12:51
PROVIDERS: PCP Internal Medicine; Visit Provider Psychiatry & Neurology Psychiatry
DX: F31.31 Bipolar disorder, current episode depressed, mild (principal); G62.9 Polyneuropathy, unspecified; I73.9 Peripheral vascular disease, unspecified; E55.9 Vitamin D deficiency, unspecified
CPT/HCPCS: 99214

== ENCOUNTER → 2023-04-06 12:50 | Outpatient (BNVA) | payer MEDICARE, MEDICAID, SELFPAY | PROVIDERS: PCP Internal Medicine; Visit Provider Psychiatry & Neurology Psychiatry | DX: F31.31 Bipolar disorder, current episode depressed, mild (principal); G62.9 Polyneuropathy, unspecified; I73.9 Peripheral vascular disease, unspecified; E55.9 Vitamin D deficiency, unspecified | CPT/HCPCS: 99212 ==

== ENCOUNTER 2023-04-13 14:29 | Outpatient (AMB) | payer MEDICARE, MEDICAID, SELFPAY ==
--- NOTE | 2023-04-13 14:32 | AM.OFFVISMDC ---
Intake Vital Signs 04/13/23 14:42 Height 5 ft 3 in Weight 123 lb BMI 21.8 Intake Visit Reasons: AWV Intake Note: Patient here for an annual wellness visit Architectural Associate Required: No Accompanied by: Spouse Allergies No Known Allergies Allergy (Verified 04/13/23 14:50) Medication List - Last Reconciled 04/13/23 by Sloane Mccarthy MD atorvastatin 20 mg PO BEDTIME 90 days buspirone 10 mg (2 x 5 mg) PO BID 3 months cholecalciferol (vitamin D3) 50 mcg PO DAILY 90 days clonidine HCl 0.2 mg (2 x 0.1 mg) PO BEDTIME 3 months cyclobenzaprine 10 mg PO BEDTIME PRN 30 days [diabetic shoes and inserts As directed] diclofenac sodium 75 mg PO BID PRN 5 days folic acid 0.8 mg PO DAILY lactulose 20 grams (30 mL) PO BID PRN 30 days lidocaine 5% (Lidoderm) 1 patch topical DAILY lorazepam 0.5 mg orally; 1 tab in am 1 tab in afternoon 2 tabs bedtime may take additional tab daily as needed for severe anxiety caution sedating may cause balance problems nabumetone 750 mg PO BID PRN 7 days nystatin 500,000 units (5 mL) PO TID 30 days omeprazole 40 mg PO DAILY 90 days sertraline 100 mg PO DAILY tramadol 50 mg PO BID PRN 5 days ziprasidone HCl 40 mg PO DIRECTED HPI HPI Comments History of Present Illness Details This is a 68-year-old female with bipolar disorder, diabetes mellitus type 2 controlled with diet and COPD that comes accompanied by for her Medicare wellness exam. COPD is follow by pulmonology. Bipolar disorder is follow by Psychiatry. A1c within goal. Mammogram done December 2022. Colonoscopy done 2021. Walks with no assistive device. Still smokes and was advised to quit. [facility] Medical History (Updated 04/13/23 @ 15:17 by Sloane Mccarthy MD) Neuroleptic-induced tardive dyskinesia Chronic constipation Foot pain Adnexal mass Arterial calcification Superior mesenteric artery thrombosis Adnexal mass Smoker Diverticular stricture Paronychia of great toe, right Right knee pain Depression with anxiety Chronic idiopathic constipation Bipolar 1 disorder Rib injury Surgical History Incisional hernia Hx of section History of cholecystectomy Family History (Updated 04/13/23 @ 14:55 by Sloane Mccarthy MD) Father Oral cancer Mother No problems noted. Other Mental health disorder Social History Household Members: Spouse Housing: House Do you presently have visiting nurse or other home services: No Alcohol intake: former Comment: refuse alarm, but is using call bel approp Patient Tobacco Use Status: Current everyday Tobacco user Tobacco use type: Cigarette Cigarette Packs Per Day: 1 Cigarettes Per Day: 20 e-Cigarette/Vaping Use: Never Used Second Hand Smoke Exposure: No service: No Current occupational status: unemployed and disabled Cognitive needs: No Hearing needs: No Vision needs: Yes Female Reproductive History Menstrual Age of Menarche: 9 Questionnaire Medicare Wellness Checkup [age] What gender do you identify with?: female During the past 4 weeks, how much have you been bothered by emotional problems such as feeling anxious, depressed, irritable, sad or downhearted, and blue?: quite a bit During the past 4 weeks, has your physical & emotional health limited your social activities with family, friends, neighbors, or groups?: not at all During the past 4 weeks, how much bodily pain have you generally had?: severe pain During the past 4 weeks, was someone available to help you if you needed & wanted help?: yes, some During the past 4 weeks, what was the hardest physical activity you could do for at least 2 minutes?: moderate Can you get to places out of walking distance without help? (For eg., can you travel alone on buses, taxis or drive your car?): No Can you go shopping for groceries or clothes without someone's help?: Yes Can you prepare your own meals?: Yes Can you do your housework without help?: No Because of any health problems, do you need the help of another person with your personal care needs such as eating, bathing, dressing or getting around the house?: No Can you handle your own money without help?: Yes During the past 4 weeks, how would you rate your health in general?: poor During the past 4 weeks how have things been going for you?: good & bad parts about equal Are you having difficulties driving your car?: yes, often Do you always fasten your seat belt when you are in a car?: no During past 4 weeks, have you been bothered by the following: never: Teeth or denture problems? and Problems using the telephone?, sometimes: Falling or dizzy when standing up, often: Trouble eating well? and Tiredness or fatigue? and always: Sexual problems? Have you fallen 2 or more times in the past year?: Yes Are you afraid of falling?: No Are you a smoker?: yes, but I'm not ready to quit During the past 4 weeks, how many drinks of wine, beer, or other alcoholic beverages did you have?: no alcohol at all Do you exercise for about 20 minutes 3 or more times a week?: no, I usually do not exercise this much Have you been given information to help with the following?: yes: Keeping track of your medications? and no: Hazards in your house that might hurt you? How often do you have trouble taking medicines the way you have been told to take them?: I always take medicine as prescribed How confident are you that you can control & manage most of your health problems?: not very confident What is your race?: White Mini Mental State Exam (MMSE) Orientation What is the (year) (season) (date) (day) (month)?: year, season, date, day and month Where are we (state) (county) (town or city) (hospital) (floor)?: state, county, town or city, hospital/clinic and floor Registration Name of 3 unrelated objects clearly and slowly, then ask patient to repeat all 3 of them. (1st repeat determines score. Make sure they can repeat all three): object 1, object 2 and object 3 Attention & Calculation (CHOOSE ONE) Spell WORLD backwards (DLROW): 5 letters Recall Ask patient to repeat the 3 items from question #3.: object 1, object 2 and object 3 Language Show patient a wristwatch & ask what it is. Repeat for pencil.: watch and pencil Ask the patient to repeat the phrase 'No ifs, ands, or buts' after you.: correct Ask the patient to 'take a piece of paper with their right hand' 'fold paper in half' 'place paper on floor': take paper in right hand, fold paper in half and place paper on floor Print the sentence 'CLOSE YOUR EYES' on a piece. If patient actually closes eyes then score.: followed written direction Give patient a blank piece of paper & ask to write a sentence. Score if it contains a noun & verb.: sentence contains subject and verb Score Score: 29 Activity of Daily Living Bathing - sponge bath, tub bath or shower: receives no assistance (gets in/out by self, if usual bathing means Dressing - getting clothes from closets & drawers, including inner/outer garments & fasteners.: gets clothes & gets completely dressed without help Toileting - going to the 'toilet room' for urine/bowel elimination & cleaning self/arranging clothes: goes to toilet room, cleans self, arranges clothes without help Transfer: moves in & out of bed and chair without help (may use support object) Continence: controls urination/bowel movements completely by self Feeding: feeds self without help Total Score: 0 Information obtained from: patient Using telephone: independent Traveling: needs assistance Shopping: needs assistance Preparing meals: independent Housework: independent Taking medicine: independent Managing money: independent PHQ-9 Over the last 2 weeks, how often have you been bothered by any of the following problems? 1. Little interest or pleasure in doing things: several days 2. Feeling down, depressed, or hopeless: several days 3. Trouble falling or staying asleep, or sleeping too much: several days 4. Feeling tired or having little energy: nearly every day 5. Poor appetite or overeating: not at all 6. Feeling bad about yourself - or that you are a failure or have let yourself or your family down: not at all 7. Trouble concentrating on things, such as reading the newspaper or watching television: not at all 8. Moving or speaking so slowly that other people could have noticed. Or the opposite - being so fidgety or restless that you have been moving around a lot more than usual: not at all 9. Thoughts that you would be better off or of hurting yourself in some way: not at all Total score: 6 Source: Developed by Drs. Yonas Sepulveda, Lynn Yu, Ry Wilkerson and colleagues, with an educational sascha from [employer]. AUDIT C Alcohol Use Questionnaire (AUDIT-C) 1. How often do you have a drink containing alcohol?: Never Total Score: 0 Thrive Questionnaire Date Thrive assessed: 04/13/23 I am a: Patient What is your living situation today?: I have a steady place to live Within the past 12 months, did the food you bought not last and you didn't have the money to get more?: Never true Within the past 12 months, did you worry whether your food would run out before you got money to buy more?: Never true Do you have trouble paying for medicines?: No Do you have trouble getting transportation to medical appointments?: No Do you have trouble paying your heating and electricity bill?: No Do you have trouble taking care of your child, family member or friend?: No Do you have trouble with day-to-day activities such as bathing, preparing meals, shopping, managing finances, etc.?: No Are you currently unemployed and looking for a job?: No Are you interested in more education?: No Please select the resources that you would like help with: None Currently or been in a relationship where the following occur: no concerns reported THRIVE Score: 0 FARRUKH-7 AMB Questionnaire FARRUKH-7 Date FARRUKH - 7 assessed: 04/13/23 Feeling nervous, anxious, or on edge: 0 = Not at all Not being able to stop or control worryin = Not at all Worrying too much about different things: 0 = Not at all Trouble relaxin = Not at all Being so restless that it is hard to sit still: 0 = Not at all Becoming easily annoyed or irritable: 0 = Not at all Feeling afraid as if something awful might happen: 0 = Not at all Total FARRUKH-7 score (0-4 normal; 5-9 mild; 10-14 moderate; 15-21 severe): 0 Source: Developed by Drs. Yonas Sepulveda, Lynn Yu, Ry Wilkerson and colleagues, with an educational sascha from [employer]. FARRUKH-7 Assessment Billing FARRUKH-7 Assessment Tool: FARRUKH-7 Assessment 22135 Fall Risk Assessment Fall Risk Assessment Fall risk assessment: No Falls in past year Review of Systems Const All systems reviewed & are unremarkable except as noted in HPI and below Eyes Reports no additional complaints, Denies change in vision and Denies other visual disturbances Card Denies chest pain at rest, Denies chest pain with activity, Denies edema, Denies irregular heart rhythm, Denies claudication, Denies dyspnea, Denies dyspnea on exertion, Denies orthopnea, Denies paroxysmal nocturnal dyspnea and Denies slow heart rate Resp Denies cough, Denies dyspnea and Denies dyspnea on exertion GI Denies abdominal pain, Denies change in bowel habits, Denies excessive flatus, Denies nausea and Denies vomiting Denies urinary incontinence, Denies urinary hesitancy and Denies urinary urgency Musc Denies abnormal gait, Denies atrophy, Denies deformity and Denies limited range of motion Skin/Breast Denies bleeding lesions, Denies changing lesions and Denies rash Neuro Denies abnormal gait and Denies lack of coordination Physical Exam Vital Signs: BMI result Body Mass Index 21.8 Const Orientation/consciousness: patient oriented x3 Resp Auscultation: clear to auscultation bilaterally Cardio Heart sounds: S1 normal heart sound present and S2 normal heart sound present Neuro General: patient oriented x3 Romberg Test: Negative Results AMB Hemoglobin A1c AMB Hemoglobin A1c 6.0 % Last Edit by LESLIE Ramos on 04/13/23 14:53 Results Reviewed Results Reviewed: Laboratory Last Values Hgb A1c (Clinic) 6.0 % (4.0-6.0) 04/13/23 14:52 Assessment & Plan Assessment & Plan (1) Encounter for Medicare annual wellness exam: Code(s): Z00.00 - Encounter for general adult medical examination without abnormal findings Plan: Repeat in a year (2) COPD (chronic obstructive pulmonary disease): Code(s): J44.9 - Chronic obstructive pulmonary disease, unspecified Plan: Follow-up with pulmonology. (3) Diabetes mellitus: Code(s): E11.9 - Type 2 diabetes mellitus without complications Plan: Continue low-carbohydrate diet. A1c goal is equal or less than 7%. (4) Bipolar 1 disorder, depressed, mild: Code(s): F31.31 - Bipolar disorder, current episode depressed, mild Plan: Continue ziprasidone. Follow-up with psychiatry. Orders: Orders AMB Hemoglobin A1c Today E11.9 - Type 2 diabetes mellitus without complications US abdomen complete Today K42.9 - Umbilical hernia without obstruction or gangrene Referrals Podiatry Referral M79.673 - Pain in unspecified foot Medications: New sumatriptan succinate do not exceed 8 doses per 24 hrs 25 mg PO Q2-4H 30 days PRN 9 tabs 1RF migraine headache commode (bedside commode) As directed 1 ea 0RF N39.41 - Urge incontinence Quality Reporting (2019) Adult ([facility] 138//) Smoking risk assessment performed?: Yes Patient Tobacco Use Status: Current everyday Tobacco user Fall Risk Screening ([facility] 139) Fall risk assessment: No Falls in past year Depression/Bipolar (159/160/161/177) PHQ-9: Total score: 6 Coding Level of Care Code Medicare First (G0438) Diagnoses Encounter for Medicare annual wellness exam Z00.00 COPD (chronic obstructive pulmonary disease) J44.9 Diabetes mellitus E11.9 Bipolar 1 disorder, depressed, mild F31.31 CPT Codes Advance Care Planning - Time spent: 1-15 minutes, on File ([id number]) Additional Codes FARRUKH-7 Assessment Billing - FARRUKH-7 Assessment Tool: FARRUKH-7 Assessment 81797 ([id number]) Time Spent (min) 35 Advance Care Planning Advance Care Planning discussion: Exists, not on file Date of discussion: 04/13/23 Who was present: , patient and me Forms completed: MOLST Time spent: 1-15 minutes, on File
[2023-04-13 14:42] VITALS: BMI 21.8
== END 2023-04-13 15:12 | disposition home or self-care (01) ==
PROVIDERS: PCP Internal Medicine; Visit Provider Internal Medicine
DX: Z00.00 Encounter for general adult medical examination without abnormal findings (principal); J44.9 Chronic obstructive pulmonary disease, unspecified; E11.9 Type 2 diabetes mellitus without complications; F31.31 Bipolar disorder, current episode depressed, mild
CPT/HCPCS: 1123F; 83036; G0438; G0439

== ENCOUNTER 2023-04-29 08:46 | Outpatient (REF) | payer MEDICARE, MEDICAID, SELFPAY ==
--- NOTE | ~2023-04-29 | US_ITS ---
EXAMINATION: US ABDOMEN LIMITED CLINICAL INFORMATION: Umbilical hernia without obstruction or gangrene. COMPARISON: CT abdomen and pelvis 07/14/2022. TECHNIQUE: Real-time imaging of the region inferior to the umbilicus at the area of scar. FINDINGS: In the infraumbilical region at the area of the section scar, a 1.7 x 0.8 x 1.8 cm anechoic collection is seen, with tiny punctate foci suspended debris. This shows sharp margins, increased through transmission and no associated color Doppler flow. No mass or lymphadenopathy is seen. No hernia is seen. There is no foreign body. US/US abdomen limited IMPRESSION: Corresponding with the palpable finding in the infraumbilical region, a 1.8 cm cystic collection is seen. This could represent a liquefied hematoma, a seroma or an abscess. Recommend management on a clinical basis. No focal hernia defect is noted.
== END 2023-04-29 08:47 | disposition home or self-care (01) ==
LOC: HO.US 08:46
PROVIDERS: PCP Internal Medicine; Visit Provider Internal Medicine
DX: K42.9 Umbilical hernia without obstruction or gangrene (principal)
CPT/HCPCS: 76705

== ENCOUNTER 2023-05-10 09:51 | Emergency (ER) | payer MEDICARE, MEDICAID, SELFPAY ==
[2023-05-10 10:06] VITALS: BP 156/81; PULSE 70; RESP 16; TEMP 36.8; O2SAT 95; BMI 23.0
--- NOTE | 2023-05-10 10:12 | ED.NAVMDI ---
HPI - Nausea/Vomiting/Diarrhea General Chief complaint: General Medical Stated complaint: NOT FEELING WELL X 1 WEEK Time Seen by Provider: 05/10/23 10:03 Source: patient Mode of arrival: EMS History of Present Illness HPI Narrative: 68 years old patient with history of diabetes, bipolar 1 disorder, hyponatremia, depression presented to emergency room by ambulance with a chief complaint of nausea vomiting generalized malaise MD elicited complaint: nausea and vomiting Onset (ago): day(s) (1) Description of vomiting: watery Associated nausea: Yes Associated abdominal pain: No Location of pain: none Quality: cramping Exacerbating factors: none Related Data Previous Rx's Medication Instructions Recorded lactulose 20 gram/30 mL oral 20 g (30 mL) PO BID PRN 03/03/22 solution constipation 30 days #1,800 mL diabetic shoes and inserts #1 ea 03/06/22 omeprazole 40 mg capsule,delayed 40 mg PO DAILY 90 days #90 caps 01/12/23 release buspirone 5 mg tablet 10 mg (2 x 5 mg) PO BID 3 months 02/16/23 #360 tabs sertraline 100 mg tablet 100 mg PO DAILY #30 tabs 02/16/23 lidocaine 5 % topical patch 1 patch topical DAILY #15 ea 02/22/23 (Lidoderm) nabumetone 750 mg tablet 750 mg PO BID PRN pain 7 days #14 03/02/23 tabs cyclobenzaprine 10 mg tablet 10 mg PO BEDTIME PRN muscle spasm 03/04/23 30 days #30 tabs clonidine HCl 0.1 mg tablet 0.2 mg (2 x 0.1 mg) PO BEDTIME 3 03/09/23 months #180 tabs atorvastatin 20 mg tablet 20 mg PO BEDTIME 90 days #90 tabs 03/12/23 cholecalciferol (vitamin D3) 50 50 mcg PO DAILY 90 days #90 caps 03/12/23 mcg (2,000 unit) capsule ziprasidone HCl 40 mg capsule 40 mg PO DIRECTED #60 caps 04/06/23 lorazepam 0.5 mg tablet 0.5 mg PO .COMPLEX anxiety #150 04/07/23 tabs commode (bedside commode) #1 ea 04/13/23 folic acid 800 mcg tablet 0.8 mg PO DAILY #30 tabs 04/13/23 sumatriptan succinate 25 mg tablet 25 mg PO Q2-4H PRN migraine 04/13/23 headache 30 days #9 tabs diclofenac sodium 75 mg 75 mg PO BID PRN pain 5 days #10 05/02/23 tablet,delayed release tabs tramadol 50 mg tablet 50 mg PO BID PRN pain 5 days #10 05/02/23 tabs sulfamethoxazole 800 1 tab PO BID 10 days #20 tabs 05/03/23 mg-trimethoprim 160 mg tablet (Bactrim DS) nystatin 100,000 unit/mL oral 500,000 unit (5 mL) PO TID 30 days 05/10/23 suspension #450 mL Allergies Allergy/AdvReac Type Severity Reaction Status Date / Time No Known Allergies Allergy Verified 04/13/23 14:50 Review of Systems Cardiovascular: Cardiovascular: Reports no additional cardiovascular complaints Gastrointestinal: Gastrointestinal: Reports nausea and Reports vomiting [facility] Past Medical History Attestation statement: The following information was validated with the patient. [facility] Narrative: Bipolar disorder/ Medical History Neuroleptic-induced tardive dyskinesia Chronic constipation Foot pain Adnexal mass Arterial calcification Superior mesenteric artery thrombosis Adnexal mass Smoker Diverticular stricture Paronychia of great toe, right Right knee pain Depression with anxiety Chronic idiopathic constipation Bipolar 1 disorder Rib injury Surgical History Incisional hernia Hx of section History of cholecystectomy Family History Family History Father Oral cancer Mother No problems noted. Other Mental health disorder Social History Social History Household Members: Spouse Housing: House Do you presently have visiting nurse or other home services: No Alcohol intake: former Comment: refuse alarm, but is using call bel approp Patient Tobacco Use Status: Current everyday Tobacco user Tobacco use type: Cigarette Cigarette Packs Per Day: 1 Cigarettes Per Day: 20 e-Cigarette/Vaping Use: Never Used Second Hand Smoke Exposure: No Advance Directives: No Advance Directives Information Provided: No service: No Current occupational status: unemployed and disabled Cognitive needs: No Hearing needs: No Vision needs: Yes Physical Exam Vital Signs: Vital Signs: Last Vital Signs Temp 98.2 F 05/10/23 10:06 Pulse 70 05/10/23 10:06 Resp 16 05/10/23 10:06 BP 156/81 H 05/10/23 10:06 Pulse Ox 95 05/10/23 10:06 O2 Del Method Room Air 05/10/23 10:06 BMI result Body Mass Index 23.0 Const: General: cooperative Nutritional Appearance: average body habitus Orientation/consciousness: oriented to time and patient oriented x3 HEENT: Head: Yes normal to inspection Ears: hearing grossly normal bilaterally General nose exam: Normal external nose present Face and sinus: Yes normal facial exam Mouth: Normal oral and palatal mucosa present Teeth and gingiva: dentition normal Throat: Yes posterior oropharynx normal Neck: Neck: Yes normal visual inspection Chest: Chest palpation & inspection: normal inspection of the chest Resp: Effort & Inspection: normal respiratory effort Auscultation: clear to auscultation bilaterally Cardio: Jugular venous distension: no JVD Rate: regular rate Rhythm: regular rhythm GI: Inspection: Yes normal to inspection Palpation (GI): Soft to palpation Auscultation: normal bowel sounds Skin: General skin exam: no rashes or lesions noted and elasticity normal Lesions: no lesions Rashes: no rashes Neuro: General: oriented to time and patient oriented x3 Extrem: General: Yes normal to inspection, Yes full ROM and Yes capillary refill normal Right upper extremity: normal to inspection and full ROM Course Reevaluation(s) Reevaluation #1: pt refuses IV Time: 10:38 Reevaluation #2: Patient wants to leave against medical advice she understands risk Time: 10:50 Medications Administered Discontinued Medications Generic Name Dose Route Start Last Admin Trade Name Hortencia PRN Reason Stop Dose Admin Acetaminophen 975 mg 05/10/23 10:37 05/10/23 10:42 Acetaminophen 325 Mg Tablet PO 05/10/23 10:38 975 mg ONCE ONE Administration Ondansetron HCl 4 mg 05/10/23 10:37 05/10/23 10:43 Ondansetron Odt 4 Mg Tab.Rapdis TRANSLINGU 05/10/23 10:38 4 mg ONCE ONE Administration Medical Decision Making Medical Decision Making [facility] Narrative: Patient presented with generalized malaise nausea vomiting we will obtain labs chest x-ray and reassess Differential Diagnosis Differential Diagnoses: The differential diagnosis associated with the presentation includes Viral illness/COVID/pneumonia Lab Data [facility] Lab Attestation statement: I reviewed the patient's lab results. Labs: Lab Results 05/10/23 Range/Units 10:35 Urine Color Yellow Urine Appearance Clear Urine pH 6.5 (5.0-9.0) Ur Specific [place] 1.010 (1.005-1.025) Urine Protein Negative (Neg-Trace) mg/dL Urine Glucose (UA) Negative (Negative) mg/dL Urine Ketones Negative (Negative) mg/dL Urine Blood Negative (Negative) Urine Nitrite Negative (Negative) Ur Leukocyte Esterase Negative (Negative) Urine RBC 0-2 (0-2) /HPF Urine WBC 0-5 (0-5) /HPF Ur Squamous Epith Cells 0-2 (0-2) /HPF Urine Bacteria None Seen (None Seen) Hyaline Casts 0-2 (0-2) /LPF Influenza Type A (PCR) NEGATIVE (Negative) Influenza Type B (PCR) NEGATIVE (Negative) RSV RNA Qual (PCR) NEGATIVE (Negative) SARS-CoV-2 RNA (RT-PCR) NEGATIVE (Negative) Independent Historian Clinical information obtained from an independent historian. History obtained from or confirmed by: EMS Discharge Plan Discharge Clinical Impression: Vomiting Patient Disposition: Left Against Medical Advice Instructions: Acute Nausea and Vomiting (ED) Additional Instructions: Follow-up with your primary care physician tomorrow you signing out against medical advice Prescriptions: No Action lactulose 20 gram/30 mL solution 20 g PO BID PRN (Reason: constipation) 30 Days Qty: 1800 6RF (DME) diabetic shoes and inserts 10 See Rx Instructions .Route .MEDSUPPLY Qty: 1 0RF Rx Instructions: As directed omeprazole 40 mg capsule,delayed release(DR/EC) 40 mg PO DAILY 90 Days Qty: 90 1RF sertraline 100 mg tablet 100 mg PO DAILY Qty: 30 2RF buspirone 5 mg tablet 10 mg PO BID 90 Days Qty: 360 1RF nabumetone 750 mg tablet 750 mg PO BID PRN (Reason: pain) 7 Days Qty: 14 0RF clonidine HCl 0.1 mg tablet 0.2 mg PO BEDTIME 90 Days Qty: 180 1RF cholecalciferol (vitamin D3) 50 mcg (2,000 unit) capsule 50 mcg PO DAILY 90 Days Qty: 90 1RF atorvastatin 20 mg tablet 20 mg PO BEDTIME 90 Days Qty: 90 1RF folic acid 800 mcg tablet 0.8 mg PO DAILY Qty: 30 3RF tramadol 50 mg tablet 50 mg PO BID PRN (Reason: pain) 5 Days Qty: 10 0RF diclofenac sodium 75 mg tablet,delayed release (DR/EC) 75 mg PO BID PRN (Reason: pain) 5 Days Qty: 10 0RF sulfamethoxazole-trimethoprim [Bactrim DS] 800-160 mg tablet 1 tab PO BID 10 Days Qty: 20 0RF nystatin 100,000 unit/mL suspension 500,000 unit PO TID 30 Days Qty: 450 1RF lidocaine [Lidoderm] 5 % adhesive patch,medicated 1 patch topical DAILY Qty: 15 0RF Rx Instructions: leave on most painful area for up to 12 hrs sumatriptan succinate 25 mg tablet 25 mg PO Q2-4H PRN (Reason: migraine headache) 30 Days Qty: 9 1RF Rx Instructions: do not exceed 8 doses per 24 hrs (DME) bedside commode Kit See Rx Instructions .Route Qty: 1 0RF Rx Instructions: As directed cyclobenzaprine 10 mg tablet 10 mg PO BEDTIME PRN (Reason: muscle spasm) 30 Days Qty: 30 0RF ziprasidone HCl 40 mg capsule 40 mg PO DIRECTED Qty: 60 2RF Rx Instructions: give with food (meal/snack) 1 tab daily may take additional tab daily as needed agitation lorazepam 0.5 mg tablet 0.5 mg PO .COMPLEX Qty: 150 1RF Rx Instructions: 0.5 mg orally; 1 tab in am 1 tab in afternoon 2 tabs bedtime may take additional tab daily as needed for severe anxiety caution sedating may cause balance problems Stand Alone Forms: Against Medical Advice Interventions: ED Discharge Assessment Last Done: 05/10/23 10:56 Discharge Date/Time: 05/10/23 10:56
--- NOTE | 2023-05-10 10:20 | PC.NURSE ---
continues to complain of being cold, patient afebrile at this time. refusing to take off any of her many jackets d/t being cold. ambulating to bathroom independently, utilizing hat to attempt to obtain urine sample. patient continues to state that she wants to go home.
[2023-05-10] MEDS: Acetaminophen 325 MG TABLET 975 MG PO (10:42)
[2023-05-10 10:43] LABS: Appearance Urine Clear; Color Urine Yellow; Glucose Urine UA Negative (Negative); Leukocyte Esterase Urine Negative (Negative); Nitrite Urine Negative (Negative); PH 6.5 (5.0-9.0); Urine Blood Negative (Negative); Urine Ketones Negative (Negative); Urine Protein Negative (Neg-Trace)
[2023-05-10] MEDS: Ondansetron ODT 4 MG TAB.RAPDIS TRANSLINGU (10:43)
[2023-05-10 10:46] LABS: Bacteria Urine None Seen (None Seen); Hyaline Casts Urine 0-2 /LPF (0-2); RBC Urine 0-2 /HPF (0-2); Squamous Epithelial Cell Urine 0-2 /HPF (0-2); WBC Urine 0-5 /HPF (0-5)
--- NOTE | 2023-05-10 10:47 | MHC.EDTECH ---
Patient refuse blood work and EKG nurse and provider aware.
--- NOTE | 2023-05-10 10:48 | PC.NURSE ---
patient continues to endorse the desire to leave. at bedside to bring patient home. patient continues to state that she is cold and wants to go home to be under her heating blanket.
[2023-05-10 11:21] LABS: Influenza A PCR NEGATIVE (Negative); Influenza B PCR NEGATIVE (Negative); Resp Syncy Virus RNA Qual PCR NEGATIVE (Negative); SARS COV2 PCR INHOUSE NEGATIVE (Negative)
== END 2023-05-10 10:56 | disposition left against medical advice (07) ==
PROVIDERS: Emergency Provider Emergency Medicine; PCP Internal Medicine
DX: R11.2 Nausea with vomiting, unspecified (principal); F17.210 Nicotine dependence, cigarettes, uncomplicated; Z71.6 Tobacco abuse counseling; Z20.828 Contact with and (suspected) exposure to other viral communicable diseases; Z20.822 Contact with and (suspected) exposure to COVID-19; Z79.899 Other long term (current) drug therapy
CPT/HCPCS: 0241U; 81001; 99283

== ENCOUNTER 2023-05-13 15:03 | Outpatient (AMB) | payer MEDICARE, MEDICAID, SELFPAY ==
--- NOTE | 2023-05-13 15:13 | A.OFFVIS_ITS ---
Intake Vital Signs 05/13/23 15:16 Height 5 ft 3 in Intake Visit Reasons: cyst vs seroma vs abscess umbilical area Intake Note: This patient presents for an assessment for cyst vs seroma vs abscess of the umbilical area. Patient c/o; reports for question cyst vs abscess umbilical area. Chronometer Assembler Required: No Accompanied by: Grand Child Allergies No Known Allergies Allergy (Verified 05/13/23 15:21) Medication List - Last Reconciled 05/13/23 by Helio Douglas MD atorvastatin 20 mg PO BEDTIME 90 days buspirone 10 mg (2 x 5 mg) PO BID 3 months cholecalciferol (vitamin D3) 50 mcg PO DAILY 90 days clonidine HCl 0.2 mg (2 x 0.1 mg) PO BEDTIME 3 months commode (bedside commode) As directed cyclobenzaprine 10 mg PO BEDTIME PRN 30 days [diabetic shoes and inserts As directed] diclofenac sodium 75 mg PO BID PRN 5 days folic acid 0.8 mg PO DAILY lactulose 20 grams (30 mL) PO BID PRN 30 days lidocaine 5% (Lidoderm) 1 patch topical DAILY lorazepam 0.5 mg orally; 1 tab in am 1 tab in afternoon 2 tabs bedtime may take additional tab daily as needed for severe anxiety caution sedating may cause balance problems nabumetone 750 mg PO BID PRN 7 days nystatin 500,000 units (5 mL) PO TID 30 days pantoprazole 40 mg PO DAILY 90 days sertraline 100 mg PO DAILY sulfamethoxazole-trimethoprim 800-160 mg (Bactrim DS) 1 tab PO BID 10 days sumatriptan succinate 25 mg PO Q2-4H PRN 30 days tramadol 50 mg PO BID PRN 5 days ziprasidone HCl 40 mg PO DIRECTED HPI cyst vs seroma vs abscess umbilical area HPI Details She is here to have an area of the abdominal wall checked. She says that she thinks she has a cyst in the area. She points to the area on the left side near the midline. She denies any pain. She says she does not feel this lump all the time. She has multiple other complaints. She has significant flight of ideas and skips from 1 topic to another. She has had multiple abdominal surgeries in the past. She has known bipolar disorder. [facility] Medical History (Updated 05/13/23 @ 15:40 by Helio Douglas MD) Subcutaneous mass of abdominal wall Neuroleptic-induced tardive dyskinesia Chronic constipation Foot pain Adnexal mass Arterial calcification Superior mesenteric artery thrombosis Adnexal mass Smoker Diverticular stricture Paronychia of great toe, right Right knee pain Depression with anxiety Chronic idiopathic constipation Bipolar 1 disorder Rib injury Surgical History Incisional hernia Hx of section History of cholecystectomy Family History Father Oral cancer Mother No problems noted. Other Mental health disorder Social History Household Members: Spouse Housing: House Do you presently have visiting nurse or other home services: No Alcohol intake: former Comment: refuse alarm, but is using call bel approp Patient Tobacco Use Status: Current everyday Tobacco user Tobacco use type: Cigarette Cigarette Packs Per Day: 1 Cigarettes Per Day: 20 e-Cigarette/Vaping Use: Never Used Second Hand Smoke Exposure: No service: No Current occupational status: unemployed and disabled Cognitive needs: No Hearing needs: No Vision needs: Yes Female Reproductive History Menstrual Age of Menarche: 9 Review of Systems Const Denies chills and Denies fever(s) Card Denies chest pain, Denies dyspnea and Denies dyspnea on exertion Resp Denies cough, Denies dyspnea and Denies dyspnea on exertion GI Denies hematochezia, Denies change in bowel habits and Reports constipation Denies hematuria Musc Denies back pain and Denies limited range of motion Neuro Denies focal weakness and Denies convulsions Psych Denies depression and Denies mood swings Physical Exam Const General: comfortable and no acute distress Orientation/consciousness: patient oriented x3 Neck Neck: Yes no lymphadenopathy Resp Auscultation: clear to auscultation bilaterally Cardio Rhythm: regular rhythm GI Other: She points to an area on the abdominal wall to the left of the midline in the lower abdomen with note of what appears to be a lipomatous mass or scar in the subcutaneous layer about 1 cm in size. This is nontender. There are no skin changes overlying this. This is not more prominent with Valsalva Palpation (GI): Soft to palpation, nontender and no guarding Neuro General: patient oriented x3 Assessment & Plan Assessment & Plan (1) Subcutaneous mass of abdominal wall: Code(s): R22.2 - Localized swelling, mass and lump, trunk Plan: She has what appears to be a small lipoma on the abdominal wall as described above. This is very tiny, probably less than 1 cm in diameter She says that this is not increased in size or does not have any pain or tenderness. This may be a scar as well as this is adjacent to her previous midline incision In view of the very small size, I told her I would not recommend proceeding with excision for now. Furthermore, she says that at this time if this is not bothering her. She can come back to the office to be re-evaluated in the future. She has multiple other various complaints including constipation, problems with feeling too hot and to cold, but otherwise appears to be comfortable. Quality Reporting (2019) Adult ([facility] ) Smoking risk assessment performed?: Yes Patient Tobacco Use Status: Current everyday Tobacco user Coding Level of Care Code Est Pt Level 3 (98591) Diagnoses Subcutaneous mass of abdominal wall R22.2
== END 2023-05-13 15:36 | disposition home or self-care (01) ==
PROVIDERS: PCP Internal Medicine; Visit Provider Surgery
DX: R22.2 Localized swelling, mass and lump, trunk (principal)
CPT/HCPCS: 99213

== ENCOUNTER → 2023-05-13 15:03 | Outpatient (BNVA) | payer MEDICARE, MEDICAID, SELFPAY | PROVIDERS: PCP Internal Medicine; Visit Provider Surgery | DX: R22.2 Localized swelling, mass and lump, trunk (principal) | CPT/HCPCS: 99212 ==

== ENCOUNTER 2023-05-22 14:24 | Outpatient (REF) | payer MEDICARE, MEDICAID, SELFPAY ==
--- NOTE | ~2023-05-22 | MR_ITS ---
EXAMINATION: MR LUMBAR SPINE WITHOUT CONTRAST CLINICAL INFORMATION: Radiculopathy, lumbar region. COMPARISON: None available. TECHNIQUE: MRI of the lumbar spine was obtained using routine sequences without contrast. FINDINGS: Mild levocurvature of the upper lumbar spine. Grade 2-3 anterolisthesis at L5-S1 with chronic pars defects bilaterally. Grade 1 anterolisthesis at L3-L4. Patchy STIR hyperintensity involving the L1 vertebral body with associated approximately 30% vertebral body height loss. No retropulsion. Patchy STIR hyperintensity involving the anterior portion of the L5 vertebra with presence of Schmorl's node. There is additional abnormal signal surrounding the right L4-L5 facet joint. Probable intraosseous hemangioma at L4. Multilevel endplate osteophytosis. The visualized spinal cord is normal in caliber. No abnormal cord signal. The conus medullaris terminates at L1-L2. T11-T12: Tiny disc bulge. No significant spinal canal or neural foraminal narrowing. T12-L1: Diffuse disc bulge and ligamentum flavum hypertrophy. No significant spinal canal or neural foraminal narrowing. L1-L2: Ligamentum flavum hypertrophy and bilateral facet arthrosis with trace right facet joint effusion. No significant spinal canal or neural foraminal narrowing. L2-L3: Diffuse disc bulge, ligamentum flavum hypertrophy, and bilateral facet arthrosis with vcehc-hs-zrvxpkju bilateral facet joint effusions. No significant spinal canal stenosis. Mild left and aeok-ni-trsnirki right neural foraminal narrowing with the disc abutting the right exiting L2 nerve roots. L3-L4: Diffuse disc bulge with superimposed right paracentral disc extrusion migrating superiorly along the L3 vertebral body. Ligamentum flavum hypertrophy and bilateral facet arthrosis. Extracanalicular synovial cysts posterior to the facet joints bilaterally, measuring up to 1.5 cm on the right and 0.6 cm on the left. Wtnoydhp-yc-ggkafi spinal canal stenosis with mass effect on the cauda equina nerve roots. Xirfuyra-cb-jjseaa right and severe left neural foraminal narrowing with impingement of the exiting L4 nerve roots bilaterally. L4-L5: Diffuse disc bulge, ligamentum flavum hypertrophy and bilateral facet arthrosis with trace bilateral facet joint effusions. Small synovial cysts posterior to the left facet joint measuring up to 0.5 cm. No significant spinal canal stenosis. Jbazdunr-ll-qiivok left and mild right neural foraminal narrowing with the disc abutting the left exiting L4 nerve roots. L5-S1: Anterolisthesis and bilateral pars defects cause severe spinal canal stenosis with impingement of the cauda equina nerve roots. Severe left greater than right neural foraminal narrowing with impingement of the exiting L5 nerve roots bilaterally. The paravertebral soft tissues are unremarkable. MR/MR lumbar spine wo con IMPRESSION: -Acute to subacute L1 compression fracture with approximately 30% vertebral body height loss. No retropulsion or significant spinal canal stenosis. -Suggestion of acute to subacute Schmorl's node at L5 vertebra. -Grade 2-3 anterolisthesis at L5-S1 with bilateral pars defects. There is abnormal signal surrounding the right L4-L5 facet joint, likely related to advanced degenerative facet disease. -Multilevel lumbar spondylosis, as detailed above, most notable at L5-S1 where there is severe spinal canal stenosis as well as severe left and ajeoogyn-ad-jypdkt right neural foraminal narrowing with impingement of the cauda equina nerve roots and the exiting L5 nerve roots bilaterally. There is also yxcytnpi-fq-vfgepn spinal canal stenosis at L3-L4 secondary to a migrating extruded disc. Severe left and jjnlwzfa-gm-ijxrya right neural foraminal narrowing is identified at this level.
== END 2023-05-22 14:25 | disposition home or self-care (01) ==
LOC: HO.MRI 14:24
PROVIDERS: PCP Internal Medicine; Visit Provider Internal Medicine
DX: M54.16 Radiculopathy, lumbar region (principal); E11.9 Type 2 diabetes mellitus without complications
CPT/HCPCS: 72148

== ENCOUNTER 2023-06-03 15:36 | Outpatient (REF) | payer MEDICARE, MEDICAID, SELFPAY ==
--- NOTE | ~2023-06-03 | CT_ITS ---
EXAMINATION: CT ABDOMEN AND PELVIS WITH CONTRAST CLINICAL INFORMATION: Periumbilical abdominal pain. COMPARISON: Abdominal ultrasound 04/29/2023, CT abdomen and pelvis 07/14/2022. TECHNIQUE: Multidetector volumetric images were obtained from the superior aspect of the liver through the pubic symphysis following administration 85 mL of Omnipaque 350 intravenous contrast. Sagittal and coronal reformatted images were obtained on the technologist's workstation. Oral contrast: Yes This CT examination was performed using dose optimization techniques as appropriate, variously including the following: *Automated exposure control *Adjustment of mA and/or kV according to patient size (this includes techniques or standardized protocols for targeted exams where dose is matched to indication/reason for exam; i.e. extremities or head) *Use of iterative reconstruction technique DLP: 274 mGy-cm FINDINGS: LUNG BASES: No suspicious lung nodules. LIVER, GALLBLADDER, AND BILIARY TREE: The liver is normal in size, shape, and attenuation. No focal hepatic lesion or biliary ductal dilatation is present. Cholecystectomy. PANCREAS: No discrete pancreatic mass or ductal dilatation. SPLEEN: Normal size. No focal mass. ADRENAL GLANDS: No adrenal mass. KIDNEYS AND URETERS: The kidneys are normal in size, shape, and attenuation. No hydronephrosis, hydroureter, or calculi seen. No perinephric stranding. BLADDER: No discrete mass. No bladder calculus. GASTROINTESTINAL TRACT: There is asymmetric thickening of the gastric mucosa along the greater curvature which appears to be a chronic finding. There is no regional adenopathy. This may relate to gastritis. The small and large bowel are normal in caliber. Colonic diverticulosis without diverticulitis. No discrete bowel mass is seen. ABDOMINAL WALL: Small fat-containing umbilical hernia. In the superficial abdominal wall inferior to the umbilicus is a 2.4 x 1.2 x 1.4 cm lesion with attenuation of 57 Hounsfield units. This is decreased in size from the CT scan of 07/14/2022 when it measured 2.9 x 2.1 x 3.2 cm. Presumably this is focal scar tissue or contracted hematoma. Clinical correlation is necessary. LYMPH NODES: No adenopathy. VASCULAR: Moderate aortoiliac atherosclerotic disease. No aortic aneurysm. PELVIC VISCERA: Unremarkable. OSSEOUS STRUCTURES: Grade 3 anterolisthesis of L5 on S1 measuring 1.6 cm with severe degenerative disc disease. This appears related to bilateral pars defects. There is moderate degenerative disc disease at L3-L4. CT/CT abdomen pelvis w IV con IMPRESSION: 2.4 x 1.2 x 1.4 cm lesion in the superficial abdominal wall inferior to the umbilicus likely related to prior surgery and may represent focal scar tissue or a contracted hematoma. This is decreased in size compared to CT scan from 07/14/2022. Clinical correlation is necessary. Small fat-containing umbilical hernia. Asymmetric thickening of the gastric mucosa along the greater curvature, appears to be a chronic finding and may relate to gastritis. Consider endoscopy. Diverticulosis without evidence of acute diverticulitis. Fleischner guidelines were followed.
[2023-06-03] MEDS: iohexoL 350 MG/ML 100 ML INFUS..BTL 85 ML IV (16:06)
[2023-06-08 10:37] LABS: Creatinine POC 0.8 mg/dL (0.5-1.4); GFR POC > 60
== END 2023-06-03 15:37 | disposition home or self-care (01) ==
LOC: HO.CT 15:36
PROVIDERS: PCP Internal Medicine; Visit Provider Surgery
DX: R10.33 Periumbilical pain (principal); R29.6 Repeated falls; Z98.890 Other specified postprocedural states; Z72.0 Tobacco use
CPT/HCPCS: 74177; 82565; Q9967

== ENCOUNTER 2023-06-12 13:16 | Outpatient (AMB) | payer MEDICARE, MEDICAID, SELFPAY ==
--- NOTE | 2023-06-12 11:25 | A.OFFPSYCH_ITS ---
Intake Intake Visit Reasons: depression Allergies No Known Allergies Allergy (Verified 05/13/23 15:21) HPI- Psychiatric Chief Complaint: depression HPI Narrative: Pt has generally been doing ok ? had recent ct has abd hernia feels lonely at times does socialize at times sees son daily Patient denies any manic symptoms has not had any psychotic preoccupations. Tends to be avoidant regarding medical issues. She and her can bigger but states things are generally okay at home Past Psychiatric History: Past history of psychiatric hospitalization psychotic mixed state episodes. Has been stable for many years Mental Status Exam Mental Status Exam Narrative: pt calm cooperative Patient Appearance: Appropriate Patient Orientation: Person, Place, Time and Situation Level of Consciousness: Awake Patient Behavior: Appropriate Mood Description: Constricted Affect Description: Calm, Blunted and Flat Ability to Follow Directions: Good Speech Pattern: Clear Memory Description: Intact and Episodic Impaired Hallucinations: None Delusions: Not Present Thought Process: Intact Thought Content: positive for Intact, positive for [place], negative for Suicidal Ideation or negative for Homicidal Ideation Depressive Symptoms: Low Self Esteem and Loss of Energy Judgement: Fair Judgement and Insight: Tendency to be dismissive regarding medical issues was alert oriented seem logical agreeable to lowering medication Results Reviewed Results Reviewed: [address] [address] Magnetic Resonance Report Signed Patient: Alma Mera MR#: [id number] : 1955 Acct:[id number] Age/Sex: 68 / F ADM Date: 05/22/23 Loc: HO.MRI Attending Dr: Sloane Mccarthy MD Ordering Physician: Sloane Cody MD Date of Service: 05/22/23 Procedure(s): MR lumbar spine wo con Accession Number(s): [id number] cc: Sloane Cody MD~ EXAMINATION: MR LUMBAR SPINE WITHOUT CONTRAST CLINICAL INFORMATION: Radiculopathy, lumbar region. COMPARISON: None available. TECHNIQUE: MRI of the lumbar spine was obtained using routine sequences without contrast. FINDINGS: Mild levocurvature of the upper lumbar spine. Grade 2-3 anterolisthesis at L5-S1 with chronic pars defects bilaterally. Grade 1 anterolisthesis at L3-L4. Patchy STIR hyperintensity involving the L1 vertebral body with associated approximately 30% vertebral body height loss. No retropulsion. Patchy STIR hyperintensity involving the anterior portion of the L5 vertebra with presence of Schmorl's node. There is additional abnormal signal surrounding the right L4-L5 facet joint. Probable intraosseous hemangioma at L4. Multilevel endplate osteophytosis. The visualized spinal cord is normal in caliber. No abnormal cord signal. The conus medullaris terminates at L1-L2. T11-T12: Tiny disc bulge. No significant spinal canal or neural foraminal narrowing. T12-L1: Diffuse disc bulge and ligamentum flavum hypertrophy. No significant spinal canal or neural foraminal narrowing. L1-L2: Ligamentum flavum hypertrophy and bilateral facet arthrosis with trace right facet joint effusion. No significant spinal canal or neural foraminal narrowing. L2-L3: Diffuse disc bulge, ligamentum flavum hypertrophy, and bilateral facet arthrosis with ikiiy-iv-nijqditv bilateral facet joint effusions. No significant spinal canal stenosis. Mild left and xlqx-op-bhudiknb right neural foraminal narrowing with the disc abutting the right exiting L2 nerve roots. L3-L4: Diffuse disc bulge with superimposed right paracentral disc extrusion migrating superiorly along the L3 vertebral body. Ligamentum flavum hypertrophy and bilateral facet arthrosis. Extracanalicular synovial cysts posterior to the facet joints bilaterally, measuring up to 1.5 cm on the right and 0.6 cm on the left. Iippggcs-tj-iorzdm spinal canal stenosis with mass effect on the cauda equina nerve roots. Cpkkfjph-ck-fdkwwq right and severe left neural foraminal narrowing with impingement of the exiting L4 nerve roots bilaterally. L4-L5: Diffuse disc bulge, ligamentum flavum hypertrophy and bilateral facet arthrosis with trace bilateral facet joint effusions. Small synovial cysts posterior to the left facet joint measuring up to 0.5 cm. No significant spinal canal stenosis. Wcahnpjl-ci-lwkarx left and mild right neural foraminal narrowing with the disc abutting the left exiting L4 nerve roots. L5-S1: Anterolisthesis and bilateral pars defects cause severe spinal canal stenosis with impingement of the cauda equina nerve roots. Severe left greater than right neural foraminal narrowing with impingement of the exiting L5 nerve roots bilaterally. The paravertebral soft tissues are unremarkable. MR/MR lumbar spine wo con IMPRESSION: -Acute to subacute L1 compression fracture with approximately 30% vertebral body height loss. No retropulsion or significant spinal canal stenosis. -Suggestion of acute to subacute Schmorl's node at L5 vertebra. -Grade 2-3 anterolisthesis at L5-S1 with bilateral pars defects. There is abnormal signal surrounding the right L4-L5 facet joint, likely related to advanced degenerative facet disease. -Multilevel lumbar spondylosis, as detailed above, most notable at L5-S1 where there is severe spinal canal stenosis as well as severe left and amdvnpab-ns-wwyjak right neural foraminal narrowing with impingement of the cauda equina nerve roots and the exiting L5 nerve roots bilaterally. There is also hftsamxe-hv-ilqfbt spinal canal stenosis at L3-L4 secondary to a migrating extruded disc. Severe left and naihurer-yn-juumrq right neural foraminal narrowing is identified at this level. Assessment and Plan Assessment & Plan (1) Bipolar 1 disorder, depressed, mild: Status: Acute Code(s): F31.31 - Bipolar disorder, current episode depressed, mild (2) COPD (chronic obstructive pulmonary disease): Status: Acute Code(s): J44.9 - Chronic obstructive pulmonary disease, unspecified Plan Patient seen psychiatric follow-up. Has generally been stable since last appointment. Does have chronic medical issues that she is dealing she does state she has the support of her generally she often does not like to leave the house Patient does have some mild orofacial dyskinesia noted she is aware this tardive dyskinesia wishes to continue on present Geodon which has been tapered down over time the patient does not at this time wish to entertain further taper or treatment for mild TD which is not interfering with her life. She has had off and on over years is aware it can get worse Medications: Changed From lorazepam 0.5 mg orally; 1 tab in am 1 tab in afternoon 2 tabs bedtime may take additional tab daily as needed for severe anxiety caution sedating may cause balance problems 150 tabs 1RF anxiety To lorazepam 0.5 mg orally; 1 tab in am 1 tab in afternoon 2 tabs bedtime may take additional tab daily as needed for severe anxiety caution sedating may cause balance problems 150 tabs 1RF anxiety Refilled sertraline 100 mg PO DAILY 30 tabs 2RF clonidine HCl 0.2 mg (2 x 0.1 mg) PO BEDTIME 180 tabs 1RF 3 months buspirone 10 mg (2 x 5 mg) PO BID 360 tabs 1RF 3 months Counseling and coordination of Care Details: I spent [] minutes reviewing the record, seeing the patient and documenting in the medical record. Counseling provided to the patient/caregiver as outlined below. Addressed patient/caregiver concerns regarding current medication regime including effective adherence. Addressed patient/caregiver concerns regarding diagnosis and prognosis including accuracy of diagnosis, prognosis over time, impact of diagnosis. Addressed patient/caregiver concerns regarding impact of recent stressors. [facility] Medical History (Updated 05/13/23 @ 15:40 by Helio Douglas MD) Subcutaneous mass of abdominal wall Neuroleptic-induced tardive dyskinesia Chronic constipation Foot pain Adnexal mass Arterial calcification Superior mesenteric artery thrombosis Adnexal mass Smoker Diverticular stricture Paronychia of great toe, right Right knee pain Depression with anxiety Chronic idiopathic constipation Bipolar 1 disorder Rib injury Surgical History Incisional hernia Hx of section History of cholecystectomy Family History Father Oral cancer Mother No problems noted. Other Mental health disorder Social History Household Members: Spouse Housing: House Do you presently have visiting nurse or other home services: No Alcohol intake: former Comment: refuse alarm, but is using call bel approp Patient Tobacco Use Status: Current everyday Tobacco user Tobacco use type: Cigarette Cigarette Packs Per Day: 1 Cigarettes Per Day: 20 e-Cigarette/Vaping Use: Never Used Second Hand Smoke Exposure: No service: No Current occupational status: unemployed and disabled Cognitive needs: No Hearing needs: No Vision needs: Yes Social History: Family history of alcohol abuse. Patient lives with her has 1 daughter who lives in [place] 1 son. Patient does have grandchildren close with family. Substance History: Past history of alcohol belongs to [place] Trauma History: na Coding Level of Care Code Tele Est Pt Level 4 (13669) Diagnoses Bipolar 1 disorder, depressed, mild F31.31 COPD (chronic obstructive pulmonary disease) J44.9
== END 2023-06-12 13:17 | disposition home or self-care (01) ==
LOC: HO.HOP 13:16
PROVIDERS: PCP Internal Medicine; Visit Provider Psychiatry & Neurology Psychiatry
DX: F31.31 Bipolar disorder, current episode depressed, mild (principal); J44.9 Chronic obstructive pulmonary disease, unspecified
CPT/HCPCS: 99214

== ENCOUNTER → 2023-06-12 13:16 | Outpatient (BNVA) | payer MEDICARE, MEDICAID, SELFPAY | PROVIDERS: PCP Internal Medicine; Visit Provider Psychiatry & Neurology Psychiatry | DX: F31.31 Bipolar disorder, current episode depressed, mild (principal); J44.9 Chronic obstructive pulmonary disease, unspecified | CPT/HCPCS: 99212 ==

== ENCOUNTER 2023-07-13 15:31 | Outpatient (AMB) | payer MEDICARE, MEDICAID, SELFPAY ==
[2023-07-13 15:36] VITALS: BP 122/68; PULSE 76; O2SAT 96; BMI 23.0
--- NOTE | 2023-07-13 15:36 | MHC.PC.OV ---
Vital Signs 07/13/23 15:36 Height 5 ft 3 in Weight 130 lb 0.4 oz BMI 23.0 BP 122/68 Blood Pressure Location Lt brachial Position Sitting Pulse 76 Pulse Source Pulse Oximeter Pulse Oximetry (%) 96 Oxygen Delivery Method Room Air Intake Visit Reasons: Hernia Pain, Referral to new surgeon Word Processor Required: No Accompanied by: Spouse Allergies No Known Allergies Allergy (Verified 07/13/23 15:58) Medication List - Last Reconciled 07/13/23 by Sloane Mccarthy MD atorvastatin 20 mg PO BEDTIME 90 days buspirone 10 mg (2 x 5 mg) PO BID 3 months cholecalciferol (vitamin D3) 50 mcg PO DAILY 90 days clonidine HCl 0.2 mg (2 x 0.1 mg) PO BEDTIME 3 months commode (bedside commode) As directed cyclobenzaprine 10 mg PO BEDTIME PRN 30 days [diabetic shoes and inserts As directed] diclofenac sodium 75 mg PO BID PRN 5 days folic acid 0.8 mg PO DAILY lactulose 20 grams (30 mL) PO BID PRN 30 days lidocaine 5% (Lidoderm) 1 patch topical DAILY lorazepam 0.5 mg orally; 1 tab in am 1 tab in afternoon 2 tabs bedtime may take additional tab daily as needed for severe anxiety caution sedating may cause balance problems nabumetone 750 mg PO BID PRN 7 days nystatin 500,000 units (5 mL) PO TID 30 days pantoprazole 40 mg PO DAILY 90 days sertraline 100 mg PO DAILY sumatriptan succinate 25 mg PO Q2-4H PRN 30 days tramadol 50 mg PO BID PRN 5 days ziprasidone HCl 40 mg PO DIRECTED Tobacco use date assessed: 07/13/23 Fall risk assessment: No Falls in past year Last assessed Fall Risk: 07/13/23 Dental Screening Dental Screen Date: 07/13/23 Did you have a dental visit in the last 12 months?: Yes Did you have a dental problem in the last 6 months where you did not have access to dental care?: No Was dental information given to patient?: Patient has dentist HPI HPI Comments History of Present Illness Details This is a 68-year-old female with bipolar disorder, centrilobular emphysema, diabetes and chronic constipation that comes today accompanied by for follow-up on her conditions. She had an MRI done last month showing moderate degenerative disc disease in L3-L4 and severe degenerative disc disease in L5-S1 and severe spinal stenosis. At the moment she denies any back pain. No fever, bowel or bladder incontinence. She has normal gait. Was referred to spine center. Bipolar disorder stable with medications and this is follow by Psychiatry. She denies any shortness of breath and denies the need for an inhaler for her emphysema. She still smokes. Diabetes well controlled with diet and her A1c is 6. Constipation has been stable with lactulose as needed. [facility] Medical History (Updated 07/13/23 @ 16:16 by Sloane Mccarthy MD) Colon stricture Subcutaneous mass of abdominal wall Neuroleptic-induced tardive dyskinesia Chronic constipation Foot pain Adnexal mass Arterial calcification Superior mesenteric artery thrombosis Adnexal mass Smoker Diverticular stricture Paronychia of great toe, right Right knee pain Depression with anxiety Chronic idiopathic constipation Bipolar 1 disorder Rib injury Surgical History Incisional hernia Hx of section History of cholecystectomy Family History Father Oral cancer Mother No problems noted. Other Mental health disorder Social History Household Members: Spouse Housing: House Do you presently have visiting nurse or other home services: No Alcohol intake: former Comment: refuse alarm, but is using call bel approp Patient Tobacco Use Status: Current everyday Tobacco user Tobacco use type: Cigarette Cigarette Packs Per Day: 1 Cigarettes Per Day: 20 e-Cigarette/Vaping Use: Never Used Second Hand Smoke Exposure: No service: No Current occupational status: unemployed and disabled Cognitive needs: No Hearing needs: No Vision needs: Yes Female Reproductive History Menstrual Age of Menarche: 9 Questionnaire Thrive Questionnaire Date Thrive assessed: 04/13/23 AUDIT C Alcohol Use Questionnaire (AUDIT-C) 1. How often do you have a drink containing alcohol?: Never Total Score: 0 Score Reviewed/Action Taken: No FARRUKH-7 AMB Questionnaire FARRUKH-7 Date FARRUKH - 7 assessed: 04/13/23 Source: Developed by Drs. Yonas Sepulveda, Lynn Yu, Ry Wilkerson and colleagues, with an educational sascha from [employer]. Review of Systems Const All systems reviewed & are unremarkable except as noted in HPI and below Eyes Reports no additional complaints, Denies change in vision and Denies other visual disturbances Card Denies chest pain at rest, Denies chest pain with activity, Denies edema, Denies irregular heart rhythm, Denies claudication, Denies dyspnea, Denies dyspnea on exertion, Denies orthopnea, Denies paroxysmal nocturnal dyspnea and Denies slow heart rate Resp Denies cough, Denies dyspnea and Denies dyspnea on exertion Physical exam (Primary Care) Vital Signs: Last Vital Signs Pulse 76 07/13/23 15:36 BP 122/68 07/13/23 15:36 Pulse Ox 96 07/13/23 15:36 Oxygen Delivery Method Room Air 07/13/23 15:36 BMI result Body Mass Index 23.0 Tobacco/Smoking Status: Tobacco use Status Tobacco use date assessed 07/13/23 07/13/23 15:37 Patient Tobacco Use Status Current everyday Tobacco 07/13/23 15:37 Tobacco use type Cigarette 07/13/23 15:37 e-Cigarette/Vaping Use Never Used 07/13/23 15:37 Are you ready to quit: No Tobacco cessation counseling provided: No Thrive Assessment: Date of Thrive Assessment Date Thrive assessed 04/13/23 07/13/23 15:37 Resp Effort & Inspection: normal respiratory effort Auscultation: clear to auscultation bilaterally Cardio Jugular venous distension: no JVD Rate: regular rate Rhythm: regular rhythm Heart sounds: S1 normal heart sound present and S2 normal heart sound present Back/Spine/Pelvis Thoracic/Lumbar Spine: straight leg raise negative bilaterally Extrem General: Yes full ROM Results AMB Hemoglobin A1c AMB Hemoglobin A1c 6.0 % Last Edit by LESLIE Aden on 07/13/23 15:48 Results Reviewed Results Reviewed: Laboratory Last Values Hgb A1c (Clinic) 6.0 % (4.0-6.0) 07/13/23 14:35 Assessment and Plan Assessment & Plan (1) Lumbar stenosis without neurogenic claudication: Code(s): M48.061 - Spinal stenosis, lumbar region without neurogenic claudication Plan: Referred to spine center. (2) Chronic constipation: Code(s): K59.09 - Other constipation Plan: Continue lactulose as needed. (3) Bipolar 1 disorder: Code(s): F31.9 - Bipolar disorder, unspecified Plan: Continue SSRI. Follow-up with psychiatry. (4) Centrilobular emphysema: Code(s): J43.2 - Centrilobular emphysema Plan: Recommended to use rescue inhaler as needed. (5) Diabetes mellitus: Code(s): E11.9 - Type 2 diabetes mellitus without complications Plan: Continue low-carbohydrate diet. A1c goal is equal or less than 7%. Orders: Orders AMB Hemoglobin A1c Today E11.9 - Type 2 diabetes mellitus without complications Referrals Neuro Spine Referral M48.061 - Spinal stenosis, lumbar region without neurogenic claudication Coding Level of Care Code Est Pt Level 4 (07651) Diagnoses Lumbar stenosis without neurogenic claudication M48.061 Chronic constipation K59.09 Bipolar 1 disorder F31.9 Centrilobular emphysema J43.2 Diabetes mellitus E11.9 Time Spent (min) 20
== END 2023-07-13 16:11 | disposition home or self-care (01) ==
LOC: HO.HMGH 15:33
PROVIDERS: PCP Internal Medicine; Visit Provider Internal Medicine
DX: E11.9 Type 2 diabetes mellitus without complications (principal); F31.9 Bipolar disorder, unspecified; J43.2 Centrilobular emphysema; M48.061 Spinal stenosis, lumbar region without neurogenic claudication; K59.09 Other constipation
CPT/HCPCS: 83036; 99214

== ENCOUNTER 2023-07-23 12:34 | Outpatient (AMB) | payer MEDICARE, MEDICAID, SELFPAY ==
--- NOTE | 2023-07-23 12:37 | MHC.PC.OV ---
Intake Visit Reasons: Cold Symptoms Wrapper Sizer Required: No Accompanied by: Self / Same As Patient Allergies No Known Allergies Allergy (Verified 07/23/23 12:58) Medication List - Last Reconciled 07/23/23 by Sloane Mccarthy MD atorvastatin 20 mg PO BEDTIME 90 days buspirone 10 mg (2 x 5 mg) PO BID 3 months cholecalciferol (vitamin D3) 50 mcg PO DAILY 90 days clonidine HCl 0.2 mg (2 x 0.1 mg) PO BEDTIME 3 months commode (bedside commode) As directed cyclobenzaprine 10 mg PO BEDTIME PRN 30 days [diabetic shoes and inserts As directed] diclofenac sodium 75 mg PO BID PRN 5 days folic acid 0.8 mg PO DAILY lactulose 20 grams (30 mL) PO BID PRN 30 days lidocaine 5% (Lidoderm) 1 patch topical DAILY lorazepam 0.5 mg orally; 1 tab in am 1 tab in afternoon 2 tabs bedtime may take additional tab daily as needed for severe anxiety caution sedating may cause balance problems nabumetone 750 mg PO BID PRN 7 days nystatin 500,000 units (5 mL) PO TID 30 days pantoprazole 40 mg PO DAILY 90 days sertraline 100 mg PO DAILY sumatriptan succinate 25 mg PO Q2-4H PRN 30 days tramadol 50 mg PO BID PRN 5 days ziprasidone HCl 40 mg PO DIRECTED Tobacco use date assessed: 07/13/23 Dental Screening Dental Screen Date: 07/13/23 HPI HPI Comments History of Present Illness Details This is a 68-year-old female with diabetes mellitus type 2, COPD, bipolar depression and GERD that has tele health visit by phone today complaining of having more heartburn with the omeprazole. She said that pantoprazole were better. Diabetes has been stable with diet. She refused any rescue inhaler or long-acting inhaler for her COPD. She refused to quit smoking. Bipolar depression is follow by Psychiatry. [facility] Medical History (Updated 07/23/23 @ 13:05 by Sloane Mccarthy MD) Colon stricture Subcutaneous mass of abdominal wall Neuroleptic-induced tardive dyskinesia Chronic constipation Foot pain Adnexal mass Arterial calcification Superior mesenteric artery thrombosis Adnexal mass Smoker Diverticular stricture Paronychia of great toe, right Right knee pain Depression with anxiety Chronic idiopathic constipation Bipolar 1 disorder Rib injury Surgical History Incisional hernia Hx of section History of cholecystectomy Family History Father Oral cancer Mother No problems noted. Other Mental health disorder Social History Household Members: Spouse Housing: House Do you presently have visiting nurse or other home services: No Alcohol intake: former Comment: refuse alarm, but is using call bel approp Patient Tobacco Use Status: Current everyday Tobacco user Tobacco use type: Cigarette Cigarette Packs Per Day: 1 Cigarettes Per Day: 20 e-Cigarette/Vaping Use: Never Used Second Hand Smoke Exposure: No service: No Current occupational status: unemployed and disabled Cognitive needs: No Hearing needs: No Vision needs: Yes Female Reproductive History Menstrual Age of Menarche: 9 Questionnaire Thrive Questionnaire Date Thrive assessed: 04/13/23 FARRUKH-7 AMB Questionnaire FARRUKH-7 Date FARRUKH - 7 assessed: 04/13/23 Source: Developed by Drs. Yonas Sepulveda, Lynn Yu, Ry Wilkerson and colleagues, with an educational sascha from [employer]. Review of Systems Const All systems reviewed & are unremarkable except as noted in HPI and below Eyes Reports no additional complaints, Denies change in vision and Denies other visual disturbances Resp Denies cough GI Denies abdominal pain, Denies change in bowel habits, Denies excessive flatus, Denies nausea and Denies vomiting Denies urinary incontinence, Denies urinary hesitancy and Denies urinary urgency Musc Denies abnormal gait, Denies atrophy, Denies deformity and Denies limited range of motion Skin/Breast Denies bleeding lesions, Denies changing lesions and Denies rash Neuro Denies abnormal gait and Denies lack of coordination Physical exam (Primary Care) Tobacco/Smoking Status: Tobacco use Status Tobacco use date assessed 07/13/23 07/23/23 12:38 Patient Tobacco Use Status Current everyday Tobacco 07/23/23 12:38 Tobacco use type Cigarette 07/23/23 12:38 e-Cigarette/Vaping Use Never Used 07/23/23 12:38 Thrive Assessment: Date of Thrive Assessment Date Thrive assessed 04/13/23 07/23/23 12:38 Telehealth Telehealth Telehealth Platform: Telephone Location of provider rendering services: practice address Location of patient: address on file Patient Identification confirmed using: Name, : Yes Telehealth method: voice only Patient verbally consented to treatment: Yes Patient verbally consented to billing insurance company: Yes Patient informed of any privacy concerns related to visit: Yes Minutes spent on Phone/Video with Pt.: 15 Assessment and Plan Assessment & Plan (1) Bipolar 1 disorder, depressed, mild: Code(s): F31.31 - Bipolar disorder, current episode depressed, mild Plan: Continue sertraline. Follow-up with psychiatry. (2) GERD (gastroesophageal reflux disease): Code(s): K21.9 - Gastro-esophageal reflux disease without esophagitis Plan: Change omeprazole back to pantoprazole. (3) COPD (chronic obstructive pulmonary disease): Code(s): J44.9 - Chronic obstructive pulmonary disease, unspecified Qualifiers: COPD type: emphysema Emphysema type: centrilobular Qualified Code(s): J43.2 - Centrilobular emphysema Plan: Declines the use of inhaler. (4) Diabetes mellitus: Code(s): E11.9 - Type 2 diabetes mellitus without complications Plan: Continue low-carbohydrate diet. A1c goal is equal or less than 7%. Orders: Orders T Spot TB Today Z11.1 - Encounter for screening for respiratory tuberculosis Medications: Refilled pantoprazole 40 mg PO DAILY 90 tabs 1RF 90 days Discontinued omeprazole Discontinued Reason: Patient Completed Course 20 mg PO BID 60 caps 1RF 30 days Coding Level of Care Code Tele Est Pt Level 4 (10044) Diagnoses Bipolar 1 disorder, depressed, mild F31.31 GERD (gastroesophageal reflux disease) K21.9 Centrilobular emphysema J43.2 COPD type: emphysema Emphysema type: centrilobular Diabetes mellitus E11.9 Time Spent (min) 15
== END 2023-07-23 14:23 | disposition home or self-care (01) ==
LOC: HO.HMGH 12:34
PROVIDERS: PCP Internal Medicine; Visit Provider Internal Medicine
DX: J43.2 Centrilobular emphysema (principal); E11.9 Type 2 diabetes mellitus without complications; F31.31 Bipolar disorder, current episode depressed, mild; K21.9 Gastro-esophageal reflux disease without esophagitis
CPT/HCPCS: 99442

== ENCOUNTER 2023-07-23 17:12 | Emergency (ER) | payer MEDICARE, MEDICAID, SELFPAY ==
--- NOTE | 2023-07-23 17:27 | ED.GENADULT ---
HPI - General Adult General Chief complaint: Upper Respiratory Symptoms Stated complaint: fever body aches cough Related Data Previous Rx's ?Medication ?Instructions ?Recorded lidocaine 5 % topical patch 1 patch topical DAILY #15 ea 02/22/23 (Lidoderm) nabumetone 750 mg tablet 750 mg PO BID PRN pain 7 days #14 03/02/23 tabs cyclobenzaprine 10 mg tablet 10 mg PO BEDTIME PRN muscle spasm 03/04/23 30 days #30 tabs atorvastatin 20 mg tablet 20 mg PO BEDTIME 90 days #90 tabs 03/12/23 cholecalciferol (vitamin D3) 50 50 mcg PO DAILY 90 days #90 caps 03/12/23 mcg (2,000 unit) capsule folic acid 800 mcg tablet 0.8 mg PO DAILY #30 tabs 04/13/23 sumatriptan succinate 25 mg tablet 25 mg PO Q2-4H PRN migraine 04/13/23 headache 30 days #9 tabs diclofenac sodium 75 mg 75 mg PO BID PRN pain 5 days #10 05/02/23 tablet,delayed release tabs tramadol 50 mg tablet 50 mg PO BID PRN pain 5 days #10 05/02/23 tabs commode (bedside commode) #1 ea 05/15/23 diabetic shoes and inserts #1 ea 06/07/23 buspirone 5 mg tablet 10 mg (2 x 5 mg) PO BID 3 months 06/12/23 #360 tabs clonidine HCl 0.1 mg tablet 0.2 mg (2 x 0.1 mg) PO BEDTIME 3 06/12/23 months #180 tabs lorazepam 0.5 mg tablet 0.5 mg PO .COMPLEX anxiety #150 06/12/23 tabs sertraline 100 mg tablet 100 mg PO DAILY #30 tabs 06/12/23 ziprasidone HCl 40 mg capsule 40 mg PO DIRECTED #60 caps 06/25/23 nystatin 100,000 unit/mL oral 500,000 unit (5 mL) PO TID 30 days 06/30/23 suspension #450 mL lactulose 20 gram/30 mL oral 20 g (30 mL) PO BID PRN 07/09/23 solution constipation 30 days #1,800 mL pantoprazole 40 mg tablet,delayed 40 mg PO DAILY 90 days #90 tabs 07/23/23 release Allergies Allergy/AdvReac Type Severity Reaction Status Date / Time No Known Allergies Allergy Verified 07/23/23 17:32 [facility] Past Medical History Medical History (Updated 07/23/23 @ 20:52 by Estrella Syed NP) Colon stricture Subcutaneous mass of abdominal wall Neuroleptic-induced tardive dyskinesia Chronic constipation Foot pain Adnexal mass Arterial calcification Superior mesenteric artery thrombosis Adnexal mass Smoker Diverticular stricture Paronychia of great toe, right Right knee pain Depression with anxiety Chronic idiopathic constipation Bipolar 1 disorder Rib injury Surgical History Incisional hernia Hx of section History of cholecystectomy Family History Family History Father Oral cancer Mother No problems noted. Other Mental health disorder Social History Social History Household Members: Spouse Housing: House Do you presently have visiting nurse or other home services: No Alcohol intake: former Comment: refuse alarm, but is using call bel approp Patient Tobacco Use Status: Current everyday Tobacco user Tobacco use type: Cigarette Cigarette Packs Per Day: 1 Cigarettes Per Day: 20 e-Cigarette/Vaping Use: Never Used Second Hand Smoke Exposure: No Advance Directives: No Advance Directives Information Provided: No service: No Current occupational status: unemployed and disabled Cognitive needs: No Hearing needs: No Vision needs: Yes Physical Exam ED Vital Signs: Vital Signs - 24 hr 07/23/23 17:28 Temperature 98.3 F Pulse Rate 68 Respiratory Rate 18 Pulse Oximetry 97 Oxygen Delivery Method Room Air BMI result Body Mass Index 23.0 Course Course Course Narrative: This is a rapid medical exam completed by [place] 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 Complaints of generalized body aches, fever, chills, cough and a few episodes of vomiting Medical Decision Making Lab Data Labs: Lab Results 07/23/23 Range/Units 19:12 Influenza Type A (PCR) NEGATIVE (Negative) Influenza Type B (PCR) NEGATIVE (Negative) RSV RNA Qual (PCR) NEGATIVE (Negative) SARS-CoV-2 RNA (RT-PCR) NEGATIVE (Negative) Discharge Plan Discharge Clinical Impression: Upper respiratory infection, Left before treatment completed Patient Disposition: Left W/O Completing Treatment Prescriptions: No Action nabumetone 750 mg tablet 750 mg PO BID PRN (Reason: pain) 7 Days Qty: 14 0RF cholecalciferol (vitamin D3) 50 mcg (2,000 unit) capsule 50 mcg PO DAILY 90 Days Qty: 90 1RF atorvastatin 20 mg tablet 20 mg PO BEDTIME 90 Days Qty: 90 1RF folic acid 800 mcg tablet 0.8 mg PO DAILY Qty: 30 3RF tramadol 50 mg tablet 50 mg PO BID PRN (Reason: pain) 5 Days Qty: 10 0RF diclofenac sodium 75 mg tablet,delayed release (DR/EC) 75 mg PO BID PRN (Reason: pain) 5 Days Qty: 10 0RF (DME) bedside commode Kit See Rx Instructions .Route Qty: 1 0RF Rx Instructions: As directed (DME) diabetic shoes and inserts 10 See Rx Instructions .Route .MEDSUPPLY Qty: 1 0RF Rx Instructions: As directed ziprasidone HCl 40 mg capsule 40 mg PO DIRECTED Qty: 60 2RF Rx Instructions: give with food (meal/snack) 1 tab daily may take additional tab daily as needed agitation nystatin 100,000 unit/mL suspension 500,000 unit PO TID 30 Days Qty: 450 1RF lactulose 20 gram/30 mL solution 20 g PO BID PRN (Reason: constipation) 30 Days Qty: 1800 6RF lidocaine [Lidoderm] 5 % adhesive patch,medicated 1 patch topical DAILY Qty: 15 0RF Rx Instructions: leave on most painful area for up to 12 hrs sumatriptan succinate 25 mg tablet 25 mg PO Q2-4H PRN (Reason: migraine headache) 30 Days Qty: 9 1RF Rx Instructions: do not exceed 8 doses per 24 hrs pantoprazole 40 mg tablet,delayed release (DR/EC) 40 mg PO DAILY 90 Days Qty: 90 1RF cyclobenzaprine 10 mg tablet 10 mg PO BEDTIME PRN (Reason: muscle spasm) 30 Days Qty: 30 0RF lorazepam 0.5 mg tablet 0.5 mg PO .COMPLEX Qty: 150 1RF Rx Instructions: 0.5 mg orally; 1 tab in am 1 tab in afternoon 2 tabs bedtime may take additional tab daily as needed for severe anxiety caution sedating may cause balance problems sertraline 100 mg tablet 100 mg PO DAILY Qty: 30 2RF clonidine HCl 0.1 mg tablet 0.2 mg PO BEDTIME 90 Days Qty: 180 1RF buspirone 5 mg tablet 10 mg PO BID 90 Days Qty: 360 1RF Interventions: JAKOBBS Worksheet Last Done: 07/23/23 20:01 Discharge Date/Time: 07/23/23 20:01
[2023-07-23 17:28] VITALS: PULSE 68; RESP 18; TEMP 36.8; O2SAT 97; BMI 23.0
[2023-07-23 19:57] LABS: Influenza A PCR NEGATIVE (Negative); Influenza B PCR NEGATIVE (Negative); Resp Syncy Virus RNA Qual PCR NEGATIVE (Negative); SARS COV2 PCR INHOUSE NEGATIVE (Negative)
== END 2023-07-23 20:01 | disposition left against medical advice (07) ==
PROVIDERS: Nurse Practitioner Family; Emergency Provider Emergency Medicine; PCP Internal Medicine
DX: J06.9 Acute upper respiratory infection, unspecified (principal); R50.9 Fever, unspecified; M79.10 Myalgia, unspecified site; R05.9 Cough, unspecified; Z79.899 Other long term (current) drug therapy; Z11.52 Encounter for screening for COVID-19; Z20.822 Contact with and (suspected) exposure to COVID-19
CPT/HCPCS: 0241U; 99281; 99283

== ENCOUNTER 2023-07-24 09:10 | Outpatient (AMB) | payer MEDICARE, MEDICAID, SELFPAY ==
--- NOTE | 2023-07-24 09:29 | A.SPINEOV_ITS ---
Intake Visit Reasons: Low Back Pain Intake Note: Ms. Mera is here today c/o low back pain. 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 She has a 68-year-old female with a history of bipolar disorder, difficult historian, lifelong smoker, presents to the office today for evaluation of back pain. Very hard to get specific details about the exact timeframe but she feels like it was probably a couple of years ago. There may or may not have been a fall at some point related to this. She does report some pain into her left upper thigh but no radicular pain down the leg to the foot. She has not report any urinary incontinence, but has had issues with urinary frequency and urinary urgency for a long time. She denies any saddle anesthesia, no fecal incontinence. She has constipation. No altered sensation when she is wiping. She was sent for an MRI which had extensive findings of degenerative as well as acute changes and was sent today for evaluation. She localizes her back pain mostly to the lower lumbar region. It is present generally only in certain situations that do not necessarily affect her quality of life in the sense that she is suffering daily from pain. The pain is fairly well controlled with a few aspirin. She does not like to take anti-inflammatories or Tylenol. She has had no dedicated conservative treatment. Denies any tingling numbness or weakness either in the upper or lower extremities. PMH: I gathered much of the patient's information about her medical history from the [facility] chart as the patient was limited with details at times. This includes bipolar disorder, umbilical hernia, right knee injury, rectal lump, lumbar pain, right hip pain, GERD, tardive dyskinesia, constipation, thrush, COPD, diabetes, neuropathy, emphysema, adnexal mass, peripheral artery disease, superior mesenteric arterial thrombosis, hypokalemia, colonic mass, depression Social hx: She smokes a pack and half a day Medications: Lipitor, BuSpar, clonidine, cyclobenzaprine, diclofenac, folic acid, lactulose, lorazepam, nabumetone, nystatin, pantoprazole, sertraline, tramadol, ziprasidone Allergies: Please see the [employer] list Physical exam: She is somewhat disheveled, maybe hypomanic as well during our interaction. She is able to stand up on her own and get onto the examining table independently, but does have a flexed posture with walking. She has full strength of bilateral lower extremities with diminished reflexes at the patella and the Achilles. No clonus. Imaging review: She has lumbar MRI done at [facility] as well as an abdominal CT which I used to correlate some of her bony anatomy. The lumbar MRI shows a grade 2-3 spondylolisthesis secondary to spondylolysis. There is severe bilateral neural foraminal stenosis as well as severe central canal stenosis at the S1 level. There are STIR signal changes seen throughout the lumbar spine including L1 and the anterior aspect of the body of L5 suggesting there could be subacute fractures here. The patient also has large synovial cyst projecting posteriorly from the L3-4 facet joints. Impression: 68-year-old female presents with a complicated spinal situation with chronic back pain which does not appear to be disabling. Please see above for the pertinent anatomy findings. She walks with a flexed posture. She has acute findings as well as chronic findings. She is a very difficult historian. It has not clear there may or may not have been a fall recently. She appears to have some kind of increased STIR signal at L1 as well as in the anterior body of L5. This could be related to that. However, she reports chronic back pain for many years so I am not sure how to tie this together. She has multiple degenerative findings including a grade 2-3 spondylolisthesis secondary to spondylolysis. There is anterior bony overgrowth with a very steep angle projecting almost vertically at the level of the disc space. She has severe stenosis at the S1 level. At this time she does not report any cauda equina symptoms outside of urinary urgency and urinary frequency but she tells me she is drinking diet Coke all day every day nonstop so thinks this could be related to that. She also has poor bone quality based on the CT scan and is a lifelong smoker. She has cyst projecting posteriorly from the L3-4 level. The combinati on of all these things could be responsible for her back pain. To this point the pain has not been disabling in his fairly well managed with a few aspirin throughout the day. Because of the complexity of the situation and poor bone quality I think we should proceed cautiously. I am going to review her imaging with Dr. Wang and get back to her with a final plan. I am thinking maybe we start with something along the lines of pain management. I will get back to the patient with a final plan. Thank you for allowing us to care for your patient. The total time spent with this visit with this patient was 45 minutes reviewing history, physical exam, lumbar imaging review, and implementation of treatment plan or further diagnostic testing Bennie Wang MD,PhD [facility] Coding Level of Care Code New Pt Level 4 (22981) Diagnoses Lumbar stenosis without neurogenic claudication M48.061
== END 2023-07-24 10:38 | disposition home or self-care (01) ==
PROVIDERS: PCP Internal Medicine; Referring Provider Internal Medicine; Visit Provider Physician Assistant
DX: M48.061 Spinal stenosis, lumbar region without neurogenic claudication (principal)
CPT/HCPCS: 99204

== ENCOUNTER → 2023-07-24 09:10 | Outpatient (BNVA) | payer MEDICARE, MEDICAID, SELFPAY | PROVIDERS: PCP Internal Medicine; Visit Provider Physician Assistant | DX: M48.061 Spinal stenosis, lumbar region without neurogenic claudication (principal) | CPT/HCPCS: 99202 ==

== ENCOUNTER 2023-08-12 09:04 | Outpatient (AMB) | payer MEDICARE, MEDICAID, SELFPAY ==
[2023-08-12 09:10] VITALS: BP 150/77; PULSE 81; RESP 14; O2SAT 95; BMI 23.7
--- NOTE | 2023-08-12 09:10 | MHC.OFFVIS ---
Vital Signs 08/12/23 09:10 Height 5 ft 3 in Weight 134 lb BMI 23.7 BP 150/77 H Blood Pressure Location Lt brachial Position Sitting Respiration 14 Pulse 81 Pulse Source Pulse Oximeter Pulse Oximetry (%) 95 Oxygen Delivery Method Room Air Intake Visit Reasons: LUMBAR STENOSIS Allergies No Known Allergies Allergy (Verified 08/12/23 09:11) Medication List - Last Reconciled 08/12/23 by Genia Saldaña LPN buspirone 10 mg (2 x 5 mg) PO BID 3 months cholecalciferol (vitamin D3) 50 mcg PO DAILY 90 days clonidine HCl 0.2 mg (2 x 0.1 mg) PO BEDTIME 3 months commode (bedside commode) As directed [diabetic shoes and inserts As directed] folic acid 0.8 mg PO DAILY lactulose 20 grams (30 mL) PO BID PRN 30 days lorazepam 0.5 mg orally; 1 tab in am 1 tab in afternoon 2 tabs bedtime may take additional tab daily as needed for severe anxiety caution sedating may cause balance problems nystatin 500,000 units (5 mL) PO TID 30 days pantoprazole 40 mg PO DAILY 90 days sertraline 100 mg PO DAILY ziprasidone HCl 40 mg PO DIRECTED HPI HPI LUMBAR STENOSIS: Details: 68-year-old female presenting with 1-year history of aching pain in her lower back, radiating down to the left leg. She describes the pain as 8 out of 10 in intensity and up to 9 out of 10 during the day and worse with movements. It gets better with the oral medications. She was unable to sleep normally or do her daily activities. The pain and redness to be better like when she is not moving. She has been retired in 2006. She was seen in the spine clinic and deemed non-surgical for her grade 2 to 3 anterolisthesis due to osteoporosis. She is not a candidate for fusion and was referred to us for consideration with management strategies. She usually takes aspirin to help the pain. She has tried tramadol in the past prescribed by her PCP. A DEXA scan was ordered for her in May but this has not been completed yet. History is also notable for compression fractures, notably at L1 with about 30% height loss. Even though the fracture occurred several months ago, it was still unhealed on the last MRI in May. [facility] Medical History (Updated 08/12/23 @ 11:05 by Glenn Díaz MD) Colon stricture Subcutaneous mass of abdominal wall Neuroleptic-induced tardive dyskinesia Chronic constipation Foot pain Adnexal mass Arterial calcification Superior mesenteric artery thrombosis Adnexal mass Smoker Diverticular stricture Paronychia of great toe, right Right knee pain Depression with anxiety Chronic idiopathic constipation Bipolar 1 disorder Rib injury Surgical History Incisional hernia Hx of section History of cholecystectomy Family History Father Oral cancer Mother No problems noted. Other Mental health disorder Social History Household Members: Spouse Housing: House Do you presently have visiting nurse or other home services: No Alcohol intake: former Comment: refuse alarm, but is using call bel approp Patient Tobacco Use Status: Current everyday Tobacco user Tobacco use type: Cigarette Cigarette Packs Per Day: 1 Cigarettes Per Day: 20 e-Cigarette/Vaping Use: Never Used Second Hand Smoke Exposure: No service: No Current occupational status: unemployed and disabled Cognitive needs: No Hearing needs: No Vision needs: Yes Female Reproductive History Menstrual Age of Menarche: 9 Review of Systems Const All systems reviewed & are unremarkable except as noted in HPI and below Physical Exam Vital Signs: Last Vital Signs Pulse 81 08/12/23 09:10 Resp 14 08/12/23 09:10 BP 150/77 H 08/12/23 09:10 Pulse Ox 95 08/12/23 09:10 Oxygen Delivery Method Room Air 08/12/23 09:10 BMI result Body Mass Index 23.7 General: Appears afebrile. Alert and oriented. Mood and affect appropriate. Follows and participates in conversation appropriately. Respiratory effort is unlabored. Able to transition from sit to stand unassisted. Tenderness to palpation overlying the L1 spinous process. Lumbar range of motion reproduces pain. Quality Reporting (2019) Adult ([facility] 138/05/14/68) Smoking risk assessment performed?: Yes Patient Tobacco Use Status: Current everyday Tobacco user Results Reviewed Results Reviewed: 05/22/23: MR LUMBAR SPINE WITHOUT CONTRAST FINDINGS: Mild levocurvature of the upper lumbar spine. Grade 2-3 anterolisthesis at L5-S1 with chronic pars defects bilaterally. Grade 1 anterolisthesis at L3-L4. Patchy STIR hyperintensity involving the L1 vertebral body with associated approximately 30% vertebral body height loss. No retropulsion. Patchy STIR hyperintensity involving the anterior portion of the L5 vertebra with presence of Schmorl's node. There is additional abnormal signal surrounding the right L4-L5 facet joint. Probable intraosseous hemangioma at L4. Multilevel endplate osteophytosis. The visualized spinal cord is normal in caliber. No abnormal cord signal. The conus medullaris terminates at L1-L2. T11-T12: Tiny disc bulge. No significant spinal canal or neural foraminal narrowing. T12-L1: Diffuse disc bulge and ligamentum flavum hypertrophy. No significant spinal canal or neural foraminal narrowing. L1-L2: Ligamentum flavum hypertrophy and bilateral facet arthrosis with trace right facet joint effusion. No significant spinal canal or neural foraminal narrowing. L2-L3: Diffuse disc bulge, ligamentum flavum hypertrophy, and bilateral facet arthrosis with irtow-mb-kmzvbity bilateral facet joint effusions. No significant spinal canal stenosis. Mild left and dlhb-qi-hsxunmmf right neural foraminal narrowing with the disc abutting the right exiting L2 nerve roots. L3-L4: Diffuse disc bulge with superimposed right paracentral disc extrusion migrating superiorly along the L3 vertebral body. Ligamentum flavum hypertrophy and bilateral facet arthrosis. Extracanalicular synovial cysts posterior to the facet joints bilaterally, measuring up to 1.5 cm on the right and 0.6 cm on the left. Vfepdpmg-mi-xbeplo spinal canal stenosis with mass effect on the cauda equina nerve roots. Xribhqcv-ti-xblgfn right and severe left neural foraminal narrowing with impingement of the exiting L4 nerve roots bilaterally. L4-L5: Diffuse disc bulge, ligamentum flavum hypertrophy and bilateral facet arthrosis with trace bilateral facet joint effusions. Small synovial cysts posterior to the left facet joint measuring up to 0.5 cm. No significant spinal canal stenosis. Oxyylrku-vn-xlwenq left and mild right neural foraminal narrowing with the disc abutting the left exiting L4 nerve roots. L5-S1: Anterolisthesis and bilateral pars defects cause severe spinal canal stenosis with impingement of the cauda equina nerve roots. Severe left greater than right neural foraminal narrowing with impingement of the exiting L5 nerve roots bilaterally. The paravertebral soft tissues are unremarkable. IMPRESSION: -Acute to subacute L1 compression fracture with approximately 30% vertebral body height loss. No retropulsion or significant spinal canal stenosis. -Suggestion of acute to subacute Schmorl's node at L5 vertebra. -Grade 2-3 anterolisthesis at L5-S1 with bilateral pars defects. There is abnormal signal surrounding the right L4-L5 facet joint, likely related to advanced degenerative facet disease. -Multilevel lumbar spondylosis, as detailed above, most notable at L5-S1 where there is severe spinal canal stenosis as well as severe left and yotcfcsq-ye-xbyhav right neural foraminal narrowing with impingement of the cauda equina nerve roots and the exiting L5 nerve roots bilaterally. There is also fwppbbzx-qq-huegzo spinal canal stenosis at L3-L4 secondary to a migrating extruded disc. Severe left and rrhmoyym-vb-ovpwty right neural foraminal narrowing is identified at this level. Assessment & Plan Assessment & Plan (1) Lumbar stenosis without neurogenic claudication: Code(s): M48.061 - Spinal stenosis, lumbar region without neurogenic claudication Category: Medical (2) Vertebral compression fracture: Comment: L1 Code(s): M48.50XA - Collapsed vertebra, not elsewhere classified, site unspecified, initial encounter for fracture Category: Medical (3) Spondylolisthesis, lumbar region: Code(s): M43.16 - Spondylolisthesis, lumbar region Category: Medical (4) Lumbar radiculopathy: Code(s): M54.16 - Radiculopathy, lumbar region Category: Medical Plan We will follow-up on the status of her the DEXA scan that was ordered in May. We are going to check for osteoporosis and if that is positive, she will need to start treatment with bisphosphonates. We are going to potentially do a kyphoplasty at L1 and I also discussed the lumbar spinal cord stimulation trial and implant and answered their questions about that for her ongoing refractory radicular pain secondary to lumbar spondylolisthesis which is not a candidate for surgical correction due to her bone quality. She is not a good candidate for corticosteroid injections due to likely baseline osteoporosis. I provided them with brochures for spinal cord stimulation and balloon kyphoplasty. For psychologic clearance for her SCS trial, we will reach out to Dr. Xiong, her primary psychiatrist, to get clearance. I will see her back after the DEXA scan in anticipation of potentially proceeding with the kyphoplasty 1st. Scribed for Dr. Díaz by Juan Nguyen, emergency medicine medical director, on 08/12/2023. I, Dr. Díaz, have personally reviewed and agree with the information entered by the scribe. Coding Level of Care Code New Pt Level 4 (47769) Diagnoses Lumbar stenosis without neurogenic claudication M48.061 Vertebral compression fracture M48.50XA Spondylolisthesis, lumbar region M43.16 Lumbar radiculopathy M54.16
== END 2023-08-12 09:48 | disposition home or self-care (01) ==
PROVIDERS: PCP Internal Medicine; Referring Provider Physician Assistant; Visit Provider Internal Medicine
DX: M48.061 Spinal stenosis, lumbar region without neurogenic claudication (principal); M48.50XA Collapsed vertebra, not elsewhere classified, site unspecified, initial encounter for fracture; M43.16 Spondylolisthesis, lumbar region; M54.16 Radiculopathy, lumbar region
CPT/HCPCS: 99204

== ENCOUNTER → 2023-08-12 09:04 | Outpatient (BNVA) | payer MEDICARE, MEDICAID, SELFPAY | PROVIDERS: PCP Internal Medicine; Referring Provider Physician Assistant; Visit Provider Internal Medicine | DX: M48.061 Spinal stenosis, lumbar region without neurogenic claudication (principal); M54.16 Radiculopathy, lumbar region; M43.16 Spondylolisthesis, lumbar region; M48.56XA Collapsed vertebra, not elsewhere classified, lumbar region, initial encounter for fracture | CPT/HCPCS: 99202 ==

== ENCOUNTER 2023-08-19 14:07 | Outpatient (REF) | payer MEDICARE, MEDICAID, SELFPAY ==
--- NOTE | ~2023-08-19 | MM_ITS ---
EXAMINATION: BONE DENSITOMETRY CLINICAL INDICATION: Unspecified menopausal and perimenopausal disorder. COMPARISON: This is the patient's baseline examination. TECHNIQUE: Using a [employer] Reporter DXA System (software version: 13.1) manufactured by [employer], dual-energy x-ray absorptiometry was performed of the lumbar spine and left hip. The images are of good technical quality. Summary results are attached. FINDINGS: LEFT FEMUR, NECK: BMD 0.751 g/cm2, Z-score -0.2, T-score -2.1, osteopenia. LEFT FEMUR, TOTAL: BMD 0.834 g/cm2, Z-score 0.3, T-score -1.4, osteopenia. AP SPINE L1-L4: BMD 0.828 g/cm2, Z-score -1.0, T-score -2.9, osteoporosis. IDENTIFIED RISK FACTORS: Osteoporosis, current smoker, recurrent falls, low calcium intake, history of fracture (adult), menopause, left oophorectomy. HISTORY OF FRACTURE: Spine. MEDICATIONS: Calcium supplements or multivitamin, vitamin D. MM/XR DEXA axial skeleton IMPRESSION: 1. DIAGNOSIS: Severe osteoporosis based on the lowest T-score value of -2.9 in the lumbar spine and history of fracture applying World Health Organization criteria. 2. 10-YEAR FRACTURE RISK PREDICTION, FRAX: According to the guidelines, FRAX calculation should only be performed on patients in the osteopenia bone density category. Therefore, FRAX was not performed on this patient. 3. Treatment Recommendations: NOF guidelines recommend consideration for treatment in postmenopausal women and men age 50 and older presenting with the following: -A hip or vertebral (clinical or morphometric) fracture. -T-score less than or equal to -2.5 at the femoral neck or spine after appropriate evaluation to exclude secondary causes. -Low bone mass at the hip or spine and a 10-year fracture probability by FRAX of greater than or equal to 3% for hip fracture or greater than or equal to 20% for major osteoporotic fracture based on the [place] adapted WHO algorithm. 4. Other Recommendations: All treatment decisions require clinical judgment and consideration of individual patient factors, including patient preferences, comorbidities, previous drug use, risk factors not captured in the FRAX model (e.g. frailty, falls, vitamin D deficiency, increased bone turnover, interval significant decline in bone density) and possible under or overestimation of fracture risk by FRAX. Additional medical evaluation for secondary cause of low bone mineral density may be appropriate. FUTURE SCAN RECOMMENDATION: People with diagnosed cases of osteoporosis or at high risk for fracture should have regular bone mineral density tests. For patients eligible for Medicare, routine testing is allowed once every 2 years. The testing frequency can be increased to one year for patients who have rapidly progressing disease, those who are receiving or discontinuing medical therapy to restore bone mass, or have additional risk factors.
== END 2023-08-19 14:08 | disposition home or self-care (01) ==
LOC: HO.MAMMO 14:07
PROVIDERS: PCP Internal Medicine; Visit Provider Internal Medicine
DX: Z13.820 Encounter for screening for osteoporosis (principal); Z78.0 Asymptomatic menopausal state
CPT/HCPCS: 77080

== ENCOUNTER 2023-09-23 13:59 | Outpatient (REF) | payer MEDICARE, MEDICAID, SELFPAY ==
[2023-09-23 14:28] LABS: MANUAL DIFF FLAG NO
[2023-09-23 14:43] LABS: Basophils Percent Auto 0.4 % (0-2); Eosinophils Absolute Auto 0.1 X10*3/uL (0.0-0.4); Hematocrit 42.2 % (37.0-47.0); Hemoglobin 14.2 g/dl (12.0-16.0); Imm Gran Abs Auto 0.02 X10*3/uL (0.00-0.03); Imm Gran Pct Auto 0.3 % (0.0-0.4); Lymphocytes Absolute Auto 1.3 X10*3/uL (1.2-4.9); Lymphocytes Percent Auto 17.9 % (20-40); Mean Corpuscular HGB Conc 33.6 g/dl (31.0-35.0); Mean Corpuscular Volume 89.2 fL (80.0-98.0); Mean Platelet Volume 9.3 fL (9.4-12.3); Monocytes Absolute Auto 0.5 X10*3/uL (0.1-1.2); Monocytes Percent Auto 7.5 % (2-11); Neutrophils Absolute Auto 5.1 x10*3/uL (2.0-8.3); Neutrophils Percent Auto 71.9 % (45-73); Platelet Count 230 X10*3/uL (160-400); Red Blood Count 4.73 X10*6/uL (4.20-5.50); Red Cell Distribution Width 14.2 % (11.0-16.0)
[2023-09-23 15:15] LABS: Alanine Aminotransferase 35 U/L (0-31); Albumin Level 4.7 g/dL (3.5-5.0); Alkaline Phosphatase 184 U/L (39-117); Anion Gap 13 (12-20); Aspartate Amino Transferase 27 U/L (5-31); Bilirubin Total 0.5 mg/dL (0.0-1.0); Blood Urea Nitrogen 5 mg/dL (9-16); Calcium 9.8 mg/dL (8.4-10.2); Carbon Dioxide 29 mmol/L (22-29); Chloride 92 mmol/L (96-108); Estimated Glomerular Filt Rate > 60; Glucose Fasting 107 mg/dL (60-99); Potassium 4.1 mmol/L (3.3-5.1); Sodium 130 mmol/L (135-145); Total Protein 7.4 g/dL (6.5-8.0)
== END 2023-09-23 14:00 | disposition home or self-care (01) ==
LOC: HO.LAB 13:59
PROVIDERS: PCP Internal Medicine; Visit Provider Internal Medicine
DX: M48.061 Spinal stenosis, lumbar region without neurogenic claudication (principal)
CPT/HCPCS: 36415; 80053; 85025

== ENCOUNTER 2023-10-19 18:29 | Outpatient (AMB) | payer MEDICARE, MEDICAID, SELFPAY ==
--- NOTE | 2023-10-19 15:13 | MHC.OFFVISPS ---
Intake Intake Visit Reasons: depression Allergies No Known Allergies Allergy (Verified 08/12/23 09:11) Medication List - Last Reconciled 10/19/23 by Baldemar Xiong MD acetaminophen ER 1,300 mg (2 x 650 mg) PO Q8H PRN 30 days buspirone 10 mg (2 x 5 mg) PO BID 3 months cholecalciferol (vitamin D3) 50 mcg PO DAILY 90 days clindamycin HCl 300 mg PO Q8H 7 days clonidine HCl 0.2 mg (2 x 0.1 mg) PO BEDTIME 3 months commode (bedside commode) As directed [diabetic shoes and inserts As directed] ergocalciferol (vitamin D2) 1,250 mcg PO QWEEK 90 days folic acid 0.8 mg PO DAILY lactulose 20 grams (30 mL) PO BID PRN 30 days lorazepam 0.5 mg orally; 1 tab in am 1 tab in afternoon 2 tabs bedtime may take additional tab daily as needed for severe anxiety caution sedating may cause balance problems meloxicam 15 mg PO DAILY PRN 10 days nystatin 500,000 units (5 mL) PO TID 30 days pantoprazole 40 mg PO DAILY 90 days sertraline 100 mg PO DAILY tramadol 50 mg PO Q8H PRN 5 days ziprasidone HCl 40 mg PO DIRECTED HPI- Psychiatric Chief Complaint: depression HPI Narrative: Patient seen psychiatric follow-up. Patient's mood has generally been stable future oriented generally doing okay. No new medical complaints Although was recently seen by spinal surgery and secondary to back pain her bone density is not allowing any form of surgical treatment she does have lumbar spinal disease. Patient does tend to be avoidant when it comes to medical issues and treatment she does have COPD chronic hyponatremia that she seems to have accommodated to. Patient can become quite anxious obsessional ruminating she is on sertraline is a past history of a psychotic depressive episode we have been able to go down Geodon over time patient does have mild oral facial dyskinesia this is chronic has not been bothersome to the patient has not wanted to trial further off of Geodon she feels that staying on an antipsychotic has been essential for her stability. She does feel somewhat criticized by her at times denies feeling overly depressed does get anxious and ruminating at times obsessional rumination at times. We have been tapering down lorazepam gradually over time which was used for associated anxiety in the context of mood disorder and there was no evidence of abuse or tolerance. Patient has been sober for over 30 years Has been dealing with multiple medical issues spinal stenosis osteoporosis COPD chronic kidney disease vascular insufficiency Past Psychiatric History: Past history of psychiatric hospitalization psychotic mixed state episodes. Has been stable for many years Mental Status Exam Mental Status Exam Narrative: pt calm cooperative no oral fascial dyskinesia on tel exam Patient Appearance: Appropriate Patient Orientation: Person, Place, Time and Situation Level of Consciousness: Awake Patient Behavior: Appropriate Mood Description: Constricted Affect Description: Calm, Blunted and Flat Ability to Follow Directions: Good Speech Pattern: Clear Memory Description: Intact and Episodic Impaired Hallucinations: None Delusions: Not Present Thought Process: Intact Thought Content: positive for Intact, positive for Brothers, negative for Suicidal Ideation or negative for Homicidal Ideation Depressive Symptoms: Low Self Esteem Judgement: Fair Judgement and Insight: Tendency to be dismissive regarding medical issues was alert oriented seem logical agreeable to lowering medication mild orofacial dyskinesia noted patient does wish to stay on Geodon generally current doses feels that this has been best had decreasing her obsessional anxiety no psychotic symptoms no babs. No referential delusional material. These involvement past symptoms Results Reviewed Results Reviewed: Name: Alma Mera Age/Sex: 68/F : 1955 Unit#: [id number] Attend Dr: Sloane Cody MD Re09/23/23 Status: DEP [facility] Dis[facility]: SPEC : [id number] ANURADHA: 09/23/23 STATUS: COMP REQ : [id number] RECD: 09/23/[address]: Sloane Cody MD COMP: 09/23/23-151 ENTERED: 09/23/23-[address]: ORDERED: CMP Fast Test Result Flag Reference Sodium 130 L 135-145 mmol/L Potassium 4.1 3.3-5.1 mmol/L CL 92 L 96-108 mmol/L CO2 29 22-29 mmol/L Gap 13 12-20 BUN 5 L 9-16 mg/dL Creat 0.86 0.5-1.4 mg/dL EGFR > 60 NOTE: For -[place] individuals, multiply the result by 1.210. Chronic Kidney Disease: Estimated GFR < 60 mL/min/1.73m2 Severe Kidney Disease: Estimated GFR < 15 mL/min/1.73m2 FBS 107 H 60-99 mg/dL A fasting glucose from 100-125 mg/dl is considered impaired (pre-diabetes). CA 9.8 # 8.4-10.2 mg/dL Total Bili 0.5 0.0-1.0 mg/dL AST (GOT) 27 5-31 U/L ALT (GPT) 35 H 0-31 U/L Protein, Total 7.4 6.5-8.0 g/dL Alb 4.7 3.5-5.0 g/dL Alk Phos 184 H 39-117 U/L [place] [id number] Magnetic Resonance Report Signed Patient: Alma Mera MR#: [id number] : 1955 Acct:[id number] Age/Sex: 68 / F ADM Date: 05/22/23 Loc: HO.MRI Attending Dr: Sloane Mccarthy MD Ordering Physician: Sloane Cody MD Date of Service: 05/22/23 Procedure(s): MR lumbar spine wo con Accession Number(s): [id number] cc: Sloane Cody MD~ EXAMINATION: MR LUMBAR SPINE WITHOUT CONTRAST CLINICAL INFORMATION: Radiculopathy, lumbar region. COMPARISON: None available. TECHNIQUE: MRI of the lumbar spine was obtained using routine sequences without contrast. FINDINGS: Mild levocurvature of the upper lumbar spine. Grade 2-3 anterolisthesis at L5-S1 with chronic pars defects bilaterally. Grade 1 anterolisthesis at L3-L4. Patchy STIR hyperintensity involving the L1 vertebral body with associated approximately 30% vertebral body height loss. No retropulsion. Patchy STIR hyperintensity involving the anterior portion of the L5 vertebra with presence of Schmorl's node. There is additional abnormal signal surrounding the right L4-L5 facet joint. Probable intraosseous hemangioma at L4. Multilevel endplate osteophytosis. The visualized spinal cord is normal in caliber. No abnormal cord signal. The conus medullaris terminates at L1-L2. T11-T12: Tiny disc bulge. No significant spinal canal or neural foraminal narrowing. T12-L1: Diffuse disc bulge and ligamentum flavum hypertrophy. No significant spinal canal or neural foraminal narrowing. L1-L2: Ligamentum flavum hypertrophy and bilateral facet arthrosis with trace right facet joint effusion. No significant spinal canal or neural foraminal narrowing. L2-L3: Diffuse disc bulge, ligamentum flavum hypertrophy, and bilateral facet arthrosis with rlbsg-mc-urueawvh bilateral facet joint effusions. No significant spinal canal stenosis. Mild left and thli-nk-yxuqmquj right neural foraminal narrowing with the disc abutting the right exiting L2 nerve roots. L3-L4: Diffuse disc bulge with superimposed right paracentral disc extrusion migrating superiorly along the L3 vertebral body. Ligamentum flavum hypertrophy and bilateral facet arthrosis. Extracanalicular synovial cysts posterior to the facet joints bilaterally, measuring up to 1.5 cm on the right and 0.6 cm on the left. Liikllan-cy-rhngdh spinal canal stenosis with mass effect on the cauda equina nerve roots. Kpheqqiw-xx-wadtaq right and severe left neural foraminal narrowing with impingement of the exiting L4 nerve roots bilaterally. L4-L5: Diffuse disc bulge, ligamentum flavum hypertrophy and bilateral facet arthrosis with trace bilateral facet joint effusions. Small synovial cysts posterior to the left facet joint measuring up to 0.5 cm. No significant spinal canal stenosis. Gxkexibu-bb-svilxi left and mild right neural foraminal narrowing with the disc abutting the left exiting L4 nerve roots. L5-S1: Anterolisthesis and bilateral pars defects cause severe spinal canal stenosis with impingement of the cauda equina nerve roots. Severe left greater than right neural foraminal narrowing with impingement of the exiting L5 nerve roots bilaterally. The paravertebral soft tissues are unremarkable. MR/MR lumbar spine wo con IMPRESSION: -Acute to subacute L1 compression fracture with approximately 30% vertebral body height loss. No retropulsion or significant spinal canal stenosis. -Suggestion of acute to subacute Schmorl's node at L5 vertebra. -Grade 2-3 anterolisthesis at L5-S1 with bilateral pars defects. There is abnormal signal surrounding the right L4-L5 facet joint, likely related to advanced degenerative facet disease. -Multilevel lumbar spondylosis, as detailed above, most notable at L5-S1 where there is severe spinal canal stenosis as well as severe left and auckcdjo-gt-wnmegg right neural foraminal narrowing with impingement of the cauda equina nerve roots and the exiting L5 nerve roots bilaterally. There is also rmnkuqdx-fi-chaeej spinal canal stenosis at L3-L4 secondary to a migrating extruded disc. Severe left and thzuslqf-nj-zidnnx right neural foraminal narrowing is identified at this level. Dictated By: Hema Dee MD Signed By: <Electronically signed by Hema eDe MD in OV> 05/26/23 1126 DD/ 1516 TD/TT: Test Administrator: Telehealth Telehealth Telehealth Platform: Other (please specify) (reji ar) Location of provider rendering services: practice address Location of patient: address on file Patient Identification confirmed using: Name, : Yes Telehealth method: video Patient verbally consented to treatment: Yes Patient verbally consented to billing insurance company: Yes Patient informed of any privacy concerns related to visit: Yes Minutes spent on Phone/Video with Pt.: 24 Assessment and Plan Assessment & Plan (1) Vertebral compression fracture: Status: Acute Code(s): M48.50XA - Collapsed vertebra, not elsewhere classified, site unspecified, initial encounter for fracture (2) Lumbar stenosis without neurogenic claudication: Status: Acute Code(s): M48.061 - Spinal stenosis, lumbar region without neurogenic claudication (3) Bipolar 1 disorder, depressed, mild: Status: Acute Code(s): F31.31 - Bipolar disorder, current episode depressed, mild Plan Continue buspirone lorazepam has been weaned down to 2 mg a day from 4 mg daily benzodiazepines have helped with severe anxiety that has been a component of her mood disorder over time has had mixed psychotic states in the past history of significant gambling addiction has been sober now for a number years history of alcohol addiction has been sober for many years continue BuSpar clonidine which has been helpful Geodon generally taking 80 mg day Medications: Refilled buspirone 10 mg (2 x 5 mg) PO BID 360 tabs 1RF 3 months Discontinued pantoprazole Discontinued Reason: Patient Refused 40 mg PO DAILY 90 days 90 tabs 1RF lorazepam Discontinued Reason: Doctor's Order 0.5 mg orally take 1 tablet by mouth in morning and take 1 tablet in afternoon and 2 tablets at bedtime; 120 tabs 0RF Counseling and coordination of Care Pt. Self Management counseling: Med illness tx adherence and Behavior activation Details-Self Mgmt counseling: strongly urged daily walk f/u with medical issues gradual medication tapering regarding lowering Geodon and lorazepam Importance of following up with medical treatment patient dealing with a multiple paucity of different medical issues tends to avoid dealing with things generally discussed options to quit smoking and consequences of not Medication management counseling: Effectiveness, Side effects and Dosing range Details-Med Mgmt counseling: issues with TD Diagnosis and Prognosis Counseling: Impact of diagnosis on life functions, Problematic behaviors secondary to diagnosis and Adequacy of current interventions Details: I spent [36] minutes reviewing the record, seeing the patient and documenting in the medical record. Counseling provided to the patient/caregiver as outlined below. Addressed patient/caregiver concerns regarding current medication regime including effective adherence. Addressed patient/caregiver concerns regarding diagnosis and prognosis including accuracy of diagnosis, prognosis over time, impact of diagnosis. Addressed patient/caregiver concerns regarding impact of recent stressors. [facility] Medical History (Updated 11/08/23 @ 13:56 by Baldemar Xiong MD) Colon stricture Subcutaneous mass of abdominal wall Neuroleptic-induced tardive dyskinesia Chronic constipation Foot pain Adnexal mass Arterial calcification Superior mesenteric artery thrombosis Adnexal mass Smoker Diverticular stricture Paronychia of great toe, right Right knee pain Depression with anxiety Chronic idiopathic constipation Rib injury Surgical History Incisional hernia Hx of section History of cholecystectomy Family History Father Oral cancer Mother No problems noted. Other Mental health disorder Social History Household Members: Spouse Housing: House Do you presently have visiting nurse or other home services: No Alcohol intake: former Comment: refuse alarm, but is using call bel approp Patient Tobacco Use Status: Current everyday Tobacco user Tobacco use type: Cigarette Cigarette Packs Per Day: 1 Cigarettes Per Day: 20 e-Cigarette/Vaping Use: Never Used Second Hand Smoke Exposure: No service: No Current occupational status: unemployed and disabled Cognitive needs: No Hearing needs: No Vision needs: Yes Social History: Family history of alcohol abuse. Patient lives with her has 1 daughter who lives in [place] 1 son. Patient does have grandchildren close with family. Substance History: Past history of alcohol belongs to [place] Trauma History: na Coding Level of Care Code Tele Est Pt Level 3 (29882) Therapy 30m w/E&M (54294) Diagnoses Vertebral compression fracture M48.50XA Lumbar stenosis without neurogenic claudication M48.061 Bipolar 1 disorder, depressed, mild F31.31
== END 2023-10-19 18:29 | disposition home or self-care (01) ==
LOC: HO.HOP 18:29
PROVIDERS: PCP Internal Medicine; Visit Provider Psychiatry & Neurology Psychiatry
DX: F31.31 Bipolar disorder, current episode depressed, mild (principal); M48.50XA Collapsed vertebra, not elsewhere classified, site unspecified, initial encounter for fracture; M48.061 Spinal stenosis, lumbar region without neurogenic claudication
CPT/HCPCS: 90833; 99213

== ENCOUNTER → 2023-10-19 18:29 | Outpatient (BNVA) | payer MEDICARE, MEDICAID, SELFPAY | PROVIDERS: PCP Internal Medicine; Visit Provider Psychiatry & Neurology Psychiatry ==

== ENCOUNTER 2023-12-02 09:21 | Outpatient (AMB) | payer MEDICARE, MEDICAID, SELFPAY ==
--- NOTE | 2023-12-02 09:33 | A.OFFVIS_ITS ---
Vital Signs 12/02/23 09:41 Height 5 ft 3 in Weight 110 lb BMI 19.5 BP 122/84 Blood Pressure Location Lt brachial Position Sitting Pulse 122 H Intake Visit Reasons: abdominal pain, nausea/vomiting Intake Note: Patient presents for abdominal pain, nausea/vomiting. Pt c/o; on Thursday had nausea and vomit, today has a stomach and back pain [employer] Required: No Accompanied by: Spouse Allergies No Known Allergies Allergy (Verified 12/03/23 13:12) Medication List - Last Reconciled 12/02/23 by Helio Douglas MD acetaminophen ER 1,300 mg (2 x 650 mg) PO Q8H PRN 30 days buspirone 10 mg (2 x 5 mg) PO BID 3 months cholecalciferol (vitamin D3) 50 mcg PO DAILY 90 days clindamycin HCl 300 mg PO Q8H 7 days clonidine HCl 0.2 mg (2 x 0.1 mg) PO BEDTIME 3 months commode (bedside commode) As directed [diabetic shoes and inserts As directed] ergocalciferol (vitamin D2) 1,250 mcg PO QWEEK 90 days folic acid 0.8 mg PO DAILY lactulose 20 grams (30 mL) PO BID PRN 30 days lorazepam 0.5 mg orally; 1 tab in am 1 tab in afternoon 2 tabs bedtime may take additional tab daily as needed for severe anxiety caution sedating may cause balance problems meloxicam 15 mg PO DAILY PRN 10 days nystatin 500,000 units (5 mL) PO TID 30 days omeprazole 40 mg PO DAILY 90 days ondansetron 8 mg PO Q12H PRN 30 days sertraline 100 mg PO DAILY tramadol 50 mg PO Q8H PRN 5 days ziprasidone HCl 40 mg PO DIRECTED HPI HPI abdominal pain, nausea/vomiting: Details: 68-year-old female here for multiple complaints. She says that she has had abdominal pain and constipation for several months. She also describes nausea, and abdominal pain but seemed to be very vague about details of this as well as with duration. She says that she is not sure whether she has a hernia in wants to be checked out for this She is a poor historian otherwise. [facility] Medical History Abdominal pain Colon stricture Subcutaneous mass of abdominal wall Neuroleptic-induced tardive dyskinesia Chronic constipation Foot pain Adnexal mass Arterial calcification Superior mesenteric artery thrombosis Adnexal mass Smoker Diverticular stricture Paronychia of great toe, right Right knee pain Depression with anxiety Chronic idiopathic constipation Rib injury Surgical History Incisional hernia Hx of section History of cholecystectomy Family History Father Oral cancer Mother No problems noted. Other Mental health disorder Social History Household Members: Spouse Housing: House Do you presently have visiting nurse or other home services: No Alcohol intake: former Comment: refuse alarm, but is using call bel approp Patient Tobacco Use Status: Current everyday Tobacco user Tobacco use type: Cigarette Cigarette Packs Per Day: 1 Cigarettes Per Day: 20 e-Cigarette/Vaping Use: Never Used Second Hand Smoke Exposure: No service: No Current occupational status: unemployed and disabled Cognitive needs: No Hearing needs: No Vision needs: Yes Female Reproductive History Menstrual Age of Menarche: 9 Review of Systems Const Denies fever(s) Card Denies chest pain with activity Resp Denies cough GI Reports constipation Denies difficulty voiding Physical Exam Vital Signs: Last Vital Signs Pulse 122 H 12/02/23 09:41 BP 122/84 12/02/23 09:41 BMI result Body Mass Index 19.5 Const General: No comfortable or no acute distress Resp Effort & Inspection: abnormal respiratory effort Cardio Rate: abnormal rate GI Other: No obvious hernia Palpation (GI): Soft to palpation, not firm, Tenderness to palpation present (GI) (Mild diffuse tenderness) and no guarding Quality Reporting (2019) Adult ([facility] 138//) Smoking risk assessment performed?: Yes Patient Tobacco Use Status: Current everyday Tobacco user Assessment & Plan Assessment & Plan (1) Abdominal pain: Code(s): R10.9 - Unspecified abdominal pain Category: Medical Plan: She describes vague abdominal pains, constipation nausea. Her abdominal exam is otherwise benign. I did not feel any hernia at this time Because of her multiple complaints, I am going to order for a CAT scan of the abdomen and pelvis. I am going to see her in the office to discuss the findings for this She says she understands the plan and is comfortable with this for now. Orders: Orders CT abdomen pelvis w IV con 12/02/23 R10.9 - Unspecified abdominal pain Blood Urea Nitrogen 12/07/23 R10.9 - Unspecified abdominal pain Creatinine 12/07/23 R10.9 - Unspecified abdominal pain Coding Level of Care Code Est Pt Level 3 (29804) Diagnoses Abdominal pain R10.9
[2023-12-02 09:41] VITALS: BP 122/84; PULSE 122; BMI 19.5
== END 2023-12-02 10:40 | disposition home or self-care (01) ==
LOC: HO.HGS 09:21
PROVIDERS: PCP Internal Medicine; Visit Provider Surgery
DX: R10.9 Unspecified abdominal pain (principal)
CPT/HCPCS: 99213

== ENCOUNTER → 2023-12-02 09:21 | Outpatient (BNVA) | payer MEDICARE, SELFPAY | PROVIDERS: PCP Internal Medicine; Visit Provider Surgery | DX: R10.9 Unspecified abdominal pain (principal); K59.00 Constipation, unspecified | CPT/HCPCS: 99212 ==

== ENCOUNTER 2023-12-03 13:01 | Outpatient (AMB) | payer MEDICARE, MEDICAID, SELFPAY ==
--- NOTE | 2023-12-03 13:02 | A.OFFPC_ITS ---
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 Accompanied by: Self / Same As Patient Allergies No Known Allergies Allergy (Verified 12/03/23 13:12) Medication List - Last Reconciled 12/03/23 by Sloane Mccarthy MD acetaminophen ER 1,300 mg (2 x 650 mg) PO Q8H PRN 30 days buspirone 10 mg (2 x 5 mg) PO BID 3 months cholecalciferol (vitamin D3) 50 mcg PO DAILY 90 days clonidine HCl 0.2 mg (2 x 0.1 mg) PO BEDTIME 3 months commode (bedside commode) As directed [diabetic shoes and inserts As directed] ergocalciferol (vitamin D2) 1,250 mcg PO QWEEK 90 days folic acid 0.8 mg PO DAILY lactulose 20 grams (30 mL) PO BID PRN 30 days lorazepam 0.5 mg orally; 1 tab in am 1 tab in afternoon 2 tabs bedtime may take additional tab daily as needed for severe anxiety caution sedating may cause balance problems meloxicam 15 mg PO DAILY PRN 10 days nystatin 500,000 units (5 mL) PO TID 30 days omeprazole 40 mg PO DAILY 90 days ondansetron 8 mg PO Q12H PRN 30 days sertraline 100 mg PO DAILY tramadol 50 mg PO Q8H PRN 5 days ziprasidone HCl 40 mg PO DIRECTED Tobacco use date assessed: 07/13/23 Fall risk assessment: No Falls in past year Last assessed Fall Risk: 12/03/23 Dental Screening Dental Screen Date: 07/13/23 HPI HPI Comments History of Present Illness Details This is a 68-year-old female with diabetes mellitus type 2, COPD and bipolar disorder that comes today accompanied by complaining of abdominal pain, low back pain and unintentional weight loss. A1c within goal and has been stable without the need for medications. She has COPD but never complains of shortness of breath and does have some cough. Bipolar disorder is follow by Psychiatry and has been stable with medications. For her abdominal pain she saw surgeon yesterday which order CT scan of abdomen and pelvis. She does have lumbar radiculopathy and had an MRI of the lumbar spine. I will start her on Celebrex to see if it helps. She also has osteoporosis and vertebral compression fracture and will see Rheumatology soon. She has lost 20 lb in 4 months and complains of nausea. [facility] Medical History (Updated 12/03/23 @ 14:12 by Sloane Mccarthy MD) Abdominal pain Colon stricture Subcutaneous mass of abdominal wall Neuroleptic-induced tardive dyskinesia Chronic constipation Foot pain Adnexal mass Arterial calcification Superior mesenteric artery thrombosis Adnexal mass Smoker Diverticular stricture Paronychia of great toe, right Right knee pain Depression with anxiety Chronic idiopathic constipation Rib injury Surgical History Incisional hernia Hx of section History of cholecystectomy Family History Father Oral cancer Mother No problems noted. Other Mental health disorder Social History Household Members: Spouse Housing: House Do you presently have visiting nurse or other home services: No Alcohol intake: former Comment: refuse alarm, but is using call bel approp Patient Tobacco Use Status: Current everyday Tobacco user Tobacco use type: Cigarette Cigarette Packs Per Day: 1 Cigarettes Per Day: 20 e-Cigarette/Vaping Use: Never Used Second Hand Smoke Exposure: No service: No Current occupational status: unemployed and disabled Cognitive needs: No Hearing needs: No Vision needs: Yes Female Reproductive History Menstrual Age of Menarche: 9 Questionnaire Thrive Questionnaire Date Thrive assessed: 04/13/23 FARRUKH-7 AMB Questionnaire FARRUKH-7 Date FARRUKH - 7 assessed: 04/13/23 Source: Developed by Drs. Yonas Sepulveda, Lynn Yu, Ry Wilkerson and colleagues, with an educational sascha from [employer]. Review of Systems Const All systems reviewed & are unremarkable except as noted in HPI and below Reports fatigue Card Denies chest pain at rest, Denies chest pain with activity, Denies edema, Denies irregular heart rhythm, Denies claudication, Denies dyspnea, Denies dyspnea on exertion, Denies orthopnea, Denies paroxysmal nocturnal dyspnea and Denies slow heart rate Resp Reports cough, Denies dyspnea and Denies dyspnea on exertion GI Reports abdominal pain, Denies change in bowel habits, Reports constipation, Denies excessive flatus, Denies nausea and Denies vomiting Musc Reports back pain, Denies atrophy, Denies deformity and Denies limited range of motion Endo Reports fatigue Physical exam (Primary Care) Vital Signs: Last Vital Signs BP 118/80 12/03/23 13:09 BMI result Body Mass Index 19.5 BMI Assessment/Plan discussion: Low BMI Low, Plan discussed: lifestyle, increase calorie intake and dietary Tobacco/Smoking Status: Tobacco use Status Tobacco use date assessed 07/13/23 12/03/23 13:03 Patient Tobacco Use Status Current everyday Tobacco 12/03/23 13:03 Tobacco use type Cigarette 12/03/23 13:03 e-Cigarette/Vaping Use Never Used 12/03/23 13:03 Are you ready to quit: No Tobacco cessation counseling provided: Yes Items discussed: Nicotine replacement Relapse Prevention: discussed negative mood or depression after quitting, weight gain after smoking is common and discussed dietary, exercise and/or lifestyle changes Number of minutes spent counselin CPT code: Less than 3 minutes Thrive Assessment: Date of Thrive Assessment Date Thrive assessed 04/13/23 12/03/23 13:03 Const General: ill appearing Nutritional Appearance: underweight Resp Effort & Inspection: normal respiratory effort Auscultation: clear to auscultation bilaterally Cardio Jugular venous distension: no JVD Rate: regular rate Rhythm: regular rhythm Heart sounds: S1 normal heart sound present and S2 normal heart sound present GI Inspection: Yes normal to inspection Palpation (GI): Soft to palpation and Tenderness to palpation present (GI) in the LUQ, in the RUQ and periumbilically Auscultation: normal bowel sounds Back/Spine/Pelvis Thoracic/Lumbar Spine: lumbar spinal tenderness Extrem General: Yes full ROM Results AMB Hemoglobin A1c AMB Hemoglobin A1c 5.7 % Last Edit by LESLIE Ramos on 12/03/23 13:3 2 Results Reviewed Results Reviewed: Laboratory Last Values Hgb A1c (Clinic) 5.7 % (4.0-6.0) 12/03/23 13:04 Assessment and Plan Assessment & Plan (1) Unintentional weight loss: Code(s): R63.4 - Abnormal weight loss Plan: Labs ordered. (2) Abdominal pain: Code(s): R10.9 - Unspecified abdominal pain Qualifiers: Abdominal location: generalized Qualified Code(s): R10.84 - Generalized abdominal pain Plan: CT scan of abdomen and pelvis pending. (3) Lumbar radiculopathy: Code(s): M54.16 - Radiculopathy, lumbar region Plan: Start Celebrex as needed. (4) Osteoporosis: Code(s): M81.0 - Age-related osteoporosis without current pathological fracture Plan: Follow-up with rheumatology. (5) Diabetes mellitus: Code(s): E11.9 - Type 2 diabetes mellitus without complications Plan: Continue low-carbohydrate diet. (6) COPD (chronic obstructive pulmonary disease): Code(s): J44.9 - Chronic obstructive pulmonary disease, unspecified Qualifiers: COPD type: emphysema Emphysema type: centrilobular Qualified Code(s): J43.2 - Centrilobular emphysema Plan: Use rescue inhaler if needed. (7) Bipolar 1 disorder, depressed, mild: Code(s): F31.31 - Bipolar disorder, current episode depressed, mild Plan: Follow-up with psychiatry. Continue clonidine. Orders: Orders Lipid Panel Today E78.5 - Hyperlipidemia, unspecified Vitamin D 25-OH Total Today E55.9 - Vitamin D deficiency, unspecified Thyroid Stimulating Hormone Today R63.4 - Abnormal weight loss AMB Hemoglobin A1c Today E11.9 - Type 2 diabetes mellitus without complications Microalbumin, Random (w Creat) Today E11.9 - Type 2 diabetes mellitus without complications Comprehensive [place]. Panel Fast Today R63.4 - Abnormal weight loss Complete Blood Count Auto Diff Today R63.4 - Abnormal weight loss Medications: New celecoxib (Celebrex) 200 mg PO DAILY PRN 10 caps 0RF pain 10 days M54.16 - Radiculopathy, lumbar region prochlorperazine maleate (Compazine) 5 mg PO BID PRN 10 tabs 0RF nausea and vomiting 5 days Coding Level of Care Code Est Pt Level 4 (33334) Complex EM visit Add On G2211 Diagnoses Unintentional weight loss R63.4 Generalized abdominal pain R10.84 Abdominal location: generalized Lumbar radiculopathy M54.16 Osteoporosis M81.0 Diabetes mellitus E11.9 Centrilobular emphysema J43.2 COPD type: emphysema Emphysema type: centrilobular Bipolar 1 disorder, depressed, mild F31.31 Time Spent (min) 25
[2023-12-03 13:09] VITALS: BP 118/80; BMI 19.5
== END 2023-12-03 13:31 | disposition home or self-care (01) ==
PROVIDERS: PCP Internal Medicine; Visit Provider Internal Medicine
DX: R63.4 Abnormal weight loss (principal); E11.9 Type 2 diabetes mellitus without complications; J43.2 Centrilobular emphysema; F31.31 Bipolar disorder, current episode depressed, mild; R10.84 Generalized abdominal pain; M54.16 Radiculopathy, lumbar region; M81.0 Age-related osteoporosis without current pathological fracture
CPT/HCPCS: 83036; 99214; G2211

== ENCOUNTER 2023-12-07 08:30 | Outpatient (REF) | payer MEDICARE, MEDICAID, SELFPAY ==
[2023-12-07 08:57] LABS: MANUAL DIFF FLAG NO
[2023-12-07 09:47] LABS: Basophils Percent Auto 0.2 % (0-2); Eosinophils Absolute Auto 0.1 X10*3/uL (0.0-0.4); Eosinophils Percent Auto 1.1 % (0-4); Hematocrit 41.4 % (37.0-47.0); Hemoglobin 14.4 g/dl (12.0-16.0); Imm Gran Abs Auto 0.07 X10*3/uL (0.00-0.03); Imm Gran Pct Auto 0.6 % (0.0-0.4); Lymphocytes Absolute Auto 1.4 X10*3/uL (1.2-4.9); Lymphocytes Percent Auto 11.5 % (20-40); Mean Corpuscular HGB Conc 34.8 g/dl (31.0-35.0); Mean Corpuscular Hemoglobin 30.1 pg (27.0-33.0); Mean Corpuscular Volume 86.6 fL (80.0-98.0); Mean Platelet Volume 8.9 fL (9.4-12.3); Monocytes Absolute Auto 0.7 X10*3/uL (0.1-1.2); Monocytes Percent Auto 5.8 % (2-11); Neutrophils Absolute Auto 9.9 x10*3/uL (2.0-8.3); Neutrophils Percent Auto 80.8 % (45-73); Platelet Count 320 X10*3/uL (160-400); Red Blood Count 4.78 X10*6/uL (4.20-5.50); Red Cell Distribution Width 14.3 % (11.0-16.0); White Blood Count 12.2 X10*3/uL (4.8-10.8)
[2023-12-07 10:30] LABS: Alanine Aminotransferase 15 U/L (0-31); Albumin Level 3.4 g/dL (3.5-5.0); Alkaline Phosphatase 72 U/L (39-117); Anion Gap 19 (12-20); Aspartate Amino Transferase 31 U/L (5-31); Bilirubin Total 0.5 mg/dL (0.0-1.0); Blood Urea Nitrogen 10 mg/dL (9-16); Calcium 8.6 mg/dL (8.4-10.2); Carbon Dioxide 25 mmol/L (22-29); Chloride 90 mmol/L (96-108); Cholesterol 119 mg/dL (<200); Estimated Glomerular Filt Rate > 60; Glucose Fasting 66 mg/dL (60-99); HDL Cholesterol 50 mg/dL (>40); LDL Cholesterol Calculated 52 mg/dL (<100); Sodium 131 mmol/L (135-145); Total Protein 5.5 g/dL (6.5-8.0); Triglycerides 89 mg/dL (<150)
[2023-12-07 10:36] LABS: Vitamin D 25-OH Total 65.6 ng/mL (>30)
[2023-12-07 10:42] LABS: Creatinine Urine 106.99 mg/dL; Microalbum/Creatinine Ratio Ur 6.5 ug/mg cr (<30)
[2023-12-07 10:50] LABS: Thyroid Stimulating Hormone 4.64 uIU/mL (0.32-4.0)
== END 2023-12-07 08:31 | disposition home or self-care (01) ==
LOC: HO.LAB 08:30
PROVIDERS: Absent Provider Surgery; PCP Internal Medicine; Visit Provider Internal Medicine
DX: R63.4 Abnormal weight loss (principal); E78.5 Hyperlipidemia, unspecified; E11.9 Type 2 diabetes mellitus without complications; E55.9 Vitamin D deficiency, unspecified
CPT/HCPCS: 36415; 80053; 80061; 82043; 82306; 82570; 84443; 85025

== ENCOUNTER 2023-12-20 12:05 | Emergency (ER) | payer MEDICARE, MEDICAID, SELFPAY ==
--- NOTE | ~2023-12-20 | CT_ITS ---
EXAMINATION: CT HEAD WITHOUT CONTRAST CLINICAL INFORMATION: Confusion COMPARISON: None available. TECHNIQUE: Contiguous axial imaging was performed from the skull base to vertex without intravenous administration of contrast. This CT examination was performed using dose optimization techniques as appropriate, variously including the following: *Automated exposure control *Adjustment of mA and/or kV according to patient size (this includes techniques or standardized protocols for targeted exams where dose is matched to indication/reason for exam; i.e. extremities or head) *Use of iterative reconstruction technique DLP: 682 mGy-cm FINDINGS: No evidence of acute intracranial hemorrhage. No extra-axial fluid collections. No mass effect or midline shift. No evidence of evolving territorial infarction. The estrada-white matter differentiation is maintained. Generalized cerebral volume loss. Compensatory ventricular prominence. No evidence of hydrocephalus. No acute soft tissue or bony findings. The visualized paranasal sinuses are clear. The mastoid air cells are clear. CT/CT head/brain wo IV con IMPRESSION: No acute intracranial pathology. Electronically signed by: Jacque Becker MD 12/20/2023 05:35 PM EDT
--- NOTE | ~2023-12-20 | CT_ITS ---
EXAMINATION: CT ABDOMEN AND PELVIS WITH CONTRAST CLINICAL INFORMATION: Pain COMPARISON: CT abdomen/pelvis June 03, 2023 TECHNIQUE: Multiple axial images were obtained from the superior aspect of the liver through the pubic symphysis after the administration of 85 mL of intravenous Omnipaque 350. Images were evaluated on independent dedicated 3-D workstation and 3-D images were reconstructed with concurrent radiologist supervision and subsequently interpreted. Oral contrast was not administered. This CT examination was performed using dose optimization techniques as appropriate, variously including the following: *Automated exposure control *Adjustment of mA and/or kV according to patient size (this includes techniques or standardized protocols for targeted exams where dose is matched to indication/reason for exam; i.e. extremities or head) *Use of iterative reconstruction technique DLP: 322 mGy-cm FINDINGS: LUNG BASES: The visualized lung bases are clear. CARDIOMEDIASTINUM: The visualized heart is normal in size without pericardial effusion. Moderate coronary artery calcification. LIVER: Homogeneous in attenuation. Normal in size. GALLBLADDER: Absent BILIARY SYSTEM: No intrahepatic or extrahepatic biliary dilation. PANCREAS: Homogeneous in attenuation. SPLEEN: Normal in size. GENITOURINARY: Bilateral kidneys demonstrate symmetric enhancement. No perinephric fluid collection. No renal calculi. No hydroureteronephrosis. ADRENAL GLANDS: Unremarkable. REPRODUCTIVE: Anteverted uterus with a hyperdense endometrial focus measuring 9 mm. Cystic left adnexal mass measuring 4 6 cm GASTROINTESTINAL: Diffuse mural thickening of the colon. APPENDIX: Not seem PERITONEUM: No pneumoperitoneum. No intra-abdominal fluid collection. VASCULATURE: The abdominal aorta is normal in course and caliber. Superior mesenteric and inferior mesenteric arteries patent. LYMPH NODES: No pathologically enlarged abdominal or pelvic lymph nodes. SOFT TISSUES/MUSCULOSKELETAL: Stable appearance of subcutaneous nodule just inferior to the umbilicus measuring 1.4 cm. Compression deformity of L1 and L5. Grade 2 anterolisthesis of L5 on S1. Diffuse osteopenia. CT/CT abdomen pelvis w IV con IMPRESSION: Diffuse colonic mural thickening, which can be related to ischemia or an infectious process. Hyperdense focus within the endometrial cavity measuring 9 mm. Left adnexal cystic mass measuring 4 mm. Recommend further evaluation with pelvic ultrasound. Fleischner guidelines were followed. Electronically signed by: Man Newton DO 12/21/2023 09:23 PM EDT
--- NOTE | ~2023-12-20 | XR_ITS ---
EXAMINATION: XR CHEST CLINICAL INFORMATION: Weakness. COMPARISON: CT chest 09/23/2021. TECHNIQUE: Frontal view of the chest was obtained. FINDINGS: Normal appearance of the cardiomediastinal silhouette. No focal consolidation, pleural effusion or pneumothorax. No acute osseous findings. Right upper quadrant surgical clips. XR/XR chest 1V IMPRESSION: No acute cardiopulmonary findings. Electronically signed by: Betty Hare MD 12/20/2023 03:00 PM EDT
[2023-12-20 12:17] VITALS: BP 141/99; PULSE 116; O2SAT 94
[2023-12-20 12:26] VITALS: BP 111/68; PULSE 93; RESP 16; TEMP 36.8; O2SAT 97
--- NOTE | 2023-12-20 12:53 | ECG_ITS ---
Test Reason : ABDOMINAL PAIN Blood Pressure : / mmHG Vent. Rate : 084 BPM Atrial Rate : 084 BPM P-R Int : 140 ms QRS Dur : 086 ms QT Int : 428 ms P-R-T Axes : 082 -71 063 degrees QTc Int : 505 ms Normal sinus rhythm Left axis deviation Pulmonary disease pattern Septal infarct , age undetermined Nonspecific T wave abnormality Abnormal ECG When compared with ECG of 16-DEC-2010 16:26, Septal infarct is now Present Nonspecific T wave abnormality now evident in Anterolateral leads QT has lengthened Referred By: Jazmín Villarreal Electronically Signed By:EDMUNDO IYER
[2023-12-20 13:15] LABS: Appearance Urine Clear; Color Urine Dark Yellow; Glucose Urine UA Negative (Negative); Leukocyte Esterase Urine Moderate (2+) (Negative); Nitrite Urine Negative (Negative); Specific Gravity - Urine 1.015 (1.005-1.025); UMIC TRIGGER UACC YES; Urine Blood Negative (Negative); Urine Ketones 40 mg/dL (Negative); Urine Protein Trace mg/dL (Neg-Trace)
[2023-12-20] MEDS: ondansetron HCL 4 MG/2 ML VIAL IVPUSH (13:17)
--- NOTE | 2023-12-20 13:17 | PC.NURSE ---
late charting due to patient care, patient arrives via EMS from home where she lives with her , she is complaining of feeling like im dying for a few weeks now . when asking patient to elaborate on sx patient states she feels weak, is having hot and cold flashes and back pain. denies fevers at home, states she has also been nauseated. denies any pain or difficulty urinating and endorses regular bowel movements, patient argumentative with staff when given directions, requiring frequent redirection and education on appropriate behavior. patient complained that her bathrobe she presented in was soaking wet this RN felt robe, was noticed to be dry, patient attempted to disrobe in hallway, told patient that this rn would get her a levi to change into, patient continued to take clothes off while on stretcher in hallway, this rn covered patient with levi and took out extra blankets and winter jacket that patient brought from home. patient afebrile upon arrival, while getting patient undressed patient pants noted to be excessively large on patient, patient tells this rn that she has had an approximately 20-30lb weight loss in the past month or two. states she has not called her primary doctor because they took a vacation . patient stating to this RN that she needs to use the rest room, asked patient how she gets around at home, she states i hold onto counters or i dont move much when offering pt a walker patient states no im not going to use that patient educated that if she is unable to ambulate safely than she will need to be placed on bedpan. patient placed on bedpan by this RN and voided dark jossy urine, collected and sent to lab for evaluation. patient alert and oriented, 20g PIV placed in right wrist, blood work obtained and patient medicated with IV zofran per MAY. patient continues to yell out to staff while in hallway frequently. provided with multiple blankets per request. asking for gingerale, educated patient that since she is nauseous and hasnt been seen by a provider that we cannot give her sergio frederic at this time. lab work sent to lab, EKG completed by EDT. awaiting MD tony. plan of care is ongoing
[2023-12-20 13:18] LABS: Bacteria Urine 2+ (None Seen); Hyaline Casts Urine 0-2 /LPF (0-2); MANUAL DIFF FLAG NO; RBC Urine 0-2 /HPF (0-2); UACC Culture Trigger YES
[2023-12-20 13:20] LABS: Basophils Percent Auto 0.2 % (0-2); Eosinophils Percent Auto 0.1 % (0-4); Hematocrit 35.6 % (37.0-47.0); Hemoglobin 12.7 g/dl (12.0-16.0); Imm Gran Abs Auto 0.05 X10*3/uL (0.00-0.03); Imm Gran Pct Auto 0.5 % (0.0-0.4); Lymphocytes Absolute Auto 1.1 X10*3/uL (1.2-4.9); Lymphocytes Percent Auto 10.7 % (20-40); Mean Corpuscular HGB Conc 35.7 g/dl (31.0-35.0); Mean Corpuscular Hemoglobin 30.2 pg (27.0-33.0); Mean Corpuscular Volume 84.6 fL (80.0-98.0); Mean Platelet Volume 7.6 fL (9.4-12.3); Monocytes Absolute Auto 0.6 X10*3/uL (0.1-1.2); Monocytes Percent Auto 5.4 % (2-11); Neutrophils Absolute Auto 8.7 x10*3/uL (2.0-8.3); Neutrophils Percent Auto 83.1 % (45-73); Platelet Count 167 X10*3/uL (160-400); Red Blood Count 4.21 X10*6/uL (4.20-5.50); White Blood Count 10.5 X10*3/uL (4.8-10.8)
[2023-12-20 13:25] LABS: Amphetamine Screen Urine Not Detected (Not Detect); Barbiturates, Urine Not Detected (Not Detect); Benzodiazepines Screen Urine Not Detected (Not Detect); Buprenorphine Scr Not Detected (Not Detect); Cannabinoid Screen Urine Not Detected (Not Detect); Cocaine Screen Urine Not Detected (Not Detect); Fentanyl, urine Not Detected (Not Detect); Methadone Screen, Urine Not Detected (Not Detect); Opiate Screen Urine Not Detected (Not Detect); Oxycodone Screen Urine Not Detected (Not Detect); Phencyclidine Screen Urine Not Detected (Not Detect)
[2023-12-20 13:39] LABS: Alanine Aminotransferase 15 U/L (0-31); Albumin Level 2.4 g/dL (3.5-5.0); Alkaline Phosphatase 67 U/L (39-117); Anion Gap 18 (12-20); Aspartate Amino Transferase 25 U/L (5-31); Bilirubin Total 0.3 mg/dL (0.0-1.0); Blood Urea Nitrogen 11 mg/dL (9-16); Calcium 7.6 mg/dL (8.4-10.2); Carbon Dioxide 24 mmol/L (22-29); Chloride 89 mmol/L (96-108); Estimated Glomerular Filt Rate > 60; Glucose Random 61 mg/dL (60-115); Lipase 13 U/L (8-78); Magnesium 1.6 mg/dL (1.6-2.6); Sodium 128 mmol/L (135-145); Total Protein 4.2 g/dL (6.5-8.0)
[2023-12-20 13:41] LABS: Potassium 2.6 mmol/L (3.3-5.1)
--- NOTE | 2023-12-20 13:41 | PC.NURSE ---
lab called, patient has critical K of 2.6, provider made aware
--- NOTE | 2023-12-20 13:42 | ED.GENADULT ---
HPI - General Adult General Chief complaint: General Medical Stated complaint: GENERAL MALAISE JOINT AND BACK PAIN Time Seen by Provider: 12/20/23 13:41 Source: patient, RN notes reviewed and old records reviewed Mode of arrival: ambulatory Limitations: no limitations History of Present Illness ED Provider: GRACE VELARDE PA-C HPI narrative: 68 year old female with pmh significant for COPD, DM, bipolar 1 disorder, hyponatremia, and depression presents to the ED today feeling sick like a dog . Endorses nausea and vomiting x months with associated decreased PO intake. Admits to feeling generally weak. States I have osteoarthritis in my legs and it's getting worse . She has not followed up with PCP regarding this as her PCP has been out of town . Denies fever, chills, chest pain, palpitations, diarrhea, constipation, dysuria, hematuria. Denies known sick contacts. Related Data Home Medications ?Medication ?Instructions ?Recorded ?Confirmed docusate sodium 100 mg tablet 100 mg PO BID 12/21/23 12/21/23 omeprazole 40 mg capsule,delayed 40 mg PO DAILY@0630 12/21/23 12/21/23 release Previous Rx's ?Medication ?Instructions ?Recorded diabetic shoes and inserts #1 ea 06/07/23 clonidine HCl 0.1 mg tablet 0.2 mg (2 x 0.1 mg) PO BEDTIME 3 06/12/23 months #180 tabs ergocalciferol (vitamin D2) 1,250 1,250 mcg PO QWEEK 90 days #13 caps 09/24/23 mcg (50,000 unit) capsule acetaminophen 650 mg 1,300 mg (2 x 650 mg) PO Q8H PRN 09/28/23 tablet,extended release pain 30 days #180 tabs cholecalciferol (vitamin D3) 50 50 mcg PO DAILY 90 days #90 caps 10/07/23 mcg (2,000 unit) capsule buspirone 5 mg tablet 10 mg (2 x 5 mg) PO BID 3 months 10/19/23 #360 tabs sertraline 100 mg tablet 100 mg PO DAILY #30 tabs 10/30/23 ziprasidone HCl 40 mg capsule 40 mg PO DIRECTED #60 caps 11/08/23 lorazepam 0.5 mg tablet 0.5 mg PO .COMPLEX anxiety #150 11/10/23 tabs ondansetron 8 mg disintegrating 8 mg PO Q12H PRN nausea and 11/12/23 tablet vomiting 30 days #60 tabs celecoxib 200 mg capsule (Celebrex) 200 mg PO DAILY PRN pain 10 days 12/03/23 #10 caps potassium chloride 10 mEq 10 meq PO DAILY 7 days #7 caps 12/07/23 capsule,extended release prochlorperazine maleate 5 mg 5 mg PO BID PRN nausea and 12/11/23 tablet (Compazine) vomiting 5 days #10 tabs commode (bedside commode) #1 ea 12/17/23 Allergies Allergy/AdvReac Type Severity Reaction Status Date / Time No Known Allergies Allergy Verified 12/20/23 12:26 Review of Systems Review of Systems: Constitutional: No fever, chills, fatigue, night sweats, +weight loss ENT/Mouth: No ear pain, hearing loss, nasal congestion, sinus pain, rhinorrhea, sore throat Eyes: No eye pain, swelling, redness, vision changes, discharge Cardio: No chest pain, palpitations, DAMIAN, orthopnea, peripheral edema Pulm: No SOB, cough, sputum, wheezing, dyspnea, hemoptysis GI: No nausea, vomiting, hematemesis, abdominal pain, diarrhea, constipation, hematochezia, melena : No irregular bleeding, dysuria, frequency, urgency, hesitancy, hematuria, flank pain, urinary flow changes, urinary incontinence or retention MSK: No back pain, neck pain, joint pain, myalgias Skin: No lesions, rashes Neuro: No numbness, paresthesias, LOC, dizziness, headache, +general weakness Psych: No anxiety/panic, depression, SI/HI, AH/VH All other systems reviewed and are negative. [facility] Past Medical History Attestation statement: The following information was validated with the patient. Source: old records reviewed and nursing notes reviewed Medical History Abdominal pain Colon stricture Subcutaneous mass of abdominal wall Neuroleptic-induced tardive dyskinesia Chronic constipation Foot pain Adnexal mass Arterial calcification Superior mesenteric artery thrombosis Adnexal mass Smoker Diverticular stricture Paronychia of great toe, right Right knee pain Depression with anxiety Chronic idiopathic constipation Rib injury Surgical History Incisional hernia Hx of section History of cholecystectomy Family History Family History Father Oral cancer Mother No problems noted. Other Mental health disorder Social History Social History Household Members: Spouse Housing: House Do you presently have visiting nurse or other home services: No Alcohol intake: former Comment: refuse alarm, but is using call bel approp Patient Tobacco Use Status: Current everyday Tobacco user Tobacco use type: Cigarette Cigarette Packs Per Day: 1 Cigarettes Per Day: 20 e-Cigarette/Vaping Use: Never Used Second Hand Smoke Exposure: No service: No Current occupational status: unemployed and disabled Cognitive needs: No Hearing needs: No Vision needs: Yes Physical Exam ED Vital Signs: Vital Signs - 24 hr 12/21/23 18:08 12/21/23 20:56 12/21/23 21:00 Temperature 98.4 F Pulse Rate 78 Respiratory Rate 16 16 Blood Pressure 141/87 H 141/87 H Pulse Oximetry 94 Oxygen Delivery Method Room Air 12/22/23 06:00 12/22/23 08:22 12/22/23 13:23 Temperature 97.9 F 97.9 F 98.0 F Pulse Rate 86 89 83 Respiratory Rate 16 14 18 Blood Pressure 107/60 105/63 118/73 Pulse Oximetry 92 93 93 Oxygen Delivery Method Room Air Room Air Room Air BMI result Body Mass Index 20.0 vital signs stable General: thin appearing female in NAD. Skin: Warm, dry, intact. No rashes or lesions. Head: Normocephalic, atraumatic. EENT: Hearing is intact b/l. Conjunctiva clear. PERRLA. Moist mucous membranes.? Cardiac: Chest wall symmetric. RRR. No JVD. Lungs: Normal respiratory effort without accessory muscle use. CTA bilaterally. Abdomen: Soft, non-tender, non-distended. No rebound tenderness or guarding. Positive BS x4. Back: No midline spinous or paraspinal tenderness. No step off deformity. Ext: Upper and lower extremities atraumatic, without tenderness, deformity, swelling or erythema. Full ROM throughout. Strength 4/5 throughout. Neuro: AOx3. Normal speech. Sensation intact to light touch. NV intact distally. Psych: Appropriate mood and affect. Responds appropriately to questions. Course Course Course Narrative: 1345 -- CBC without leukocytosis. H&H stable. chemistry showing hypokalemia to 2.6 > 60 mcg PO and 20 mcg IV K+ ordered for repletion. magnesium wnl. Hyponatremic to 128 which appears to be chronic and around patient's baseline > 2L NS ordered. initial troponin 19.9 > ACS unlikely however will repeat for delta. Urine showing moderate leukocyte esterase, 11-20 WBC, 11-20 squamous epithelial cells 2+ urine bacteria. will start pt on abx for UTI. u tox negative. she has tested negative for covid/ flu/ rsv. CXR unremarkable. 1615 -- lactic wnl. ammonia wnl. TSH wnl. > patient stable at the end of my shift. Sign-out given to Kathy SPENCE pending repeat trop, repeat BMP, CT head and disposition. Reevaluation(s) Reevaluation #1: I Nasrin Rangel PA-C have accepted care of the patient had signed out pending imaging, labs and admission. The patient has numerous electrolyte abnormalities, her hyponatremia is chronic. She is currently at her baseline with a sodium of 129. She is coming in with failure to thrive and decreased appetite, CT of the brain is pending. She was also was found to be hypokalemic to 2.9, she received both IV and p.o. infusion of potassium. She was transiently confused. Her 1st troponin 17, a delta troponin and repeat elytes are pending I have independently reviewed the following tests: CT brain:[address] [address] [address] Scan Report Signed Patient: Alma Mera MR#: [id number] : 1955 Acct:[id number] Age/Sex: 68 / F ADM Date: 12/20/23 Loc: HO.ED Attending Dr: Ordering Physician: Grace Velarde Date of Service: 12/20/23 Procedure(s): CT head/brain wo IV con Accession Number(s): [id number] cc: Grace Velarde; Sloane Cody MD~ EXAMINATION: CT HEAD WITHOUT CONTRAST CLINICAL INFORMATION: Confusion COMPARISON: None available. TECHNIQUE: Contiguous axial imaging was performed from the skull base to vertex without intravenous administration of contrast. This CT examination was performed using dose optimization techniques as appropriate, variously including the following: *Automated exposure control *Adjustment of mA and/or kV according to patient size (this includes techniques or standardized protocols for targeted exams where dose is matched to indication/reason for exam; i.e. extremities or head) *Use of iterative reconstruction technique DLP: 682 mGy-cm FINDINGS: No evidence of acute intracranial hemorrhage. No extra-axial fluid collections. No mass effect or midline shift. No evidence of evolving territorial infarction. The estrada-white matter differentiation is maintained. Generalized cerebral volume loss. Compensatory ventricular prominence. No evidence of hydrocephalus. No acute soft tissue or bony findings. The visualized paranasal sinuses are clear. The mastoid air cells are clear. CT/CT head/brain wo IV con IMPRESSION: No acute intracranial pathology. Electronically signed by: Jacque Becker MD 12/20/2023 05:35 PM EDT Labs: Sodium is 127, potassium 3.1, chloride 94, calcium 6.9 , mag 1.6, albumin is 2.2 we will be giving 2 gm calcium gluconate, 2 gm magnesium, and 25 gm albumin Reevaluation #2: is questioning why the patient should be admitted, some of her electrolyte abnormalities or other baseline, we can correct them. I understand his point of view, perhaps she would be more appropriate for rehab. I will change the orders and she will be case management/PT pending rehab Time: 18:30 Reevaluation #3: One of the nurses was having discussion with the patient in regard to rehab and physical therapy. The patient verbalized ? If I go home, I am not afraid to lie there and , I want to go home . She will be documenting accordingly as well. The is now here at bedside, he is stating that she has been confused at home just over the past week , that she has really declined. Not eating, becoming increasingly weak with new gait instability . He is in agreement for her to have a geriatric psychiatric evaluation, we are also getting case management and Physical therapy involved. He is on board with this plan. We will place care team consult now plan now. Once her electrolyte repletion is complete, we will repeat her chemistry. Time: 20:17 Additional Reevaluation(s): A section 12 was signed hold the patient in the ED Consultations Consultation #1: I am speaking with the patient's psychiatrist, Dr. Xiong. We are discussing her case. He is concerned that there may be an underlying medical cause for her failure to thrive that has yet to be determined. He does relate that she was found to have a lung nodule, perhaps she has metastatic disease. He is getting report from both the patient and her , that she has been complaining of nausea vomiting diarrhea with abdominal pain. This is the 1st our ED team has heard of this. I will be scanning her abdomen as part of further medical clearance. Time: 17:00 Consultation #2: I am getting report that the patient may have ischemic gut versus infectious process of the colon on CT scan, however this picture does not clinically fit. Going to repeat labs, then I will reach out to the surgical service. She was also found to have an incidental mass in her uterus, this requires a transvaginal ultrasound as an out patient. CT abdomen and pelvis:CT abdomen/pelvis June 03, 2023 TECHNIQUE: Multiple axial images were obtained from the superior aspect of the liver through the pubic symphysis after the administration of 85 mL of intravenous Omnipaque 350. Images were evaluated on independent dedicated 3-D workstation and 3-D images were reconstructed with concurrent radiologist supervision and subsequently interpreted. Oral contrast was not administered. This CT examination was performed using dose optimization techniques as appropriate, variously including the following: *Automated exposure control *Adjustment of mA and/or kV according to patient size (this includes techniques or standardized protocols for targeted exams where dose is matched to indication/reason for exam; i.e. extremities or head) *Use of iterative reconstruction technique DLP: 322 mGy-cm FINDINGS: LUNG BASES: The visualized lung bases are clear. CARDIOMEDIASTINUM: The visualized heart is normal in size without pericardial effusion. Moderate coronary artery calcification. LIVER: Homogeneous in attenuation. Normal in size. GALLBLADDER: Absent BILIARY SYSTEM: No intrahepatic or extrahepatic biliary dilation. PANCREAS: Homogeneous in attenuation. SPLEEN: Normal in size. GENITOURINARY: Bilateral kidneys demonstrate symmetric enhancement. No perinephric fluid collection. No renal calculi. No hydroureteronephrosis. ADRENAL GLANDS: Unremarkable. REPRODUCTIVE: Anteverted uterus with a hyperdense endometrial focus measuring 9 mm. Cystic left adnexal mass measuring 4 6 cm GASTROINTESTINAL: Diffuse mural thickening of the colon. APPENDIX: Not seem PERITONEUM: No pneumoperitoneum. No intra-abdominal fluid collection. VASCULATURE: The abdominal aorta is normal in course and caliber. Superior mesenteric and inferior mesenteric arteries patent. LYMPH NODES: No pathologically enlarged abdominal or pelvic lymph nodes. SOFT TISSUES/MUSCULOSKELETAL: Stable appearance of subcutaneous nodule just inferior to the umbilicus measuring 1.4 cm. Compression deformity of L1 and L5. Grade 2 anterolisthesis of L5 on S1. Diffuse osteopenia. CT/CT abdomen pelvis w IV con IMPRESSION: Diffuse colonic mural thickening, which can be related to ischemia or an infectious process. Hyperdense focus within the endometrial cavity measuring 9 mm. Left adnexal cystic mass measuring 4 mm. Recommend further evaluation with pelvic ultrasound. Fleischner guidelines were followed. Electronically signed by: Man Newton DO 12/21/2023 09:23 PM EDT RP Time: 21:44 Consultation #3: paging Dr Sawyer for consult her labs are normal, no acute change, she has had no active sxs since she arrived 1.5 days ago 00:[address] Sawyer thinks that this is not surgical, that GI should be involved. We will be placing a GI consult 1:[address] Lucas from hospital service just re-assessed the Pt, she denies having abdominal pain, her abdominal exam is benign, furthermore, she has not had any active vomiting or diarrhea, this has been verified by nursing staff as well. Furthermore, as I previously stated, she had no active GI symptoms yesterday and did not bring to our attention that she was having abdominal pain. I strongly feel that it is appropriate for her to have a GI consult, she still does not require hospital admission at this time. Time: 00:17 Additional Consultation(s): Friday December 22, 2023, 09:55 I assumed care of the patient this morning. The patient is a 68-year-old female who has been in the emergency room for almost 2 days. She is a 68-year-old woman who lives at home with her . She had come in with pains in her legs that she attributes to her arthritis. She had also had nausea and vomiting. Here in the emergency room she was found to be hypokalemic and this was repleted. Over the past 2 days the patient has had a CT of the abdomen and pelvis, a chest x-ray, and a head CT. The CT of the abdomen and pelvis showed colonic mural thickening possibly consistent with ischemic colitis but the patient has not had any abdominal pain. She was apparently seen by general surgery who did not feel there was any acute surgical process. The patient was seen by her psychiatrist who did not feel there was an indication for a psychiatric inpatient hospitalization. The hospitalist was consulted on 2 occasions in the hospitalist did not feel that there is an acute medical issue requiring hospitalization. This morning the patient says she is feeling better and would like to go home. She was seen by Physical therapy yesterday who felt that inpatient rehab would not be unreasonable. The patient does not wish to go to inpatient rehab. She would like to go home. She is not suicidal. She says that she is able to walk and that at home she holds onto things when she walks around. She does not wish to have a walker or even a cane. The patient's vital signs are stable this morning. Her abdomen is soft and nontender. Her mental status seems clear. She is requesting discharge and I do not see any indication for another option for disposition. The patient will be discharged with recommendations to follow up with her PCP Dr. Manning and with her psychiatrist Dr. Xiong. Case management has been consulted to see if there can be a referral for physical therapy in the home. Reji Schilling MD Medications Administered Discontinued Medications Generic Name Dose Route Start Last Admin Trade Name Hortencia PRN Reason Stop Dose Admin Acetaminophen 975 mg 12/20/23 20:23 12/20/23 20:32 Acetaminophen 325 Mg Tablet PO 12/20/23 20:24 Not Given ONCE ONE Buspirone HCl 10 mg 12/21/23 21:00 12/22/23 10:45 Buspirone Hcl 10 Mg Tablet PO 10 mg BID MACRI Administration Cefuroxime Axetil 500 mg 12/20/23 21:00 12/22/23 08:21 Cefuroxime Axetil 500 Mg Tablet PO 500 mg BID MARCI Administration Clonidine HCl 0.2 mg 12/21/23 21:00 12/21/23 20:56 Clonidine Hcl 0.2 Mg Tablet PO 0.2 mg BEDTIME MARCI Administration Protocol Docusate Sodium 100 mg 12/21/23 21:00 12/22/23 08:21 Docusate Sodium 100 Mg Capsule PO 100 mg BID MARCI Administration Potassium Chloride 10 meq in 100 mls @ 100 mls/hr 12/20/23 13:45 12/20/23 16:16 Potassium Chloride/H20 IV 12/20/23 15:44 Infused Q1H MARCI Infusion Sodium Chloride 1,000 mls @ 999 mls/hr 12/20/23 13:45 12/20/23 15:33 Ns IV 12/20/23 14:45 Infused .Q1H1M MARCI Infusion Sodium Chloride 1,000 mls @ 999 mls/hr 12/20/23 15:30 12/20/23 16:16 Ns IV 12/20/23 16:30 Infused .Q1H1M MARCI Infusion Magnesium Sulfate 2 gm in 50 mls @ 25 mls/hr 12/20/23 18:08 12/20/23 20:53 Magnesium Sulfate/H2o IV 12/20/23 20:07 Infused ONCE ONE Infusion Calcium Gluconate 2 gm in 100 mls @ 50 mls/hr 12/20/23 18:08 12/20/23 22:04 Calcium Gluconate IV 12/20/23 20:07 Infused ONCE ONE Infusion Albumin Human 100 mls @ 100 mls/hr 12/20/23 18:08 12/20/23 20:04 Kedbumin 25 % IV 12/20/23 19:07 Infused ONCE ONE Infusion Potassium Chloride 10 meq in 100 mls @ 100 mls/hr 12/20/23 18:30 12/20/23 23:58 Potassium Chloride/H20 IV 12/20/23 22:29 Infused Q1H MARCI Infusion Iohexol 85 ml 12/21/23 20:12 12/21/23 20:12 Iohexol 350 Mg/Ml 100 Ml Infus..Btl IV 12/21/23 20:13 85 ml ONCE ONE Administration Lorazepam 1 mg 12/20/23 20:23 12/20/23 20:32 Lorazepam 2 Mg/Ml Vial IVPUSH 12/20/23 20:24 1 mg ONCE ONE Administration Lorazepam 0.5 mg 12/21/23 07:00 12/22/23 08:21 Lorazepam 0.5 Mg Tablet PO 0.5 mg BID@0700,1300 MARCI Administration Lorazepam 1 mg 12/21/23 21:00 12/21/23 21:00 Lorazepam 0.5 Mg Tablet PO 1 mg BEDTIME MARCI Administration Nicotine Polacrilex 2 mg 12/22/23 06:15 12/22/23 11:11 Nicotine Polacrilex 2 Mg Gum BUCCAL 2 mg Q1H PRN Administration Nicotine Cravings Omeprazole 40 mg 12/22/23 06:30 12/22/23 06:22 Omeprazole 40 Mg Capsule. PO 40 mg DAILY@0630 MARCI Administration Ondansetron HCl 4 mg 12/20/23 12:54 12/20/23 13:17 Ondansetron Hcl 4 Mg/2 Ml Vial IVPUSH 12/20/23 12:55 4 mg ONCE ONE Administration Potassium Chloride 60 meq 12/20/23 13:43 12/20/23 14:03 Potassium Chloride Er 20 Meq Tab.Er.Prt PO 12/20/23 13:44 60 meq ONCE ONE Administration Potassium Chloride 10 meq 12/22/23 09:00 12/22/23 08:21 Potassium Chloride Er 10 Meq Tablet.Er PO 10 meq DAILY MARCI Administration Sertraline HCl 100 mg 12/22/23 09:00 12/22/23 10:45 Sertraline Hcl 100 Mg Tablet PO 100 mg DAILY MARCI Administration Vitamin D 50 mcg 12/22/23 09:00 12/22/23 08:20 Cholecalciferol (Vitamin D3) 25 Mcg Tablet PO 50 mcg DAILY MARCI Administration Ziprasidone 40 mg 12/21/23 15:15 12/22/23 10:45 Ziprasidone 40 Mg Capsule PO 40 mg DAILY MARCI Administration Medical Decision Making Medical Decision Making [facility] Narrative: 68 year old female with pmh significant for COPD, DM, bipolar 1 disorder, hyponatremia, and depression presents to the ED today feeling sick like a dog . Vital signs stable. she is thin appearing, in NAD. perrla. AOX3 however transiently confused. exam is nofocal. global weakness. Differential diagnosis includes anemia, electrolyte abnormality, dehydration, FTT, ACS, arrhythmia, osetoporosis, OA, polysubstance abuse, medication side effect, UTI, pneumonia, viral syndorme. Lower suspicion for ICH, TIA, CVA, other intracranial hemorrhage. Presentation not consistent with brain herniation or edema, seizure. Plan for labs, trop, ekg, CXR, viral serology, UA, u tox, IVF, re-evaluation. Differential Diagnosis Differential Diagnoses: The differential diagnosis associated with the presentation includes as above. Admission/Observation Consideration of admission/observation: Escalation of care including admission/observation considered Consult Healthcare Provider Management of the patient was discussed with: Hospitalist (Dr. Lei) Lab Data MDM Lab Attestation statement: I reviewed the patient's lab results. As above 12/21/23 22:59 12/21/23 22:59 Labs: Lab Results 12/20/23 12/20/23 12/20/23 Range/Units 13:05 15:52 15:53 WBC 10.5 (4.8-10.8) X10*3/uL RBC 4.21 (4.20-5.50) X10*6/uL Hgb 12.7 (12.0-16.0) g/dl Hct 35.6 L (37.0-47.0) % MCV 84.6 (80.0-98.0) fL MCH 30.2 (27.0-33.0) pg MCHC 35.7 H (31.0-35.0) g/dl RDW 14.0 (11.0-16.0) % Plt Count 167 D (160-400) X10*3/uL MPV 7.6 L (9.4-12.3) fL Immature Gran % (Auto) 0.5 H (0.0-0.4) % Neut % (Auto) 83.1 H (45-73) % Lymph % (Auto) 10.7 L (20-40) % [place] % (Auto) 5.4 (2-11) % Eos % (Auto) 0.1 (0-4) % Baso % (Auto) 0.2 (0-2) % Lymph # (Auto) 1.1 L (1.2-4.9) X10*3/uL [place] # (Auto) 0.6 (0.1-1.2) X10*3/uL Eos # (Auto) 0.0 (0.0-0.4) X10*3/uL Baso # (Auto) 0.0 (0.0-0.2) X10*3/uL Abs Immat Gran (auto) 0.05 H (0.00-0.03) X10*3/uL Absolute Neuts (auto) 8.7 H (2.0-8.3) x10*3/uL Absolute Nucleated RBC 0.000 (0.0-0.012) X10*3/uL Nucleated RBC % (auto) 0.0 (0.0-0.2) /100WBC Sodium 128 L (135-145) mmol/L Potassium 2.6 L* (3.3-5.1) mmol/L Chloride 89 L (96-108) mmol/L Carbon Dioxide 24 (22-29) mmol/L Anion Gap 18 (12-20) BUN 11 (9-16) mg/dL Creatinine 0.74 (0.5-1.4) mg/dL Estim Creat Clear Calc 57.0 Estimated GFR > 60 Random Glucose 61 (60-115) mg/dL Lactic Acid 0.5 (0.5-2.0) mmol/L Calcium 7.6 L D (8.4-10.2) mg/dL Magnesium 1.6 (1.6-2.6) mg/dL Total Bilirubin 0.3 (0.0-1.0) mg/dL AST 25 (5-31) U/L ALT 15 (0-31) U/L Alkaline Phosphatase 67 (39-117) U/L Ammonia 32 (13-55) umol/L Troponin I High Sens 19.9 H (<3.5-17.0) ng/L Total Protein 4.2 L (6.5-8.0) g/dL Albumin 2.4 L (3.5-5.0) g/dL Lipase 13 (8-78) U/L TSH 3.42 (0.32-4.0) uIU/mL Urine Color Dark Yellow Urine Appearance Clear Urine pH 6.0 (5.0-9.0) Ur Specific [place] 1.015 (1.005-1.025) Urine Protein Trace (Neg-Trace) mg/dL Urine Glucose (UA) Negative (Negative) mg/dL Urine Ketones 40 (Negative) mg/dL Urine Blood Negative (Negative) Urine Nitrite Negative (Negative) Ur Leukocyte Esterase Moderate (2+) H (Negative) Urine RBC 0-2 (0-2) /HPF Urine WBC 11-20 H (0-5) /HPF Ur Squamous Epith Cells 11-20 (0-2) /HPF Urine Bacteria 2+ (None Seen) Hyaline Casts 0-2 (0-2) /LPF Urine Opiates Screen Not Detected (Not Detect) Ur Buprenorphine Scrn Not Detected (Not Detect) ng/mL Ur Oxycodone Screen Not Detected (Not Detect) ng/mL Urine Methadone Screen Not Detected (Not Detect) ng/mL Urine Fentanyl Screen Not Detected (Not Detect) Ur Barbiturates Screen Not Detected (Not Detect) Ur Phencyclidine Scrn Not Detected (Not Detect) Ur Amphetamines Screen Not Detected (Not Detect) U Benzodiazepines Scrn Not Detected (Not Detect) Urine Cocaine Screen Not Detected (Not Detect) U Marijuana (THC) Screen Not Detected (Not Detect) Influenza Type A (PCR) NEGATIVE (Negative) Influenza Type B (PCR) NEGATIVE (Negative) RSV RNA Qual (PCR) NEGATIVE (Negative) SARS-CoV-2 RNA (RT-PCR) NEGATIVE (Negative) 12/20/23 12/21/23 Range/Units 16:07 22:59 WBC 14.6 H (4.8-10.8) X10*3/uL RBC 4.61 (4.20-5.50) X10*6/uL Hgb 13.9 (12.0-16.0) g/dl Hct 39.2 (37.0-47.0) % MCV 85.0 (80.0-98.0) fL MCH 30.2 (27.0-33.0) pg MCHC 35.5 H (31.0-35.0) g/dl RDW 14.4 (11.0-16.0) % Plt Count 188 (160-400) X10*3/uL MPV 8.0 L (9.4-12.3) fL Immature Gran % (Auto) 0.4 (0.0-0.4) % Neut % (Auto) 79.7 H (45-73) % Lymph % (Auto) 14.5 L (20-40) % [place] % (Auto) 4.9 (2-11) % Eos % (Auto) 0.2 (0-4) % Baso % (Auto) 0.3 (0-2) % Lymph # (Auto) 2.1 (1.2-4.9) X10*3/uL [place] # (Auto) 0.7 (0.1-1.2) X10*3/uL Eos # (Auto) 0.0 (0.0-0.4) X10*3/uL Baso # (Auto) 0.0 (0.0-0.2) X10*3/uL Abs Immat Gran (auto) 0.06 H (0.00-0.03) X10*3/uL Absolute Neuts (auto) 11.6 H (2.0-8.3) x10*3/uL Absolute Nucleated RBC 0.000 (0.0-0.012) X10*3/uL Nucleated RBC % (auto) 0.0 (0.0-0.2) /100WBC Sodium 127 L 127 L (135-145) mmol/L Potassium 3.1 L 3.6 (3.3-5.1) mmol/L Chloride 94 L 92 L (96-108) mmol/L Carbon Dioxide 24 24 (22-29) mmol/L Anion Gap 12 15 (12-20) BUN 9 8 L (9-16) mg/dL Creatinine 0.65 0.71 (0.5-1.4) mg/dL Estim Creat Clear Calc 64.9 59.4 Estimated GFR > 60 > 60 Random Glucose 75 88 (60-115) mg/dL Lactic Acid 0.9 (0.5-2.0) mmol/L Calcium 6.9 L D 8.1 L D (8.4-10.2) mg/dL Magnesium 1.8 (1.6-2.6) mg/dL Total Bilirubin 0.2 0.4 (0.0-1.0) mg/dL AST 22 28 (5-31) U/L ALT 15 16 (0-31) U/L Alkaline Phosphatase 60 75 (39-117) U/L Ammonia (13-55) umol/L Troponin I High Sens 21.8 H (<3.5-17.0) ng/L Total Protein 3.7 L 4.8 L (6.5-8.0) g/dL Albumin 2.2 L 2.9 L (3.5-5.0) g/dL Lipase (8-78) U/L TSH (0.32-4.0) uIU/mL Urine Color Urine Appearance Urine pH (5.0-9.0) Ur Specific [place] (1.005-1.025) Urine Protein (Neg-Trace) mg/dL Urine Glucose (UA) (Negative) mg/dL Urine Ketones (Negative) mg/dL Urine Blood (Negative) Urine Nitrite (Negative) Ur Leukocyte Esterase (Negative) Urine RBC (0-2) /HPF Urine WBC (0-5) /HPF Ur Squamous Epith Cells (0-2) /HPF Urine Bacteria (None Seen) Hyaline Casts (0-2) /LPF Urine Opiates Screen (Not Detect) Ur Buprenorphine Scrn (Not Detect) ng/mL Ur Oxycodone Screen (Not Detect) ng/mL Urine Methadone Screen (Not Detect) ng/mL Urine Fentanyl Screen (Not Detect) Ur Barbiturates Screen (Not Detect) Ur Phencyclidine Scrn (Not Detect) Ur Amphetamines Screen (Not Detect) U Benzodiazepines Scrn (Not Detect) Urine Cocaine Screen (Not Detect) U Marijuana (THC) Screen (Not Detect) Influenza Type A (PCR) (Negative) Influenza Type B (PCR) (Negative) RSV RNA Qual (PCR) (Negative) SARS-CoV-2 RNA (RT-PCR) (Negative) Independent Interpretation I performed an independent interpretation of an: EKG and CT Scan Interpretation: EKG showing normal sinus rhythm with a rate of 84 beats per minute, QT 428, QTC 505, no acute ischemic changes or ST elevations. CT head without bleed, agree with radiologist's interpretation. Radiology Impression Discussion of test interpretation with radiology: I have reviewed the radiologist's reading. Radiologist Impression: EXAMINATION: CT HEAD WITHOUT CONTRAST CLINICAL INFORMATION: Confusion COMPARISON: None available. TECHNIQUE: Contiguous axial imaging was performed from the skull base to vertex without intravenous administration of contrast. This CT examination was performed using dose optimization techniques as appropriate, variously including the following: *Automated exposure control *Adjustment of mA and/or kV according to patient size (this includes techniques or standardized protocols for targeted exams where dose is matched to indication/reason for exam; i.e. extremities or head) *Use of iterative reconstruction technique DLP: 682 mGy-cm FINDINGS: No evidence of acute intracranial hemorrhage. No extra-axial fluid collections. No mass effect or midline shift. No evidence of evolving territorial infarction. The estrada-white matter differentiation is maintained. Generalized cerebral volume loss. Compensatory ventricular prominence. No evidence of hydrocephalus. No acute soft tissue or bony findings. The visualized paranasal sinuses are clear. The mastoid air cells are clear. CT/CT head/brain wo IV con IMPRESSION: No acute intracranial pathology. Electronically signed by: Jacque Becker MD 12/20/2023 05:35 PM EDT Independent Historian Clinical information obtained from an independent historian. History obtained from or confirmed by: EMS External Record Review External record reviewed: Inpatient record, Office record, Outpatient record, Prior outpatient labs, Prior outpatient radiology, Primary care record and Outside ED record Chronic Conditions Patient?s care impacted by: Other (Hyponatremia) Social Determinants Patient?s care significantly limited by Social Determinants of Health including: Other Social Determinant of Health Critical Care Time Critical Care Time Critical Care Time: Yes Total Critical Care Time: 36 Attestation: Critical care time in the amount of 36 minutes has been provided to the patient in terms of direct patient care, frequent reevaluation, consultation with hospitalist, review and interpretation of medical data and results, and management of potentially life-threatening conditions. This is all outside of any medical procedures. Discharge Plan Discharge Clinical Impression: Hypomagnesemia, Hyponatremia, Hypokalemia, Adult failure to thrive, Urinary tract infection, Inflammation of colonic mucosa Patient Disposition: Home, Self-Care Additional Instructions: Please continue your regular medications at home. Please contact your regular doctor for a prompt follow up appointment and recheck of your electrolytes. Please also follow up with your regular psychiatrist. My hope is that you may be able to receive physical therapy visits at home. If you feel significantly worse please return to the emergency department. Prescriptions: No Action (DME) diabetic shoes and inserts 10 See Rx Instructions .Route .MEDSUPPLY Qty: 1 0RF Rx Instructions: As directed ergocalciferol (vitamin D2) 1,250 mcg (50,000 unit) capsule 1,250 mcg PO QWEEK 90 Days Qty: 13 1RF acetaminophen 650 mg tablet extended release 1,300 mg PO Q8H PRN (Reason: pain) 30 Days Qty: 180 0RF cholecalciferol (vitamin D3) 50 mcg (2,000 unit) capsule 50 mcg PO DAILY 90 Days Qty: 90 1RF sertraline 100 mg tablet 100 mg PO DAILY Qty: 30 2RF lorazepam 0.5 mg tablet 0.5 mg PO .COMPLEX Qty: 150 2RF Rx Instructions: 0.5 mg orally; 1 tab in am 1 tab in afternoon 2 tabs bedtime may take additional tab daily as needed for severe anxiety caution sedating may cause balance problems ondansetron 8 mg tablet,disintegrating 8 mg PO Q12H PRN (Reason: nausea and vomiting) 30 Days Qty: 60 0RF potassium chloride 10 mEq capsule, extended release 10 meq PO DAILY 7 Days Qty: 7 0RF prochlorperazine maleate [Compazine] 5 mg tablet 5 mg PO BID PRN (Reason: nausea and vomiting) 5 Days Qty: 10 0RF (DME) bedside commode Kit See Rx Instructions .Route Qty: 1 0RF Rx Instructions: As directed omeprazole 40 mg capsule,delayed release(DR/EC) 40 mg PO DAILY@0630 docusate sodium 100 mg Tablet 100 mg PO BID celecoxib [Celebrex] 200 mg capsule 200 mg PO DAILY PRN (Reason: pain) 10 Days Qty: 10 0RF clonidine HCl 0.1 mg tablet 0.2 mg PO BEDTIME 90 Days Qty: 180 1RF buspirone 5 mg tablet 10 mg PO BID 90 Days Qty: 360 1RF ziprasidone HCl 40 mg capsule 40 mg PO DIRECTED Qty: 60 2RF Rx Instructions: give with food (meal/snack) 1 tab daily may take additional tab daily as needed agitation Referrals: [facility] [Outside] Baldemar Xiong MD [Physician] - Sloane Cody MD [Primary Care Provider] - Interventions: ED Discharge Assessment Last Done: 12/22/23 13:23 Discharge Date/Time: 12/22/23 13:28 Print Language: [place]
--- NOTE | 2023-12-20 13:44 | PC.NURSE ---
offshore wind turbine technician came up to this rn, patient took off levi while in xray, currently laying in singh spot on stretcher with only blankets to cover her, this RN told patient that she needs to put her levi top back on, patient states no i dont want to wear it i want to be like this educated patient that she cannot be naked in the hallway there are other patients here an it is inappropriate behavior. patient states fine i'll put my robe back on patient reeducated that she took her robe off as well because she stated it was wet and that she needs to wear the levi top while in the ED. patient refuses to wear levi top. provider made aware of patient behavior.
[2023-12-20 13:45] LABS: Troponin-I High Sensitivity 19.9 ng/L (<3.5-17.0)
[2023-12-20 13:59] LABS: Influenza A PCR NEGATIVE (Negative); Influenza B PCR NEGATIVE (Negative); Resp Syncy Virus RNA Qual PCR NEGATIVE (Negative); SARS COV2 PCR INHOUSE NEGATIVE (Negative)
[2023-12-20] MEDS: Potassium Chloride ER 20 MEQ TAB.ER.PRT 60 MEQ PO (14:03)
--- NOTE | 2023-12-20 14:05 | PC.NURSE ---
patient medicated with, PO potassium replacement, given sergio frederic, tolerated PO intake
[2023-12-20] MEDS: Potassium Chloride/H20 10 MEQ/100 ML PIGGYBACK 100 MEQ IV ×6 (14:18→22:37)
[2023-12-20] MEDS: 0.9 % Sodium Chloride 1,000 ML 999 ML IV ×2 (14:18→15:33)
[2023-12-20 14:20] VITALS: BP 104/62; PULSE 84; RESP 12; TEMP 37.1; O2SAT 94
--- NOTE | 2023-12-20 15:20 | PC.NURSE ---
into patient room to hang second bag of potassium, patient states to this RN, when am I going to get out of here? this RN attempted to educate patient that she is still receiving treatment and needs to see physical therapy and case management, patient states i've been here since 8oclock I got here hours ago, I want to go home. patient educated that she got here this afternoon and is recieving treatment for her electrolytes, patient states youre kidding me, i havent been here that long, i want to go home educated patient that she cannot walk, as was one of her original complaints, patient states yeah but i'll figure it out, i dont want to see physical therapy provider made aware of patient mentation, patient educated that she is still receiving treatment, called, states that she has been more confused lately, and has had poor PO intake, states her children will be coming by later to visit her.
[2023-12-20 16:02] LABS: Thyroid Stimulating Hormone 3.42 uIU/mL (0.32-4.0)
[2023-12-20 16:06] LABS: Ammonia 32 umol/L (13-55)
[2023-12-20 16:10] LABS: Lactic Acid 0.5 mmol/L (0.5-2.0)
--- NOTE | 2023-12-20 16:20 | PC.NURSE ---
DAUGHTER CODIE WAS HERE AT THE BEDSIDE, SHE ASKED IF HER MOTHER IS TO BE DISCHARGED AND HER FATHER DOESN'T ANSWER THE PHONE, YOU CAN CALL HER AT [phone]
--- NOTE | 2023-12-20 16:21 | PC.NURSE ---
lab called to add on cmp, ok per lab
[2023-12-20 16:35] VITALS: BP 135/86; PULSE 82; RESP 17; TEMP 36.7; O2SAT 95
[2023-12-20 16:52] LABS: Alanine Aminotransferase 15 U/L (0-31); Albumin Level 2.2 g/dL (3.5-5.0); Alkaline Phosphatase 60 U/L (39-117); Anion Gap 12 (12-20); Aspartate Amino Transferase 22 U/L (5-31); Bilirubin Total 0.2 mg/dL (0.0-1.0); Blood Urea Nitrogen 9 mg/dL (9-16); Calcium 6.9 mg/dL (8.4-10.2); Carbon Dioxide 24 mmol/L (22-29); Chloride 94 mmol/L (96-108); Creatinine Clr Calc Pharmacy 64.9; Estimated Glomerular Filt Rate > 60; Glucose Random 75 mg/dL (60-115); Potassium 3.1 mmol/L (3.3-5.1); Sodium 127 mmol/L (135-145); Total Protein 3.7 g/dL (6.5-8.0)
[2023-12-20 16:59] LABS: Troponin-I High Sensitivity 21.8 ng/L (<3.5-17.0)
[2023-12-20] MEDS: Magnesium Sulfate/H2O 2 GM/50 ML PIGGYBACK IV (18:44)
[2023-12-20] MEDS: Albumin Human 25 % 100 ML IV (18:45)
--- NOTE | 2023-12-20 19:08 | PC.NURSE ---
per Gabi EISENBERG, patient declined from upstairs for admission, patient states she does not want short term rehab, states her is home and he can help her. educated patient that those services are not enough for her as she is still ill and malnourished. patient continues to be somewhat confused, oriented to self, states she wants to go home, patient told she needs to have her electrolytes replenished at this time and she needs to prove that she will feed herself, patient requested peanut butter and jelly sandwich, ate 3 bites and stated to this RN, i cant eat this i dont want it offerd patient ensure drink, patient states she would be willing to try. 2 more IVs placed in patient. per Provider OK to hang calcium gluconate last. 18g IV placed in Left ac, 20g IV placed in left wrist. patient medicated with what iv access will allow. report given to oncoming [facility]. kitchen called for ensure.
--- NOTE | 2023-12-20 19:30 | PC.NURSE ---
Assumed care of pt. pt self-removed R IV, canula intact. Verified Mg and K are compatible, running on same line, with Albumin running in 2nd existing IV. Pt bedding changed, Purewik brought for pt convenience. Pt made aware of potential admission. of pt called, received permission from pt to speak with him regarding plan of care. Notified him that there was a potential admission if pt met criteria.
[2023-12-20] MEDS: Calcium Gluconate/NaCl,Iso-Osm 2 GM/100 ML PLAST..BAG IV (20:04)
--- NOTE | 2023-12-20 20:19 | PC.NURSE ---
this RN assisted in cleaning pt, medicating, purewick placed, while RN was with pt the pt overheard the provider discussing her plan of care. pt stated that she was not going to rehab. this RN discussed this w pt and clarified pt's statement, reminded pt that she if couldn't care for herself at home, was having difficulty ambulating and was not eating to maintain her strength she wouldn't be able to return home independently. pt stated I don't care if I go home and , I'm not scared of dying. pt continues to refuse to eat ensure and other food options brought in for her stating that she doesn't like the way they taste. provider and primary RN aware of pt vague SI statement.
[2023-12-20] MEDS: cefuroxime axetiL 500 MG TABLET PO (20:32)
[2023-12-20] MEDS: LORazepam 2 MG/ML VIAL 1 MG IVPUSH (20:32)
--- NOTE | 2023-12-20 21:22 | PC.NURSE ---
Rcvd call from [facility] for pt. Offered current plan of care and status.
--- NOTE | 2023-12-20 22:44 | MHC.CARE ---
Met with Patient for Care Team consult - Patient is a 68-year-old female who was brought to the emergency department by EMS, experiencing severe malaise, nausea, vomiting, and significant weakness that affected her ability to walk. Her reported a week-long decline in her condition, characterized by confusion, increased weakness, difficulty ambulating, and reduced appetite. After a thorough medical evaluation upon her arrival, a hospital admission was initially considered but later deemed unnecessary and clinically indicated. She was referred for a psychiatric evaluation due to vague suicidal statements heard by nursing when discussing her possibly being placed at short term rehab, concerns about her ability to thrive, and questions regarding her decision-making capacity, in order to determine the next steps in her care. The patient indicated that her functional status had deteriorated over the past month, requiring assistance to ambulate within her home. Since arrival at the emergency department, she has consumed sergio frederic and juice but has refused Ensure and only partially eaten hospital food. She denied any current suicidal ideation, intent, or plan, expressing a desire to return home rather than remain hospitalized in the ER. There were no signs of responding to internal stimuli, and she denied auditory or visual hallucinations. Her thought processes were tangential, predominantly focused on her wish to leave the hospital. The patient reported a weight loss of approximately 20 pounds over the past three months, attributed to poor appetite and mobility limitations. Patient was calm and cooperative during assessment and was able to participate in today?s check-in.? The patient is followed by Dr. Baldemar Xiong as her psychiatrist per report, although she could not recall the date of her last appointment. Patient reported she is medication compliant. She reported no additional psychiatric support and mentioned having a personal banking representative (HASHER MACHINE OPERATOR) who assists her three times per week, with no other support currently in place. Clinical Impressions: Patient's presentation, and pending referrals were reviewed with Care steamfitter supervisor and it was determined due to the patient?s presentation and ongoing concerns regarding failure to thrive and decision-making capacity, a psychiatric consultation will be conducted to assess her capacity and provide recommendations for disposition. If Psych consult determines the patient could benefit from higher level of psychiatric care, a full Care team assessment will be completed at that time.?This further evaluation from psych consult will assist in differentiating the appropriateness of short-term rehabilitation, home services, or additional psychiatric support based on the psychiatric consult's findings. The patient was also referred for physical and occupational therapy assessments, and case management in order for them to evaluate patient and weight in on any recommendations of care which could include: short-term rehabilitation following psychiatric recommendations if further psychiatric supports are not indicated.
[2023-12-21] VITALS: BP 139/90; PULSE 78; RESP 18; O2SAT 96
--- NOTE | 2023-12-21 05:26 | PC.NURSE ---
Pt has remained agitated and attempting to get up and out of bed despite this RN and other staff instructing her to stayu in bed and use the call lara to alert staff. No safety incidents occurred during shift.
[2023-12-21 05:41] VITALS: BP 143/93; PULSE 84; RESP 17; TEMP 36.5; O2SAT 97
--- NOTE | 2023-12-21 07:13 | PC.NURSE ---
Assumed care of patient, patient agitated , naked in bed asking to go to the bathroom. Placed on bedpan voided large amount of clear yellow urine. Assisted with ADL`s.
[2023-12-21] MEDS: LORazepam 0.5 MG TABLET PO ×2 (07:19→12:49)
[2023-12-21] MEDS: cefuroxime axetiL 500 MG TABLET PO ×2 (07:19→20:56)
--- NOTE | 2023-12-21 07:38 | MHC.CM.ED ---
Received case management consult overnight. Case management consult deferred until psych consult completed.
[2023-12-21 07:42] VITALS: BP 169/85; PULSE 83; RESP 12; TEMP 37.1; O2SAT 96
--- NOTE | 2023-12-21 10:15 | PC.NURSE ---
Patient / at bedside requesting home meds. Per sat instructor report was going to bring in home med list. stating he forgot but will go home and get the pill bottles. Pharmacy aware stating will do med red when returns with meds
--- NOTE | 2023-12-21 10:55 | PHA.MEDREC ---
Pharmacy Consult ? Medication Reconciliation Pharmacy has completed the medication reconciliation. Pt was too agitated anod would not speak to pharmacy, she stated she takes everything on the list. , Satish, brought rx bottle in, and med rec was completed off bottles. Medication removed as they were not presented within the bottles were: folic acid, meloxicam, methocarbamol, nystatin, tizanidine, and tramadol. Med rec was rushed to be done quickly as nursing was worried the would give her medications from the bottles. Pharmacy will let the provider know there is a duplication in Vitamin D3 and Vitamin D2 on home med list.
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
[2023-12-21] MEDS: Ziprasidone 40 MG CAPSULE PO (16:34)
--- NOTE | 2023-12-21 17:41 | P.CNPS_ITS ---
History of Present Illness Date of Service: 12/21/23 Chief Complaint: GENERAL MALAISE JOINT AND BACK PAIN Reason for Consult: change in mental status wt loss ? si Requesting physician: Nasrin Rangel Discussed with referring provider: Yes Sources of Information: patient interviewed, chart reviewed and crisis/core team assessment reviewed Additional Sources of Information: spoke with HPI Narrative: The patient has a history of psychotic depression past history of gambling alcohol use disorder has been stable generally for many years. Has had past psychotic and mixed states stable on Geodon sertraline and lorazepam. Has a history of role facial dyskinesia somewhat appears to be worsening. Has been resistant to tapering off of Geodon. The patient most recently has over the past few weeks lost 30 lb in his had difficulty eating and was having marked difficulty ambulating at home requiring her 's help. There was no clear trigger. Patient does state over the past week she has had pain in her abdomen back pain did a fall with a leg injury a few months ago that may have contributed to difficulty with ambulation. Denies that she has been depressed and an ongoing way but has been a motivational denies any thoughts of self-harm no recent psychosis. She does have intermittent periods of cognitive difficulties that do seem to be variable. Her over time has not noticed a significant change except over the past couple of weeks. She was noted to have significant changes in electrolytes weight loss and gait disturbance. The patient was going to return home at her insistence there was a recommendation of rehab. She did make a brief comments stating at rather in go to rehab which does not seem to be a significant real intention She continues to smoke regularly she tends not to go to the hospital see her physicians regularly she does have anxiety in relationship to going to the doctor getting medical care Past Psychiatric History: Past history of psychiatric hospitalization psychotic mixed state episodes. Has been stable for many years [facility] Medical History Abdominal pain Colon stricture Subcutaneous mass of abdominal wall Neuroleptic-induced tardive dyskinesia Chronic constipation Foot pain Adnexal mass Arterial calcification Superior mesenteric artery thrombosis Adnexal mass Smoker Diverticular stricture Paronychia of great toe, right Right knee pain Depression with anxiety Chronic idiopathic constipation Rib injury Surgical History Incisional hernia Hx of section History of cholecystectomy Family History: Patient lives with her has 3 children Social History: Family history of alcohol abuse. Patient lives with her has 1 daughter who lives in [place] 1 son. Patient does have grandchildren close with family. Substance History: History of alcohol abuse gambling abuse nicotine addiction sober from alcohol and gambling Trauma History: na Diagnostics Vital Signs (24Hr): Vital Signs - 24 hr 12/21/23 00:00 12/21/23 05:41 12/21/23 07:42 Temperature 97.7 F 98.7 F Pulse Rate 78 84 83 Respiratory Rate 18 17 12 Blood Pressure 139/90 H 143/93 H 169/85 H Pulse Oximetry 96 97 96 Oxygen Delivery Method Room Air Room Air Room Air BMI result Body Mass Index 20.0 Labs 12/20/23 13:05 12/20/23 16:07 Labs: Laboratory Results - last 48 hr 12/20/23 12/20/23 12/20/23 13:05 15:52 15:53 WBC 10.5 RBC 4.21 Hgb 12.7 Hct 35.6 L MCV 84.6 MCH 30.2 MCHC 35.7 H RDW 14.0 Plt Count 167 D MPV 7.6 L Immature Gran % (Auto) 0.5 H Neut % (Auto) 83.1 H Lymph % (Auto) 10.7 L Osborne % (Auto) 5.4 Eos % (Auto) 0.1 Baso % (Auto) 0.2 Lymph # (Auto) 1.1 L Osborne # (Auto) 0.6 Eos # (Auto) 0.0 Baso # (Auto) 0.0 Abs Immat Gran (auto) 0.05 H Absolute Neuts (auto) 8.7 H Absolute Nucleated RBC 0.000 Nucleated RBC % (auto) 0.0 Sodium 128 L Potassium 2.6 L* Chloride 89 L Carbon Dioxide 24 Anion Gap 18 BUN 11 Creatinine 0.74 Estim Creat Clear Calc 57.0 Estimated GFR > 60 Random Glucose 61 Lactic Acid 0.5 Calcium 7.6 L D Magnesium 1.6 Total Bilirubin 0.3 AST 25 ALT 15 Alkaline Phosphatase 67 Ammonia 32 Troponin I High Sens 19.9 H Total Protein 4.2 L Albumin 2.4 L Lipase 13 TSH 3.42 Urine Color Dark Yellow Urine Appearance Clear Urine pH 6.0 Ur Specific [place] 1.015 Urine Protein Trace Urine Glucose (UA) Negative Urine Ketones 40 Urine Blood Negative Urine Nitrite Negative Ur Leukocyte Esterase Moderate (2+) H Urine RBC 0-2 Urine WBC 11-20 H Ur Squamous Epith Cells 11-20 Urine Bacteria 2+ Hyaline Casts 0-2 Urine Opiates Screen Not Detected Ur Buprenorphine Scrn Not Detected Ur Oxycodone Screen Not Detected Urine Methadone Screen Not Detected Urine Fentanyl Screen Not Detected Ur Barbiturates Screen Not Detected Ur Phencyclidine Scrn Not Detected Ur Amphetamines Screen Not Detected U Benzodiazepines Scrn Not Detected Urine Cocaine Screen Not Detected U Marijuana (THC) Screen Not Detected Influenza Type A (PCR) NEGATIVE Influenza Type B (PCR) NEGATIVE RSV RNA Qual (PCR) NEGATIVE SARS-CoV-2 RNA (RT-PCR) NEGATIVE 12/20/23 16:07 WBC RBC Hgb Hct MCV MCH MCHC RDW Plt Count MPV Immature Gran % (Auto) Neut % (Auto) Lymph % (Auto) Osborne % (Auto) Eos % (Auto) Baso % (Auto) Lymph # (Auto) Osborne # (Auto) Eos # (Auto) Baso # (Auto) Abs Immat Gran (auto) Absolute Neuts (auto) Absolute Nucleated RBC Nucleated RBC % (auto) Sodium 127 L Potassium 3.1 L Chloride 94 L Carbon Dioxide 24 Anion Gap 12 BUN 9 Creatinine 0.65 Estim Creat Clear Calc 64.9 Estimated GFR > 60 Random Glucose 75 Lactic Acid Calcium 6.9 L D Magnesium Total Bilirubin 0.2 AST 22 ALT 15 Alkaline Phosphatase 60 Ammonia Troponin I High Sens 21.8 H Total Protein 3.7 L Albumin 2.2 L Lipase TSH Urine Color Urine Appearance Urine pH Ur Specific [place] Urine Protein Urine Glucose (UA) Urine Ketones Urine Blood Urine Nitrite Ur Leukocyte Esterase Urine RBC Urine WBC Ur Squamous Epith Cells Urine Bacteria Hyaline Casts Urine Opiates Screen Ur Buprenorphine Scrn Ur Oxycodone Screen Urine Methadone Screen Urine Fentanyl Screen Ur Barbiturates Screen Ur Phencyclidine Scrn Ur Amphetamines Screen U Benzodiazepines Scrn Urine Cocaine Screen U Marijuana (THC) Screen Influenza Type A (PCR) Influenza Type B (PCR) RSV RNA Qual (PCR) SARS-CoV-2 RNA (RT-PCR) Imaging Radiology Impressions: ITS Impressions Chest X-Ray 12/20/23 12:54 IMPRESSION: No acute cardiopulmonary findings. Electronically signed by: Betty Hare MD 12/20/2023 03:00 PM EDT RP Head CT 12/20/23 15:20 IMPRESSION: No acute intracranial pathology. Electronically signed by: Jacque Becker MD 12/20/2023 05:35 PM EDT RP Mental Status Exam Mental Status Exam Narrative: Mental Status Exam Narrative: Appearance wearing hospital garb somewhat cachectic-looking significant oral facial dyskinesia: Behavior: Cooperative fatigue psychomotor: Orofacial dyskinesia Speech: Clear Thought proccess concrete logical some difficulty waiting information Thought content: Complains of abdominal pain back pain decreased appetite denies self-harming thoughts denies hallucinations or delusional material Mood: Flat Affect: Constricted SI:denies no active thoughts a certain passivity HI:denies VH/AH:none Delusions: History of psychotic guilt need to better clarify Insight/judgment: Patient does accept home services she states Memory/cog: Some attentional problems Medications Medications Current Medications Acetaminophen (Acetaminophen 325 Mg Tablet) 650 mg PO Q6H PRN PRN Reason: pain Buspirone HCl (Buspirone Hcl 10 Mg Tablet) 10 mg PO BID [facility] Cefuroxime Axetil (Cefuroxime Axetil 500 Mg Tablet) 500 mg PO BID [facility] Last Admin: 12/21/23 07:19 Dose: 500 mg Clonidine HCl (Clonidine Hcl 0.2 Mg Tablet) 0.2 mg PO BEDTIME [facility]; Protocol Docusate Sodium (Docusate Sodium 100 Mg Capsule) 100 mg PO BID [facility] Lorazepam (Lorazepam 0.5 Mg Tablet) 0.5 mg PO BID@0700,1300 [facility] Last Admin: 12/21/23 12:49 Dose: 0.5 mg Lorazepam (Lorazepam 0.5 Mg Tablet) 1 mg PO BEDTIME [facility] Lorazepam (Lorazepam 0.5 Mg Tablet) 0.5 mg PO DAILY PRN PRN Reason: Anxiety Omeprazole (Omeprazole 40 Mg Capsule.Dr) 40 mg PO DAILY@0630 [facility] Ondansetron HCl (Ondansetron Odt 8 Mg Tab.Rapdis) 8 mg TRANSLINGU Q12H PRN PRN Reason: nausea and vomiting Potassium Chloride (Potassium Chloride Er 10 Meq Tablet.Er) 10 meq PO DAILY [facility] Prochlorperazine Maleate (Prochlorperazine Maleate 5 Mg Tablet) 5 mg PO BID PRN PRN Reason: nausea and vomiting Sertraline HCl (Sertraline Hcl 100 Mg Tablet) 100 mg PO DAILY [facility] Vitamin D (Cholecalciferol (Vitamin D3) 25 Mcg Tablet) 50 mcg PO DAILY [facility] Ziprasidone (Ziprasidone 40 Mg Capsule) 40 mg PO DAILY [facility] Last Admin: 12/21/23 16:34 Dose: 40 mg Allergies Allergies Allergy/AdvReac Type Severity Reaction Status Date / Time No Known Allergies Allergy Verified 12/20/23 12:26 Assessment & Plan Assessment & Plan (1) Adult failure to thrive: Status: Acute Code(s): R62.7 - Adult failure to thrive (2) Urinary tract infection: Status: Acute Code(s): N39.0 - Urinary tract infection, site not specified (3) Hypomagnesemia: Status: Acute Code(s): E83.42 - Hypomagnesemia (4) TSH elevation: Status: Acute Code(s): R79.89 - Other specified abnormal findings of blood chemistry (5) Abdominal pain: Qualifiers: Abdominal location: generalized Qualified Code(s): R10.84 - Generalized abdominal pain Status: Acute Code(s): R10.9 - Unspecified abdominal pain (6) Dysthymia: Status: Acute Code(s): F34.1 - Dysthymic disorder Plan Patient with history of psychotic depression probable mild cognitive impairment tardive dyskinesia who has generally been stable for an extended period of time. Appears to be increasing social withdrawal failure to thrive no gross depression and have seen recently with a much sandoval affect. Patient appears with poor self-care significant weight loss metabolic abnormalities tendency to have difficulty accepting outpatient care at present this does not seem to be just related to psychiatric states she has not suicidal or psychotic. Patient tends to be somewhat idiosyncratic often feisty but appears to be having a failure to thrive she would often not be forthcoming regarding physical symptoms. Would strongly recommend inpatient hospitalization get a better understanding about cachexia food refusal nausea vomiting weight loss failure to thrive and gait abnormality weakness this is not the patient's baseline. Might benefit from some added mirtazapine at bedtime if needed can reconsider psychiatric hospitalization patient does seem quite apathetic and debilitated unclear etiology eventually will need case management would benefit from VNA and home PT and OT would try and get to her encourage appropriate care Case reviewed with ER staff head CT chest x-ray reviewed further workup ordered Total time managing care of this patient today _60___ minutes.
[2023-12-21 18:08] VITALS: RESP 16
--- NOTE | 2023-12-21 18:09 | PC.NURSE ---
pt on 1:1 for safety
[2023-12-21] MEDS: iohexoL 350 MG/ML 100 ML INFUS..BTL 85 ML IV (20:12)
[2023-12-21 20:56] VITALS: BP 141/87
[2023-12-21] MEDS: busPIRone HCl 10 MG TABLET PO (20:56)
[2023-12-21] MEDS: cloNIDine HCL 0.2 MG TABLET PO (20:56)
[2023-12-21 21:00] VITALS: BP 141/87; PULSE 78; RESP 16; TEMP 36.9; O2SAT 94
[2023-12-21] MEDS: Docusate Sodium 100 MG CAPSULE PO (21:00)
[2023-12-21] MEDS: LORazepam 0.5 MG TABLET 1 MG PO (21:00)
[2023-12-21 23:06] LABS: Basophils Percent Auto 0.3 % (0-2); Eosinophils Percent Auto 0.2 % (0-4); Hematocrit 39.2 % (37.0-47.0); Hemoglobin 13.9 g/dl (12.0-16.0); Imm Gran Abs Auto 0.06 X10*3/uL (0.00-0.03); Imm Gran Pct Auto 0.4 % (0.0-0.4); Lymphocytes Absolute Auto 2.1 X10*3/uL (1.2-4.9); Lymphocytes Percent Auto 14.5 % (20-40); MANUAL DIFF FLAG NO; Mean Corpuscular HGB Conc 35.5 g/dl (31.0-35.0); Mean Corpuscular Hemoglobin 30.2 pg (27.0-33.0); Monocytes Absolute Auto 0.7 X10*3/uL (0.1-1.2); Monocytes Percent Auto 4.9 % (2-11); Neutrophils Absolute Auto 11.6 x10*3/uL (2.0-8.3); Neutrophils Percent Auto 79.7 % (45-73); Platelet Count 188 X10*3/uL (160-400); Red Blood Count 4.61 X10*6/uL (4.20-5.50); Red Cell Distribution Width 14.4 % (11.0-16.0); White Blood Count 14.6 X10*3/uL (4.8-10.8)
[2023-12-21 23:14] LABS: Lactic Acid 0.9 mmol/L (0.5-2.0)
[2023-12-21 23:28] LABS: Alanine Aminotransferase 16 U/L (0-31); Albumin Level 2.9 g/dL (3.5-5.0); Alkaline Phosphatase 75 U/L (39-117); Anion Gap 15 (12-20); Aspartate Amino Transferase 28 U/L (5-31); Blood Urea Nitrogen 8 mg/dL (9-16); Calcium 8.1 mg/dL (8.4-10.2); Carbon Dioxide 24 mmol/L (22-29); Chloride 92 mmol/L (96-108); Creatinine Clr Calc Pharmacy 59.4; Estimated Glomerular Filt Rate > 60; Glucose Random 88 mg/dL (60-115); Magnesium 1.8 mg/dL (1.6-2.6); Potassium 3.6 mmol/L (3.3-5.1); Sodium 127 mmol/L (135-145); Total Protein 4.8 g/dL (6.5-8.0)
[2023-12-21 23:29] LABS: Bilirubin Total 0.4 mg/dL (0.0-1.0)
--- NOTE | 2023-12-22 01:16 | P.EN_ITS ---
Event Note Date of Service: 12/22/23 Event Note: I was asked to evaluate the patient for possible admission in the setting of intractable nausea/vomiting, abdominal pain and diarrhea as requested by psych provider. Upon examination, patient's abdomen is soft and without any tenderness in any quadrants. She denies having abdominal pain. Denies having vomiting or diarrhea. Patient's nurse also reported no episodes of vomiting or diarrhea. CT abdomen/pelvis with diffuse colonic mural thickening. General soha diego was consulted by ER provider who deemed that the finding is not surgical specially in the presence of benign abdomen. ER provider agrees that the patient currently has no symptoms and there is no indication for acute admission. She is hemodynamically stable. Upon chart review, patient presented to the ER on 12/19. She was evaluated upon ED presentation by Dr. Lei and deemed that she did not meet criteria for acute hospitalization. Had hypokalemia upon initial presentation which was repleted in the ER and her potassium level is now normal. Sodium level is at baseline. Time Spent With Patient Time: Total time managing care of this patient today ____ minutes.
--- NOTE | 2023-12-22 05:26 | PC.NURSE ---
pt from the POD, report received, and assume care of pt at this time
--- NOTE | 2023-12-22 05:51 | PC.NURSE ---
pt given sergio frederic and crackers. Pt drank all the gingerale and then asked for more, informed pt, she could have water. Pt refused.
[2023-12-22 06:00] VITALS: BP 107/60; PULSE 86; RESP 16; TEMP 36.6; O2SAT 92
--- NOTE | 2023-12-22 06:09 | PC.NURSE ---
pt requested to see nurse, pt requested nicotine gum. Pt refused a nicotine patch. asked dr garcias for an order for the nicotine gum.
[2023-12-22] MEDS: Nicotine Polacrilex 2 MG GUM BUCCAL ×2 (06:22→11:11)
[2023-12-22] MEDS: Omeprazole 40 MG CAPSULE.DR PO (06:22)
--- NOTE | 2023-12-22 07:00 | PC.NURSE ---
report given to Catina EATON
[2023-12-22] MEDS: Cholecalciferol (Vitamin D3) 25 MCG TABLET 50 MCG PO (08:20)
[2023-12-22] MEDS: cefuroxime axetiL 500 MG TABLET PO (08:21)
[2023-12-22] MEDS: LORazepam 0.5 MG TABLET PO (08:21)
[2023-12-22] MEDS: Potassium Chloride ER 10 MEQ TABLET.ER PO (08:21)
[2023-12-22] MEDS: Docusate Sodium 100 MG CAPSULE PO (08:21)
[2023-12-22 08:22] VITALS: BP 105/63; PULSE 89; RESP 14; TEMP 36.6; O2SAT 93
--- NOTE | 2023-12-22 09:36 | PC.NURSE ---
this nurse took over patient care at 9am/obtained report from bunny, pt awake/alert, family at bedside, rr equal/non labored, 1:1 sitter at bedside, our director is currently involved as disposition of patient is unknown. pharmacy has been called for missing meds, will medicate when obtained, call lara within reach, will continue to monitor
--- NOTE | 2023-12-22 10:12 | MHC.CM.ED ---
Received case management consult from Dr Schilling. Patient came to the ER d/t generalized malaise. Work up did not indicate medical admission. Patient seen by outpatient psychiatrist, Dr Xiong, who did not feel inpatient psych admission was warranted. Physicl therapy eval completed. Short term rehab is recommended. Per Dr Schilling, patient is declining STR and wants to go home with VNA at home. Patient has a significant mental health history. [facility] patient for long term and physical therapy. They have also been asked to assess for any other service needs. Patient agreeable. Patient, Catina EATON and Dr Schilling aware. Continue to monitor for d/c needs.
--- NOTE | 2023-12-22 10:39 | PC.NURSE ---
contact Satish- [phone] called and left message on phone that pt was ready for discharge
[2023-12-22] MEDS: Sertraline HCL 100 MG TABLET PO (10:45)
[2023-12-22] MEDS: Ziprasidone 40 MG CAPSULE PO (10:45)
[2023-12-22] MEDS: busPIRone HCl 10 MG TABLET PO (10:45)
--- NOTE | 2023-12-22 10:46 | PC.NURSE ---
pt medicated per order
--- NOTE | 2023-12-22 10:47 | PC.NURSE ---
pt states her is playing tennis and will be back around 1230.
--- NOTE | 2023-12-22 12:38 | PC.NURSE ---
son is at bedside with patient, this nurse was obtaining pts belongings as well as discharge paperwork, son stated that he was only here to visit and was not taking the patient home, he states his father was to be returning around 1230 to see patient and could take patient home. son stated hes attempted calling his father multiple times and is not answering the phone- this nurse has also attempted calling the patients without having contact- a message was left.
--- NOTE | 2023-12-22 13:21 | PC.NURSE ---
states patients cell phone is missing, Catalina our director as well as Izzy flannery was notified this. will call the director with the patients cell phone number so we can attempt to find it by calling the phone.
[2023-12-22 13:23] VITALS: BP 118/73; PULSE 83; RESP 18; TEMP 36.7; O2SAT 93
== END 2023-12-22 13:28 | disposition home or self-care (01) ==
PROVIDERS: Nurse Practitioner Family; Physician Assistant Medical; Emergency Provider Emergency Medicine Emergency Medical Services; PCP Internal Medicine
DX: R62.7 Adult failure to thrive (principal); F34.1 Dysthymic disorder; N39.0 Urinary tract infection, site not specified; E83.42 Hypomagnesemia; R79.89 Other specified abnormal findings of blood chemistry; E87.1 Hypo-osmolality and hyponatremia; K58.8 Other irritable bowel syndrome; J44.9 Chronic obstructive pulmonary disease, unspecified; R41.82 Altered mental status, unspecified; E87.6 Hypokalemia; M17.0 Bilateral primary osteoarthritis of knee; R19.7 Diarrhea, unspecified; R94.31 Abnormal electrocardiogram [ECG] [EKG]; M54.50 Low back pain, unspecified; F31.9 Bipolar disorder, unspecified; R11.2 Nausea with vomiting, unspecified; R26.81 Unsteadiness on feet; F17.210 Nicotine dependence, cigarettes, uncomplicated; Z03.818 Encounter for observation for suspected exposure to other biological agents ruled out; Z79.899 Other long term (current) drug therapy; Z51.81 Encounter for therapeutic drug level monitoring
CPT/HCPCS: 0241U; 36415; 70450; 71045; 74177; 80053; 80307; 81001; 82140; 83605; 83690; 83735; 84443; 84484; 85025; 87040; 87086; 92950; 93005; 97162; 99285; 99291; J0613; J2060; J2405; J3475; J3480; P9047; Q9967

== ENCOUNTER → 2023-12-20 12:56 | Outpatient (BNV) | payer MEDICARE, MEDICAID, SELFPAY | PROVIDERS: Emergency Provider Emergency Medicine Emergency Medical Services; PCP Internal Medicine; Visit Provider Psychiatry & Neurology Psychiatry | DX: F34.1 Dysthymic disorder (principal); R62.7 Adult failure to thrive; N39.0 Urinary tract infection, site not specified; E83.42 Hypomagnesemia; R79.89 Other specified abnormal findings of blood chemistry; R10.84 Generalized abdominal pain | CPT/HCPCS: 99284 ==

== ENCOUNTER 2023-12-28 09:57 | Inpatient (IN) | payer MEDICARE, MEDICAID, SELFPAY ==
[2023-12-28] VITALS (10 sets, daily range): BP systolic 80–126; BP diastolic 43–74; PULSE 65–102; RESP 16–18; TEMP 36.3–36.7; O2SAT 95–100; BMI 17.0
--- NOTE | ~2023-12-28 | CT_ITS ---
EXAMINATION: CT HEAD WITHOUT CONTRAST CT CERVICAL SPINE WITHOUT CONTRAST CLINICAL INFORMATION: Head and neck trauma. COMPARISON: CT head dated 12/20/2023. TECHNIQUE: Contiguous axial imaging was performed from the skull base to vertex without intravenous administration of contrast. Contiguous axial CT images of the cervical spine were obtained without contrast. Sagittal and coronal reformats were provided and reviewed. This CT examination was performed using dose optimization techniques as appropriate, variously including the following: *Automated exposure control *Adjustment of mA and/or kV according to patient size (this includes techniques or standardized protocols for targeted exams where dose is matched to indication/reason for exam; i.e. extremities or head) *Use of iterative reconstruction technique DLP: 879 mGy-cm FINDINGS: HEAD: There is no evidence of acute intracranial hemorrhage or territorial infarction. No abnormal mass effect or midline shift is seen. Portillo to white matter differentiation is well preserved. No extra-axial fluid collections are identified. The ventricles are normal in size. There is no abnormal attenuation within the brain parenchyma. The osseous structures and soft tissues are normal. The mastoid air cells and visualized portions of the paranasal sinuses are well aerated. CERVICAL SPINE: The cervical lordosis is maintained. No acute fracture. Grade 1 anterolisthesis of C4 on C5, likely chronic. No loss of vertebral body height. Loss of intervertebral disc height with degenerative endplate changes at C5-C6 and C6-C7. Mild multilevel bilateral facet arthropathy. No concerning lytic or blastic osseous lesion. Unremarkable prevertebral soft tissues. No abnormal soft tissue mass or fluid collection. Thyroid within normal limits. Emphysematous changes within the lung apices. Mild multilevel bilateral neural foraminal stenosis. CT/CT cervical spine wo IV con IMPRESSION: HEAD: No acute intracranial hemorrhage or mass effect. CERVICAL SPINE: No acute fracture. Grade 1 anterolisthesis of C4 on C5, likely chronic. Degenerative disc disease at C5-C6 and C6-C7 with mild multilevel bilateral facet arthropathy and neural foraminal stenosis. Electronically signed by: Prem Mcnamara MD 12/28/2023 01:35 PM EDT
--- NOTE | ~2023-12-28 | MR_ITS ---
EXAMINATION: MRI PELVIS WITH AND WITHOUT CONTRAST CLINICAL INFORMATION: SBO, left pelvic mass, MR recommended by Radiologi COMPARISON: CT abdomen/pelvis 12/28/2023 TECHNIQUE: Multiple routine MRI sequences through the pelvis were obtained on a high-field 1.5 Cami MRI before and after the uneventful administration of 4.5 mL of Gadavist gadolinium-based IV contrast. FINDINGS: UTERUS: Possibly atrophic. RIGHT OVARY: Not visualized. LEFT OVARY: Heterogeneously T2 hyperintense T1 isointense cystic and solid mass in the left hemipelvis/left adnexa measures 5.1 x 2.4 x 3.2 cm. There is postcontrast enhancement. There is retractile appearance of the surrounding tissues. KIDNEYS: Two normally positioned kidneys are seen. No hydronephrosis. BLADDER: Trabeculated appearance. PELVIC FREE FLUID: Small free fluid in the pelvis. LYMPH NODES: No bulky lymphadenopathy. OSSEOUS STRUCTURES: Marked wall thickening and luminal narrowing of the sigmoid colon in the pelvis with evidence of underlying diverticular disease. There is marked fecal retention proximal to this region of narrowing. This is best demonstrated on image 36 of series 11. MR/MR pelvis wo/w con IMPRESSION: 5.1 x 2.4 x 3.2 cm cystic and solid enhancing mass in the left hemipelvis/left adnexa with surrounding retractile appearance causing wall thickening and luminal narrowing of the rectosigmoid colon with proximal colonic obstruction. 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 Correlation with direct visualization is advised. Electronically signed by: Edison Easley MD 01/01/2024 09:37 AM EDT
--- NOTE | ~2023-12-28 | CT_ITS ---
EXAMINATION: CT CHEST, ABDOMEN AND PELVIS WITHOUT CONTRAST. CLINICAL INFORMATION: Recurrent falls, abdominal pain. COMPARISON: CT abdomen/pelvis 12/21/2023. CT chest 09/23/2021. TECHNIQUE: Multidetector volumetric imaging was performed from the thoracic inlet through the pubic symphysis without intravenous contrast. Sagittal and coronal reformatted images were obtained on the technologist's workstation. This CT examination was performed using dose optimization techniques as appropriate, variously including the following: *Automated exposure control *Adjustment of mA and/or kV according to patient size (this includes techniques or standardized protocols for targeted exams where dose is matched to indication/reason for exam; i.e. extremities or head) *Use of iterative reconstruction technique DLP: 679 mGy-cm FINDINGS: CHEST: Limited noncontrast examination. Lung: Unchanged moderate to severe emphysema as well as diffuse pleural based reticulation. No dense consolidation or significant groundglass disease. Central airways are patent. Multiple bilateral pulmonary nodules are not significantly changed compared to 09/23/2021, for example an 8 mm solid nodule in the right lower lobe (7:325) and a 3 mm solid nodule in the right upper lobe (7:187). Mediastinum: Normal heart size. Trace amount of pericardial fluid. No mediastinal lymphadenopathy. Limited evaluation of the hilar structures in the absence of intravenous contrast without discrete bulky mass. Severe multivessel coronary artery calcifications. Severe atherosclerotic disease of the thoracic aorta. Pleura: No pleural effusion or pneumothorax. Chest Wall/Axilla: No lymphadenopathy by size criteria. Osseous structures: Chronic right posterior 11th rib fracture. ABDOMEN/PELVIS: Evaluation is very limited due to motion as well as lack of intravenous contrast. Peritoneal Space: No free air or free fluid. Liver, Gallbladder, Biliary Tree: The liver is normal in size, shape, and attenuation. No focal hepatic lesion or biliary ductal dilatation is present. Cholecystectomy. Pancreas: Unremarkable. Spleen: Unremarkable. Adrenal Glands: Unremarkable. Kidneys and Ureters: The kidneys are normal in size, shape, and attenuation. No hydronephrosis, hydroureter, or calculi seen. No perinephric stranding. Bladder: Unchanged diffuse wall thickening. Gastrointestinal Tract: Very large amount of stool content throughout the colon with diffuse colonic wall thickening. Focal area of luminal narrowing with wall thickening in the sigmoid colon (11:50) upstream from which there is colonic distention and downstream from which there is sigmoid and rectal underdistention. Appearance is overall similar compared to 12/21/2023. The stomach and small bowel are nondilated. Abdominal Wall: Increased size of a posterior pelvic floor hernia containing nonobstructive loops of the small bowel (11:58). Lymphovascular Structures: No lymphadenopathy by size criteria. Severe atherosclerotic disease. Normal caliber of the abdominal aorta. Pelvic Viscera: The endometrium is not well delineated in this examination. Redemonstration of complex mixed density septated abnormality in the left adnexa abutting the uterus (11:57) measuring approximately 4 cm. New trace amount of free fluid in the cul-de-sac (15:48). Osseous Structures: Unchanged compression deformity of L1 and L5. Unchanged grade 2 anterolisthesis at L5-S1. Severe degenerative changes of the spine. CT/CT abdomen pelvis wo IV con IMPRESSION: Evaluation is very limited due to motion and lack of intravenous contrast. 1. Redemonstration of large amount of stool throughout the colon with severe diffuse colonic wall thickening. There is a focal transition point at the level of the sigmoid colon. Findings are not significantly changed compared to 12/21/2023 and could represent distal colonic obstruction in the context of an underlying sigmoid mass; diffuse pancolitis not excluded, and bowel vascular compromise in the context of severe constipation not excluded. Recommend clinical correlation and consider evaluation with colonoscopy when clinically appropriate. 2. Redemonstration of complex heterogeneous septated masslike abnormality in the region of the left adnexa adjacent to the uterus, recommend further evaluation with pelvic MRI with and without intravenous contrast. 3. Increased size of a right posterior pelvic floor hernia containing nonobstructive loops of the small bowel. 4. New trace amount of fluid in the pelvis. 5. Unchanged diffuse urinary bladder wall thickening. 6. Chronic right posterior 11th rib fracture. Chronic compression deformities of L1 and L5. Chronic anterolisthesis at L5-S1. Severe multifocal degenerative changes. 7. Moderate to severe emphysema with pleural-based reticulation worrisome for fibrotic-type interstitial lung disease. Consider short-term follow-up with high resolution CT chest. 8. Pulmonary nodules are not significantly changed compared to 2021 which is reassuring. Following Fleischner criteria, no additional follow-up of these nodules is recommended. 9. Severe coronary calcifications and atherosclerotic disease. Recommend youth associate specialist evaluation. Electronically signed by: Betty Hare MD 12/28/2023 01:03 PM EDT RP
--- NOTE | 2023-12-28 10:31 | ECG_ITS ---
Test Reason : WEAKNESS Blood Pressure : / mmHG Vent. Rate : 077 BPM Atrial Rate : 077 BPM P-R Int : 134 ms QRS Dur : 086 ms QT Int : 410 ms P-R-T Axes : 084 -71 064 degrees QTc Int : 463 ms Normal sinus rhythm with sinus arrhythmia Left axis deviation Septal infarct (cited on or before 20-DEC-2023) Abnormal ECG When compared with ECG of 20-DEC-2023 12:59, Questionable change in initial forces of Septal leads Referred By: Fariha Watkins Electronically Signed By:EDMUNDO IYER
--- NOTE | 2023-12-28 10:38 | ED.AMS ---
HPI - Altered Mental Status General Chief Complaint: Failure to Thrive Stated Complaint: BACK PAIN,CRAWLING ON FLOOR PER EMS Time Seen by Provider: 12/28/23 10:10 Source: patient, EMS and old records reviewed Mode of arrival: EMS Limitations: altered mental status History of Present Illness ED Provider: DANIEL HPI narrative: 68 yo female with PMH of GERD, bipolar d/o, COPD, DM, PAD, hypomagnesemia, hypokalemia, depresison, anxiety, back pain who reportedly was at home with her and EMS states the house is in [facility] and the patient was given a bucket to use as a toilet. She was crawling around on the floor as she cannot walk. She is covered in bruises on both wrists, knees. She does tell me she has fallen. She thinks it is 1994. She is perseverating on getting her [employer] shirt back. She states she doesn't know why he called she was fine at home. She is unwell and frail appearing. MD complaint: altered mental status and weakness Onset (ago): unknown Severity: severe Consistency of symptoms: unknown Context: other (seen here 12/14 after staff for hypokalemia, leg pain - ultimately after admission attempts the patient was discharged home) Associated symptoms: denies other symptoms Related Data Home Medications ?Medication ?Instructions ?Recorded ?Confirmed docusate sodium 100 mg tablet 100 mg PO BID 12/21/23 12/21/23 omeprazole 40 mg capsule,delayed 40 mg PO DAILY@0630 12/21/23 12/21/23 release Previous Rx's ?Medication ?Instructions ?Recorded diabetic shoes and inserts #1 ea 06/07/23 clonidine HCl 0.1 mg tablet 0.2 mg (2 x 0.1 mg) PO BEDTIME 3 06/12/23 months #180 tabs ergocalciferol (vitamin D2) 1,250 1,250 mcg PO QWEEK 90 days #13 caps 09/24/23 mcg (50,000 unit) capsule acetaminophen 650 mg 1,300 mg (2 x 650 mg) PO Q8H PRN 09/28/23 tablet,extended release pain 30 days #180 tabs cholecalciferol (vitamin D3) 50 50 mcg PO DAILY 90 days #90 caps 10/07/23 mcg (2,000 unit) capsule buspirone 5 mg tablet 10 mg (2 x 5 mg) PO BID 3 months 10/19/23 #360 tabs sertraline 100 mg tablet 100 mg PO DAILY #30 tabs 10/30/23 ziprasidone HCl 40 mg capsule 40 mg PO DIRECTED #60 caps 11/08/23 lorazepam 0.5 mg tablet 0.5 mg PO .COMPLEX anxiety #150 11/10/23 tabs ondansetron 8 mg disintegrating 8 mg PO Q12H PRN nausea and 11/12/23 tablet vomiting 30 days #60 tabs celecoxib 200 mg capsule (Celebrex) 200 mg PO DAILY PRN pain 10 days 12/03/23 #10 caps potassium chloride 10 mEq 10 meq PO DAILY 7 days #7 caps 12/07/23 capsule,extended release prochlorperazine maleate 5 mg 5 mg PO BID PRN nausea and 12/11/23 tablet (Compazine) vomiting 5 days #10 tabs commode (bedside commode) #1 ea 12/17/23 Allergies Allergy/AdvReac Type Severity Reaction Status Date / Time No Known Allergies Allergy Verified 12/28/23 10:38 Review of Systems Review of Systems: ROS unable to be obtained due to altered mental status [facility] Past Medical History Source: old records reviewed Medical History Abdominal pain Colon stricture Subcutaneous mass of abdominal wall Neuroleptic-induced tardive dyskinesia Chronic constipation Foot pain Adnexal mass Arterial calcification Superior mesenteric artery thrombosis Adnexal mass Smoker Diverticular stricture Paronychia of great toe, right Right knee pain Depression with anxiety Chronic idiopathic constipation Rib injury Surgical History Incisional hernia Hx of section History of cholecystectomy Family History Family History Father Oral cancer Mother No problems noted. Other Mental health disorder Social History Social History Household Members: Spouse Housing: House Do you presently have visiting nurse or other home services: No Unable to assess alcohol history related to: Unable to respond Alcohol intake: former Comment: refuse alarm, but is using call bel approp Patient Tobacco Use Status: Current everyday Tobacco user Tobacco use type: Cigarette Cigarette Packs Per Day: 1 Cigarettes Per Day: 20 Smoked in Last 30 Days: No e-Cigarette/Vaping Use: Never Used Second Hand Smoke Exposure: No Use of substances other than those prescribed or required for medical reasons: Unable to respond Advance Directives: No Advance Directives Information Provided: Yes service: No Current occupational status: unemployed and disabled Cognitive needs: No Hearing needs: No Vision needs: Yes Physical Exam ED Vital Signs: Vital Signs - 24 hr 12/28/23 10:27 12/28/23 12:46 12/28/23 13:56 Temperature 98.1 F 97.6 F Pulse Rate 90 70 73 Respiratory Rate 16 16 16 Blood Pressure 118/74 93/49 L 80/43 L Pulse Oximetry 99 95 100 Oxygen Delivery Method Room Air Room Air Room Air 12/28/23 13:56 12/28/23 14:17 12/28/23 14:20 Temperature Pulse Rate 71 Respiratory Rate 16 Blood Pressure 89/47 L 114/64 Pulse Oximetry 100 99 Oxygen Delivery Method Room Air Room Air BMI result Body Mass Index 17.0 Appearance: Alert. Oriented to self Mild acute distress. Older than stated age Eyes: Pupils equal, round and reactive to light. ENT: Pharynx dry MM, atraumatic Neck: Normal inspection. Neck supple. CVS: Normal heart rate and rhythm. Pulses normal. Respiratory: No respiratory distress. Breath sounds normal. Abdomen: Soft and nontender. Back: old contusion noted on sacral area vs superficial pressure no skin breakdown Skin: Skin warm and dry. Normal skin color. poor skin turgor. Extremities: No lower extremity edema. old bruising and new bruising on both lower ext and both wrists Neuro: Oriented X 1. No motor deficit. No sensory deficit. can wiggle and move her legs. she keeps asking for a [employer] shirt thinks it is 1994 doesn't know where she is Course Course Course Narrative: urine contaminated unlikely to be UTI Reevaluation(s) Reevaluation #1: hypoglycemia IV dextrose ordered Na at her baseline Reevaluation #2: given encephalopathy, low blood sugar possible infection suspected will start on IV ceftriaxone 1204pm Reevaluation #3: Na 127 BP slightly soft will give NA 500 then LR 500 total volume BS has remained stable she is still altered patients BP checked I do believe it is innacurate she is thrashing around asked RN to recheck it and systolic is [address] Kim has seen patient will follow patient has refused hysterectomy in the past Medications Administered Generic Name Dose Route Start Last Admin Trade Name Freq PRN Reason Stop Dose Admin Dextrose 250 mls @ 750 mls/hr 12/28/23 11:59 12/28/23 12:45 D10 IV Infused Q15M PRN Infusion per Hypoglycemia Standing Ord. Albumin Human 100 mls @ 100 mls/hr 12/28/23 13:00 12/28/23 14:17 Kedbumin 25 % IV 12/28/23 14:59 100 mls/hr Q1H MARCI Administration Lactated Ringer's 500 mls @ 999 mls/hr 12/28/23 14:01 12/28/23 14:13 Lr IV 12/28/23 14:31 999 mls/hr .Q31M ONE Administration Discontinued Medications Generic Name Dose Route Start Last Admin Trade Name Freq PRN Reason Stop Dose Admin Sodium Chloride 500 mls @ 500 mls/hr 12/28/23 10:45 12/28/23 12:46 Ns IV 12/28/23 11:44 Infused .Q1H ONE Infusion Ceftriaxone Sodium 1 gm/ 50 mls @ 100 mls/hr 12/28/23 12:04 12/28/23 13:34 Sodium Chloride IV 12/28/23 12:33 Infused ONCE ONE Infusion Potassium Chloride 10 meq in 100 mls @ 100 mls/hr 12/28/23 12:15 12/28/23 13:34 Potassium Chloride/H20 IV 12/28/23 14:14 100 mls/hr Q1H MARCI Administration Medical Decision Making Medical Decision Making MDM Narrative: 68 yo female with PMH of GERD, bipolar d/o, COPD, DM, PAD, hypomagnesemia, hypokalemia, depresison, anxiety, back pain found in filth per EMS crawling around using a bucket to void. She is unkempt disheveled confused and much older than stated age. At this time will need labs, gentle fluids given low Na hx, EKG, Serrano CT scan for trauma and bruising on extremities with AMS given reported falls. She will need medical clearance / psych clearance. She is not safe at home. Possible metabolic/toxic encephalopathy with trauma. Differential Diagnosis Differential Diagnoses: The differential diagnosis associated with the presentation includes Possible metabolic/toxic encephalopathy with trauma. Admission/Observation Consideration of admission/observation: Escalation of care including admission/observation considered needs admissionf or encephalopathy Consult Healthcare Provider Management of the patient was discussed with: Hospitalist (will admit) and Senior Java Engineer (Julio aware and has seen patient) Lab Data MDM Lab Attestation statement: I reviewed the patient's lab results. 12/28/23 11:21 12/28/23 11:21 Labs: Lab Results 12/28/23 12/28/23 12/28/23 Range/Units 10:50 11:21 11:33 WBC 13.8 H (4.8-10.8) X10*3/uL RBC 4.18 L (4.20-5.50) X10*6/uL Hgb 12.6 (12.0-16.0) g/dl Hct 35.7 L (37.0-47.0) % MCV 85.4 (80.0-98.0) fL MCH 30.1 (27.0-33.0) pg MCHC 35.3 H (31.0-35.0) g/dl RDW 14.6 (11.0-16.0) % Plt Count 219 (160-400) X10*3/uL MPV 8.0 L (9.4-12.3) fL Immature Gran % (Auto) 0.7 H (0.0-0.4) % Neut % (Auto) 91.0 H (45-73) % Lymph % (Auto) 4.3 L (20-40) % Kerr % (Auto) 3.8 (2-11) % Eos % (Auto) 0.0 (0-4) % Baso % (Auto) 0.2 (0-2) % Lymph # (Auto) 0.6 L (1.2-4.9) X10*3/uL Kerr # (Auto) 0.5 (0.1-1.2) X10*3/uL Eos # (Auto) 0.0 (0.0-0.4) X10*3/uL Baso # (Auto) 0.0 (0.0-0.2) X10*3/uL Abs Immat Gran (auto) 0.09 H (0.00-0.03) X10*3/uL Absolute Neuts (auto) 12.6 H (2.0-8.3) x10*3/uL Absolute Nucleated RBC 0.000 (0.0-0.012) X10*3/uL Nucleated RBC % (auto) 0.0 (0.0-0.2) /100WBC Smear Tech's Comments VERIFIED ESR 3 (0-20) MM/HR VBG pH 7.44 H (7.32-7.43) VBG pCO2 26 mmHg VBG pO2 81 mmHg VBG HCO3 18 L (22-26) mmol/L VBG O2 Saturation 96.0 % VBG Base Excess -4.4 mmol/L Sodium 127 L (135-145) mmol/L Potassium 3.0 L (3.3-5.1) mmol/L Chloride 88 L (96-108) mmol/L Carbon Dioxide 19 L (22-29) mmol/L Anion Gap 23 H (12-20) BUN 11 (9-16) mg/dL Creatinine 0.85 (0.5-1.4) mg/dL Estim Creat Clear Calc 45.1 Estimated GFR > 60 POC Glucose (60-115) mg/dL Random Glucose 37 L* (60-115) mg/dL Osmolality 265 L (281-305) mosm/kg Lactic Acid 0.9 (0.5-2.0) mmol/L Calcium 7.7 L (8.4-10.2) mg/dL Magnesium 1.7 (1.6-2.6) mg/dL Total Bilirubin 0.4 (0.0-1.0) mg/dL Direct Bilirubin 0.2 (0.0-0.5) mg/dL AST 39 H (5-31) U/L ALT 21 (0-31) U/L Alkaline Phosphatase 73 (39-117) U/L Ammonia 25 (13-55) umol/L Total Creatine Kinase 268 H (26-140) U/L Troponin I High Sens 28.7 H (<3.5-17.0) ng/L C-Reactive Protein 0.82 H (< or = 0.50) mg/dL Total Protein 4.4 L (6.5-8.0) g/dL Albumin 2.5 L (3.5-5.0) g/dL Lipase 10 (8-78) U/L Procalcitonin 0.06 ng/mL TSH 10.01 H (0.32-4.0) uIU/mL Free T4 0.53 L (0.71-1.85) ng/dL Urine Color Dark Yellow Urine Appearance Clear Urine pH 6.0 (5.0-9.0) Ur Specific [place] 1.020 (1.005-1.025) Urine Protein 30 (1+) H (Neg-Trace) mg/dL Urine Glucose (UA) Negative (Negative) mg/dL Urine Ketones 80 (Negative) mg/dL Urine Blood Negative (Negative) Urine Nitrite Negative (Negative) Ur Leukocyte Esterase Large (3+) H (Negative) Urine RBC 0-2 (0-2) /HPF Urine WBC 6-10 H (0-5) /HPF Ur Squamous Epith Cells 11-20 (0-2) /HPF Urine Bacteria 2+ (None Seen) Hyaline Casts 3-5 (0-2) /LPF Salicylates < 5.0 L (15-30) mg/dL Urine Opiates Screen Not Detected (Not Detect) Ur Buprenorphine Scrn Not Detected (Not Detect) ng/mL Ur Oxycodone Screen Not Detected (Not Detect) ng/mL Urine Methadone Screen Not Detected (Not Detect) ng/mL Urine Fentanyl Screen Not Detected (Not Detect) Acetaminophen < 3 (<30) mcg/mL Ur Barbiturates Screen Not Detected (Not Detect) Ur Phencyclidine Scrn Not Detected (Not Detect) Ur Amphetamines Screen Not Detected (Not Detect) U Benzodiazepines Scrn Not Detected (Not Detect) Urine Cocaine Screen Not Detected (Not Detect) U Marijuana (THC) Screen Not Detected (Not Detect) Ethyl Alcohol < 10 mg/dL Influenza Type A (PCR) NEGATIVE (Negative) Influenza Type B (PCR) NEGATIVE (Negative) RSV RNA Qual (PCR) NEGATIVE (Negative) SARS-CoV-2 RNA (RT-PCR) NEGATIVE (Negative) 12/28/23 12/28/23 Range/Units 12:54 13:37 WBC (4.8-10.8) X10*3/uL RBC (4.20-5.50) X10*6/uL Hgb (12.0-16.0) g/dl Hct (37.0-47.0) % MCV (80.0-98.0) fL MCH (27.0-33.0) pg MCHC (31.0-35.0) g/dl RDW (11.0-16.0) % Plt Count (160-400) X10*3/uL MPV (9.4-12.3) fL Immature Gran % (Auto) (0.0-0.4) % Neut % (Auto) (45-73) % Lymph % (Auto) (20-40) % Kerr % (Auto) (2-11) % Eos % (Auto) (0-4) % Baso % (Auto) (0-2) % Lymph # (Auto) (1.2-4.9) X10*3/uL Kerr # (Auto) (0.1-1.2) X10*3/uL Eos # (Auto) (0.0-0.4) X10*3/uL Baso # (Auto) (0.0-0.2) X10*3/uL Abs Immat Gran (auto) (0.00-0.03) X10*3/uL Absolute Neuts (auto) (2.0-8.3) x10*3/uL Absolute Nucleated RBC (0.0-0.012) X10*3/uL Nucleated RBC % (auto) (0.0-0.2) /100WBC Smear Tech's Comments ESR (0-20) MM/HR VBG pH (7.32-7.43) VBG pCO2 mmHg VBG pO2 mmHg VBG HCO3 (22-26) mmol/L VBG O2 Saturation % VBG Base Excess mmol/L Sodium (135-145) mmol/L Potassium (3.3-5.1) mmol/L Chloride (96-108) mmol/L Carbon Dioxide (22-29) mmol/L Anion Gap (12-20) BUN (9-16) mg/dL Creatinine (0.5-1.4) mg/dL Estim Creat Clear Calc Estimated GFR POC Glucose 137 H 129 H (60-115) mg/dL Random Glucose (60-115) mg/dL Osmolality (281-305) mosm/kg Lactic Acid (0.5-2.0) mmol/L Calcium (8.4-10.2) mg/dL Magnesium (1.6-2.6) mg/dL Total Bilirubin (0.0-1.0) mg/dL Direct Bilirubin (0.0-0.5) mg/dL AST (5-31) U/L ALT (0-31) U/L Alkaline Phosphatase (39-117) U/L Ammonia (13-55) umol/L Total Creatine Kinase (26-140) U/L Troponin I High Sens (<3.5-17.0) ng/L C-Reactive Protein (< or = 0.50) mg/dL Total Protein (6.5-8.0) g/dL Albumin (3.5-5.0) g/dL Lipase (8-78) U/L Procalcitonin ng/mL TSH (0.32-4.0) uIU/mL Free T4 (0.71-1.85) ng/dL Urine Color Urine Appearance Urine pH (5.0-9.0) Ur Specific [place] (1.005-1.025) Urine Protein (Neg-Trace) mg/dL Urine Glucose (UA) (Negative) mg/dL Urine Ketones (Negative) mg/dL Urine Blood (Negative) Urine Nitrite (Negative) Ur Leukocyte Esterase (Negative) Urine RBC (0-2) /HPF Urine WBC (0-5) /HPF Ur Squamous Epith Cells (0-2) /HPF Urine Bacteria (None Seen) Hyaline Casts (0-2) /LPF Salicylates (15-30) mg/dL Urine Opiates Screen (Not Detect) Ur Buprenorphine Scrn (Not Detect) ng/mL Ur Oxycodone Screen (Not Detect) ng/mL Urine Methadone Screen (Not Detect) ng/mL Urine Fentanyl Screen (Not Detect) Acetaminophen (<30) mcg/mL Ur Barbiturates Screen (Not Detect) Ur Phencyclidine Scrn (Not Detect) Ur Amphetamines Screen (Not Detect) U Benzodiazepines Scrn (Not Detect) Urine Cocaine Screen (Not Detect) U Marijuana (THC) Screen (Not Detect) Ethyl Alcohol mg/dL Influenza Type A (PCR) (Negative) Influenza Type B (PCR) (Negative) RSV RNA Qual (PCR) (Negative) SARS-CoV-2 RNA (RT-PCR) (Negative) Independent Interpretation I performed an independent interpretation of an: EKG and CT Scan (no trauma, abnormal CT scan of abdomen) Interpretation: Rate: 77 Rhythm: NSR [place]: left Normal P waves. Normal SUE. Normal QRS complex. ST T wave : flat t waves V1-V2, no MALOU [id number] prior studies: no acute ischemia The study has been interpreted contemporaneously by me. . Radiology Impression Discussion of test interpretation with radiology: I have reviewed the radiologist's reading. Independent Historian Clinical information obtained from an independent historian. History obtained from or confirmed by: EMS External Record Review External record reviewed: Inpatient record Discharge Plan Discharge Clinical Impression: Acute hyponatremia, Hypoglycemia, Adult failure to thrive, Abnormal CT scan Patient Disposition: Admitted As Inpatient Print Language: Bulgarian Sepsis Bolus Exclusion Sepsis Bolus Exclusion CHF/Renal Failure This patient met severe sepsis criteria due to the following condition(s):: Hypotension In my clinical judgement the administration of 30 ml/kg of crystalloid would be detrimental to this patient due to the patient's following conditions:: Other (low Na) Replace the 30 mls/kg with (Zero amount not acceptable and all fluids for severe sepsis must be given at GREATER than 125 mls/hr) Crystalloids amount given in mls: (rate must be at least 150cc/hr): 1,000 Colloids amount given in mls:: 200
[2023-12-28 11:06] LABS: Amphetamine Screen Urine Not Detected (Not Detect); Barbiturates, Urine Not Detected (Not Detect); Benzodiazepines Screen Urine Not Detected (Not Detect); Buprenorphine Scr Not Detected (Not Detect); Cannabinoid Screen Urine Not Detected (Not Detect); Cocaine Screen Urine Not Detected (Not Detect); Fentanyl, urine Not Detected (Not Detect); Methadone Screen, Urine Not Detected (Not Detect); Opiate Screen Urine Not Detected (Not Detect); Oxycodone Screen Urine Not Detected (Not Detect); Phencyclidine Screen Urine Not Detected (Not Detect)
[2023-12-28 11:18] LABS: Appearance Urine Clear; Color Urine Dark Yellow; Glucose Urine UA Negative (Negative); Leukocyte Esterase Urine Large (3+) (Negative); Nitrite Urine Negative (Negative); UMIC TRIGGER UACC YES; Urine Blood Negative (Negative); Urine Ketones 80 mg/dL (Negative); Urine Protein 30 (1+) mg/dL (Neg-Trace)
[2023-12-28 11:23] LABS: Bacteria Urine 2+ (None Seen); RBC Urine 0-2 /HPF (0-2); UACC Culture Trigger YES
[2023-12-28] MEDS: 0.9 % Sodium Chloride 500 ML IV (11:26)
[2023-12-28 11:36] LABS: VBG Base Excess -4.4 mmol/L; VBG HCO3 18 mmol/L (22-26); VBG pCO2 26 mmHg; VBG pH 7.44 (7.32-7.43); VBG pO2 81 mmHg
[2023-12-28 11:36] LABS: Basophils Percent Auto 0.2 % (0-2); Hematocrit 35.7 % (37.0-47.0); Hemoglobin 12.6 g/dl (12.0-16.0); Imm Gran Abs Auto 0.09 X10*3/uL (0.00-0.03); Imm Gran Pct Auto 0.7 % (0.0-0.4); Lymphocytes Absolute Auto 0.6 X10*3/uL (1.2-4.9); Lymphocytes Percent Auto 4.3 % (20-40); MANUAL DIFF FLAG SCAN; Mean Corpuscular HGB Conc 35.3 g/dl (31.0-35.0); Mean Corpuscular Hemoglobin 30.1 pg (27.0-33.0); Mean Corpuscular Volume 85.4 fL (80.0-98.0); Monocytes Absolute Auto 0.5 X10*3/uL (0.1-1.2); Monocytes Percent Auto 3.8 % (2-11); Neutrophils Absolute Auto 12.6 x10*3/uL (2.0-8.3); Platelet Count 219 X10*3/uL (160-400); Red Blood Count 4.18 X10*6/uL (4.20-5.50); Red Cell Distribution Width 14.6 % (11.0-16.0); SCAN SMEAR FLAG 1; White Blood Count 13.8 X10*3/uL (4.8-10.8)
[2023-12-28 11:45] LABS: Venous Blood Gas Refer to POC result
[2023-12-28 11:48] LABS: Ammonia 25 umol/L (13-55)
[2023-12-28 11:52] LABS: Lactic Acid 0.9 mmol/L (0.5-2.0)
[2023-12-28 11:54] LABS: SLIDE REVIEW VERIFIED
[2023-12-28 11:57] LABS: Acetaminophen LAB < 3 mcg/mL (<30); Salicylate < 5.0 mg/dL (15-30)
[2023-12-28 11:59] LABS: Alanine Aminotransferase 21 U/L (0-31); Albumin Level 2.5 g/dL (3.5-5.0); Alkaline Phosphatase 73 U/L (39-117); Anion Gap 23 (12-20); Aspartate Amino Transferase 39 U/L (5-31); Bilirubin Direct 0.2 mg/dL (0.0-0.5); Bilirubin Total 0.4 mg/dL (0.0-1.0); Blood Urea Nitrogen 11 mg/dL (9-16); Calcium 7.7 mg/dL (8.4-10.2); Carbon Dioxide 19 mmol/L (22-29); Chloride 88 mmol/L (96-108); Creatinine Clr Calc Pharmacy 45.1; Estimated Glomerular Filt Rate > 60; Glucose Random 37 mg/dL (60-115); Lipase 10 U/L (8-78); Magnesium 1.7 mg/dL (1.6-2.6); Sodium 127 mmol/L (135-145); Total Protein 4.4 g/dL (6.5-8.0)
[2023-12-28 12:02] LABS: C Reactive Protein 0.82 mg/dL (< or = 0.50); Ethanol < 10 mg/dL
[2023-12-28] MEDS: Dextrose 10 % 250 ML 750 ML IV ×2 (12:03→18:20)
[2023-12-28 12:04] LABS: Troponin-I High Sensitivity 28.7 ng/L (<3.5-17.0)
[2023-12-28 12:14] LABS: Erythrocyte Sedimentation Rate 3 MM/HR (0-20)
[2023-12-28 12:17] LABS: Procalcitonin 0.06 ng/mL; TSH reflex Free T4 10.01 uIU/mL (0.32-4.0)
[2023-12-28 12:19] LABS: Influenza A PCR NEGATIVE (Negative); Influenza B PCR NEGATIVE (Negative); Resp Syncy Virus RNA Qual PCR NEGATIVE (Negative); SARS COV2 PCR INHOUSE NEGATIVE (Negative)
[2023-12-28] MEDS: Potassium Chloride/H20 10 MEQ/100 ML PIGGYBACK 100 MEQ IV ×2 (12:19→13:34)
[2023-12-28 12:28] LABS: Osmolality, Serum 265 mosm/kg (281-305)
[2023-12-28] MEDS: cefTRIAXone sodium 1 GM in 0.9 % Sodium Chloride 50 ML IV (12:45)
[2023-12-28 12:58] LABS: Glucose, Whole Blood 137 mg/dL (60-115)
[2023-12-28 13:00] LABS: Free T4 (Free Thyroxine) 0.53 ng/dL (0.71-1.85)
[2023-12-28] MEDS: Albumin Human 25 % 100 ML IV ×2 (13:34→14:17)
--- NOTE | 2023-12-28 13:41 | PM.CNGS ---
History of Present Illness Consult details Consult date: 12/28/23 Requesting physician: Fariha Watkins Narrative: 68-year-old female patient with multiple medical problems presenting for failure to thrive. Patient reported to be unable to eat due to nausea and vomiting. She reports having abdominal pain but is unclear where this is located. Her past history is significant for bipolar disorder, COPD, diabetes, GERD, hypomagnesemia, hypokalemia, depression and anxiety and was found by EMS surrounded by fills. Patient was noted to have multiple bruises on her extremities of unclear etiology. Patient previously evaluated going back to 2000 for an apparent colonic thickening and left pelvic mass. She was previously evaluated by Dr. Douglas who recommended surgery for resection. Colonoscopy revealed thickening of the colon wall in the sigmoid colon suggestive of possibly diverticular changes although a polyp was also identified which was unable to be removed. Patient was also evaluated by hot kettle tender at [facility] and recommendation made for hysterectomy with oophorectomy. Patient refused but apparently was amenable to oophorectomy. It is unclear whether this was actually performed and no record is available in the chart for this procedure. Current evaluation reveals the patient with severe mental status changes. Laboratories revealed an elevated WBC of 13.8. Initial glucose level was 37. Reveals a large amount of stool throughout the colon with severe diffuse colonic wall thickening at the level of the sigmoid colon. This was felt to be possibly a distal colonic obstruction possibly with an underlying sigmoid mass. A complex heterogeneous septated masslike abnormality in the region of the left adnexa adjacent to the uterus was also again identified. A right posterior pelvic floor hernias identified with nonobstructive loops of small bowel. There is also diffuse urinary bladder wall thickening. Review of Systems Review of Systems: Yes Unobtainable due to mental status Neurologic: Reports confusion Psychiatric: Psychiatric: Reports confusion [facility] Past Medical History Medical History Abdominal pain Colon stricture Subcutaneous mass of abdominal wall Neuroleptic-induced tardive dyskinesia Chronic constipation Foot pain Adnexal mass Arterial calcification Superior mesenteric artery thrombosis Adnexal mass Smoker Diverticular stricture Paronychia of great toe, right Right knee pain Depression with anxiety Chronic idiopathic constipation Rib injury Family History Family History Father Oral cancer Mother No problems noted. Other Mental health disorder Surgical History Surgical History Incisional hernia Hx of section History of cholecystectomy Social History Social History Household Members: Spouse Housing: House Do you presently have visiting nurse or other home services: No Unable to assess alcohol history related to: Unable to respond Alcohol intake: former Comment: refuse alarm, but is using call bel approp Patient Tobacco Use Status: Current everyday Tobacco user Tobacco use type: Cigarette Cigarette Packs Per Day: 1 Cigarettes Per Day: 20 Smoked in Last 30 Days: No e-Cigarette/Vaping Use: Never Used Second Hand Smoke Exposure: No Use of substances other than those prescribed or required for medical reasons: Unable to respond Advance Directives: No Advance Directives Information Provided: Yes service: No Current occupational status: unemployed and disabled Cognitive needs: No Hearing needs: No Vision needs: Yes Meds Allergies Allergy/AdvReac Type Severity Reaction Status Date / Time No Known Allergies Allergy Verified 12/28/23 10:38 Active Medications: Current Medications Dextrose (D10) 250 mls @ 750 mls/hr IV Q15M PRN PRN Reason: per Hypoglycemia Standing Ord. Last Infusion: 12/28/23 12:45 Dose: Infused Potassium Chloride (Potassium Chloride/H20) 10 meq in 100 mls @ 100 mls/hr IV Q1H [facility] Stop: 12/28/23 14:14 Last Admin: 12/28/23 13:34 Dose: 100 mls/hr Albumin Human (Kedbumin 25 %) 100 mls @ 100 mls/hr IV Q1H [facility] Stop: 12/28/23 14:59 Last Admin: 12/28/23 13:34 Dose: 100 mls/hr Home Medications ?Medication ?Instructions ?Recorded ?Confirmed ?Last Taken ?Type docusate sodium 100 mg tablet 100 mg PO BID 12/21/23 12/21/23 Unknown History omeprazole 40 mg capsule,delayed 40 mg PO DAILY@0630 12/21/23 12/21/23 Unknown History release Physical Exam Vital Signs: Vital Signs: Last Vital Signs Temp 98.1 F 12/28/23 10:27 Pulse 70 12/28/23 12:46 Resp 16 12/28/23 12:46 BP 93/49 L 12/28/23 12:46 Pulse Ox 95 12/28/23 12:46 O2 Del Method Room Air 12/28/23 12:46 BMI result Body Mass Index 17.0 Const: General: confusion and ill appearing Nutritional Appearance: thin Orientation/consciousness: confusion Limitations: altered mental status Resp: Effort & Inspection: normal respiratory effort, no audible wheezes and no cough GI: Inspection: Yes distended and Yes incision (Lower midline) Palpation (GI): Soft to palpation, Tenderness to palpation present (GI) in the LLQ, no guarding, not rigid and no masses Percussion: Yes tympanic to percussion Auscultation: abnormal bowel sounds Rectal Exam - Female: deferred Skin: Other: Warm, dry Neuro: General: confusion Results Labs 12/28/23 11:21 12/28/23 11:21 Labs: Abnormal lab results 12/28/23 12/28/23 12/28/23 Range/Units 10:50 11:21 11:33 WBC 13.8 H (4.8-10.8) X10*3/uL RBC 4.18 L (4.20-5.50) X10*6/uL Hct 35.7 L (37.0-47.0) % MCHC 35.3 H (31.0-35.0) g/dl MPV 8.0 L (9.4-12.3) fL Immature Gran % (Auto) 0.7 H (0.0-0.4) % Neut % (Auto) 91.0 H (45-73) % Lymph % (Auto) 4.3 L (20-40) % Lymph # (Auto) 0.6 L (1.2-4.9) X10*3/uL Abs Immat Gran (auto) 0.09 H (0.00-0.03) X10*3/uL Absolute Neuts (auto) 12.6 H (2.0-8.3) x10*3/uL VBG pH 7.44 H (7.32-7.43) VBG HCO3 18 L (22-26) mmol/L Sodium 127 L (135-145) mmol/L Potassium 3.0 L (3.3-5.1) mmol/L Chloride 88 L (96-108) mmol/L Carbon Dioxide 19 L (22-29) mmol/L Anion Gap 23 H (12-20) POC Glucose (60-115) mg/dL Random Glucose 37 L* (60-115) mg/dL Osmolality 265 L (281-305) mosm/kg Calcium 7.7 L (8.4-10.2) mg/dL AST 39 H (5-31) U/L Total Creatine Kinase 268 H (26-140) U/L Troponin I High Sens 28.7 H (<3.5-17.0) ng/L C-Reactive Protein 0.82 H (< or = 0.50) mg/dL Total Protein 4.4 L (6.5-8.0) g/dL Albumin 2.5 L (3.5-5.0) g/dL TSH 10.01 H (0.32-4.0) uIU/mL Free T4 0.53 L (0.71-1.85) ng/dL Urine Protein 30 (1+) H (Neg-Trace) mg/dL Ur Leukocyte Esterase Large (3+) H (Negative) Urine WBC 6-10 H (0-5) /HPF Salicylates < 5.0 L (15-30) mg/dL 12/28/23 Range/Units 12:54 WBC (4.8-10.8) X10*3/uL RBC (4.20-5.50) X10*6/uL Hct (37.0-47.0) % MCHC (31.0-35.0) g/dl MPV (9.4-12.3) fL Immature Gran % (Auto) (0.0-0.4) % Neut % (Auto) (45-73) % Lymph % (Auto) (20-40) % Lymph # (Auto) (1.2-4.9) X10*3/uL Abs Immat Gran (auto) (0.00-0.03) X10*3/uL Absolute Neuts (auto) (2.0-8.3) x10*3/uL VBG pH (7.32-7.43) VBG HCO3 (22-26) mmol/L Sodium (135-145) mmol/L Potassium (3.3-5.1) mmol/L Chloride (96-108) mmol/L Carbon Dioxide (22-29) mmol/L Anion Gap (12-20) POC Glucose 137 H (60-115) mg/dL Random Glucose (60-115) mg/dL Osmolality (281-305) mosm/kg Calcium (8.4-10.2) mg/dL AST (5-31) U/L Total Creatine Kinase (26-140) U/L Troponin I High Sens (<3.5-17.0) ng/L C-Reactive Protein (< or = 0.50) mg/dL Total Protein (6.5-8.0) g/dL Albumin (3.5-5.0) g/dL TSH (0.32-4.0) uIU/mL Free T4 (0.71-1.85) ng/dL Urine Protein (Neg-Trace) mg/dL Ur Leukocyte Esterase (Negative) Urine WBC (0-5) /HPF Salicylates (15-30) mg/dL Short CBC 12/28/23 Range/Units 11:21 WBC 13.8 H (4.8-10.8) X10*3/uL Hgb 12.6 (12.0-16.0) g/dl Hct 35.7 L (37.0-47.0) % Plt Count 219 (160-400) X10*3/uL BMP 12/28/23 11:21 Sodium 127 L Potassium 3.0 L Chloride 88 L Carbon Dioxide 19 L BUN 11 Creatinine 0.85 Calcium 7.7 L Cardiac Enzymes 12/28/23 Range/Units 11:21 Total Creatine Kinase 268 H (26-140) U/L Liver Function 12/28/23 Range/Units 11:21 Total Bilirubin 0.4 (0.0-1.0) mg/dL Direct Bilirubin 0.2 (0.0-0.5) mg/dL AST 39 H (5-31) U/L ALT 21 (0-31) U/L Alkaline Phosphatase 73 (39-117) U/L Albumin 2.5 L (3.5-5.0) g/dL Urine 12/28/23 Range/Units 10:50 Urine Color Dark Yellow Urine Appearance Clear Urine pH 6.0 (5.0-9.0) Ur Specific [place] 1.020 (1.005-1.025) Urine Protein 30 (1+) H (Neg-Trace) mg/dL Urine Glucose (UA) Negative (Negative) mg/dL All other labs normal. Assessment and Plan (1) Abnormal CT scan, colon: Status: Acute (2) Nausea & vomiting: Qualifiers: Vomiting type: unspecified Qualified Code(s): R11.2 - Nausea with vomiting, unspecified Status: Acute (3) Colonic mass: Status: Acute (4) Adnexal mass: Status: Acute Plan 68-year-old female patient with a least a 3 year history of changes in the sigmoid colon causing at least partial obstruction possibly due to diverticular stricture verses neoplasm. Patient also noted to have a left pelvic mass for which resection was previously recommended by hot kettle tender however it does not appear that this has ever occurred. Patient is now presenting with the inability to eat which appears to be a progression of her disease. She has previously refused surgery for sigmoid colectomy and is currently not competent to consent to surgery. She is being admitted to the hospitalist service. Options include hospice/comfort care, diverting loop colostomy, or resection of sigmoid colon and pelvic mass with end colostomy (Medrano Procedure). Medrano was previously recommended in 2020 and patient refused surgery. I do not think she is stable enough for a resection at this time. I will monitor patient during this hospitalization. Procedures Date of Service Date of Service: 12/28/23
[2023-12-28 13:43] LABS: Glucose, Whole Blood 129 mg/dL (60-115)
[2023-12-28] MEDS: Lactated Ringers 500 ML 999 ML IV (14:13)
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
--- NOTE | 2023-12-28 15:50 | PC.NURSE ---
patient continues to take clothes off, removing pads, trying to get OOB, intermittently yelling out, camera continues at bedside.
[2023-12-28] MEDS: 0.9 % Sodium Chloride Flush 3 ML SYRINGE IVFLUSH (16:02)
--- NOTE | 2023-12-28 16:05 | PC.NURSE ---
Patient w/ multiple bruises on bilat hips, legs, inner thighs all noted. coccyx area reddened but blanachable.
--- NOTE | 2023-12-28 17:26 | MHC.EDTECH ---
Patient has requested several times to be put on bedpan, which I have complied with. Patient has not urinated or urinated minute amounts on most occasions . Afterwards on two separate occasions she insisted the linen was wet even though it was not. To appease the patient, I changed the Linen. A third time patient insisted after using the bedpan her linen was wet and demanded I change it. I explained to the patient her linen was not wet and it would not be changed. I reported the incident to the charge nurse Vamsi who promptly went to the patient and explained to her her bedding would not be changed because it is not wet.
[2023-12-28 18:16] LABS: Glucose, Whole Blood 49 mg/dL (60-115)
--- NOTE | 2023-12-28 18:30 | PHA.MEDREC ---
Addendum entered by Ailin Price RPh 12/28/23 18:35: reviewed by [facility]. Original Note: Pharmacy Consult ? Medication Reconciliation Pharmacy has completed the medication reconciliation. Spoke to patients he said that patient has her medication bottle with her. utilized claims and medication bottles to confirm med list.
--- NOTE | 2023-12-28 18:41 | PC.NURSE ---
Patient's meds inventoried, 1 controlled med (Lorazepam) counted w/ second RN. Patient unable to sign for herself, secondary RN as witness for meds secured. Meds to be brought up to pharmacy, reciept put in patient's chart.
[2023-12-28 18:54] LABS: Glucose, Whole Blood 155 mg/dL (60-115)
--- NOTE | 2023-12-28 18:58 | PC.NURSE ---
Evening POC 49, provider Marta Sainz informed, D10 hung per order, recheck 155, Marta made aware of improvement. Lab called to see if/when patient's labs can be drawn, no answer from labs at this time. Marta to order D5NS maintenance fluids.
[2023-12-28] MEDS: Dextrose 5 % and 0.9 % NaCl 1,000 ML 80 ML IVCONT (19:33)
--- NOTE | 2023-12-28 19:58 | MHC.EDTECH ---
Patient removed bedpan under herself and wet the bed, patient bedding and patient cleaned up. patient back into position of comfort and call lara within reach
[2023-12-28 20:59] LABS: Anion Gap 16 (12-20); Blood Urea Nitrogen 8 mg/dL (9-16); Calcium 7.4 mg/dL (8.4-10.2); Carbon Dioxide 24 mmol/L (22-29); Chloride 90 mmol/L (96-108); Creatinine Clr Calc Pharmacy 49.7; Estimated Glomerular Filt Rate > 60; Glucose Random 132 mg/dL (60-115); Potassium 2.5 mmol/L (3.3-5.1); Sodium 127 mmol/L (135-145)
[2023-12-28 21:58] LABS: Glucose, Whole Blood 112 mg/dL (60-115)
[2023-12-28] MEDS: cloNIDine HCL 0.2 MG TABLET PO (22:11)
[2023-12-28] MEDS: busPIRone HCl 10 MG TABLET PO (22:11)
[2023-12-28] MEDS: LORazepam 1 MG TABLET PO (22:11)
[2023-12-28] MEDS: Potassium Chloride Packet 20 MEQ PACKET 40 MEQ PO (22:11)
[2023-12-28] MEDS: Docusate Sodium 100 MG CAPSULE PO (22:12)
[2023-12-29] VITALS: BP 126/58; PULSE 67; RESP 18; TEMP 36.1; O2SAT 98
[2023-12-29] MEDS: Potassium Chloride/H20 10 MEQ/100 ML PIGGYBACK 100 MEQ IV ×6 (00:30→14:19)
[2023-12-29 03:12] VITALS: BP 108/69; PULSE 71; RESP 18; TEMP 36.2; O2SAT 98
[2023-12-29 06:53] LABS: Glucose, Whole Blood 104 mg/dL (60-115)
[2023-12-29 07:39] LABS: Glucose, Whole Blood 106 mg/dL (60-115)
[2023-12-29 08:00] VITALS: BP 114/69; PULSE 67; RESP 20; TEMP 36.3; O2SAT 97
--- NOTE | 2023-12-29 08:12 | P.PNGS_ITS ---
Subjective Subjective Date of Service: 12/29/23 Interval history: No new complaints, sitting on bed shore. Denies BM. Physical Exam 2 Vital Signs: Vital Signs: Last Vital Signs Temp 97.2 F 12/29/23 03:12 Pulse 71 12/29/23 03:12 Resp 18 12/29/23 03:12 BP 108/69 12/29/23 03:12 Pulse Ox 98 12/29/23 03:12 O2 Del Method Room Air 12/29/23 03:12 BMI result Body Mass Index 17.0 Const: General: confusion Nutritional Appearance: thin O rientation/consciousness: confusion Limitations: altered mental status Resp: Effort & Inspection: normal respiratory effort GI: Palpation (GI): Soft to palpation, nontender, no guarding and not rigid Percussion: Yes dullness to percussion Skin: General skin exam: dry skin Neuro: General: confusion Objective Data Active Medications Acetaminophen (Acetaminophen 325 Mg Tablet) 650 mg PO Q6H PRN PRN Reason: Pain, Mild (Pain Scale 1-3), fever or headache Buspirone HCl (Buspirone Hcl 10 Mg Tablet) 10 mg PO BID [facility] Last Admin: 12/28/23 22:11 Dose: 10 mg Documented By: ARNULFO Calcium Carbonate (Calcium Carbonate 750 Mg Tab.Chew) 750 mg PO Q4H PRN PRN Reason: Heartburn Clonidine HCl (Clonidine Hcl 0.2 Mg Tablet) 0.2 mg PO BEDTIME [facility]; Protocol Last Admin: 12/28/23 22:11 Dose: 0.2 mg Documented By: ARNULFO Docusate Sodium (Docusate Sodium 100 Mg Capsule) 100 mg PO BID [facility] Last Admin: 12/28/23 22:12 Dose: 100 mg Documented By: ARNULFO Dextrose (D10) 250 mls @ 750 mls/hr IV Q15M PRN PRN Reason: per Hypoglycemia Standing Ord. Last Infusion: 12/28/23 18:56 Dose: Infused Documented By: MYKEL Ceftriaxone Sodium 1 gm/ (Sodium Chloride) 50 mls @ 100 mls/hr IV Q24H [facility] Dextrose/Sodium Chloride (D5ns) 1,000 mls @ 80 mls/hr IVCONT .[id number] [facility] Last Admin: 12/28/23 19:33 Dose: 80 mls/hr Documented By: MYKEL Lorazepam (Lorazepam 0.5 Mg Tablet) 0.5 mg PO DAILY PRN PRN Reason: severe anxiety Lorazepam (Lorazepam 1 Mg Tablet) 1 mg PO BEDTIME [facility] Last Admin: 12/28/23 22:11 Dose: 1 mg Documented By: ARNULFO Magnesium Hydroxide (Milk Of Magnesia 30 Ml Oral.Susp) 30 ml PO DAILY PRN PRN Reason: Constipation Melatonin (Melatonin 3 Mg Tablet) 6 mg PO BEDTIME PRN PRN Reason: Insomnia Omeprazole (Omeprazole 40 Mg Capsule.Dr) 40 mg PO DAILY@0630 [facility] Last Admin: 12/29/23 05:16 Dose: Not Given Documented By: ARNULFO Non-Admin Reason: Patient Refused Potassium Chloride (Potassium Chloride Er 10 Meq Tablet.Er) 10 meq PO DAILY [facility] Prochlorperazine Maleate (Prochlorperazine Maleate 5 Mg Tablet) 5 mg PO BID PRN PRN Reason: nausea and vomiting Sertraline HCl (Sertraline Hcl 100 Mg Tablet) 100 mg PO DAILY [facility] Sodium Chloride (0.9 % Sodium Chloride Flush 3 Ml Syringe) 3 ml IVFLUSH QSHIFT [facility] Last Admin: 12/29/23 00:00 Dose: 3 ml Documented By: ARNULFO Tizanidine HCl (Tizanidine Hcl 4 Mg Tablet) 4 mg PO TID [facility] Last Admin: 12/28/23 22:28 Dose: Not Given Documented By: ARNULFO Non-Admin Reason: Patient Refused Vitamin D (Cholecalciferol (Vitamin D3) 25 Mcg Tablet) 50 mcg PO DAILY [facility] Ziprasidone (Ziprasidone 40 Mg Capsule) 40 mg PO DAILY PRN PRN Reason: Agitation Ziprasidone (Ziprasidone 40 Mg Capsule) 40 mg PO DAILY [facility] Labs 12/28/23 11:21 12/28/23 19:33 Labs: Laboratory Results - last 24 hr 12/28/23 12/28/23 12/28/23 10:50 11:21 11:33 MCV 85.4 MCH 30.1 MCHC 35.3 H RDW 14.6 Plt Count 219 MPV 8.0 L Immature Gran % (Auto) 0.7 H Neut % (Auto) 91.0 H Lymph % (Auto) 4.3 L [place] % (Auto) 3.8 Eos % (Auto) 0.0 Baso % (Auto) 0.2 Lymph # (Auto) 0.6 L [place] # (Auto) 0.5 Eos # (Auto) 0.0 Baso # (Auto) 0.0 Abs Immat Gran (auto) 0.09 H Absolute Neuts (auto) 12.6 H Absolute Nucleated RBC 0.000 Nucleated RBC % (auto) 0.0 Smear Tech's Comments VERIFIED ESR 3 VBG pH 7.44 H VBG pCO2 26 VBG pO2 81 VBG HCO3 18 L VBG O2 Saturation 96.0 VBG Base Excess -4.4 Anion Gap 23 H Estim Creat Clear Calc 45.1 Estimated GFR > 60 POC Glucose Random Glucose 37 L* Osmolality 265 L Lactic Acid 0.9 Calcium 7.7 L Magnesium 1.7 Total Bilirubin 0.4 Direct Bilirubin 0.2 AST 39 H ALT 21 Alkaline Phosphatase 73 Ammonia 25 Total Creatine Kinase 268 H Troponin I High Sens 28.7 H C-Reactive Protein 0.82 H Total Protein 4.4 L Albumin 2.5 L Lipase 10 Procalcitonin 0.06 TSH 10.01 H Free T4 0.53 L Urine Color Dark Yellow Urine Appearance Clear Urine pH 6.0 Ur Specific Felch 1.020 Urine Protein 30 (1+) H Urine Glucose (UA) Negative Urine Ketones 80 Urine Blood Negative Urine Nitrite Negative Ur Leukocyte Esterase Large (3+) H Urine RBC 0-2 Urine WBC 6-10 H Ur Squamous Epith Cells 11-20 Urine Bacteria 2+ Hyaline Casts 3-5 Salicylates < 5.0 L Urine Opiates Screen Not Detected Ur Buprenorphine Scrn Not Detected Ur Oxycodone Screen Not Detected Urine Methadone Screen Not Detected Urine Fentanyl Screen Not Detected Acetaminophen < 3 Ur Barbiturates Screen Not Detected Ur Phencyclidine Scrn Not Detected Ur Amphetamines Screen Not Detected U Benzodiazepines Scrn Not Detected Urine Cocaine Screen Not Detected U Marijuana (THC) Screen Not Detected Ethyl Alcohol < 10 Influenza Type A (PCR) NEGATIVE Influenza Type B (PCR) NEGATIVE RSV RNA Qual (PCR) NEGATIVE SARS-CoV-2 RNA (RT-PCR) NEGATIVE 12/28/23 12/28/23 12/28/23 12:54 13:37 18:12 MCV MCH MCHC RDW Plt Count MPV Immature Gran % (Auto) Neut % (Auto) Lymph % (Auto) [place] % (Auto) Eos % (Auto) Baso % (Auto) Lymph # (Auto) [place] # (Auto) Eos # (Auto) Baso # (Auto) Abs Immat Gran (auto) Absolute Neuts (auto) Absolute Nucleated RBC Nucleated RBC % (auto) Smear Tech's Comments ESR VBG pH VBG pCO2 VBG pO2 VBG HCO3 VBG O2 Saturation VBG Base Excess Anion Gap Estim Creat Clear Calc Estimated GFR POC Glucose 137 H 129 H 49 L* Random Glucose Osmolality Lactic Acid Calcium Magnesium Total Bilirubin Direct Bilirubin AST ALT Alkaline Phosphatase Ammonia Total Creatine Kinase Troponin I High Sens C-Reactive Protein Total Protein Albumin Lipase Procalcitonin TSH Free T4 Urine Color Urine Appearance Urine pH Ur Specific [place] Urine Protein Urine Glucose (UA) Urine Ketones Urine Blood Urine Nitrite Ur Leukocyte Esterase Urine RBC Urine WBC Ur Squamous Epith Cells Urine Bacteria Hyaline Casts Salicylates Urine Opiates Screen Ur Buprenorphine Scrn Ur Oxycodone Screen Urine Methadone Screen Urine Fentanyl Screen Acetaminophen Ur Barbiturates Screen Ur Phencyclidine Scrn Ur Amphetamines Screen U Benzodiazepines Scrn Urine Cocaine Screen U Marijuana (THC) Screen Ethyl Alcohol Influenza Type A (PCR) Influenza Type B (PCR) RSV RNA Qual (PCR) SARS-CoV-2 RNA (RT-PCR) 12/28/23 12/28/23 12/28/23 18:50 19:33 21:03 MCV MCH MCHC RDW Plt Count MPV Immature Gran % (Auto) Neut % (Auto) Lymph % (Auto) [place] % (Auto) Eos % (Auto) Baso % (Auto) Lymph # (Auto) [place] # (Auto) Eos # (Auto) Baso # (Auto) Abs Immat Gran (auto) Absolute Neuts (auto) Absolute Nucleated RBC Nucleated RBC % (auto) Smear Tech's Comments ESR VBG pH VBG pCO2 VBG pO2 VBG HCO3 VBG O2 Saturation VBG Base Excess Anion Gap 16 Estim Creat Clear Calc 49.7 Estimated GFR > 60 POC Glucose 155 H 112 Random Glucose 132 H Osmolality Lactic Acid Calcium 7.4 L Magnesium Total Bilirubin Direct Bilirubin AST ALT Alkaline Phosphatase Ammonia Total Creatine Kinase Troponin I High Sens C-Reactive Protein Total Protein Albumin Lipase Procalcitonin TSH Free T4 Urine Color Urine Appearance Urine pH Ur Specific [place] Urine Protein Urine Glucose (UA) Urine Ketones Urine Blood Urine Nitrite Ur Leukocyte Esterase Urine RBC Urine WBC Ur Squamous Epith Cells Urine Bacteria Hyaline Casts Salicylates Urine Opiates Screen Ur Buprenorphine Scrn Ur Oxycodone Screen Urine Methadone Screen Urine Fentanyl Screen Acetaminophen Ur Barbiturates Screen Ur Phencyclidine Scrn Ur Amphetamines Screen U Benzodiazepines Scrn Urine Cocaine Screen U Marijuana (THC) Screen Ethyl Alcohol Influenza Type A (PCR) Influenza Type B (PCR) RSV RNA Qual (PCR) SARS-CoV-2 RNA (RT-PCR) 12/29/23 12/29/23 06:31 07:33 MCV MCH MCHC RDW Plt Count MPV Immature Gran % (Auto) Neut % (Auto) Lymph % (Auto) [place] % (Auto) Eos % (Auto) Baso % (Auto) Lymph # (Auto) [place] # (Auto) Eos # (Auto) Baso # (Auto) Abs Immat Gran (auto) Absolute Neuts (auto) Absolute Nucleated RBC Nucleated RBC % (auto) Smear Tech's Comments ESR VBG pH VBG pCO2 VBG pO2 VBG HCO3 VBG O2 Saturation VBG Base Excess Anion Gap Estim Creat Clear Calc Estimated GFR POC Glucose 104 106 Random Glucose Osmolality Lactic Acid Calcium Magnesium Total Bilirubin Direct Bilirubin AST ALT Alkaline Phosphatase Ammonia Total Creatine Kinase Troponin I High Sens C-Reactive Protein Total Protein Albumin Lipase Procalcitonin TSH Free T4 Urine Color Urine Appearance Urine pH Ur Specific [place] Urine Protein Urine Glucose (UA) Urine Ketones Urine Blood Urine Nitrite Ur Leukocyte Esterase Urine RBC Urine WBC Ur Squamous Epith Cells Urine Bacteria Hyaline Casts Salicylates Urine Opiates Screen Ur Buprenorphine Scrn Ur Oxycodone Screen Urine Methadone Screen Urine Fentanyl Screen Acetaminophen Ur Barbiturates Screen Ur Phencyclidine Scrn Ur Amphetamines Screen U Benzodiazepines Scrn Urine Cocaine Screen U Marijuana (THC) Screen Ethyl Alcohol Influenza Type A (PCR) Influenza Type B (PCR) RSV RNA Qual (PCR) SARS-CoV-2 RNA (RT-PCR) Procedures Date of Service Date of Service: 12/29/23 Progress Note: A&P Assessment and plan (1) Adult failure to thrive: Status: Acute (2) Abdominal pain: Status: Acute (3) Adnexal mass: Status: Acute (4) Colonic mass: Status: Acute Plan 68-year-old female patient with a known history of a left pelvic mass and colonic mass, previously evaluated for sigmoid colectomy, pelvic mass removal now presenting with evidence of a colon obstruction. A.m. labs are pending, electrolyte repletion underway. We will continue to monitor patient's progress. Possible surgical intervention during this hospitalization. Time Spent With Patient Time: Total time managing care of this patient today ____ minutes. Quality Stroke Does the patient have a stroke diagnosis?: No VTE Prior VTE?: No VTE Risk Level:: Medical - moderate - high VTE Device Contraindication: N/A - Device Ordered VTE Drug Contraindication: Treatment Not Indicated
--- NOTE | 2023-12-29 09:15 | MHC.CM.PN ---
IMM 12/29/23, Pt lives with her , she reports to have [facility] 3 times a week. She does not have DME at home. She said that her dtrAlma is her HCP (no form on file). She said that her PCP is Dr. Shabnam Mccarthy. CM will contact [facility] to determine is referral was submitted for protective services, based on reports of home being dirty and pt. crawling on floor to get around. DCP: TBD. CM to follow and assist with DC plan.
--- NOTE | 2023-12-29 09:23 | P.PNIM_ITS ---
Subjective Subjective Date of Service: 12/29/23 Review of Systems Follow up encephalopathy, electrolyte abnormalities Mental status better today but still with some confusion Physical Exam 2 Vital Signs: Vital Signs: Last Vital Signs Temp 97.3 F 12/29/23 08:00 Pulse 67 12/29/23 08:00 Resp 20 12/29/23 08:00 BP 114/69 12/29/23 08:00 Pulse Ox 97 12/29/23 08:00 O2 Del Method Room Air 12/29/23 08:00 BMI result Body Mass Index 17.0 Appearing in no acute distress lung sounds are clear to auscultation heart regular rate rhythm, clear S1, S2 positive bowel sounds, abdomen is soft, nontender neuro patient is alert x3, no focal deficits Objective Data Active Medications Acetaminophen (Acetaminophen 325 Mg Tablet) 650 mg PO Q6H PRN PRN Reason: Pain, Mild (Pain Scale 1-3), fever or headache Buspirone HCl (Buspirone Hcl 10 Mg Tablet) 10 mg PO BID [facility] Last Admin: 12/28/23 22:11 Dose: 10 mg Documented By: ARNULFO Calcium Carbonate (Calcium Carbonate 750 Mg Tab.Chew) 750 mg PO Q4H PRN PRN Reason: Heartburn Clonidine HCl (Clonidine Hcl 0.2 Mg Tablet) 0.2 mg PO BEDTIME [facility]; Protocol Last Admin: 12/28/23 22:11 Dose: 0.2 mg Documented By: ARNULFO Docusate Sodium (Docusate Sodium 100 Mg Capsule) 100 mg PO BID [facility] Last Admin: 12/28/23 22:12 Dose: 100 mg Documented By: ARNULFO Dextrose (D10) 250 mls @ 750 mls/hr IV Q15M PRN PRN Reason: per Hypoglycemia Standing Ord. Last Infusion: 12/28/23 18:56 Dose: Infused Documented By: MYKEL Ceftriaxone Sodium 1 gm/ (Sodium Chloride) 50 mls @ 100 mls/hr IV Q24H [facility] Dextrose/Sodium Chloride (D5ns) 1,000 mls @ 80 mls/hr IVCONT .[id number] [facility] Last Admin: 12/28/23 19:33 Dose: 80 mls/hr Documented By: MYKEL Lorazepam (Lorazepam 0.5 Mg Tablet) 0.5 mg PO DAILY PRN PRN Reason: severe anxiety Lorazepam (Lorazepam 1 Mg Tablet) 1 mg PO BEDTIME [facility] Last Admin: 12/28/23 22:11 Dose: 1 mg Documented By: ARNULFO Magnesium Hydroxide (Milk Of Magnesia 30 Ml Oral.Susp) 30 ml PO DAILY PRN PRN Reason: Constipation Melatonin (Melatonin 3 Mg Tablet) 6 mg PO BEDTIME PRN PRN Reason: Insomnia Omeprazole (Omeprazole 40 Mg Capsule.Dr) 40 mg PO DAILY@0630 [facility] Last Admin: 12/29/23 05:16 Dose: Not Given Documented By: ARNULFO Non-Admin Reason: Patient Refused Potassium Chloride (Potassium Chloride Er 10 Meq Tablet.Er) 10 meq PO DAILY [facility] Prochlorperazine Maleate (Prochlorperazine Maleate 5 Mg Tablet) 5 mg PO BID PRN PRN Reason: nausea and vomiting Sertraline HCl (Sertraline Hcl 100 Mg Tablet) 100 mg PO DAILY [facility] Sodium Chloride (0.9 % Sodium Chloride Flush 3 Ml Syringe) 3 ml IVFLUSH QSHIFT [facility] Last Admin: 12/29/23 00:00 Dose: 3 ml Documented By: ARNULFO Tizanidine HCl (Tizanidine Hcl 4 Mg Tablet) 4 mg PO TID [facility] Last Admin: 12/28/23 22:28 Dose: Not Given Documented By: ARNULFO Non-Admin Reason: Patient Refused Vitamin D (Cholecalciferol (Vitamin D3) 25 Mcg Tablet) 50 mcg PO DAILY [facility] Ziprasidone (Ziprasidone 40 Mg Capsule) 40 mg PO DAILY PRN PRN Reason: Agitation Ziprasidone (Ziprasidone 40 Mg Capsule) 40 mg PO DAILY [facility] Labs 12/28/23 11:21 12/28/23 19:33 Labs: Laboratory Results - last 24 hr 12/28/23 12/28/23 12/28/23 10:50 11:21 11:33 MCV 85.4 MCH 30.1 MCHC 35.3 H RDW 14.6 Plt Count 219 MPV 8.0 L Immature Gran % (Auto) 0.7 H Neut % (Auto) 91.0 H Lymph % (Auto) 4.3 L Moca % (Auto) 3.8 Eos % (Auto) 0.0 Baso % (Auto) 0.2 Lymph # (Auto) 0.6 L Moca # (Auto) 0.5 Eos # (Auto) 0.0 Baso # (Auto) 0.0 Abs Immat Gran (auto) 0.09 H Absolute Neuts (auto) 12.6 H Absolute Nucleated RBC 0.000 Nucleated RBC % (auto) 0.0 Smear Tech's Comments VERIFIED ESR 3 VBG pH 7.44 H VBG pCO2 26 VBG pO2 81 VBG HCO3 18 L VBG O2 Saturation 96.0 VBG Base Excess -4.4 Anion Gap 23 H Estim Creat Clear Calc 45.1 Estimated GFR > 60 POC Glucose Random Glucose 37 L* Osmolality 265 L Lactic Acid 0.9 Calcium 7.7 L Magnesium 1.7 Total Bilirubin 0.4 Direct Bilirubin 0.2 AST 39 H ALT 21 Alkaline Phosphatase 73 Ammonia 25 Total Creatine Kinase 268 H Troponin I High Sens 28.7 H C-Reactive Protein 0.82 H Total Protein 4.4 L Albumin 2.5 L Lipase 10 Procalcitonin 0.06 TSH 10.01 H Free T4 0.53 L Urine Color Dark Yellow Urine Appearance Clear Urine pH 6.0 Ur Specific [place] 1.020 Urine Protein 30 (1+) H Urine Glucose (UA) Negative Urine Ketones 80 Urine Blood Negative Urine Nitrite Negative Ur Leukocyte Esterase Large (3+) H Urine RBC 0-2 Urine WBC 6-10 H Ur Squamous Epith Cells 11-20 Urine Bacteria 2+ Hyaline Casts 3-5 Salicylates < 5.0 L Urine Opiates Screen Not Detected Ur Buprenorphine Scrn Not Detected Ur Oxycodone Screen Not Detected Urine Methadone Screen Not Detected Urine Fentanyl Screen Not Detected Acetaminophen < 3 Ur Barbiturates Screen Not Detected Ur Phencyclidine Scrn Not Detected Ur Amphetamines Screen Not Detected U Benzodiazepines Scrn Not Detected Urine Cocaine Screen Not Detected U Marijuana (THC) Screen Not Detected Ethyl Alcohol < 10 Influenza Type A (PCR) NEGATIVE Influenza Type B (PCR) NEGATIVE RSV RNA Qual (PCR) NEGATIVE SARS-CoV-2 RNA (RT-PCR) NEGATIVE 12/28/23 12/28/23 12/28/23 12:54 13:37 18:12 MCV MCH MCHC RDW Plt Count MPV Immature Gran % (Auto) Neut % (Auto) Lymph % (Auto) Moca % (Auto) Eos % (Auto) Baso % (Auto) Lymph # (Auto) Moca # (Auto) Eos # (Auto) Baso # (Auto) Abs Immat Gran (auto) Absolute Neuts (auto) Absolute Nucleated RBC Nucleated RBC % (auto) Smear Tech's Comments ESR VBG pH VBG pCO2 VBG pO2 VBG HCO3 VBG O2 Saturation VBG Base Excess Anion Gap Estim Creat Clear Calc Estimated GFR POC Glucose 137 H 129 H 49 L* Random Glucose Osmolality Lactic Acid Calcium Magnesium Total Bilirubin Direct Bilirubin AST ALT Alkaline Phosphatase Ammonia Total Creatine Kinase Troponin I High Sens C-Reactive Protein Total Protein Albumin Lipase Procalcitonin TSH Free T4 Urine Color Urine Appearance Urine pH Ur Specific [place] Urine Protein Urine Glucose (UA) Urine Ketones Urine Blood Urine Nitrite Ur Leukocyte Esterase Urine RBC Urine WBC Ur Squamous Epith Cells Urine Bacteria Hyaline Casts Salicylates Urine Opiates Screen Ur Buprenorphine Scrn Ur Oxycodone Screen Urine Methadone Screen Urine Fentanyl Screen Acetaminophen Ur Barbiturates Screen Ur Phencyclidine Scrn Ur Amphetamines Screen U Benzodiazepines Scrn Urine Cocaine Screen U Marijuana (THC) Screen Ethyl Alcohol Influenza Type A (PCR) Influenza Type B (PCR) RSV RNA Qual (PCR) SARS-CoV-2 RNA (RT-PCR) 12/28/23 12/28/23 12/28/23 18:50 19:33 21:03 MCV MCH MCHC RDW Plt Count MPV Immature Gran % (Auto) Neut % (Auto) Lymph % (Auto) Moca % (Auto) Eos % (Auto) Baso % (Auto) Lymph # (Auto) Moca # (Auto) Eos # (Auto) Baso # (Auto) Abs Immat Gran (auto) Absolute Neuts (auto) Absolute Nucleated RBC Nucleated RBC % (auto) Smear Tech's Comments ESR VBG pH VBG pCO2 VBG pO2 VBG HCO3 VBG O2 Saturation VBG Base Excess Anion Gap 16 Estim Creat Clear Calc 49.7 Estimated GFR > 60 POC Glucose 155 H 112 Random Glucose 132 H Osmolality Lactic Acid Calcium 7.4 L Magnesium Total Bilirubin Direct Bilirubin AST ALT Alkaline Phosphatase Ammonia Total Creatine Kinase Troponin I High Sens C-Reactive Protein Total Protein Albumin Lipase Procalcitonin TSH Free T4 Urine Color Urine Appearance Urine pH Ur Specific [place] Urine Protein Urine Glucose (UA) Urine Ketones Urine Blood Urine Nitrite Ur Leukocyte Esterase Urine RBC Urine WBC Ur Squamous Epith Cells Urine Bacteria Hyaline Casts Salicylates Urine Opiates Screen Ur Buprenorphine Scrn Ur Oxycodone Screen Urine Methadone Screen Urine Fentanyl Screen Acetaminophen Ur Barbiturates Screen Ur Phencyclidine Scrn Ur Amphetamines Screen U Benzodiazepines Scrn Urine Cocaine Screen U Marijuana (THC) Screen Ethyl Alcohol Influenza Type A (PCR) Influenza Type B (PCR) RSV RNA Qual (PCR) SARS-CoV-2 RNA (RT-PCR) 12/29/23 12/29/23 06:31 07:33 MCV MCH MCHC RDW Plt Count MPV Immature Gran % (Auto) Neut % (Auto) Lymph % (Auto) Moca % (Auto) Eos % (Auto) Baso % (Auto) Lymph # (Auto) Moca # (Auto) Eos # (Auto) Baso # (Auto) Abs Immat Gran (auto) Absolute Neuts (auto) Absolute Nucleated RBC Nucleated RBC % (auto) Smear Tech's Comments ESR VBG pH VBG pCO2 VBG pO2 VBG HCO3 VBG O2 Saturation VBG Base Excess Anion Gap Estim Creat Clear Calc Estimated GFR POC Glucose 104 106 Random Glucose Osmolality Lactic Acid Calcium Magnesium Total Bilirubin Direct Bilirubin AST ALT Alkaline Phosphatase Ammonia Total Creatine Kinase Troponin I High Sens C-Reactive Protein Total Protein Albumin Lipase Procalcitonin TSH Free T4 Urine Color Urine Appearance Urine pH Ur Specific [place] Urine Protein Urine Glucose (UA) Urine Ketones Urine Blood Urine Nitrite Ur Leukocyte Esterase Urine RBC Urine WBC Ur Squamous Epith Cells Urine Bacteria Hyaline Casts Salicylates Urine Opiates Screen Ur Buprenorphine Scrn Ur Oxycodone Screen Urine Methadone Screen Urine Fentanyl Screen Acetaminophen Ur Barbiturates Screen Ur Phencyclidine Scrn Ur Amphetamines Screen U Benzodiazepines Scrn Urine Cocaine Screen U Marijuana (THC) Screen Ethyl Alcohol Influenza Type A (PCR) Influenza Type B (PCR) RSV RNA Qual (PCR) SARS-CoV-2 RNA (RT-PCR) Assessment and Plan (1) Adult failure to thrive: Status: Acute Plan 68-year-old woman admitted with failure to thrive and multiple lab abnormalities Encephalopathy with failure to thrive multiple bruised areas throughout body, inability to ambulate supportive care PT consult social work consult UTI Positive urinalysis Start IV Rocephin Follow urine culture Abdominal mass Abdominal CT showing partial obstruction possibly due to diverticular stricture versus neoplasm, also noted to have left pelvic mass for which resection was previously recommended by prototype engineer manager however patient does not recall, she also apparently refused surgery for sigmoid colectomy. General surgery consultation>when medically optimized may be eligible for surgery Hyponatremia Likely secondary to dehydration Urine osmolality 265 urine lytes pending Hypokalemia Likely secondary to dehydration Replete and follow Hypoglycemia. Resolved Likely secondary to dehydration and poor oral intake Hold insulin for now, check point of cares Mildly elevated troponin No ischemic changes noted on EKG Mental health Continue home medications DVT prophylaxis with SCD boots Attending Dr. Newton Full code Quality Stroke Does the patient have a stroke diagnosis?: No VTE Prior VTE?: No VTE Risk Level:: Medical - moderate - high VTE Device Contraindication: N/A - Device Ordered VTE Drug Contraindication: Treatment Not Indicated
[2023-12-29] MEDS: 0.9 % Sodium Chloride Flush 3 ML SYRINGE IVFLUSH ×3 (10:08→20:35)
[2023-12-29] MEDS: Ziprasidone 40 MG CAPSULE PO (10:09)
[2023-12-29] MEDS: Sertraline HCL 100 MG TABLET PO (10:10)
[2023-12-29] MEDS: Cholecalciferol (Vitamin D3) 25 MCG TABLET 50 MCG PO (10:10)
[2023-12-29] MEDS: busPIRone HCl 10 MG TABLET PO ×2 (10:10→20:34)
[2023-12-29] MEDS: TiZANidine HCL 4 MG TABLET PO ×3 (10:11→20:34)
[2023-12-29] MEDS: Docusate Sodium 100 MG CAPSULE PO ×2 (10:12→20:34)
[2023-12-29] MEDS: Potassium Chloride ER 10 MEQ TABLET.ER PO (10:18)
[2023-12-29 11:01] VITALS: BMI 17.0
--- NOTE | 2023-12-29 11:05 | MHC.CLN ---
RE: CONSULT PT IS MODERATELY MALNOURISHED PT WITH MILDLY DEPLETED SUBCUTANEOUS FAT AND MUSCLE MASS WITH BMI 17 AND 22% SIGNIFICANT WT LOSS X1 YEAR WITH FTT IN COMMUNITY AND REPORTED POOR LIVING CONDITIONS IE CRAWLING ON FLOOR IN HOME TO MOVE AROUND AND URINATING IN BUCKET. DIET RX: 1800DM -APPROPRIATE RECOMMEND ADDING ENSURE MAX BID TO INCREASE PO SUPP TO PROVIDE 300KCALS, 60G PROTEIN MONITOR PO INTAKE AND ENCOURAGE SUPPLEMENTS SEE ALSO FULL CLINICAL NUTRITION ASSESSMENT
[2023-12-29 11:19] LABS: Glucose, Whole Blood 123 mg/dL (60-115)
[2023-12-29 12:00] VITALS: BP 97/63; PULSE 61; RESP 18; TEMP 36.1; O2SAT 95
[2023-12-29] MEDS: Potassium Chloride ER 20 MEQ TAB.ER.PRT PO (12:02)
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
--- NOTE | 2023-12-29 13:38 | P.CDIM_ITS ---
PROVIDER RESPONSE TEXT: To clarify, the appropriate diagnosis supported by the clinical indicators: Metabolic QUERY TEXT: PHYSICIAN'S DOCUMENTATION REQUEST Date of Query: 12/29/2023 09:26 AM EDT Patient Name: Alma Mera Admit Date: 12/28/2023 Dear Marta Sainz PUFF IRONER, A review of the medical record indicates additional documentation may be needed. Please review below and update the documentation accordingly. Clinical Indicators: H&P: Encephalopathy with failure to thrive Altered mental status, she thinks its 1994, confused, frail Social work consult Dx. UTI Based on the above, please further specify, in the Progress Notes, the known or suspected type of the documented encephalopathy: Metabolic Toxic Toxic metabolic Other (explain) Clinically unable to determine (explain) Thank you, Radha Friend, CCS, CDIS Use of terms such as suspected, likely, concern for, or probable (associated with a specific diagnosi s that is being evaluated, monitored, or treated as if it exists) are acceptable and can be coded in the inpatient se tting, when documented at the time of discharge. Please use your independent medical judgment in providing your response. THIS QUERY IS PART OF THE PERMANENT MEDICAL RECORD
[2023-12-29 14:10] LABS: Potassium Urine Random 30.1 mmol/L
[2023-12-29] MEDS: Heparin Sodium,Porcine 5,000 UNIT/ML VIAL 5000 UNIT SUBCUT (14:16)
[2023-12-29] MEDS: cefTRIAXone sodium 1 GM in 0.9 % Sodium Chloride 50 ML IV (15:38)
[2023-12-29 16:00] VITALS: BP 93/57; PULSE 78; RESP 20; TEMP 36.8; O2SAT 96
[2023-12-29 16:56] LABS: Glucose, Whole Blood 128 mg/dL (60-115)
[2023-12-29] MEDS: LORazepam 0.5 MG TABLET PO (17:44)
[2023-12-29 18:55] LABS: Alanine Aminotransferase 20 U/L (0-31); Albumin Level 2.7 g/dL (3.5-5.0); Alkaline Phosphatase 71 U/L (39-117); Anion Gap 10 (12-20); Aspartate Amino Transferase 38 U/L (5-31); Bilirubin Total 0.4 mg/dL (0.0-1.0); Blood Urea Nitrogen 6 mg/dL (9-16); Calcium 7.6 mg/dL (8.4-10.2); Carbon Dioxide 25 mmol/L (22-29); Chloride 97 mmol/L (96-108); Creatinine Clr Calc Pharmacy 59.8; Estimated Glomerular Filt Rate > 60; Glucose Random 105 mg/dL (60-115); Magnesium 1.6 mg/dL (1.6-2.6); Potassium 3.9 mmol/L (3.3-5.1); Sodium 128 mmol/L (135-145); Total Protein 4.2 g/dL (6.5-8.0)
[2023-12-29 19:28] LABS: Hematocrit 31.3 % (37.0-47.0); Hemoglobin 10.9 g/dl (12.0-16.0); Mean Corpuscular HGB Conc 34.8 g/dl (31.0-35.0); Mean Corpuscular Hemoglobin 29.8 pg (27.0-33.0); Mean Corpuscular Volume 85.5 fL (80.0-98.0); Mean Platelet Volume 8.3 fL (9.4-12.3); Platelet Count 192 X10*3/uL (160-400); Red Blood Count 3.66 X10*6/uL (4.20-5.50); Red Cell Distribution Width 14.6 % (11.0-16.0); White Blood Count 8.5 X10*3/uL (4.8-10.8)
[2023-12-29 20:00] VITALS: BP 117/78; PULSE 84; RESP 16; TEMP 36.7; O2SAT 98
[2023-12-29] MEDS: Sodium Chloride Tab 1 GM TABLET PO (20:34)
[2023-12-29] MEDS: LORazepam 1 MG TABLET PO (20:34)
[2023-12-29] MEDS: cloNIDine HCL 0.2 MG TABLET PO (20:34)
[2023-12-29 20:36] LABS: Glucose, Whole Blood 91 mg/dL (60-115)
[2023-12-30] VITALS (7 sets, daily range): BP systolic 91–127; BP diastolic 54–85; PULSE 63–84; RESP 16–20; TEMP 36.1–37.1; O2SAT 94–99
[2023-12-30] MEDS: Heparin Sodium,Porcine 5,000 UNIT/ML VIAL 5000 UNIT SUBCUT ×2 (00:13→14:08)
[2023-12-30] MEDS: Omeprazole 40 MG CAPSULE.DR PO (05:42)
--- NOTE | 2023-12-30 08:26 | P.PNGS_ITS ---
Subjective Subjective Date of Service: 12/30/23 Interval history: Patient more alert and awake today. Reports feeling nauseous after eating a small amount of her breakfast. Denies significant abdominal pain. She is requesting her omeprazole. Physical Exam 2 Vital Signs: Vital Signs: Last Vital Signs Temp 97.7 F 12/30/23 03:59 Pulse 69 12/30/23 03:59 Resp 16 12/30/23 03:59 BP 102/62 12/30/23 03:59 Pulse Ox 96 12/30/23 03:59 O2 Del Method Room Air 12/30/23 03:59 BMI result Body Mass Index 17.0 Const: General: awake Nutritional Appearance: thin O rientation/consciousness: oriented to person and oriented to place Resp: Effort & Inspection: normal respiratory effort, no cough and no respiratory distress GI: Palpation (GI): Soft to palpation, Tenderness to palpation present (GI) in the LLQ, no guarding and not rigid Percussion: Yes dullness to percussion Rectal Exam - Female: deferred Neuro: General: oriented to person and oriented to place Objective Data Active Medications Acetaminophen (Acetaminophen 325 Mg Tablet) 650 mg PO Q6H PRN PRN Reason: Pain, Mild (Pain Scale 1-3), fever or headache Buspirone HCl (Buspirone Hcl 10 Mg Tablet) 10 mg PO BID [facility] Last Admin: 12/29/23 20:34 Dose: 10 mg Documented By: LALO Calcium Carbonate (Calcium Carbonate 750 Mg Tab.Chew) 750 mg PO Q4H PRN PRN Reason: Heartburn Clonidine HCl (Clonidine Hcl 0.2 Mg Tablet) 0.2 mg PO BEDTIME [facility]; Protocol Last Admin: 12/29/23 20:34 Dose: 0.2 mg Documented By: LALO Docusate Sodium (Docusate Sodium 100 Mg Capsule) 100 mg PO BID [facility] Last Admin: 12/29/23 20:34 Dose: 100 mg Documented By: LALO Heparin Sodium (Porcine) (Heparin Sodium,Porcine 5,000 Unit/Ml Vial) 5,000 unit SUBCUT Q12H [facility] Last Admin: 12/30/23 00:13 Dose: 5,000 unit Documented By: LALO Dextrose (D10) 250 mls @ 750 mls/hr IV Q15M PRN PRN Reason: per Hypoglycemia Standing Ord. Last Infusion: 12/28/23 18:56 Dose: Infused Documented By: MYKEL Ceftriaxone Sodium 1 gm/ (Sodium Chloride) 50 mls @ 100 mls/hr IV Q24H [facility] Last Infusion: 12/29/23 17:40 Dose: Infused Documented By: KIMANI Lorazepam (Lorazepam 0.5 Mg Tablet) 0.5 mg PO DAILY PRN PRN Reason: severe anxiety Last Admin: 12/29/23 17:44 Dose: 0.5 mg Documented By: KIMANI Lorazepam (Lorazepam 1 Mg Tablet) 1 mg PO BEDTIME [facility] Last Admin: 12/29/23 20:34 Dose: 1 mg Documented By: LALO Magnesium Hydroxide (Milk Of Magnesia 30 Ml Oral.Susp) 30 ml PO DAILY PRN PRN Reason: Constipation Melatonin (Melatonin 3 Mg Tablet) 6 mg PO BEDTIME PRN PRN Reason: Insomnia Omeprazole (Omeprazole 40 Mg Capsule.Dr) 40 mg PO DAILY@0630 [facility] Last Admin: 12/30/23 05:42 Dose: 40 mg Documented By: LALO Potassium Chloride (Potassium Chloride Er 20 Meq Tab.Er.Prt) 40 meq PO DAILY [facility] Prochlorperazine Maleate (Prochlorperazine Maleate 5 Mg Tablet) 5 mg PO BID PRN PRN Reason: nausea and vomiting Sertraline HCl (Sertraline Hcl 100 Mg Tablet) 100 mg PO DAILY [facility] Last Admin: 12/29/23 10:10 Dose: 100 mg Documented By: KIMANI Sodium Chloride (0.9 % Sodium Chloride Flush 3 Ml Syringe) 3 ml IVFLUSH QSHIFT [facility] Last Admin: 12/29/23 20:35 Dose: 3 ml Documented By: LALO Sodium Chloride (Sodium Chloride Tab 1 Gm Tablet) 1 gm PO BID [facility] Last Admin: 12/29/23 20:34 Dose: 1 gm Documented By: LALO Tizanidine HCl (Tizanidine Hcl 4 Mg Tablet) 4 mg PO TID [facility] Last Admin: 12/29/23 20:34 Dose: 4 mg Documented By: LALO Vitamin D (Cholecalciferol (Vitamin D3) 25 Mcg Tablet) 50 mcg PO DAILY [facility] Last Admin: 12/29/23 10:10 Dose: 50 mcg Documented By: KIMAIN Ziprasidone (Ziprasidone 40 Mg Capsule) 40 mg PO DAILY PRN PRN Reason: Agitation Ziprasidone (Ziprasidone 40 Mg Capsule) 40 mg PO DAILY [facility] Last Admin: 12/29/23 10:09 Dose: 40 mg Documented By: KIMANI Labs 12/29/23 18:26 12/29/23 18:26 Labs: Laboratory Results - last 24 hr 12/29/23 12/29/23 12/29/23 11:15 12:55 16:52 MCV MCH MCHC RDW Plt Count MPV Absolute Nucleated RBC Nucleated RBC % (auto) Anion Gap Estim Creat Clear Calc Estimated GFR POC Glucose 123 H 128 H Random Glucose Calcium Magnesium Total Bilirubin AST ALT Alkaline Phosphatase Total Protein Albumin Ur Random Sodium 21.0 Ur Random Potassium 30.1 Ur Random Chloride 67.0 12/29/23 12/29/23 12/29/23 18:26 18:26 18:26 MCV 85.5 MCH 29.8 MCHC 34.8 RDW 14.6 Plt Count 192 MPV 8.3 L Absolute Nucleated RBC 0.000 Nucleated RBC % (auto) 0.0 Anion Gap 10 L Cancelled Estim Creat Clear Calc 59.8 Cancelled Estimated GFR > 60 POC Glucose Random Glucose Calcium Magnesium Total Bilirubin AST ALT Alkaline Phosphatase Total Protein Albumin Ur Random Sodium Ur Random Potassium Ur Random Chloride 12/29/23 12/29/23 12/29/23 18:26 18:26 18:26 MCV MCH MCHC RDW Plt Count MPV Absolute Nucleated RBC Nucleated RBC % (auto) Anion Gap Estim Creat Clear Calc Estimated GFR Cancelled POC Glucose Random Glucose 105 Cancelled Calcium 7.6 L Cancelled Magnesium 1.6 Total Bilirubin 0.4 AST 38 H ALT 20 Alkaline Phosphatase 71 Total Protein 4.2 L Albumin 2.7 L Ur Random Sodium Ur Random Potassium Ur Random Chloride 12/29/23 20:28 MCV MCH MCHC RDW Plt Count MPV Absolute Nucleated RBC Nucleated RBC % (auto) Anion Gap Estim Creat Clear Calc Estimated GFR POC Glucose 91 Random Glucose Calcium Magnesium Total Bilirubin AST ALT Alkaline Phosphatase Total Protein Albumin Ur Random Sodium Ur Random Potassium Ur Random Chloride Microbiology Microbiology Results: Microbiology 12/28/23 12:05 Blood Culture - Preliminary Blood - Venous No growth after 24 hours. 12/28/23 12:05 Blood Culture - Preliminary Blood - Venous No growth after 24 hours. 12/28/23 Unknown Urine Culture - Preliminary Urine clean catch - Clean Catch Midstream Culture in progress. Procedures Date of Service Date of Service: 12/30/23 Progress Note: A&P Assessment and plan (1) Adult failure to thrive: Status: Acute (2) Abdominal pain: Status: Acute (3) Adnexal mass: Status: Acute (4) Colonic mass: Status: Acute Plan 68-year-old female patient with a known history of a left pelvic mass and colonic mass, previously evaluated for sigmoid colectomy, pelvic mass removal now presenting with evidence of a colon obstruction. Yesterday's labs are improved. Patient seems more awake and alert today. Reporting nausea after eating breakfast. Suggest obtaining MRI of pelvis to better evaluate pelvic mass. Discussed with hospitalist team and order placed. Time Spent With Patient Time: Total time managing care of this patient today ____ minutes. Quality Stroke Does the patient have a stroke diagnosis?: No VTE Prior VTE?: No VTE Risk Level:: Medical - moderate - high VTE Device Contraindication: N/A - Device Ordered VTE Drug Contraindication: N/A - Med Ordered
[2023-12-30] MEDS: Docusate Sodium 100 MG CAPSULE PO ×2 (08:28→20:53)
[2023-12-30] MEDS: Potassium Chloride ER 20 MEQ TAB.ER.PRT 40 MEQ PO (08:28)
[2023-12-30] MEDS: Cholecalciferol (Vitamin D3) 25 MCG TABLET 50 MCG PO (08:28)
[2023-12-30] MEDS: Sodium Chloride Tab 1 GM TABLET PO ×2 (08:28→20:53)
[2023-12-30] MEDS: Ziprasidone 40 MG CAPSULE PO (08:28)
[2023-12-30] MEDS: TiZANidine HCL 4 MG TABLET PO ×3 (08:28→20:53)
[2023-12-30] MEDS: Sertraline HCL 100 MG TABLET PO (08:28)
[2023-12-30] MEDS: busPIRone HCl 10 MG TABLET PO ×2 (08:28→20:53)
[2023-12-30] MEDS: 0.9 % Sodium Chloride Flush 3 ML SYRINGE IVFLUSH ×2 (08:29→20:53)
[2023-12-30 08:32] LABS: Glucose, Whole Blood 83 mg/dL (60-115)
--- NOTE | 2023-12-30 09:24 | P.PNNP_ITS ---
Subjective Subjective Date of Service: 12/30/23 Interval history: pt is a 68 y/o female with a medical history of bipolar disorder, COPD, DMII, PAD, depression, anxiety and GERD. She lives with her , who called EMS on 12/27. Per records/EMS, pt living in critical [facility] and crawling on the ground and unable to walk, confused. 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 and high free water intake pt has hypothyroidism as well her sodium continues to improve, today 130 (yesterday 128) creatinine 0.60 and GFR> 60 kidneys & ureters uremarkable on 12/[address] scan Patient states today she continues to have nausea she is drinking some fluids but does not have much of an appetite today she is getting up from the bed and using the commode when needed denies shortness of breath, chest pain states she is urinating without difficulty, denies urinary/flank pain, denies blood in urine denies new rash or joint pain- states chronic left low back pain denies other questions, concerns Physical Exam 2 Vital Signs: Vital Signs: Last Vital Signs Temp 97.4 F 12/30/23 08:00 Pulse 79 12/30/23 08:00 Resp 20 12/30/23 08:00 BP 127/85 12/30/23 08:00 Pulse Ox 95 12/30/23 08:00 O2 Del Method Room Air 12/30/23 08:00 BMI result Body Mass Index 17.0 Const: General: comfortable and no acute distress Neck: Neck: Yes no JVD Resp: Effort & Inspection: able to speak in complete sentences A uscultation: clear to auscultation bilaterally Cardio: Jugular venous distension: no JVD Rate: regular rate Rhythm: r egular rhythm Heart sounds: S1 normal heart sound present and S2 normal heart sound present GI: Palpation (GI): Soft to palpation : General: Yes no CVA tenderness Back/Spine/Pelvis: Back: no CVA tenderness Skin: Rashes: no rashes Extrem: General: Yes normal to inspection, No edema and No pedal edema Objective Data Labs 12/29/23 18:26 12/30/23 11:31 Labs: Laboratory Results - last 24 hr 12/29/23 12/29/23 12/29/23 11:15 12:55 16:52 WBC RBC Hgb Hct MCV MCH MCHC RDW Plt Count MPV Absolute Nucleated RBC Nucleated RBC % (auto) Sodium Potassium Chloride Carbon Dioxide Anion Gap BUN Creatinine Estim Creat Clear Calc Estimated GFR POC Glucose 123 H 128 H Random Glucose Calcium Magnesium Total Bilirubin AST ALT Alkaline Phosphatase Total Protein Albumin Ur Random Sodium 21.0 Ur Random Potassium 30.1 Ur Random Chloride 67.0 12/29/23 12/29/23 12/29/23 18:26 18:26 18:26 WBC 8.5 RBC 3.66 L Hgb 10.9 L Hct 31.3 L MCV 85.5 MCH 29.8 MCHC 34.8 RDW 14.6 Plt Count 192 MPV 8.3 L Absolute Nucleated RBC 0.000 Nucleated RBC % (auto) 0.0 Sodium 128 L Cancelled Potassium 3.9 D Cancelled Chloride 97 Carbon Dioxide Anion Gap BUN Creatinine Estim Creat Clear Calc Estimated GFR POC Glucose Random Glucose Calcium Magnesium Total Bilirubin AST ALT Alkaline Phosphatase Total Protein Albumin Ur Random Sodium Ur Random Potassium Ur Random Chloride 12/29/23 12/29/23 12/29/23 18:26 18:26 18:26 WBC RBC Hgb Hct MCV MCH MCHC RDW Plt Count MPV Absolute Nucleated RBC Nucleated RBC % (auto) Sodium Potassium Chloride Cancelled Carbon Dioxide 25 Cancelled Anion Gap 10 L Cancelled BUN 6 L Creatinine Estim Creat Clear Calc Estimated GFR POC Glucose Random Glucose Calcium Magnesium Total Bilirubin AST ALT Alkaline Phosphatase Total Protein Albumin Ur Random Sodium Ur Random Potassium Ur Random Chloride 12/29/23 12/29/23 12/29/23 18:26 18:26 18:26 WBC RBC Hgb Hct MCV MCH MCHC RDW Plt Count MPV Absolute Nucleated RBC Nucleated RBC % (auto) Sodium Potassium Chloride Carbon Dioxide Anion Gap BUN Cancelled Creatinine 0.64 Cancelled Estim Creat Clear Calc 59.8 Cancelled Estimated GFR > 60 POC Glucose Random Glucose Calcium Magnesium Total Bilirubin AST ALT Alkaline Phosphatase Total Protein Albumin Ur Random Sodium Ur Random Potassium Ur Random Chloride 12/29/23 12/29/23 12/29/23 18:26 18:26 18:26 WBC RBC Hgb Hct MCV MCH MCHC RDW Plt Count MPV Absolute Nucleated RBC Nucleated RBC % (auto) Sodium Potassium Chloride Carbon Dioxide Anion Gap BUN Creatinine Estim Creat Clear Calc Estimated GFR Cancelled POC Glucose Random Glucose 105 Cancelled Calcium 7.6 L Cancelled Magnesium 1.6 Total Bilirubin 0.4 AST 38 H ALT 20 Alkaline Phosphatase 71 Total Protein 4.2 L Albumin 2.7 L Ur Random Sodium Ur Random Potassium Ur Random Chloride 12/29/23 12/30/23 20:28 07:26 WBC RBC Hgb Hct MCV MCH MCHC RDW Plt Count MPV Absolute Nucleated RBC Nucleated RBC % (auto) Sodium Potassium Chloride Carbon Dioxide Anion Gap BUN Creatinine Estim Creat Clear Calc Estimated GFR POC Glucose 91 83 Random Glucose Calcium Magnesium Total Bilirubin AST ALT Alkaline Phosphatase Total Protein Albumin Ur Random Sodium Ur Random Potassium Ur Random Chloride Microbiology Microbiology Results: Microbiology 12/28/23 12:05 Blood - Venous Blood Culture - Preliminary No growth after 24 hours. 12/28/23 12:05 Blood - Venous Blood Culture - Preliminary No growth after 24 hours. 12/28/23 Unknown Urine clean catch - Clean Catch Midstream Urine Culture - Preliminary Culture in progress. 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 Continue NaCl 1gm PO BID to regimen suspect hypokalemia is from malnourishment; urine potassium normal. Recommend replace potassium as needed. Recommend continue to monitor electrolytes and renal function daily Discussed with Dr Collazo Time Spent With Patient Time: Total time managing care of this patient today ____ minutes. Progress Note: Quality Stroke Does the patient have a stroke diagnosis?: No
[2023-12-30 11:17] LABS: Glucose, Whole Blood 99 mg/dL (60-115)
--- NOTE | 2023-12-30 11:19 | P.PNIM_ITS ---
Subjective Subjective Date of Service: 12/30/23 Review of Systems Follow up encephalopathy, electrolyte abnormalities Mental status better today but still with some confusion Physical Exam 2 Vital Signs: Vital Signs: Last Vital Signs Temp 97.4 F 12/30/23 08:00 Pulse 79 12/30/23 08:00 Resp 20 12/30/23 08:00 BP 127/85 12/30/23 08:00 Pulse Ox 95 12/30/23 08:00 O2 Del Method Room Air 12/30/23 08:00 BMI result Body Mass Index 17.0 Appearing in no acute distress lung sounds are clear to auscultation heart regular rate rhythm, clear S1, S2 positive bowel sounds, abdomen is soft, nontender neuro patient is alert x3, no focal deficits Objective Data Active Medications Acetaminophen (Acetaminophen 325 Mg Tablet) 650 mg PO Q6H PRN PRN Reason: Pain, Mild (Pain Scale 1-3), fever or headache Buspirone HCl (Buspirone Hcl 10 Mg Tablet) 10 mg PO BID [facility] Last Admin: 12/30/23 08:28 Dose: 10 mg Documented By: NITIN Calcium Carbonate (Calcium Carbonate 750 Mg Tab.Chew) 750 mg PO Q4H PRN PRN Reason: Heartburn Clonidine HCl (Clonidine Hcl 0.2 Mg Tablet) 0.2 mg PO BEDTIME [facility]; Protocol Last Admin: 12/29/23 20:34 Dose: 0.2 mg Documented By: LALO Docusate Sodium (Docusate Sodium 100 Mg Capsule) 100 mg PO BID [facility] Last Admin: 12/30/23 08:28 Dose: 100 mg Documented By: NITIN Heparin Sodium (Porcine) (Heparin Sodium,Porcine 5,000 Unit/Ml Vial) 5,000 unit SUBCUT Q12H [facility] Last Admin: 12/30/23 00:13 Dose: 5,000 unit Documented By: LALO Dextrose (D10) 250 mls @ 750 mls/hr IV Q15M PRN PRN Reason: per Hypoglycemia Standing Ord. Last Infusion: 12/28/23 18:56 Dose: Infused Documented By: MYKEL Ceftriaxone Sodium 1 gm/ (Sodium Chloride) 50 mls @ 100 mls/hr IV Q24H [facility] Last Infusion: 12/29/23 17:40 Dose: Infused Documented By: KIMANI Lorazepam (Lorazepam 0.5 Mg Tablet) 0.5 mg PO DAILY PRN PRN Reason: severe anxiety Last Admin: 12/29/23 17:44 Dose: 0.5 mg Documented By: KIMANI Lorazepam (Lorazepam 1 Mg Tablet) 1 mg PO BEDTIME [facility] Last Admin: 12/29/23 20:34 Dose: 1 mg Documented By: LALO Magnesium Hydroxide (Milk Of Magnesia 30 Ml Oral.Susp) 30 ml PO DAILY PRN PRN Reason: Constipation Melatonin (Melatonin 3 Mg Tablet) 6 mg PO BEDTIME PRN PRN Reason: Insomnia Omeprazole (Omeprazole 40 Mg Capsule.Dr) 40 mg PO DAILY@0630 [facility] Last Admin: 12/30/23 05:42 Dose: 40 mg Documented By: LALO Potassium Chloride (Potassium Chloride Er 20 Meq Tab.Er.Prt) 40 meq PO DAILY [facility] Last Admin: 12/30/23 08:28 Dose: 40 meq Documented By: NITIN Prochlorperazine Maleate (Prochlorperazine Maleate 5 Mg Tablet) 5 mg PO BID PRN PRN Reason: nausea and vomiting Sertraline HCl (Sertraline Hcl 100 Mg Tablet) 100 mg PO DAILY [facility] Last Admin: 12/30/23 08:28 Dose: 100 mg Documented By: NITIN Sodium Chloride (0.9 % Sodium Chloride Flush 3 Ml Syringe) 3 ml IVFLUSH QSHIFT [facility] Last Admin: 12/30/23 08:29 Dose: 3 ml Documented By: NITIN Sodium Chloride (Sodium Chloride Tab 1 Gm Tablet) 1 gm PO BID [facility] Last Admin: 12/30/23 08:28 Dose: 1 gm Documented By: NITIN Tizanidine HCl (Tizanidine Hcl 4 Mg Tablet) 4 mg PO TID [facility] Last Admin: 12/30/23 08:28 Dose: 4 mg Documented By: NITIN Vitamin D (Cholecalciferol (Vitamin D3) 25 Mcg Tablet) 50 mcg PO DAILY [facility] Last Admin: 12/30/23 08:28 Dose: 50 mcg Documented By: NITIN Ziprasidone (Ziprasidone 40 Mg Capsule) 40 mg PO DAILY PRN PRN Reason: Agitation Ziprasidone (Ziprasidone 40 Mg Capsule) 40 mg PO DAILY [facility] Last Admin: 12/30/23 08:28 Dose: 40 mg Documented By: NITIN Labs 12/29/23 18:26 12/30/23 11:31 Labs: Laboratory Results - last 24 hr 12/29/23 12/29/23 12/29/23 11:15 12:55 16:52 MCV MCH MCHC RDW Plt Count MPV Absolute Nucleated RBC Nucleated RBC % (auto) Anion Gap Estim Creat Clear Calc Estimated GFR POC Glucose 123 H 128 H Random Glucose Calcium Magnesium Total Bilirubin AST ALT Alkaline Phosphatase Total Protein Albumin Ur Random Sodium 21.0 Ur Random Potassium 30.1 Ur Random Chloride 67.0 12/29/23 12/29/23 12/29/23 18:26 18:26 18:26 MCV 85.5 MCH 29.8 MCHC 34.8 RDW 14.6 Plt Count 192 MPV 8.3 L Absolute Nucleated RBC 0.000 Nucleated RBC % (auto) 0.0 Anion Gap 10 L Cancelled Estim Creat Clear Calc 59.8 Cancelled Estimated GFR > 60 POC Glucose Random Glucose Calcium Magnesium Total Bilirubin AST ALT Alkaline Phosphatase Total Protein Albumin Ur Random Sodium Ur Random Potassium Ur Random Chloride 12/29/23 12/29/23 12/29/23 18:26 18:26 18:26 MCV MCH MCHC RDW Plt Count MPV Absolute Nucleated RBC Nucleated RBC % (auto) Anion Gap Estim Creat Clear Calc Estimated GFR Cancelled POC Glucose Random Glucose 105 Cancelled Calcium 7.6 L Cancelled Magnesium 1.6 Total Bilirubin 0.4 AST 38 H ALT 20 Alkaline Phosphatase 71 Total Protein 4.2 L Albumin 2.7 L Ur Random Sodium Ur Random Potassium Ur Random Chloride 12/29/23 12/30/23 12/30/23 20:28 07:26 11:06 MCV MCH MCHC RDW Plt Count MPV Absolute Nucleated RBC Nucleated RBC % (auto) Anion Gap Estim Creat Clear Calc Estimated GFR POC Glucose 91 83 99 Random Glucose Calcium Magnesium Total Bilirubin AST ALT Alkaline Phosphatase Total Protein Albumin Ur Random Sodium Ur Random Potassium Ur Random Chloride Microbiology Microbiology Results: Microbiology 12/28/23 Unknown Urine Culture - Preliminary Urine clean catch - Clean Catch Midstream Gram negative zina 12/28/23 12:05 Blood Culture - Preliminary Blood - Venous No growth after 24 hours. 12/28/23 12:05 Blood Culture - Preliminary Blood - Venous No growth after 24 hours. Assessment and Plan (1) Adult failure to thrive: Status: Acute Plan 68-year-old woman admitted with failure to thrive and multiple lab abnormalities Encephalopathy with failure to thrive multiple bruised areas throughout body, inability to ambulate supportive care PT consult >rec STR GNR UTI Positive urinalysis Start IV Rocephin Follow urine culture Abdominal mass Abdominal CT showing partial obstruction possibly due to diverticular stricture versus neoplasm, also noted to have left pelvic mass for which resection was previously recommended by fur remodeler however patient does not recall, she also apparently refused surgery for sigmoid colectomy. General surgery consultation>MRI of pelvis to better visualize mass GI consult for possible colonoscopy Hypothyroidism New onset TSH ,17.47 free T4 0.53 Levothyroxine started 1.6mcg/kg recheck TSH in 6-8 weeks Hyponatremia Likely secondary to SIADH Hypokalemia. Resolved Likely secondary to dehydration Replete and follow Hypoglycemia. Resolved Likely secondary to dehydration and poor oral intake Hold insulin for now, check point of cares Mildly elevated troponin No ischemic changes noted on EKG Mental health Continue home medications DVT prophylaxis with SCD boots Attending Dr. Newton Full code Quality Stroke Does the patient have a stroke diagnosis?: No VTE Prior VTE?: No VTE Risk Level:: Medical - moderate - high VTE Device Contraindication: N/A - Device Ordered VTE Drug Contraindication: N/A - Med Ordered
[2023-12-30 12:11] LABS: Anion Gap 9 (12-20); Blood Urea Nitrogen 8 mg/dL (9-16); Calcium 7.4 mg/dL (8.4-10.2); Carbon Dioxide 24 mmol/L (22-29); Chloride 100 mmol/L (96-108); Creatinine Clr Calc Pharmacy 63.8; Estimated Glomerular Filt Rate > 60; Glucose Random 86 mg/dL (60-115); Potassium 3.9 mmol/L (3.3-5.1); Sodium 129 mmol/L (135-145)
[2023-12-30 12:17] LABS: Anion Gap 10 (12-20); Blood Urea Nitrogen 8 mg/dL (9-16); Calcium 7.5 mg/dL (8.4-10.2); Carbon Dioxide 25 mmol/L (22-29); Chloride 99 mmol/L (96-108); Creatinine Clr Calc Pharmacy 63.8; Estimated Glomerular Filt Rate > 60; Glucose Random 85 mg/dL (60-115); Potassium 3.9 mmol/L (3.3-5.1); Sodium 130 mmol/L (135-145)
[2023-12-30 12:33] LABS: Thyroid Stimulating Hormone 17.47 uIU/mL (0.32-4.0)
[2023-12-30] MEDS: gadobutroL 7.5 ML VIAL IVPUSH (13:04)
[2023-12-30] MEDS: Levothyroxine Sodium 25 MCG TABLET PO (14:02)
[2023-12-30] MEDS: cefTRIAXone sodium 1 GM in 0.9 % Sodium Chloride 50 ML IV (14:03)
--- NOTE | 2023-12-30 14:25 | MHC.CLN ---
F/U PT IS MODERATELY MALNOURISHED SEE FULL CLINICAL NUTRITION ASSESSMENT DATED 12/29/23 PO INTAKE 75% X3 MEALS DIET RX: 1800DM -APPROPRIATE (DIET WILL PROMOTE SLOW WT GAIN) PT RECEIVING ENSURE MAX BID TO INCREASE PO SUPP TO PROVIDE 300KCALS, 60G PROTEIN MONITOR PO INTAKE AND ENCOURAGE SUPPLEMENTS
--- NOTE | 2023-12-30 16:18 | HO.WOUND ---
Wound Consult: Initial 68yr old?[place] [facility] [place] See progress notes and H&P for detailed history.? Wound consult placed for wounds.?Discussed with direct care nurse - no injury concerns noted - -she has skin tear to arm no concerns noted. Unsure of reason behind consultation. Patient agreeable to assessment and photo documentation.? Heels assessed intact no redness noted. Buttock and sacrum assessed - MASD noted healed and hyperpigmnented tissue noted - excoriation kulkarni noted. No pressure injury noted at this time. Recommendations: 1. Turn and Reposition every 2 hours and as needed for patient comfort.? Use pillows or wedges to support off loading positions. 2. Off Load all bony prominences with use of pillows and heel boots if needed.? Apply Preventative foams where needed. ? 3. Monitor for incontinence and moisture control, use barrier creams when needed for prevention and treatment. 4. Provide adequate and supplemental nutrition.? 5. Order low air loss mattress. 6. When applicable maintain blood glucose levels per Providers order. 7. Sacrum - Routine cleansing, apply barrier cream twice daily and PRN. Off load pressure to prevent pressure injury development. Re-consult wound care Nurse for wound deterioration or wound changes.
--- NOTE | 2023-12-30 16:22 | CONS_ITS ---
DATE OF SERVICE: 12/30/2023 REFERRING PHYSICIAN: Marta Sainz NP REASON FOR CONSULTATION: Question of sigmoid mass. HISTORY OF PRESENT ILLNESS: The patient is a pleasant 68-year-old woman, who was admitted to the hospital after presenting to the emergency room on December 27 with a change in mental status and failure to thrive. As part of her evaluation, she underwent CT scanning of the abdomen and pelvis, which showed severe diffuse colonic wall thickening with large amounts of stool throughout the colon and the transition point at the level of the sigmoid colon. She also had a separate masslike region in the left adnexa adjacent to the uterus and MRI imaging has been obtained, but not officially read. The patient's history is remarkable for similar presentation in 2020 and at that time, she underwent a flexible sigmoidoscopy with findings of a sigmoid tight stricture, which on biopsies showed no evidence of malignancy. She was referred for surgical consultation, but apparently declined surgery. Currently, the patient denies abdominal pain. She states she feels better since she has been in the hospital and reports passing stool. She has been seen in consultation by General Surgery and records are reviewed including their recommendations from today. PAST MEDICAL HISTORY: 1. Sigmoid stricture as above. 2. Pelvic mass. 3. Bipolar disorder. 4. Gastroesophageal reflux disease. 5. COPD. 6. Diabetes mellitus. 7. Peripheral arterial disease. 8. Tardive dyskinesia. 9. SMA thrombosis. CURRENT MEDICATIONS: Her current medication list is reviewed in the chart. ALLERGIES: THERE ARE NONE REPORTED. FAMILY HISTORY: This is reviewed in the electronic medical record. SOCIAL HISTORY: There is a history of tobacco use. REVIEW OF SYSTEMS: SKIN: No pruritus. HEENT: Negative. CARDIOPULMONARY: No shortness of breath or chest pain. GASTROINTESTINAL: As above. GENITOURINARY: Negative. NEUROPSYCHIATRIC: Negative. PHYSICAL EXAMINATION: GENERAL: Shows a pleasant female, lying comfortably in bed. She appears quite cachectic. SKIN: Anicteric. HEENT: Shows no scleral icterus. NECK: Without lymphadenopathy or thyromegaly. LUNGS: Clear. HEART: Shows a regular rate and rhythm. S1, S2. No murmur. ABDOMEN: Soft without focal masses or tenderness. Bowel sounds are present. No organomegaly is noted. EXTREMITIES: Without edema. LABORATORY DATA AND IMAGING STUDIES: Reviewed. IMPRESSION: Sigmoid stricture with evidence of obstruction. Pelvic ultrasound will be reviewed after it is read. At this point, I do not think repeating a colonoscopy will be useful based on the findings from her earlier 1. I agree with treating her with omeprazole for her reflux. Thanks for asking me to see her. I will follow her in the hospital with you. MD DENI Cortes/LILIANE / [phone]
[2023-12-30 16:55] LABS: Glucose, Whole Blood 102 mg/dL (60-115)
[2023-12-30] MEDS: cloNIDine HCL 0.2 MG TABLET PO (20:30)
[2023-12-30] MEDS: Melatonin 3 MG TABLET 6 MG PO (20:52)
[2023-12-30] MEDS: LORazepam 1 MG TABLET PO (20:53)
[2023-12-30 21:26] LABS: Glucose, Whole Blood 87 mg/dL (60-115)
[2023-12-31] VITALS (7 sets, daily range): BP systolic 98–140; BP diastolic 55–73; PULSE 58–81; RESP 16–20; TEMP 36.6–37.3; O2SAT 93–100
--- NOTE | 2023-12-31 | ECG_ITS ---
Test Reason : qtc check Blood Pressure : / mmHG Vent. Rate : 071 BPM Atrial Rate : 071 BPM P-R Int : 136 ms QRS Dur : 086 ms QT Int : 402 ms P-R-T Axes : 083 -66 046 degrees QTc Int : 436 ms Normal sinus rhythm Left axis deviation Septal infarct (cited on or before 20-DEC-2023) Abnormal ECG When compared with ECG of 28-DEC-2023 10:38, Questionable change in initial forces of Septal leads Referred By: Dilcia Blackwood Electronically Signed By:SARAH KELLY MD
[2023-12-31] MEDS: Prochlorperazine Maleate 5 MG TABLET PO (03:09)
[2023-12-31] MEDS: LORazepam 0.5 MG TABLET PO (03:09)
[2023-12-31] MEDS: Omeprazole 40 MG CAPSULE.DR PO (05:51)
[2023-12-31] MEDS: Levothyroxine Sodium 25 MCG TABLET PO (05:51)
[2023-12-31 07:31] LABS: Anion Gap 12 (12-20); Blood Urea Nitrogen 9 mg/dL (9-16); Calcium 7.5 mg/dL (8.4-10.2); Carbon Dioxide 22 mmol/L (22-29); Chloride 98 mmol/L (96-108); Creatinine Clr Calc Pharmacy 61.8; Estimated Glomerular Filt Rate > 60; Glucose Random 94 mg/dL (60-115); Potassium 3.6 mmol/L (3.3-5.1); Sodium 128 mmol/L (135-145)
[2023-12-31 07:38] LABS: Glucose, Whole Blood 108 mg/dL (60-115)
--- NOTE | 2023-12-31 07:48 | PM.PNGS ---
Subjective Subjective Date of Service: 12/31/23 Interval history: ?I want to go home, can I go home?? Reports feeling improved with no abdominal pain or nausea. + BM Physical Exam Vital Signs: Vital Signs: Last Vital Signs Temp 99.2 F 12/31/23 04:00 Pulse 81 12/31/23 04:00 Resp 20 12/31/23 04:00 BP 98/55 L 12/31/23 04:00 Pulse Ox 93 12/31/23 04:00 O2 Del Method Room Air 12/31/23 04:00 BMI result Body Mass Index 17.0 Const: General: awake Nutritional Appearance: thin Orientation/consciousness: oriented to person and oriented to place Resp: Effort & Inspection: normal respiratory effort, no cough and no respiratory distress GI: Palpation (GI): Soft to palpation, nontender, no guarding and not rigid Percussion: Yes normal to percussion Rectal Exam - Female: deferred Neuro: General: oriented to person and oriented to place Objective Data Active Medications Acetaminophen (Acetaminophen 325 Mg Tablet) 650 mg PO Q6H PRN PRN Reason: Pain, Mild (Pain Scale 1-3), fever or headache Buspirone HCl (Buspirone Hcl 10 Mg Tablet) 10 mg PO BID [facility] Last Admin: 12/30/23 20:53 Dose: 10 mg Documented By: JAMIE Calcium Carbonate (Calcium Carbonate 750 Mg Tab.Chew) 750 mg PO Q4H PRN PRN Reason: Heartburn Clonidine HCl (Clonidine Hcl 0.2 Mg Tablet) 0.2 mg PO BEDTIME [facility]; Protocol Last Admin: 12/30/23 20:30 Dose: 0.2 mg Documented By: JAMIE Docusate Sodium (Docusate Sodium 100 Mg Capsule) 100 mg PO BID [facility] Last Admin: 12/30/23 20:53 Dose: 100 mg Documented By: JAMIE Heparin Sodium (Porcine) (Heparin Sodium,Porcine 5,000 Unit/Ml Vial) 5,000 unit SUBCUT Q12H [facility] Last Admin: 12/31/23 01:06 Dose: Not Given Documented By: JAMIE Non-Admin Reason: Patient Refused Dextrose (D10) 250 mls @ 750 mls/hr IV Q15M PRN PRN Reason: per Hypoglycemia Standing Ord. Last Infusion: 12/28/23 18:56 Dose: Infused Documented By: MYKEL Ceftriaxone Sodium 1 gm/ (Sodium Chloride) 50 mls @ 100 mls/hr IV Q24H [facility] Last Infusion: 12/30/23 14:48 Dose: Infused Documented By: KIMANI Levothyroxine Sodium (Levothyroxine Sodium 25 Mcg Tablet) 25 mcg PO DAILY@0600 [facility] Last Admin: 12/31/23 05:51 Dose: 25 mcg Documented By: JAMIE Lorazepam (Lorazepam 0.5 Mg Tablet) 0.5 mg PO DAILY PRN PRN Reason: severe anxiety Last Admin: 12/31/23 03:09 Dose: 0.5 mg Documented By: JAMIE Comments: per ok to give earlier than 9am ordered PRN time Lorazepam (Lorazepam 1 Mg Tablet) 1 mg PO BEDTIME [facility] Last Admin: 12/30/23 20:53 Dose: 1 mg Documented By: JAMIE Magnesium Hydroxide (Milk Of Magnesia 30 Ml Oral.Susp) 30 ml PO DAILY PRN PRN Reason: Constipation Melatonin (Melatonin 3 Mg Tablet) 6 mg PO BEDTIME PRN PRN Reason: Insomnia Last Admin: 12/30/23 20:52 Dose: 6 mg Documented By: JAMIE Omeprazole (Omeprazole 40 Mg Capsule.Dr) 40 mg PO DAILY@0630 [facility] Last Admin: 12/31/23 05:51 Dose: 40 mg Documented By: JAMIE Potassium Chloride (Potassium Chloride Er 20 Meq Tab.Er.Prt) 40 meq PO DAILY [facility] Last Admin: 12/30/23 08:28 Dose: 40 meq Documented By: NITIN Prochlorperazine Maleate (Prochlorperazine Maleate 5 Mg Tablet) 5 mg PO BID PRN PRN Reason: nausea and vomiting Last Admin: 12/31/23 03:09 Dose: 5 mg Documented By: JAMIE Sertraline HCl (Sertraline Hcl 100 Mg Tablet) 100 mg PO DAILY [facility] Last Admin: 12/30/23 08:28 Dose: 100 mg Documented By: NITIN Sodium Chloride (0.9 % Sodium Chloride Flush 3 Ml Syringe) 3 ml IVFLUSH QSHIFT [facility] Last Admin: 12/30/23 20:53 Dose: 3 ml Documented By: JAMIE Sodium Chloride (Sodium Chloride Tab 1 Gm Tablet) 1 gm PO BID [facility] Last Admin: 12/30/23 20:53 Dose: 1 gm Documented By: JAMIE Tizanidine HCl (Tizanidine Hcl 4 Mg Tablet) 4 mg PO TID [facility] Last Admin: 12/30/23 20:53 Dose: 4 mg Documented By: JAMIE Vitamin D (Cholecalciferol (Vitamin D3) 25 Mcg Tablet) 50 mcg PO DAILY [facility] Last Admin: 12/30/23 08:28 Dose: 50 mcg Documented By: NITIN Ziprasidone (Ziprasidone 40 Mg Capsule) 40 mg PO DAILY PRN PRN Reason: Agitation Ziprasidone (Ziprasidone 40 Mg Capsule) 40 mg PO DAILY [facility] Last Admin: 12/30/23 08:28 Dose: 40 mg Documented By: NITIN Labs 12/29/23 18:26 12/31/23 06:31 Labs: Laboratory Results - last 24 hr 12/30/23 12/30/23 12/30/23 07:26 11:06 11:31 Hold Purple Top Anion Gap 9 L Estim Creat Clear Calc Estimated GFR POC Glucose 83 99 Random Glucose Calcium TSH 12/30/23 12/30/23 12/30/23 11:31 11:31 11:31 Hold Purple Top Anion Gap 10 L Estim Creat Clear Calc 63.8 63.8 Estimated GFR > 60 > 60 POC Glucose Random Glucose 86 Calcium TSH 12/30/23 12/30/23 12/30/23 11:31 11:31 16:45 Hold Purple Top Anion Gap Estim Creat Clear Calc Estimated GFR POC Glucose 102 Random Glucose 85 Calcium 7.4 L 7.5 L TSH 17.47 H 12/30/23 12/31/23 12/31/23 21:21 06:31 07:28 Hold Purple Top SEE NOTE Anion Gap 12 Estim Creat Clear Calc 61.8 Estimated GFR > 60 POC Glucose 87 108 Random Glucose 94 Calcium 7.5 L TSH Microbiology Microbiology Results: Microbiology 12/28/23 12:05 Blood Culture - Preliminary Blood - Venous No growth after 48 hours. 12/28/23 12:05 Blood Culture - Preliminary Blood - Venous No growth after 48 hours. 12/28/23 Unknown Urine Culture - Preliminary Urine clean catch - Clean Catch Midstream Gram negative zina Procedures Date of Service Date of Service: 12/31/23 Progress Note: A&P Assessment and plan (1) Colonic mass: Status: Acute (2) Nausea & vomiting: Status: Acute (3) Adnexal mass: Status: Acute Plan 68-year-old female patient with failure to thrive and a known left pelvic mass and sigmoid wall thickening. Patient reports feeling improved today and is requesting to be discharged. She is now moving her bowels. MRI reviewed although official report not available at the time of this dictation. Pelvic mass does appear to be adherent to sigmoid colon. If patient/family agreeable to resection. She would be best treated at a facility with ostomy rn Oncology available. Will await final report from MRI. Time Spent With Patient Time: Total time managing care of this patient today ____ minutes. Quality Stroke Does the patient have a stroke diagnosis?: No VTE Prior VTE?: No VTE Risk Level:: Medical - moderate - high VTE Device Contraindication: N/A - Device Ordered VTE Drug Contraindication: N/A - Med Ordered
[2023-12-31] MEDS: Ziprasidone 40 MG CAPSULE PO (07:56)
[2023-12-31] MEDS: busPIRone HCl 10 MG TABLET PO ×2 (07:56→20:23)
[2023-12-31] MEDS: Cholecalciferol (Vitamin D3) 25 MCG TABLET 50 MCG PO (07:56)
[2023-12-31] MEDS: Docusate Sodium 100 MG CAPSULE PO ×2 (07:57→20:23)
[2023-12-31] MEDS: TiZANidine HCL 4 MG TABLET PO ×3 (07:57→20:23)
[2023-12-31] MEDS: Potassium Chloride ER 20 MEQ TAB.ER.PRT 40 MEQ PO (07:57)
[2023-12-31] MEDS: Sodium Chloride Tab 1 GM TABLET PO ×2 (07:57→20:22)
[2023-12-31] MEDS: Sertraline HCL 100 MG TABLET PO (07:57)
[2023-12-31] MEDS: 0.9 % Sodium Chloride Flush 3 ML SYRINGE IVFLUSH ×2 (07:58→15:41)
--- NOTE | 2023-12-31 10:06 | PM.PNNEP ---
Subjective Subjective Date of Service: 12/31/23 Interval history: pt is a 68 y/o female with a medical history of bipolar disorder, COPD, DMII, PAD, depression, anxiety and GERD. She lives with her , who called EMS on 12/27. Per records/EMS, pt living in [facility] and crawling on the ground and unable to walk, confused. 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 and high free water intake pt has hypothyroidism as well her sodium continues to improve, today 130 (yesterday 128) creatinine 0.60 and GFR> 60 kidneys & ureters uremarkable on 12/[address] scan Patient states today nasuea is improving, appetite is improving denies shortness of breath, chest pain states she is urinating without difficulty, denies urinary/flank pain, denies blood in urine denies new rash or joint pain- states chronic left low back pain denies other questions, concerns Physical Exam Vital Signs: Vital Signs: Last Vital Signs Temp 98.6 F 12/31/23 08:00 Pulse 66 12/31/23 08:00 Resp 18 12/31/23 08:00 BP 120/67 12/31/23 08:00 Pulse Ox 97 12/31/23 08:00 O2 Del Method Room Air 12/31/23 08:00 BMI result Body Mass Index 17.0 Const: General: comfortable and no acute distress Neck: Neck: Yes no JVD Resp: Effort & Inspection: able to speak in complete sentences Auscultation: clear to auscultation bilaterally Cardio: Jugular venous distension: no JVD Rate: regular rate Rhythm: regular rhythm Heart sounds: S1 normal heart sound present and S2 normal heart sound present GI: Palpation (GI): Soft to palpation : General: Yes no CVA tenderness Back/Spine/Pelvis: Back: no CVA tenderness Skin: Rashes: no rashes Extrem: General: Yes normal to inspection, No edema and No pedal edema Objective Data Labs 12/31/23 06:31 12/31/23 06:31 Labs: Laboratory Results - last 24 hr 12/30/23 12/30/23 12/30/23 11:06 11:31 11:31 Hold Purple Top Sodium 129 L 130 L Potassium 3.9 Chloride Carbon Dioxide Anion Gap BUN Creatinine Estim Creat Clear Calc Estimated GFR POC Glucose 99 Random Glucose Calcium TSH 12/30/23 12/30/23 12/30/23 11:31 11:31 11:31 Hold Purple Top Sodium Potassium 3.9 Chloride 100 99 Carbon Dioxide 24 25 Anion Gap 9 L BUN Creatinine Estim Creat Clear Calc Estimated GFR POC Glucose Random Glucose Calcium TSH 12/30/23 12/30/23 12/30/23 11:31 11:31 11:31 Hold Purple Top Sodium Potassium Chloride Carbon Dioxide Anion Gap 10 L BUN 8 L 8 L Creatinine 0.60 0.60 Estim Creat Clear Calc 63.8 Estimated GFR POC Glucose Random Glucose Calcium TSH 12/30/23 12/30/23 12/30/23 11:31 11:31 11:31 Hold Purple Top Sodium Potassium Chloride Carbon Dioxide Anion Gap BUN Creatinine Estim Creat Clear Calc 63.8 Estimated GFR > 60 > 60 POC Glucose Random Glucose 86 85 Calcium 7.4 L TSH 12/30/23 12/30/23 12/30/23 11:31 16:45 21:21 Hold Purple Top Sodium Potassium Chloride Carbon Dioxide Anion Gap BUN Creatinine Estim Creat Clear Calc Estimated GFR POC Glucose 102 87 Random Glucose Calcium 7.5 L TSH 17.47 H 12/31/23 12/31/23 06:31 07:28 Hold Purple Top SEE NOTE Sodium 128 L Potassium 3.6 Chloride 98 Carbon Dioxide 22 Anion Gap 12 BUN 9 Creatinine 0.62 Estim Creat Clear Calc 61.8 Estimated GFR > 60 POC Glucose 108 Random Glucose 94 Calcium 7.5 L TSH Microbiology Microbiology Results: Microbiology 12/28/23 Unknown Urine clean catch - Clean Catch Midstream Urine Culture - Final Klebsiella pneumoniae Pseudomonas aeruginosa 12/28/23 12:05 Blood - Venous Blood Culture - Preliminary No growth after 48 hours. 12/28/23 12:05 Blood - Venous Blood Culture - Preliminary No growth after 48 hours. 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 hypothyroidism may also be contributing to hyponatremia; pt receiving levothyroxine Continue NaCl 1gm PO BID to regimen restrict free water to 1.5L per 24 hour period; if blood drops should give normal saline IV fluids Recommend continue to monitor electrolytes and renal function daily Discussed with Dr Sainz Time Spent With Patient Time: Total time managing care of this patient today ____ minutes. Progress Note: Quality Stroke Does the patient have a stroke diagnosis?: No
[2023-12-31 10:44] LABS: Hematocrit 31.6 % (37.0-47.0); Hemoglobin 10.9 g/dl (12.0-16.0)
[2023-12-31 11:23] LABS: Glucose, Whole Blood 104 mg/dL (60-115)
--- NOTE | 2023-12-31 12:27 | HO.PM.IMPN ---
Subjective Subjective Date of Service: 12/31/23 Interval History: Seen and examined this morning Follow-up for electrolyte abnormalities, constipation, UTI, encephalopathy Awake, alert, wants to go home, argumentative and keeps repeating that she does not want to have a bag referring to colostomy She then states that she does not feel well the eyes unwilling to explain further Unable to obtain ROS as patient not cooperative Physical Exam Vital Signs: Vital Signs: Last Vital Signs Temp 98.0 F 12/31/23 11:59 Pulse 66 12/31/23 11:59 Resp 19 12/31/23 11:59 BP 119/71 12/31/23 11:59 Pulse Ox 100 12/31/23 11:59 O2 Del Method Room Air 12/31/23 11:59 BMI result Body Mass Index 17.0 Const: Other: thin, awake, alert Resp: Effort & Inspection: normal respiratory effort, able to speak in complete sentences, no respiratory distress and no use of accessory muscles Cardio: Rate: regular rate Extrem: Other: moving all extremities Objective Data Active Medications Acetaminophen (Acetaminophen 325 Mg Tablet) 650 mg PO Q6H PRN PRN Reason: Pain, Mild (Pain Scale 1-3), fever or headache Buspirone HCl (Buspirone Hcl 10 Mg Tablet) 10 mg PO BID [facility] Last Admin: 12/31/23 07:56 Dose: 10 mg Documented By: BRIAN Calcium Carbonate (Calcium Carbonate 750 Mg Tab.Chew) 750 mg PO Q4H PRN PRN Reason: Heartburn Clonidine HCl (Clonidine Hcl 0.2 Mg Tablet) 0.2 mg PO BEDTIME [facility]; Protocol Last Admin: 12/30/23 20:30 Dose: 0.2 mg Documented By: JAMIE Docusate Sodium (Docusate Sodium 100 Mg Capsule) 100 mg PO BID [facility] Last Admin: 12/31/23 07:57 Dose: 100 mg Documented By: BRIAN Heparin Sodium (Porcine) (Heparin Sodium,Porcine 5,000 Unit/Ml Vial) 5,000 unit SUBCUT Q12H [facility] Last Admin: 12/31/23 01:06 Dose: Not Given Documented By: JAMIE Non-Admin Reason: Patient Refused Dextrose (D10) 250 mls @ 750 mls/hr IV Q15M PRN PRN Reason: per Hypoglycemia Standing Ord. Last Infusion: 12/28/23 18:56 Dose: Infused Documented By: MYKEL Ceftriaxone Sodium 1 gm/ (Sodium Chloride) 50 mls @ 100 mls/hr IV Q24H [facility] Last Infusion: 12/30/23 14:48 Dose: Infused Documented By: KIMANI Levothyroxine Sodium (Levothyroxine Sodium 25 Mcg Tablet) 25 mcg PO DAILY@0600 [facility] Last Admin: 12/31/23 05:51 Dose: 25 mcg Documented By: JAMIE Lorazepam (Lorazepam 0.5 Mg Tablet) 0.5 mg PO DAILY PRN PRN Reason: severe anxiety Last Admin: 12/31/23 03:09 Dose: 0.5 mg Documented By: JAMIE Comments: per MD weldon to give earlier than 9am ordered PRN time Lorazepam (Lorazepam 1 Mg Tablet) 1 mg PO BEDTIME [facility] Last Admin: 12/30/23 20:53 Dose: 1 mg Documented By: JAMIE Magnesium Hydroxide (Milk Of Magnesia 30 Ml Oral.Susp) 30 ml PO DAILY PRN PRN Reason: Constipation Melatonin (Melatonin 3 Mg Tablet) 6 mg PO BEDTIME PRN PRN Reason: Insomnia Last Admin: 12/30/23 20:52 Dose: 6 mg Documented By: JAMIE Omeprazole (Omeprazole 40 Mg Capsule.Dr) 40 mg PO DAILY@0630 [facility] Last Admin: 12/31/23 05:51 Dose: 40 mg Documented By: JAMIE Potassium Chloride (Potassium Chloride Er 20 Meq Tab.Er.Prt) 40 meq PO DAILY [facility] Last Admin: 12/31/23 07:57 Dose: 40 meq Documented By: BRIAN Prochlorperazine Maleate (Prochlorperazine Maleate 5 Mg Tablet) 5 mg PO BID PRN PRN Reason: nausea and vomiting Last Admin: 12/31/23 03:09 Dose: 5 mg Documented By: JAMIE Sertraline HCl (Sertraline Hcl 100 Mg Tablet) 100 mg PO DAILY [facility] Last Admin: 12/31/23 07:57 Dose: 100 mg Documented By: BRIAN Sodium Chloride (0.9 % Sodium Chloride Flush 3 Ml Syringe) 3 ml IVFLUSH QSHIFT [facility] Last Admin: 12/31/23 07:58 Dose: 3 ml Documented By: BRIAN Sodium Chloride (Sodium Chloride Tab 1 Gm Tablet) 1 gm PO BID [facility] Last Admin: 12/31/23 07:57 Dose: 1 gm Documented By: BRIAN Tizanidine HCl (Tizanidine Hcl 4 Mg Tablet) 4 mg PO TID [facility] Last Admin: 12/31/23 07:57 Dose: 4 mg Documented By: BRIAN Vitamin D (Cholecalciferol (Vitamin D3) 25 Mcg Tablet) 50 mcg PO DAILY [facility] Last Admin: 12/31/23 07:56 Dose: 50 mcg Documented By: BRIAN Ziprasidone (Ziprasidone 40 Mg Capsule) 40 mg PO DAILY PRN PRN Reason: Agitation Ziprasidone (Ziprasidone 40 Mg Capsule) 40 mg PO DAILY [facility] Last Admin: 12/31/23 07:56 Dose: 40 mg Documented By: BRIAN Labs 12/31/23 06:31 12/31/23 06:31 Labs: Laboratory Results - last 24 hr 12/30/23 12/30/23 12/30/23 11:31 16:45 21:21 Hold Purple Top Anion Gap Estim Creat Clear Calc Estimated GFR POC Glucose 102 87 Random Glucose Calcium TSH 17.47 H 12/31/23 12/31/23 12/31/23 06:31 07:28 11:17 Hold Purple Top SEE NOTE Anion Gap 12 Estim Creat Clear Calc 61.8 Estimated GFR > 60 POC Glucose 108 104 Random Glucose 94 Calcium 7.5 L TSH Microbiology Microbiology Results: Microbiology 12/28/23 Unknown Urine Culture - Final Urine clean catch - Clean Catch Midstream Klebsiella pneumoniae Pseudomonas aeruginosa 12/28/23 12:05 Blood Culture - Preliminary Blood - Venous No growth after 48 hours. 12/28/23 12:05 Blood Culture - Preliminary Blood - Venous No growth after 48 hours. Assessment and Plan (1) Adult failure to thrive: Status: Acute Plan This is a 68-year-old woman admitted with failure to thrive and multiple lab abnormalities Toxic metabolic Encephalopathy with failure to thrive Possibly due to underlying UTI Unclear baseline mental status, obtain collateral information from family. Psych consult pending PT consult >rec STR UTI Urine culture growing Klebsiella and Pseudomonas Was initially treated with IV ceftriaxone,will change to IV levofloxacin Blood cultures negative to date Abdominal mass Abdominal CT showing partial obstruction possibly due to diverticular stricture versus neoplasm, also noted to have left pelvic mass for which resection was previously recommended by business services assistant however patient does not recall, she also apparently refused surgery for sigmoid colectomy. Patient records indicate previous left salpingo-oophorectomy and incisional hernia/infra umbilical hernia complicated by skin dehiscence and allergic reaction to adhesive tape in 2021 at [facility] surgery consultation>MRI of pelvis to better visualize mass GI - no indication for repeat colonoscopy Hypothyroidism New onset TSH ,17.47 free T4 0.53 Levothyroxine started 1.6mcg/kg recheck TSH in 6-8 weeks Hyponatremia Likely secondary to SIADH nephro following, rec to continue sodium chloride 1 g b.i.d. Hypokalemia. Resolved Likely secondary to dehydration Continues on daily replacement (on 10meq daily at baseline) Replete and follow Diabetes with Hypoglycemia. Resolved Likely secondary to dehydration and poor oral intake Hold insulin for now, check point of cares Hypocalcemia Calcium levels normal when corrected for hypoalbuminemia Mildly elevated troponin No ischemic changes noted on EKG Mental health Continue home medications DVT prophylaxis with SCD boots Attending Dr. Newton Full code Quality Stroke Does the patient have a stroke diagnosis?: No VTE Prior VTE?: No VTE Risk Level:: Medical - moderate - high VTE Device Contraindication: N/A - Device Ordered VTE Drug Contraindication: N/A - Med Ordered
[2023-12-31] MEDS: levoFLOXacin/D5W 250 MG/50 ML PIGGYBACK 50 MG IV (14:09)
--- NOTE | 2023-12-31 14:14 | P.CDIM_ITS ---
PROVIDER RESPONSE TEXT: To clarify, the appropriate diagnosis supported by the clinical indicators: Malnutrition: moderate QUERY TEXT: PHYSICIAN'S DOCUMENTATION REQUEST Date of Query: 12/31/2023 12:56 PM EDT Patient Name: Alma Mera Admit Date: 12/28/2023 Dear Dilcia Blackwood PA, A review of the medical record indicates additional documentation may be needed. Please review below and update the documentation accordingly. Clinical Indicators: Clinical nutrition note 12/28 - Patient is moderately malnourished with BMI 17 and 22% significant wt loss x 1 year. Recommending adding Ensure MAX BID to increase PO supp to provide 300kcals, protein. If possible, please provide an associated diagnosis related to the abnormal BMI, such as: Malnutrition mild, moderate, severe Cachexia Anorexia Other (explain) Clinically unable to determine (explain) Thank you, Radha Friend, CCS, CDIS Use of terms such as suspected, likely, concern for, or probable (associated with a specific diagnosi s that is being evaluated, monitored, or treated as if it exists) are acceptable and can be coded in the inpatient se tting, when documented at the time of discharge. Please use your independent medical judgment in providing your response. THIS QUERY IS PART OF THE PERMANENT MEDICAL RECORD
[2023-12-31] MEDS: Nicotine Polacrilex 2 MG GUM BUCCAL (15:41)
[2023-12-31 15:52] LABS: Glucose, Whole Blood 108 mg/dL (60-115)
--- NOTE | 2023-12-31 16:58 | PM.PSYCN ---
History of Present Illness Date of Service: 12/31/23 Chief Complaint: electrolyte abnormality, failure to thrive Reason for Consult: Question of capacity to make decisions Requesting physician: Baldemar Xiong Discussed with referring provider: Yes Sources of Information: patient interviewed and chart reviewed HPI Narrative: The patient is a 68 year old well known to this provider who has been seeing her for a number of years for a psychotic mood disorder who was admitted to the medical floor on 12/28/2023. She was noted to be hyponatremic hypokalemic has had frequent falls weight loss and recent significant failure to thrive. She does have a tendency to avoid medical appointments and care and was recently in the emergency room under similar circumstances. She is noted to have a stricture in her colon and a question a mass. The patient has had significant weight loss has become increasingly malnourished inability to walk. She was noted previously to have an abnormal CT scan of the abdomen she has been increasingly withdrawn difficulty caring for herself weight loss and seemingly not able to understand the severity of her situation. She did have surgery previously for a ovarian mass which turned out to be a fibroma and unfortunately has had multiple repeat serum surgeries for hernia with mesh repair she has also been noted to have peripheral vascular disease she has been on a combination of lorazepam Geodon which has been tapered down over time she does have chronic tardive dyskinesia She has also been on sertraline Past Psychiatric History: Past history of psychiatric hospitalization psychotic mixed state episodes. Has been stable for many years Medical Evaluation Reviewed: Yes Case reviewed with hospitalist service Personal & Social History: Patient is has 3 children she has been disabled for an extended period of time history of alcoholism sober many years history of gambling addiction which she has also been sober from . [facility] Medical History (Updated 01/01/24 @ 10:27 by Baldemar Xiong MD) Abdominal pain Colon stricture Subcutaneous mass of abdominal wall Neuroleptic-induced tardive dyskinesia Chronic constipation Foot pain Adnexal mass Arterial calcification Superior mesenteric artery thrombosis Smoker Diverticular stricture Paronychia of great toe, right Right knee pain Depression with anxiety Chronic idiopathic constipation Rib injury Surgical History Incisional hernia Hx of section History of cholecystectomy Family History: Patient lives with her has 3 children Social History: Family history of alcohol abuse. Patient lives with her has 1 daughter who lives in [place] 1 son. Patient does have grandchildren close with family. Trauma History: na Diagnostics Vital Signs (24Hr): Vital Signs - 24 hr 12/30/23 19:31 12/30/23 20:00 12/31/23 00:00 Temperature 98.8 F 98.8 F 98.6 F Pulse Rate 67 67 68 Respiratory Rate 20 20 20 Blood Pressure 97/54 L 97/54 L 99/60 Pulse Oximetry 94 94 97 Oxygen Delivery Method Room Air Room Air Room Air 12/31/23 04:00 12/31/23 08:00 12/31/23 11:59 Temperature 99.2 F 98.6 F 98.0 F Pulse Rate 81 66 66 Respiratory Rate 20 18 19 Blood Pressure 98/55 L 120/67 119/71 Pulse Oximetry 93 97 100 Oxygen Delivery Method Room Air Room Air Room Air 12/31/23 15:53 Temperature 98.4 F Pulse Rate 58 Respiratory Rate 18 Blood Pressure 106/59 L Pulse Oximetry 97 Oxygen Delivery Method Room Air BMI result Body Mass Index 17.0 Labs 12/31/23 06:31 01/01/24 05:59 Labs: Laboratory Results - last 48 hr 12/29/23 12/29/23 12/29/23 12:55 18:26 18:26 WBC 8.5 RBC 3.66 L Hgb 10.9 L Hct 31.3 L MCV 85.5 MCH 29.8 MCHC 34.8 RDW 14.6 Plt Count 192 MPV 8.3 L Absolute Nucleated RBC 0.000 Nucleated RBC % (auto) 0.0 Hold Purple Top Sodium 128 L Cancelled Potassium 3.9 D Chloride Carbon Dioxide Anion Gap BUN Creatinine Estim Creat Clear Calc Estimated GFR POC Glucose Random Glucose Calcium Magnesium Total Bilirubin AST ALT Alkaline Phosphatase Total Protein Albumin TSH Ur Random Sodium 21.0 Ur Random Potassium 30.1 Ur Random Chloride 67.0 12/29/23 12/29/23 12/29/23 18:26 18:26 18:26 WBC RBC Hgb Hct MCV MCH MCHC RDW Plt Count MPV Absolute Nucleated RBC Nucleated RBC % (auto) Hold Purple Top Sodium Potassium Cancelled Chloride 97 Cancelled Carbon Dioxide 25 Cancelled Anion Gap 10 L BUN Creatinine Estim Creat Clear Calc Estimated GFR POC Glucose Random Glucose Calcium Magnesium Total Bilirubin AST ALT Alkaline Phosphatase Total Protein Albumin TSH Ur Random Sodium Ur Random Potassium Ur Random Chloride 12/29/23 12/29/23 12/29/23 18:26 18:26 18:26 WBC RBC Hgb Hct MCV MCH MCHC RDW Plt Count MPV Absolute Nucleated RBC Nucleated RBC % (auto) Hold Purple Top Sodium Potassium Chloride Carbon Dioxide Anion Gap Cancelled BUN 6 L Cancelled Creatinine 0.64 Cancelled Estim Creat Clear Calc 59.8 Estimated GFR POC Glucose Random Glucose Calcium Magnesium Total Bilirubin AST ALT Alkaline Phosphatase Total Protein Albumin TSH Ur Random Sodium Ur Random Potassium Ur Random Chloride 12/29/23 12/29/23 12/29/23 18:26 18:26 18:26 WBC RBC Hgb Hct MCV MCH MCHC RDW Plt Count MPV Absolute Nucleated RBC Nucleated RBC % (auto) Hold Purple Top Sodium Potassium Chloride Carbon Dioxide Anion Gap BUN Creatinine Estim Creat Clear Calc Cancelled Estimated GFR > 60 Cancelled POC Glucose Random Glucose 105 Cancelled Calcium 7.6 L Magnesium Total Bilirubin AST ALT Alkaline Phosphatase Total Protein Albumin TSH Ur Random Sodium Ur Random Potassium Ur Random Chloride 12/29/23 12/29/23 12/30/23 18:26 20:28 07:26 WBC RBC Hgb Hct MCV MCH MCHC RDW Plt Count MPV Absolute Nucleated RBC Nucleated RBC % (auto) Hold Purple Top Sodium Potassium Chloride Carbon Dioxide Anion Gap BUN Creatinine Estim Creat Clear Calc Estimated GFR POC Glucose 91 83 Random Glucose Calcium Cancelled Magnesium 1.6 Total Bilirubin 0.4 AST 38 H ALT 20 Alkaline Phosphatase 71 Total Protein 4.2 L Albumin 2.7 L TSH Ur Random Sodium Ur Random Potassium Ur Random Chloride 12/30/23 12/30/23 12/30/23 11:06 11:31 11:31 WBC RBC Hgb Hct MCV MCH MCHC RDW Plt Count MPV Absolute Nucleated RBC Nucleated RBC % (auto) Hold Purple Top Sodium 129 L 130 L Potassium 3.9 Chloride Carbon Dioxide Anion Gap BUN Creatinine Estim Creat Clear Calc Estimated GFR POC Glucose 99 Random Glucose Calcium Magnesium Total Bilirubin AST ALT Alkaline Phosphatase Total Protein Albumin TSH Ur Random Sodium Ur Random Potassium Ur Random Chloride 12/30/23 12/30/23 12/30/23 11:31 11:31 11:31 WBC RBC Hgb Hct MCV MCH MCHC RDW Plt Count MPV Absolute Nucleated RBC Nucleated RBC % (auto) Hold Purple Top Sodium Potassium 3.9 Chloride 100 99 Carbon Dioxide 24 25 Anion Gap 9 L BUN Creatinine Estim Creat Clear Calc Estimated GFR POC Glucose Random Glucose Calcium Magnesium Total Bilirubin AST ALT Alkaline Phosphatase Total Protein Albumin TSH Ur Random Sodium Ur Random Potassium Ur Random Chloride 12/30/23 12/30/23 12/30/23 11:31 11:31 11:31 WBC RBC Hgb Hct MCV MCH MCHC RDW Plt Count MPV Absolute Nucleated RBC Nucleated RBC % (auto) Hold Purple Top Sodium Potassium Chloride Carbon Dioxide Anion Gap 10 L BUN 8 L 8 L Creatinine 0.60 0.60 Estim Creat Clear Calc 63.8 Estimated GFR POC Glucose Random Glucose Calcium Magnesium Total Bilirubin AST ALT Alkaline Phosphatase Total Protein Albumin TSH Ur Random Sodium Ur Random Potassium Ur Random Chloride 12/30/23 12/30/23 12/30/23 11:31 11:31 11:31 WBC RBC Hgb Hct MCV MCH MCHC RDW Plt Count MPV Absolute Nucleated RBC Nucleated RBC % (auto) Hold Purple Top Sodium Potassium Chloride Carbon Dioxide Anion Gap BUN Creatinine Estim Creat Clear Calc 63.8 Estimated GFR > 60 > 60 POC Glucose Random Glucose 86 85 Calcium 7.4 L Magnesium Total Bilirubin AST ALT Alkaline Phosphatase Total Protein Albumin TSH Ur Random Sodium Ur Random Potassium Ur Random Chloride 12/30/23 12/30/23 12/30/23 11:31 16:45 21:21 WBC RBC Hgb Hct MCV MCH MCHC RDW Plt Count MPV Absolute Nucleated RBC Nucleated RBC % (auto) Hold Purple Top Sodium Potassium Chloride Carbon Dioxide Anion Gap BUN Creatinine Estim Creat Clear Calc Estimated GFR POC Glucose 102 87 Random Glucose Calcium 7.5 L Magnesium Total Bilirubin AST ALT Alkaline Phosphatase Total Protein Albumin TSH 17.47 H Ur Random Sodium Ur Random Potassium Ur Random Chloride 12/31/23 12/31/23 12/31/23 06:31 07:28 11:17 WBC RBC Hgb 10.9 L Hct 31.6 L MCV MCH MCHC RDW Plt Count MPV Absolute Nucleated RBC Nucleated RBC % (auto) Hold Purple Top SEE NOTE Sodium 128 L Potassium 3.6 Chloride 98 Carbon Dioxide 22 Anion Gap 12 BUN 9 Creatinine 0.62 Estim Creat Clear Calc 61.8 Estimated GFR > 60 POC Glucose 108 104 Random Glucose 94 Calcium 7.5 L Magnesium Total Bilirubin AST ALT Alkaline Phosphatase Total Protein Albumin TSH Ur Random Sodium Ur Random Potassium Ur Random Chloride 12/31/23 15:38 WBC RBC Hgb Hct MCV MCH MCHC RDW Plt Count MPV Absolute Nucleated RBC Nucleated RBC % (auto) Hold Purple Top Sodium Potassium Chloride Carbon Dioxide Anion Gap BUN Creatinine Estim Creat Clear Calc Estimated GFR POC Glucose 108 Random Glucose Calcium Magnesium Total Bilirubin AST ALT Alkaline Phosphatase Total Protein Albumin TSH Ur Random Sodium Ur Random Potassium Ur Random Chloride Imaging Radiology Impressions: ITS Impressions Abdomen/Pelvis CT 12/28/23 10:28 IMPRESSION: Evaluation is very limited due to motion and lack of intravenous contrast. 1. Redemonstration of large amount of stool throughout the colon with severe diffuse colonic wall thickening. There is a focal transition point at the level of the sigmoid colon. Findings are not significantly changed compared to 12/21/2023 and could represent distal colonic obstruction in the context of an underlying sigmoid mass; diffuse pancolitis not excluded, and bowel vascular compromise in the context of severe constipation not excluded. Recommend clinical correlation and consider evaluation with colonoscopy when clinically appropriate. 2. Redemonstration of complex heterogeneous septated masslike abnormality in the region of the left adnexa adjacent to the uterus, recommend further evaluation with pelvic MRI with and without intravenous contrast. 3. Increased size of a right posterior pelvic floor hernia containing nonobstructive loops of the small bowel. 4. New trace amount of fluid in the pelvis. 5. Unchanged diffuse urinary bladder wall thickening. 6. Chronic right posterior 11th rib fracture. Chronic compression deformities of L1 and L5. Chronic anterolisthesis at L5-S1. Severe multifocal degenerative changes. 7. Moderate to severe emphysema with pleural-based reticulation worrisome for fibrotic-type interstitial lung disease. Consider short-term follow-up with high resolution CT chest. 8. Pulmonary nodules are not significantly changed compared to 202 which is reassuring. Following Fleischner criteria, no additional follow-up of these nodules is recommended. 9. Severe coronary calcifications and atherosclerotic disease. Recommend c4 planner specialist evaluation. Electronically signed by: Betty Hare MD 12/28/2023 01:03 PM EDT RP Cervical Spine CT 12/28/23 10:31 IMPRESSION: HEAD: No acute intracranial hemorrhage or mass effect. CERVICAL SPINE: No acute fracture. Grade 1 anterolisthesis of C4 on C5, likely chronic. Degenerative disc disease at C5-C6 and C6-C7 with mild multilevel bilateral facet arthropathy and neural foraminal stenosis. Electronically signed by: Prem Mcnamara MD 12/28/2023 01:35 PM EDT RP Chest CT 12/28/23 10:32 IMPRESSION: Evaluation is very limited due to motion and lack of intravenous contrast. 1. Redemonstration of large amount of stool throughout the colon with severe diffuse colonic wall thickening. There is a focal transition point at the level of the sigmoid colon. Findings are not significantly changed compared to 12/21/2023 and could represent distal colonic obstruction in the context of an underlying sigmoid mass; diffuse pancolitis not excluded, and bowel vascular compromise in the context of severe constipation not excluded. Recommend clinical correlation and consider evaluation with colonoscopy when clinically appropriate. 2. Redemonstration of complex heterogeneous septated masslike abnormality in the region of the left adnexa adjacent to the uterus, recommend further evaluation with pelvic MRI with and without intravenous contrast. 3. Increased size of a right posterior pelvic floor hernia containing nonobstructive loops of the small bowel. 4. New trace amount of fluid in the pelvis. 5. Unchanged diffuse urinary bladder wall thickening. 6. Chronic right posterior 11th rib fracture. Chronic compression deformities of L1 and L5. Chronic anterolisthesis at L5-S1. Severe multifocal degenerative changes. 7. Moderate to severe emphysema with pleural-based reticulation worrisome for fibrotic-type interstitial lung disease. Consider short-term follow-up with high resolution CT chest. 8. Pulmonary nodules are not significantly changed compared to 2021 which is reassuring. Following Fleischner criteria, no additional follow-up of these nodules is recommended. 9. Severe coronary calcifications and atherosclerotic disease. Recommend c4 planner specialist evaluation. Electronically signed by: Betty Hare MD 12/28/2023 01:03 PM EDT RP Head CT 12/28/23 11:16 IMPRESSION: HEAD: No acute intracranial hemorrhage or mass effect. CERVICAL SPINE: No acute fracture. Grade 1 anterolisthesis of C4 on C5, likely chronic. Degenerative disc disease at C5-C6 and C6-C7 with mild multilevel bilateral facet arthropathy and neural foraminal stenosis. Electronically signed by: Prem Mcnamara MD 12/28/2023 01:35 PM EDT Mental Status Exam Mental Status Exam Narrative: Mental Status Exam Narrative: Appearance wearing hospital garb somewhat cachectic-looking significant oral facial dyskinesia: Behavior: Cooperative fatigue psychomotor: Orofacial dyskinesia Speech: Clear Thought proccess concrete some difficulty processing information magical thinking Thought content: Complains of abdominal pain back pain decreased appetite denies self-harming thoughts denies hallucinations or delusional material Mood: Flat Affect: Constricted SI:denies no active thoughts a certain passivity HI:denies VH/AH:none Delusions: God gives me what ever I asked for Insight/judgment: Difficulty weighing information Memory/cog: Some attentional problems Medications Medications Current Medications Acetaminophen (Acetaminophen 325 Mg Tablet) 650 mg PO Q6H PRN PRN Reason: Pain, Mild (Pain Scale 1-3), fever or headache Buspirone HCl (Buspirone Hcl 10 Mg Tablet) 10 mg PO BID [facility] Last Admin: 12/31/23 07:56 Dose: 10 mg Calcium Carbonate (Calcium Carbonate 750 Mg Tab.Chew) 750 mg PO Q4H PRN PRN Reason: Heartburn Clonidine HCl (Clonidine Hcl 0.2 Mg Tablet) 0.2 mg PO BEDTIME [facility]; Protocol Last Admin: 12/30/23 20:30 Dose: 0.2 mg Docusate Sodium (Docusate Sodium 100 Mg Capsule) 100 mg PO BID [facility] Last Admin: 12/31/23 07:57 Dose: 100 mg Heparin Sodium (Porcine) (Heparin Sodium,Porcine 5,000 Unit/Ml Vial) 5,000 unit SUBCUT Q12H [facility] Last Admin: 12/31/23 12:34 Dose: Not Given Dextrose (D10) 250 mls @ 750 mls/hr IV Q15M PRN PRN Reason: per Hypoglycemia Standing Ord. Last Infusion: 12/28/23 18:56 Dose: Infused Levofloxacin (Levaquin) 250 mg in 50 mls @ 50 mls/hr IV Q24H [facility] Last Infusion: 12/31/23 15:29 Dose: Infused Levothyroxine Sodium (Levothyroxine Sodium 25 Mcg Tablet) 25 mcg PO DAILY@0600 [facility] Last Admin: 12/31/23 05:51 Dose: 25 mcg Lorazepam (Lorazepam 0.5 Mg Tablet) 0.5 mg PO DAILY PRN PRN Reason: severe anxiety Last Admin: 12/31/23 03:09 Dose: 0.5 mg Lorazepam (Lorazepam 1 Mg Tablet) 1 mg PO BEDTIME [facility] Last Admin: 12/30/23 20:53 Dose: 1 mg Magnesium Hydroxide (Milk Of Magnesia 30 Ml Oral.Susp) 30 ml PO DAILY PRN PRN Reason: Constipation Melatonin (Melatonin 3 Mg Tablet) 6 mg PO BEDTIME PRN PRN Reason: Insomnia Last Admin: 12/30/23 20:52 Dose: 6 mg Nicotine Polacrilex (Nicotine Polacrilex 2 Mg Gum) 2 mg BUCCAL Q2H PRN PRN Reason: Nicotine Cravings Last Admin: 12/31/23 15:41 Dose: 2 mg Omeprazole (Omeprazole 40 Mg Capsule.Dr) 40 mg PO DAILY@0630 [facility] Last Admin: 12/31/23 05:51 Dose: 40 mg Potassium Chloride (Potassium Chloride Er 20 Meq Tab.Er.Prt) 40 meq PO DAILY [facility] Last Admin: 12/31/23 07:57 Dose: 40 meq Prochlorperazine Maleate (Prochlorperazine Maleate 5 Mg Tablet) 5 mg PO BID PRN PRN Reason: nausea and vomiting Last Admin: 12/31/23 03:09 Dose: 5 mg Sertraline HCl (Sertraline Hcl 100 Mg Tablet) 100 mg PO DAILY [facility] Last Admin: 12/31/23 07:57 Dose: 100 mg Sodium Chloride (0.9 % Sodium Chloride Flush 3 Ml Syringe) 3 ml IVFLUSH QSHIFT [facility] Last Admin: 12/31/23 15:41 Dose: 3 ml Sodium Chloride (Sodium Chloride Tab 1 Gm Tablet) 1 gm PO BID [facility] Last Admin: 12/31/23 07:57 Dose: 1 gm Tizanidine HCl (Tizanidine Hcl 4 Mg Tablet) 4 mg PO TID [facility] Last Admin: 12/31/23 14:10 Dose: 4 mg Vitamin D (Cholecalciferol (Vitamin D3) 25 Mcg Tablet) 50 mcg PO DAILY [facility] Last Admin: 12/31/23 07:56 Dose: 50 mcg Ziprasidone (Ziprasidone 40 Mg Capsule) 40 mg PO DAILY PRN PRN Reason: Agitation Ziprasidone (Ziprasidone 40 Mg Capsule) 40 mg PO DAILY [facility] Last Admin: 12/31/23 07:56 Dose: 40 mg Allergies Allergies Allergy/AdvReac Type Severity Reaction Status Date / Time No Known Allergies Allergy Verified 12/28/23 10:38 Assessment & Plan Assessment & Plan (1) Bipolar 1 disorder, depressed: Status: Acute Code(s): F31.9 - Bipolar disorder, unspecified (2) Adult failure to thrive: Status: Acute Code(s): R62.7 - Adult failure to thrive Plan Patient does appear depressed and withdrawn and although denying gross hallucinations does state when I tried to discuss with her potential for cancer diagnosis she does not really seem to be able to weigh the information states I just want to go home and stating that God gives me what ever I ask for Patient is having difficulty processing information ignoring the extent of her current disability and seriousness of her situation might benefit from increase sertraline and increase Geodon versus perhaps change to Vraylar which might help more with depressive symptoms Increase sertraline to 150 mg patient would benefit from family involvement of her healthcare proxies including her and daughter Would eventually benefit from extensive home services such as PT [facility]NA nutritional consult Total time managing care of this patient today _60___ minutes. Patient educated on: diagnosis and medical condition Informed Consent: does not understand and further education needed (Has difficulty waiting information just got asking to go home does not seem to comprehend the extent of her disabilities and medical condition)
[2023-12-31] MEDS: LORazepam 1 MG TABLET PO (20:22)
[2023-12-31] MEDS: cloNIDine HCL 0.2 MG TABLET PO (20:23)
[2023-12-31 21:01] LABS: Glucose, Whole Blood 126 mg/dL (60-115)
[2024-01-01] VITALS (10 sets, daily range): BP systolic 79–133; BP diastolic 49–76; PULSE 60–83; RESP 15–18; TEMP 36.2–37.2; O2SAT 97–100
[2024-01-01] MEDS: Melatonin 3 MG TABLET 6 MG PO (01:49)
[2024-01-01] MEDS: 0.9 % Sodium Chloride Flush 3 ML SYRINGE IVFLUSH ×4 (01:50→20:56)
[2024-01-01] MEDS: Heparin Sodium,Porcine 5,000 UNIT/ML VIAL 5000 UNIT SUBCUT ×2 (01:52→10:28)
[2024-01-01] MEDS: Levothyroxine Sodium 25 MCG TABLET PO (05:27)
[2024-01-01] MEDS: Omeprazole 40 MG CAPSULE.DR PO (05:27)
[2024-01-01 06:50] LABS: Anion Gap 12 (12-20); Blood Urea Nitrogen 7 mg/dL (9-16); Calcium 7.9 mg/dL (8.4-10.2); Carbon Dioxide 22 mmol/L (22-29); Chloride 95 mmol/L (96-108); Creatinine Clr Calc Pharmacy 64.9; Estimated Glomerular Filt Rate > 60; Glucose Random 99 mg/dL (60-115); Potassium 4.3 mmol/L (3.3-5.1); Sodium 125 mmol/L (135-145)
[2024-01-01 08:09] LABS: Glucose, Whole Blood 123 mg/dL (60-115)
--- NOTE | 2024-01-01 08:46 | PM.PNNEP ---
Subjective Subjective Date of Service: 01/01/24 Interval history: pt is a 68 y/o female with a medical history of bipolar disorder, COPD, DMII, PAD, depression, anxiety and GERD. She lives with her , who called EMS on 12/27. Per records/EMS, pt living in [facility] and crawling on the ground and unable to walk, confused. 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 and high free water intake pt has hypothyroidism as well sodium worsened to 125 overnight (128 yesterday) pt denies headache, muscle cramping/twitching, nausea/vomiting, lethargy states I feel completely fine she denies drinking free water, states she has only been drinking gingerale (does have ice cubes) she continues to take sertraline, zaprasidone thyroid hormone is being replaced creatinine 0.60 and GFR> 60 kidneys & ureters uremarkable on 12/[address] scan Patient states today nasuea is improving, appetite is improving denies shortness of breath, chest pain states she is urinating without difficulty, denies urinary/flank pain, denies blood in urine denies new rash or joint pain- states chronic left low back pain denies other questions, concerns Physical Exam Vital Signs: Vital Signs: Last Vital Signs Temp 97.2 F 01/01/24 07:27 Pulse 77 01/01/24 07:27 Resp 16 01/01/24 07:27 BP 126/76 01/01/24 07:27 Pulse Ox 100 01/01/24 07:27 O2 Del Method Room Air 01/01/24 07:27 BMI result Body Mass Index 17.0 Const: General: comfortable and no acute distress Neck: Neck: Yes no JVD Resp: Effort & Inspection: able to speak in complete sentences Auscultation: clear to auscultation bilaterally Cardio: Jugular venous distension: no JVD Rate: regular rate Rhythm: regular rhythm Heart sounds: S1 normal heart sound present and S2 normal heart sound present GI: Palpation (GI): Soft to palpation : General: Yes no CVA tenderness Back/Spine/Pelvis: Back: no CVA tenderness Skin: Rashes: no rashes Extrem: General: Yes normal to inspection, No edema and No pedal edema Objective Data Labs 12/31/23 06:31 01/01/24 05:59 Labs: Laboratory Results - last 24 hr 12/31/23 12/31/23 12/31/23 06:31 11:17 15:38 Hgb 10.9 L Hct 31.6 L Sodium Potassium Chloride Carbon Dioxide Anion Gap BUN Creatinine Estim Creat Clear Calc Estimated GFR POC Glucose 104 108 Random Glucose Calcium 12/31/23 01/01/24 01/01/24 20:47 05:59 07:55 Hgb Hct Sodium 125 L Potassium 4.3 Chloride 95 L Carbon Dioxide 22 Anion Gap 12 BUN 7 L Creatinine 0.59 Estim Creat Clear Calc 64.9 Estimated GFR > 60 POC Glucose 126 H 123 H Random Glucose 99 Calcium 7.9 L Microbiology Microbiology Results: Microbiology 12/28/23 Unknown Urine clean catch - Clean Catch Midstream Urine Culture - Final Klebsiella pneumoniae Pseudomonas aeruginosa 12/28/23 12:05 Blood - Venous Blood Culture - Preliminary No growth after 48 hours. 12/28/23 12:05 Blood - Venous Blood Culture - Preliminary No growth after 48 hours. 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 hypothyroidism may also be contributing to hyponatremia; pt receiving levothyroxine; this will take time to correct Continue NaCl 1gm PO BID to regimen 1x dose of 30mg urea powder PO added due to sodium of 125 restrict free water to 1.2L per 24 hour period; if blood drops may give normal saline IV fluids Recommend continue to monitor electrolytes and renal function daily, may consider discharge with fluid restriction from hyponatremia standpoint given hyponatremia is chronic and patient is asymptomatic. Discussed with Dr Sainz Time Spent With Patient Time: Total time managing care of this patient today ____ minutes. Progress Note: Quality Stroke Does the patient have a stroke diagnosis?: No
[2024-01-01] MEDS: Urea 15 GM POWDER 30 GM PO (10:26)
[2024-01-01] MEDS: Sodium Chloride Tab 1 GM TABLET PO ×2 (10:26→20:56)
[2024-01-01] MEDS: TiZANidine HCL 4 MG TABLET PO ×2 (10:26→20:55)
[2024-01-01] MEDS: Potassium Chloride ER 20 MEQ TAB.ER.PRT 40 MEQ PO (10:26)
[2024-01-01] MEDS: Sertraline HCL 100 MG TABLET PO (10:26)
[2024-01-01] MEDS: Ziprasidone 40 MG CAPSULE PO (10:26)
[2024-01-01] MEDS: Cholecalciferol (Vitamin D3) 25 MCG TABLET 50 MCG PO (10:27)
[2024-01-01] MEDS: Docusate Sodium 100 MG CAPSULE PO ×2 (10:27→20:55)
[2024-01-01] MEDS: busPIRone HCl 10 MG TABLET PO ×2 (10:27→20:55)
[2024-01-01] MEDS: levoFLOXacin/D5W 250 MG/50 ML PIGGYBACK 50 MG IV (11:50)
[2024-01-01] MEDS: Lactated Ringers 500 ML IVCONT (11:50)
[2024-01-01 11:55] LABS: Glucose, Whole Blood 125 mg/dL (60-115)
--- NOTE | 2024-01-01 12:17 | MHC.CLN ---
F/U PO INTAKE 75% X3 MEALS DIET RX: 1800DM 1500FLUID RESTRICTION-APPROPRIATE (DIET WILL PROMOTE SLOW WT GAIN) PT RECEIVING ENSURE MAX BID TO INCREASE PO SUPP TO PROVIDE 300KCALS, 60G PROTEIN, 600ML FREE WATER (FOR FLUID RESTRICTION WITH 100% ACCEPTANCE) MONITOR PO INTAKE AND ENCOURAGE SUPPLEMENTS
[2024-01-01 12:27] LABS: Sodium 126 mmol/L (135-145)
--- NOTE | 2024-01-01 12:53 | MHC.CM.PN ---
Addendum entered by Mary Evans 01/01/24 14:00: The hospitalist met with HCP/spouse/Satish. She explained the need for the transfer to a facility with ORAL HYGIENIST/GI specialty . The spouse agreed to the transfer to [facility]. [facility] via BLS. Protective services have been notified that the HCP has been invoked. The psych eval indicates that the patient lacks capacity. A 2nd VM was left. Protective notified of the transfer to [facility]. Original Note: The Psych eval has determined that the patient does not have capacity. The HCP is invoked. Surgery recommends transfer to tertiary facility with ORAL HYGIENIST-GI services. The provider is waiting for the HCP decision on whether or not to set up transfer to [facility]. The patient has had a previous surgical intervention @ [facility].
--- NOTE | 2024-01-01 14:10 | P.PNGS_ITS ---
Subjective Subjective Date of Service: 01/01/24 Patient reports: no new complaints Physical Exam 2 Vital Signs: Vital Signs: Last Vital Signs Temp 97.3 F 01/01/24 11:18 Pulse 62 01/01/24 12:37 Resp 15 01/01/24 12:37 BP 90/59 L 01/01/24 12:37 Pulse Ox 97 01/01/24 11:18 O2 Del Method Room Air 01/01/24 11:18 BMI result Body Mass Index 17.0 Const: General: awake Nutritional Appearance: thin O rientation/consciousness: oriented to person and oriented to place Resp: Effort & Inspection: normal respiratory effort, no cough and no respiratory distress GI: Palpation (GI): Soft to palpation, nontender, no guarding and not rigid Percussion: Yes normal to percussion Rectal Exam - Female: deferred Neuro: General: oriented to person and oriented to place Objective Data Active Medications Acetaminophen (Acetaminophen 325 Mg Tablet) 650 mg PO Q6H PRN PRN Reason: Pain, Mild (Pain Scale 1-3), fever or headache Buspirone HCl (Buspirone Hcl 10 Mg Tablet) 10 mg PO BID [facility] Last Admin: 01/01/24 10:27 Dose: 10 mg Documented By: DRAKE Calcium Carbonate (Calcium Carbonate 750 Mg Tab.Chew) 750 mg PO Q4H PRN PRN Reason: Heartburn Clonidine HCl (Clonidine Hcl 0.2 Mg Tablet) 0.2 mg PO BEDTIME [facility]; Protocol Last Admin: 12/31/23 20:23 Dose: 0.2 mg Documented By: KENNY Docusate Sodium (Docusate Sodium 100 Mg Capsule) 100 mg PO BID [facility] Last Admin: 01/01/24 10:27 Dose: 100 mg Documented By: DRAKE Heparin Sodium (Porcine) (Heparin Sodium,Porcine 5,000 Unit/Ml Vial) 5,000 unit SUBCUT Q12H [facility] Last Admin: 01/01/24 10:28 Dose: 5,000 unit Documented By: DRAKE Levofloxacin (Levaquin) 250 mg in 50 mls @ 50 mls/hr IV Q24H [facility] Last Infusion: 01/01/24 12:50 Dose: Infused Documented By: DRAKE Levothyroxine Sodium (Levothyroxine Sodium 25 Mcg Tablet) 25 mcg PO DAILY@0600 [facility] Last Admin: 01/01/24 05:27 Dose: 25 mcg Documented By: KENNY Lorazepam (Lorazepam 0.5 Mg Tablet) 0.5 mg PO DAILY PRN PRN Reason: severe anxiety Last Admin: 12/31/23 03:09 Dose: 0.5 mg Documented By: JAMIE Comments: per ok to give earlier than 9am ordered PRN time Lorazepam (Lorazepam 1 Mg Tablet) 1 mg PO BEDTIME [facility] Last Admin: 12/31/23 20:22 Dose: 1 mg Documented By: KENNY Magnesium Hydroxide (Milk Of Magnesia 30 Ml Oral.Susp) 30 ml PO DAILY PRN PRN Reason: Constipation Melatonin (Melatonin 3 Mg Tablet) 6 mg PO BEDTIME PRN PRN Reason: Insomnia Last Admin: 01/01/24 01:49 Dose: 6 mg Documented By: KENNY Nicotine Polacrilex (Nicotine Polacrilex 2 Mg Gum) 2 mg BUCCAL Q2H PRN PRN Reason: Nicotine Cravings Last Admin: 12/31/23 15:41 Dose: 2 mg Documented By: SAMARA Omeprazole (Omeprazole 40 Mg Capsule.Dr) 40 mg PO DAILY@0630 [facility] Last Admin: 01/01/24 05:27 Dose: 40 mg Documented By: KENNY Potassium Chloride (Potassium Chloride Er 20 Meq Tab.Er.Prt) 40 meq PO DAILY [facility] Last Admin: 01/01/24 10:26 Dose: 40 meq Documented By: DRAKE Prochlorperazine Maleate (Prochlorperazine Maleate 5 Mg Tablet) 5 mg PO BID PRN PRN Reason: nausea and vomiting Last Admin: 12/31/23 03:09 Dose: 5 mg Documented By: JAMIE Sertraline HCl (Sertraline Hcl 100 Mg Tablet) 100 mg PO DAILY [facility] Last Admin: 01/01/24 10:26 Dose: 100 mg Documented By: DRAKE Sodium Chloride (0.9 % Sodium Chloride Flush 3 Ml Syringe) [facility] Last Admin: 01/01/24 13:53 Dose: 3 ml Documented By: DRAKE Sodium Chloride (Sodium Chloride Tab 1 Gm Tablet) 1 gm PO BID [facility] Last Admin: 01/01/24 10:26 Dose: 1 gm Documented By: DRAKE Tizanidine HCl (Tizanidine Hcl 4 Mg Tablet) 4 mg PO TID [facility] Last Admin: 01/01/24 13:52 Dose: Not Given Documented By: DRAKE Non-Admin Reason: Patient Refused Vitamin D (Cholecalciferol (Vitamin D3) 25 Mcg Tablet) 50 mcg PO DAILY [facility] Last Admin: 01/01/24 10:27 Dose: 50 mcg Documented By: DRAKE Ziprasidone (Ziprasidone 40 Mg Capsule) 40 mg PO DAILY PRN PRN Reason: Agitation Ziprasidone (Ziprasidone 40 Mg Capsule) 40 mg PO DAILY [facility] Last Admin: 01/01/24 10:26 Dose: 40 mg Documented By: DRAKE Labs 12/31/23 06:31 01/01/24 12:08 Labs: Laboratory Results - last 24 hr 12/31/23 12/31/23 01/01/24 15:38 20:47 05:59 Anion Gap 12 Estim Creat Clear Calc 64.9 Estimated GFR > 60 POC Glucose 108 126 H Random Glucose 99 Calcium 7.9 L 01/01/24 01/01/24 07:55 11:21 Anion Gap Estim Creat Clear Calc Estimated GFR POC Glucose 123 H 125 H Random Glucose Calcium Imaging MRI - abdomen: Radiologist's impression: Impressions Pelvis MRI 12/30/23 12:37 IMPRESSION: 5.1 x 2.4 x 3.2 cm cystic and solid enhancing mass in the left hemipelvis/left adnexa with surrounding retractile appearance causing wall thickening and luminal narrowing of the rectosigmoid colon with proximal colonic obstruction. 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 Correlation with direct visualization is advised. Electronically signed by: Edison Easley MD 01/01/2024 09:37 AM EDT RP Procedures Date of Service Date of Service: 01/01/24 Progress Note: A&P Assessment and plan (1) Adult failure to thrive: Status: Acute (2) Abdominal pain: Status: Acute (3) Colonic mass: Status: Acute Plan 68-year-old female patient with a long history of sigmoid wall thickening and a left pelvic mass, possibly adnexal mass admitted with obstructive symptoms. MRI results indicate pelvic mass either due to a adnexal mass with extension to the colon wall or colon cancer with extension to the left hemipelvis. Findings appear similar to previous CT scans going back to 2020. If patient is amenable to surgical intervention, would recommend transfer to tertiary care center with the availability of long winder tender Oncology. Time Spent With Patient Time: Total time managing care of this patient today ____ minutes. Quality Stroke Does the patient have a stroke diagnosis?: No VTE Prior VTE?: No VTE Risk Level:: Medical - moderate - high VTE Device Contraindication: N/A - Device Ordered VTE Drug Contraindication: N/A - Med Ordered
--- NOTE | 2024-01-01 15:01 | HO.PM.IMPN ---
Subjective Subjective Date of Service: 01/01/24 Interval History: Seen and examined this morning Follow-up for hyponatremia, UTI, pelvic mass Seen by psych-determined to not have capacity to make medical decisions-Healthcare proxy invoked more interactive today with discussion, but keeps repeating that she wants to go home Review of Systems Review of Systems: Yes all other systems are reviewed and are negative Constitutional Constitutional: Denies chills and Denies fever(s) Physical Exam Vital Signs: Vital Signs: Last Vital Signs Temp 97.3 F 01/01/24 11:18 Pulse 62 01/01/24 12:37 Resp 15 01/01/24 12:37 BP 90/59 L 01/01/24 12:37 Pulse Ox 97 01/01/24 11:18 O2 Del Method Room Air 01/01/24 11:18 BMI result Body Mass Index 17.0 Const: Other: thin, frail General: alert and awake Orientation/consciousness: oriented to person Resp: Effort & Inspection: normal respiratory effort, able to speak in complete sentences, no respiratory distress and no use of accessory muscles Cardio: Rate: regular rate Neuro: General: oriented to person, moves all extremities and CN's II-XI intact bilaterally Extrem: Other: moving all extremities General: Yes no pedal edema Objective Data Active Medications Acetaminophen (Acetaminophen 325 Mg Tablet) 650 mg PO Q6H PRN PRN Reason: Pain, Mild (Pain Scale 1-3), fever or headache Buspirone HCl (Buspirone Hcl 10 Mg Tablet) 10 mg PO BID [facility] Last Admin: 01/01/24 10:27 Dose: 10 mg Documented By: DRAKE Calcium Carbonate (Calcium Carbonate 750 Mg Tab.Chew) 750 mg PO Q4H PRN PRN Reason: Heartburn Clonidine HCl (Clonidine Hcl 0.2 Mg Tablet) 0.2 mg PO BEDTIME [facility]; Protocol Last Admin: 12/31/23 20:23 Dose: 0.2 mg Documented By: KENNY Docusate Sodium (Docusate Sodium 100 Mg Capsule) 100 mg PO BID [facility] Last Admin: 01/01/24 10:27 Dose: 100 mg Documented By: DRAKE Heparin Sodium (Porcine) (Heparin Sodium,Porcine 5,000 Unit/Ml Vial) 5,000 unit SUBCUT Q12H [facility] Last Admin: 01/01/24 10:28 Dose: 5,000 unit Documented By: DRAKE Levofloxacin (Levaquin) 500 mg in 100 mls @ 100 mls/hr IV Q24H [facility] Levothyroxine Sodium (Levothyroxine Sodium 25 Mcg Tablet) 25 mcg PO DAILY@0600 [facility] Last Admin: 01/01/24 05:27 Dose: 25 mcg Documented By: KENNY Lorazepam (Lorazepam 0.5 Mg Tablet) 0.5 mg PO DAILY PRN PRN Reason: severe anxiety Last Admin: 12/31/23 03:09 Dose: 0.5 mg Documented By: JAMIE Comments: per MD weldon to give earlier than 9am ordered PRN time Lorazepam (Lorazepam 1 Mg Tablet) 1 mg PO BEDTIME [facility] Last Admin: 12/31/23 20:22 Dose: 1 mg Documented By: KENNY Magnesium Hydroxide (Milk Of Magnesia 30 Ml Oral.Susp) 30 ml PO DAILY PRN PRN Reason: Constipation Melatonin (Melatonin 3 Mg Tablet) 6 mg PO BEDTIME PRN PRN Reason: Insomnia Last Admin: 01/01/24 01:49 Dose: 6 mg Documented By: KENNY Nicotine Polacrilex (Nicotine Polacrilex 2 Mg Gum) 2 mg BUCCAL Q2H PRN PRN Reason: Nicotine Cravings Last Admin: 12/31/23 15:41 Dose: 2 mg Documented By: SAMARA Omeprazole (Omeprazole 40 Mg Capsule.Dr) 40 mg PO DAILY@0630 [facility] Last Admin: 01/01/24 05:27 Dose: 40 mg Documented By: KENNY Potassium Chloride (Potassium Chloride Er 20 Meq Tab.Er.Prt) 40 meq PO DAILY [facility] Last Admin: 01/01/24 10:26 Dose: 40 meq Documented By: DRAKE Prochlorperazine Maleate (Prochlorperazine Maleate 5 Mg Tablet) 5 mg PO BID PRN PRN Reason: nausea and vomiting Last Admin: 12/31/23 03:09 Dose: 5 mg Documented By: JAMIE Sertraline HCl (Sertraline Hcl 100 Mg Tablet) 100 mg PO DAILY [facility] Last Admin: 01/01/24 10:26 Dose: 100 mg Documented By: DRAKE Sodium Chloride (0.9 % Sodium Chloride Flush 3 Ml Syringe) [facility] Last Admin: 01/01/24 13:53 Dose: 3 ml Documented By: DRAKE Sodium Chloride (Sodium Chloride Tab 1 Gm Tablet) 1 gm PO BID [facility] Last Admin: 01/01/24 10:26 Dose: 1 gm Documented By: DRAKE Tizanidine HCl (Tizanidine Hcl 4 Mg Tablet) 4 mg PO TID [facility] Last Admin: 01/01/24 13:52 Dose: Not Given Documented By: DRAKE Non-Admin Reason: Patient Refused Vitamin D (Cholecalciferol (Vitamin D3) 25 Mcg Tablet) 50 mcg PO DAILY [facility] Last Admin: 01/01/24 10:27 Dose: 50 mcg Documented By: DRAKE Ziprasidone (Ziprasidone 40 Mg Capsule) 40 mg PO DAILY PRN PRN Reason: Agitation Ziprasidone (Ziprasidone 40 Mg Capsule) 40 mg PO DAILY [facility] Last Admin: 01/01/24 10:26 Dose: 40 mg Documented By: DRAKE Labs 12/31/23 06:31 01/01/24 12:08 Labs: Laboratory Results - last 24 hr 12/31/23 12/31/23 01/01/24 15:38 20:47 05:59 Anion Gap 12 Estim Creat Clear Calc 64.9 Estimated GFR > 60 POC Glucose 108 126 H Random Glucose 99 Calcium 7.9 L 01/01/24 01/01/24 07:55 11:21 Anion Gap Estim Creat Clear Calc Estimated GFR POC Glucose 123 H 125 H Random Glucose Calcium Assessment and Plan (1) Bipolar 1 disorder, depressed: Status: Acute (2) Adult failure to thrive: Status: Acute (3) Acute hyponatremia: Status: Acute (4) Pelvic mass: Status: Acute Plan This is a 68-year-old woman admitted with failure to thrive and multiple lab abnormalities Toxic metabolic Encephalopathy with failure to thrive due to underlying UTI with a background of mental health issues seen by Psych - does NOT have capacity to make medical decisions. Healthcare proxy is her Satish. PT consult >rec STR UTI Urine culture growing Klebsiella and Pseudomonas Was initially treated with IV ceftriaxone,will change to IV levofloxacin Blood cultures negative to date Abdominal mass Abdominal CT showing partial obstruction possibly due to diverticular stricture versus neoplasm, also noted to have left pelvic mass for which resection was previously recommended by patient safety sitter however patient does not recall, she also apparently refused surgery for sigmoid colectomy. 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 urea x1 given this am Hypothyroidism New onset TSH ,17.47 free T4 0.53 Levothyroxine started 1.6mcg/kg recheck TSH in 6-8 weeks Hypokalemia. Resolved Likely secondary to dehydration Continues on daily replacement (on 10meq daily at baseline) Replete and follow Diabetes with Hypoglycemia. Resolved Likely secondary to dehydration and poor oral intake Hold insulin for now, check point of cares Hypocalcemia Calcium levels normal when corrected for hypoalbuminemia Mildly elevated troponin No ischemic changes noted on EKG Mental health Continue home medications Moderate protein calorie malnutrition BMI 17 Seen by nutrition, supplements added DVT prophylaxis with SCD boots Attending Dr. Newton Full code Quality Stroke Does the patient have a stroke diagnosis?: No VTE Prior VTE?: No VTE Risk Level:: Medical - moderate - high VTE Device Contraindication: N/A - Device Ordered VTE Drug Contraindication: N/A - Med Ordered
[2024-01-01 15:51] LABS: Glucose, Whole Blood 202 mg/dL (60-115)
[2024-01-01] MEDS: 0.9 % Sodium Chloride 250 ML 75 ML IV (16:33)
[2024-01-01 20:17] LABS: Sodium 127 mmol/L (135-145)
[2024-01-01] MEDS: LORazepam 1 MG TABLET PO (20:55)
[2024-01-01 21:39] LABS: Glucose, Whole Blood 142 mg/dL (60-115)
[2024-01-02] VITALS (8 sets, daily range): BP systolic 95–139; BP diastolic 56–76; PULSE 63–91; RESP 15–20; TEMP 36.6–37.1; O2SAT 94–99
[2024-01-02] MEDS: Melatonin 3 MG TABLET 6 MG PO ×2 (02:00→20:06)
[2024-01-02] MEDS: Levothyroxine Sodium 25 MCG TABLET PO (06:02)
[2024-01-02] MEDS: Omeprazole 40 MG CAPSULE.DR PO (06:02)
[2024-01-02] MEDS: Cholecalciferol (Vitamin D3) 25 MCG TABLET 50 MCG PO (08:13)
[2024-01-02] MEDS: Potassium Chloride ER 20 MEQ TAB.ER.PRT 40 MEQ PO (08:13)
[2024-01-02] MEDS: Docusate Sodium 100 MG CAPSULE PO (08:13)
[2024-01-02] MEDS: Sertraline HCL 100 MG TABLET PO (08:13)
[2024-01-02] MEDS: Ziprasidone 40 MG CAPSULE PO (08:13)
[2024-01-02] MEDS: busPIRone HCl 10 MG TABLET PO ×2 (08:13→20:06)
[2024-01-02] MEDS: 0.9 % Sodium Chloride Flush 3 ML SYRINGE IVFLUSH ×2 (08:13→15:20)
[2024-01-02] MEDS: Sodium Chloride Tab 1 GM TABLET PO ×2 (08:13→20:06)
[2024-01-02] MEDS: TiZANidine HCL 4 MG TABLET PO ×3 (08:13→20:06)
[2024-01-02 08:35] LABS: MANUAL DIFF FLAG NO
[2024-01-02 08:52] LABS: Anion Gap 10 (12-20); Blood Urea Nitrogen 9 mg/dL (9-16); Calcium 7.8 mg/dL (8.4-10.2); Carbon Dioxide 26 mmol/L (22-29); Chloride 95 mmol/L (96-108); Creatinine Clr Calc Pharmacy 67.2; Estimated Glomerular Filt Rate > 60; Glucose Random 91 mg/dL (60-115); Potassium 3.7 mmol/L (3.3-5.1); Sodium 127 mmol/L (135-145)
[2024-01-02 09:03] LABS: Basophils Percent Auto 0.1 % (0-2); Eosinophils Percent Auto 0.3 % (0-4); Hematocrit 32.1 % (37.0-47.0); Imm Gran Abs Auto 0.05 X10*3/uL (0.00-0.03); Imm Gran Pct Auto 0.6 % (0.0-0.4); Lymphocytes Absolute Auto 0.7 X10*3/uL (1.2-4.9); Lymphocytes Percent Auto 9.4 % (20-40); Mean Corpuscular HGB Conc 34.3 g/dl (31.0-35.0); Mean Corpuscular Hemoglobin 29.6 pg (27.0-33.0); Mean Corpuscular Volume 86.3 fL (80.0-98.0); Mean Platelet Volume 8.2 fL (9.4-12.3); Monocytes Absolute Auto 0.4 X10*3/uL (0.1-1.2); Monocytes Percent Auto 4.8 % (2-11); Neutrophils Absolute Auto 6.6 x10*3/uL (2.0-8.3); Neutrophils Percent Auto 84.8 % (45-73); Platelet Count 152 X10*3/uL (160-400); Red Blood Count 3.72 X10*6/uL (4.20-5.50); Red Cell Distribution Width 14.8 % (11.0-16.0); White Blood Count 7.8 X10*3/uL (4.8-10.8)
--- NOTE | 2024-01-02 10:46 | P.PNIM_ITS ---
Subjective Subjective Date of Service: 01/02/24 Interval History: Seen and examined this morning Follow-up for hyponatremia, UTI, pelvic mass Seen by psych-determined to not have capacity to make medical decisions- Healthcare proxy invoked more interactive today with discussion, but keeps repeating that she wants to go home Review of Systems Review of Systems: Yes all other systems are reviewed and are negative Constitutional Constitutional: Denies chills and Denies fever(s) Physical Exam 2 Vital Signs: Vital Signs: Last Vital Signs Temp 98.3 F 01/02/24 08:00 Pulse 84 01/02/24 09:18 Resp 15 01/02/24 09:18 BP 112/60 01/02/24 09:18 Pulse Ox 97 01/02/24 08:00 O2 Del Method Room Air 01/02/24 08:00 BMI result Body Mass Index 17.0 Appearing in no acute distress lung sounds are clear to auscultation heart regular rate rhythm, clear S1, S2 positive bowel sounds, abdomen is soft, nontender neuro patient is alert x3, no focal deficits Objective Data Active Medications Acetaminophen (Acetaminophen 325 Mg Tablet) 650 mg PO Q6H PRN PRN Reason: Pain, Mild (Pain Scale 1-3), fever or headache Buspirone HCl (Buspirone Hcl 10 Mg Tablet) 10 mg PO BID [facility] Last Admin: 01/02/24 08:13 Dose: 10 mg Documented By: DRAKE Calcium Carbonate (Calcium Carbonate 750 Mg Tab.Chew) 750 mg PO Q4H PRN PRN Reason: Heartburn Clonidine HCl (Clonidine Hcl 0.2 Mg Tablet) 0.2 mg PO BEDTIME [facility]; Protocol Last Admin: 12/31/23 20:23 Dose: 0.2 mg Documented By: KENNY Docusate Sodium (Docusate Sodium 100 Mg Capsule) 100 mg PO BID [facility] Last Admin: 01/02/24 08:13 Dose: 100 mg Documented By: DRAKE Heparin Sodium (Porcine) (Heparin Sodium,Porcine 5,000 Unit/Ml Vial) 5,000 unit SUBCUT Q12H [facility] Last Admin: 01/01/24 23:51 Dose: Not Given Documented By: SHAUNA Non-Admin Reason: Patient declined Levofloxacin (Levaquin) 500 mg in 100 mls @ 100 mls/hr IV Q24H [facility] Levothyroxine Sodium (Levothyroxine Sodium 25 Mcg Tablet) 25 mcg PO DAILY@0600 [facility] Last Admin: 01/02/24 06:02 Dose: 25 mcg Documented By: SHAUNA Lorazepam (Lorazepam 0.5 Mg Tablet) 0.5 mg PO DAILY PRN PRN Reason: severe anxiety Last Admin: 12/31/23 03:09 Dose: 0.5 mg Documented By: JAMIE Comments: per MD ok to give earlier than 9am ordered PRN time Lorazepam (Lorazepam 1 Mg Tablet) 1 mg PO BEDTIME [facility] Last Admin: 01/01/24 20:55 Dose: 1 mg Documented By: SHAUNA Magnesium Hydroxide (Milk Of Magnesia 30 Ml Oral.Susp) 30 ml PO DAILY PRN PRN Reason: Constipation Melatonin (Melatonin 3 Mg Tablet) 6 mg PO BEDTIME PRN PRN Reason: Insomnia Last Admin: 01/02/24 02:00 Dose: 6 mg Documented By: SHAUNA Comments: pt requested to fall sleep Nicotine Polacrilex (Nicotine Polacrilex 2 Mg Gum) 2 mg BUCCAL Q2H PRN PRN Reason: Nicotine Cravings Last Admin: 12/31/23 15:41 Dose: 2 mg Documented By: SAMARA Omeprazole (Omeprazole 40 Mg Capsule.Dr) 40 mg PO DAILY@0630 [facility] Last Admin: 01/02/24 06:02 Dose: 40 mg Documented By: SHAUNA Potassium Chloride (Potassium Chloride Er 20 Meq Tab.Er.Prt) 40 meq PO DAILY [facility] Last Admin: 01/02/24 08:13 Dose: 40 meq Documented By: DRAKE Prochlorperazine Maleate (Prochlorperazine Maleate 5 Mg Tablet) 5 mg PO BID PRN PRN Reason: nausea and vomiting Last Admin: 12/31/23 03:09 Dose: 5 mg Documented By: JAMIE Sertraline HCl (Sertraline Hcl 100 Mg Tablet) 100 mg PO DAILY [facility] Last Admin: 01/02/24 08:13 Dose: 100 mg Documented By: DRAKE Sodium Chloride (0.9 % Sodium Chloride Flush 3 Ml Syringe) 3 ml IVFLUSH QSHIFT [facility] Last Admin: 01/02/24 08:13 Dose: 3 ml Documented By: DRAKE Sodium Chloride (Sodium Chloride Tab 1 Gm Tablet) 1 gm PO BID [facility] Last Admin: 01/02/24 08:13 Dose: 1 gm Documented By: DRAKE Tizanidine HCl (Tizanidine Hcl 4 Mg Tablet) 4 mg PO TID [facility] Last Admin: 01/02/24 08:13 Dose: 4 mg Documented By: DRAKE Vitamin D (Cholecalciferol (Vitamin D3) 25 Mcg Tablet) 50 mcg PO DAILY [facility] Last Admin: 01/02/24 08:13 Dose: 50 mcg Documented By: DRAKE Ziprasidone (Ziprasidone 40 Mg Capsule) 40 mg PO DAILY PRN PRN Reason: Agitation Ziprasidone (Ziprasidone 40 Mg Capsule) 40 mg PO DAILY [facility] Last Admin: 01/02/24 08:13 Dose: 40 mg Documented By: DRAKE Labs 01/02/24 07:58 01/02/24 07:58 Labs: Laboratory Results - last 24 hr 01/01/24 01/01/24 01/01/24 11:21 15:37 21:09 MCV MCH MCHC RDW Plt Count MPV Immature Gran % (Auto) Neut % (Auto) Lymph % (Auto) [place] % (Auto) Eos % (Auto) Baso % (Auto) Lymph # (Auto) [place] # (Auto) Eos # (Auto) Baso # (Auto) Abs Immat Gran (auto) Absolute Neuts (auto) Absolute Nucleated RBC Nucleated RBC % (auto) Anion Gap Estim Creat Clear Calc Estimated GFR POC Glucose 125 H 202 H 142 H Random Glucose Calcium 01/02/24 07:58 MCV 86.3 MCH 29.6 MCHC 34.3 RDW 14.8 Plt Count 152 L MPV 8.2 L Immature Gran % (Auto) 0.6 H Neut % (Auto) 84.8 H Lymph % (Auto) 9.4 L [place] % (Auto) 4.8 Eos % (Auto) 0.3 Baso % (Auto) 0.1 Lymph # (Auto) 0.7 L [place] # (Auto) 0.4 Eos # (Auto) 0.0 Baso # (Auto) 0.0 Abs Immat Gran (auto) 0.05 H Absolute Neuts (auto) 6.6 Absolute Nucleated RBC 0.000 Nucleated RBC % (auto) 0.0 Anion Gap 10 L Estim Creat Clear Calc 67.2 Estimated GFR > 60 POC Glucose Random Glucose 91 Calcium 7.8 L Assessment and Plan (1) Bipolar 1 disorder, depressed: Status: Acute (2) Adult failure to thrive: Status: Acute (3) Acute hyponatremia: Status: Acute (4) Pelvic mass: Status: Acute Plan This is a 68-year-old woman admitted with failure to thrive and multiple lab abnormalities Toxic metabolic Encephalopathy with failure to thrive due to underlying UTI with a background of mental health issues seen by Psych - does NOT have capacity to make medical decisions. Healthcare proxy is her Satish. PT consult >rec STR UTI Urine culture growing Klebsiella and Pseudomonas Was initially treated with IV ceftriaxone,will change to IV levofloxacin Blood cultures negative to date Abdominal mass Abdominal CT showing partial obstruction possibly due to diverticular stricture versus neoplasm, also noted to have left pelvic mass for which resection was previously recommended by furnace roaster however patient does not recall, she also apparently refused surgery for sigmoid colectomy. 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 - as patient has had previous surgery there. 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 urea x1 given this am Hypothyroidism New onset TSH ,17.47 free T4 0.53 Levothyroxine started 1.6mcg/kg recheck TSH in 6-8 weeks Hypokalemia. Resolved Likely secondary to dehydration Continues on daily replacement (on 10meq daily at baseline) Replete and follow Diabetes with Hypoglycemia. Resolved Likely secondary to dehydration and poor oral intake Hold insulin for now, check point of cares Hypocalcemia Calcium levels normal when corrected for hypoalbuminemia Mildly elevated troponin No ischemic changes noted on EKG Mental health Continue home medications Moderate protein calorie malnutrition BMI 17 Seen by nutrition, supplements added DVT prophylaxis with SCD boots Attending Dr. Mcghee Full code Quality Stroke Does the patient have a stroke diagnosis?: No VTE Prior VTE?: No VTE Risk Level:: Medical - moderate - high VTE Device Contraindication: N/A - Device Ordered VTE Drug Contraindication: N/A - Med Ordered
[2024-01-02] MEDS: levoFLOXacin/D5W 500 MG/100 ML PIGGYBACK 100 MG IV (11:46)
[2024-01-02] MEDS: Heparin Sodium,Porcine 5,000 UNIT/ML VIAL 5000 UNIT SUBCUT (11:46)
[2024-01-02] MEDS: LORazepam 1 MG TABLET PO (20:06)
[2024-01-02 21:01] LABS: Glucose, Whole Blood 109 mg/dL (60-115)
[2024-01-03] MEDS: Acetaminophen 325 MG TABLET 650 MG PO (00:14)
[2024-01-03] MEDS: Ziprasidone 40 MG CAPSULE PO ×2 (00:15→09:59)
[2024-01-03] MEDS: Heparin Sodium,Porcine 5,000 UNIT/ML VIAL 5000 UNIT SUBCUT ×2 (00:38→12:31)
[2024-01-03] MEDS: 0.9 % Sodium Chloride Flush 3 ML SYRINGE IVFLUSH ×4 (01:46→21:21)
[2024-01-03] MEDS: LORazepam 0.5 MG TABLET PO (02:09)
[2024-01-03] MEDS: LORazepam 2 MG/ML VIAL 1 MG IVPUSH (03:46)
[2024-01-03] MEDS: Omeprazole 40 MG CAPSULE.DR PO (03:53)
[2024-01-03] MEDS: Levothyroxine Sodium 25 MCG TABLET PO (03:53)
[2024-01-03 04:00] VITALS: BP 107/55; PULSE 71; RESP 20; TEMP 36.6; O2SAT 95
[2024-01-03 07:58] VITALS: BP 128/68; PULSE 78; RESP 16; TEMP 36.3; O2SAT 96
[2024-01-03 08:26] LABS: Glucose, Whole Blood 78 mg/dL (60-115)
--- NOTE | 2024-01-03 09:04 | HO.PM.IMPN ---
Subjective Subjective Date of Service: 01/03/24 Interval History: Seen and examined this morning Follow-up for hyponatremia, UTI, pelvic mass Seen by psych-determined to not have capacity to make medical decisions-Healthcare proxy invoked Review of Systems Review of Systems: Yes all other systems are reviewed and are negative Constitutional Constitutional: Denies chills and Denies fever(s) Physical Exam Vital Signs: Vital Signs: Last Vital Signs Temp 97.4 F 01/03/24 07:58 Pulse 78 01/03/24 07:58 Resp 16 01/03/24 07:58 BP 128/68 01/03/24 07:58 Pulse Ox 96 01/03/24 07:58 O2 Del Method Room Air 01/03/24 07:58 BMI result Body Mass Index 17.0 Appearing in no acute distress lung sounds are clear to auscultation heart regular rate rhythm, clear S1, S2 positive bowel sounds, abdomen is soft, nontender neuro patient is alert, confused Objective Data Active Medications Acetaminophen (Acetaminophen 325 Mg Tablet) 650 mg PO Q6H PRN PRN Reason: Pain, Mild (Pain Scale 1-3), fever or headache Last Admin: 01/03/24 00:14 Dose: 650 mg Documented By: SHAUNA Buspirone HCl (Buspirone Hcl 10 Mg Tablet) 10 mg PO BID [facility] Last Admin: 01/02/24 20:06 Dose: 10 mg Documented By: SHAUNA Calcium Carbonate (Calcium Carbonate 750 Mg Tab.Chew) 750 mg PO Q4H PRN PRN Reason: Heartburn Clonidine HCl (Clonidine Hcl 0.2 Mg Tablet) 0.2 mg PO BEDTIME [facility]; Protocol Last Admin: 12/31/23 20:23 Dose: 0.2 mg Documented By: KENNY Docusate Sodium (Docusate Sodium 100 Mg Capsule) 100 mg PO BID [facility] Last Admin: 01/03/24 00:05 Dose: Not Given Documented By: SHAUNA Non-Admin Reason: Diarrhea Heparin Sodium (Porcine) (Heparin Sodium,Porcine 5,000 Unit/Ml Vial) 5,000 unit SUBCUT Q12H [facility] Last Admin: 01/03/24 00:38 Dose: 5,000 unit Documented By: SHAUNA Levofloxacin (Levaquin) 500 mg in 100 mls @ 100 mls/hr IV Q24H [facility] Last Infusion: 01/02/24 12:46 Dose: Infused Documented By: DRAKE Levothyroxine Sodium (Levothyroxine Sodium 25 Mcg Tablet) 25 mcg PO DAILY@0600 [facility] Last Admin: 01/03/24 03:53 Dose: 25 mcg Documented By: SHAUNA Lorazepam (Lorazepam 0.5 Mg Tablet) 0.5 mg PO DAILY PRN PRN Reason: severe anxiety Last Admin: 01/03/24 02:09 Dose: 0.5 mg Documented By: SHAUNA Lorazepam (Lorazepam 1 Mg Tablet) 1 mg PO BEDTIME [facility] Last Admin: 01/02/24 20:06 Dose: 1 mg Documented By: SHAUNA Magnesium Hydroxide (Milk Of Magnesia 30 Ml Oral.Susp) 30 ml PO DAILY PRN PRN Reason: Constipation Melatonin (Melatonin 3 Mg Tablet) 6 mg PO BEDTIME PRN PRN Reason: Insomnia Last Admin: 01/02/24 20:06 Dose: 6 mg Documented By: SHAUNA Nicotine Polacrilex (Nicotine Polacrilex 2 Mg Gum) 2 mg BUCCAL Q2H PRN PRN Reason: Nicotine Cravings Last Admin: 12/31/23 15:41 Dose: 2 mg Documented By: SAMRAA Omeprazole (Omeprazole 40 Mg Capsule.) 40 mg PO DAILY@0630 [facility] Last Admin: 01/03/24 03:53 Dose: 40 mg Documented By: SHAUNA Potassium Chloride (Potassium Chloride Er 20 Meq Tab.Er.Prt) 40 meq PO DAILY [facility] Last Admin: 01/02/24 08:13 Dose: 40 meq Documented By: DRAKE Prochlorperazine Maleate (Prochlorperazine Maleate 5 Mg Tablet) 5 mg PO BID PRN PRN Reason: nausea and vomiting Last Admin: 12/31/23 03:09 Dose: 5 mg Documented By: JAMIE Sertraline HCl (Sertraline Hcl 100 Mg Tablet) 100 mg PO DAILY [facility] Last Admin: 01/02/24 08:13 Dose: 100 mg Documented By: DRAKE Sodium Chloride (0.9 % Sodium Chloride Flush 3 Ml Syringe) 3 ml IVFLUSH QSHIFT [facility] Last Admin: 01/03/24 01:46 Dose: 3 ml Documented By: SHAUNA Sodium Chloride (Sodium Chloride Tab 1 Gm Tablet) 1 gm PO BID [facility] Last Admin: 01/02/24 20:06 Dose: 1 gm Documented By: SHAUNA Tizanidine HCl (Tizanidine Hcl 4 Mg Tablet) 4 mg PO TID [facility] Last Admin: 01/02/24 20:06 Dose: 4 mg Documented By: SHAUNA Vitamin D (Cholecalciferol (Vitamin D3) 25 Mcg Tablet) 50 mcg PO DAILY [facility] Last Admin: 01/02/24 08:13 Dose: 50 mcg Documented By: DRAKE Ziprasidone (Ziprasidone 40 Mg Capsule) 40 mg PO DAILY PRN PRN Reason: Agitation Last Admin: 01/03/24 00:15 Dose: 40 mg Documented By: SHAUNA Ziprasidone (Ziprasidone 40 Mg Capsule) 40 mg PO DAILY [facility] Last Admin: 01/02/24 08:13 Dose: 40 mg Documented By: DRAKE Labs 01/02/24 07:58 01/02/24 07:58 Labs: Laboratory Results - last 24 hr 01/02/24 01/03/24 20:34 08:01 POC Glucose 109 78 Microbiology Microbiology Results: Microbiology 12/28/23 12:05 Blood Culture - Final Blood - Venous No growth after 5 days. 12/28/23 12:05 Blood Culture - Final Blood - Venous No growth after 5 days. Assessment and Plan (1) Bipolar 1 disorder, depressed: Status: Acute (2) Adult failure to thrive: Status: Acute (3) Acute hyponatremia: Status: Acute (4) Pelvic mass: Status: Acute Plan This is a 68-year-old woman admitted with failure to thrive and multiple lab abnormalities Toxic metabolic Encephalopathy with failure to thrive due to underlying UTI with a background of mental health issues seen by Psych - does NOT have capacity to make medical decisions. Healthcare proxy is her Satish. PT consult >rec STR UTI Urine culture growing Klebsiella and Pseudomonas Was initially treated with IV ceftriaxone,will change to IV levofloxacin Blood cultures negative to date Abdominal mass Abdominal CT showing partial obstruction possibly due to diverticular stricture versus neoplasm, also noted to have left pelvic mass for which resection was previously recommended by intelligence clerk however patient does not recall, she also apparently refused surgery for sigmoid colectomy. 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 urea x1 given this am Hypothyroidism New onset TSH ,17.47 free T4 0.53 Levothyroxine started 1.6mcg/kg recheck TSH in 6-8 weeks Hypokalemia. Resolved Likely secondary to dehydration Continues on daily replacement (on 10meq daily at baseline) Replete and follow Diabetes with Hypoglycemia. Resolved Likely secondary to dehydration and poor oral intake Hold insulin for now, check point of cares Hypocalcemia Calcium levels normal when corrected for hypoalbuminemia Mildly elevated troponin No ischemic changes noted on EKG Mental health Continue home medications Moderate protein calorie malnutrition BMI 17 Seen by nutrition, supplements added DVT prophylaxis with SCD boots Attending Dr. Mcghee Full code Quality Stroke Does the patient have a stroke diagnosis?: No VTE Prior VTE?: No VTE Risk Level:: Medical - moderate - high VTE Device Contraindication: N/A - Device Ordered VTE Drug Contraindication: N/A - Med Ordered
[2024-01-03] MEDS: Sertraline HCL 100 MG TABLET PO (09:59)
[2024-01-03] MEDS: Cholecalciferol (Vitamin D3) 25 MCG TABLET 50 MCG PO (09:59)
[2024-01-03] MEDS: busPIRone HCl 10 MG TABLET PO ×2 (10:00→21:20)
[2024-01-03] MEDS: Docusate Sodium 100 MG CAPSULE PO (10:00)
[2024-01-03] MEDS: TiZANidine HCL 4 MG TABLET PO ×3 (10:00→21:20)
[2024-01-03] MEDS: Sodium Chloride Tab 1 GM TABLET PO ×2 (10:00→21:20)
[2024-01-03] MEDS: Potassium Chloride ER 20 MEQ TAB.ER.PRT 40 MEQ PO (10:00)
[2024-01-03] MEDS: levoFLOXacin/D5W 500 MG/100 ML PIGGYBACK 100 MG IV (10:00)
[2024-01-03 12:00] VITALS: BP 110/51; PULSE 80; RESP 18; TEMP 36.9; O2SAT 95
[2024-01-03 12:31] LABS: Glucose, Whole Blood 88 mg/dL (60-115)
[2024-01-03] MEDS: Dextrose 5 % and 0.9 % NaCl 1,000 ML 80 ML IVCONT (12:32)
[2024-01-03 16:53] LABS: Glucose, Whole Blood 97 mg/dL (60-115)
[2024-01-03 19:15] VITALS: BP 112/62; PULSE 71; RESP 14; TEMP 37.4; O2SAT 98
[2024-01-03 21:14] LABS: Glucose, Whole Blood 155 mg/dL (60-115)
[2024-01-03] MEDS: LORazepam 1 MG TABLET PO (21:20)
[2024-01-03] MEDS: Melatonin 3 MG TABLET 6 MG PO (21:20)
[2024-01-03 22:20] VITALS: RESP 18
[2024-01-03 23:07] VITALS: BP 116/65; PULSE 61; RESP 14; TEMP 36.8; O2SAT 98
[2024-01-04] MEDS: Dextrose 5 % and 0.9 % NaCl 1,000 ML 80 ML IVCONT ×3 (01:08→23:24)
[2024-01-04] MEDS: Heparin Sodium,Porcine 5,000 UNIT/ML VIAL 5000 UNIT SUBCUT ×2 (01:12→11:50)
[2024-01-04 03:05] VITALS: BP 112/64; PULSE 74; RESP 14; TEMP 36.5; O2SAT 96
[2024-01-04] MEDS: Levothyroxine Sodium 25 MCG TABLET PO (04:42)
[2024-01-04] MEDS: Prochlorperazine Maleate 5 MG TABLET PO (04:42)
[2024-01-04] MEDS: Omeprazole 40 MG CAPSULE.DR PO (04:42)
[2024-01-04] MEDS: LORazepam 0.5 MG TABLET PO (04:43)
[2024-01-04 07:19] VITALS: BP 161/80; PULSE 81; RESP 20; TEMP 37.3; O2SAT 97
[2024-01-04 07:33] LABS: Glucose, Whole Blood 99 mg/dL (60-115)
[2024-01-04 08:21] LABS: Anion Gap 12 (12-20); Blood Urea Nitrogen 5 mg/dL (9-16); Calcium 7.5 mg/dL (8.4-10.2); Carbon Dioxide 24 mmol/L (22-29); Chloride 97 mmol/L (96-108); Estimated Glomerular Filt Rate > 60; Glucose Random 102 mg/dL (60-115); Potassium 3.8 mmol/L (3.3-5.1); Sodium 129 mmol/L (135-145)
[2024-01-04] MEDS: TiZANidine HCL 4 MG TABLET PO ×3 (09:15→20:09)
[2024-01-04] MEDS: levoFLOXacin/D5W 500 MG/100 ML PIGGYBACK 100 MG IV (09:15)
[2024-01-04] MEDS: Cholecalciferol (Vitamin D3) 25 MCG TABLET 50 MCG PO (09:15)
[2024-01-04] MEDS: Ziprasidone 40 MG CAPSULE PO (09:16)
[2024-01-04] MEDS: Sertraline HCL 100 MG TABLET PO (09:16)
[2024-01-04] MEDS: Sodium Chloride Tab 1 GM TABLET PO ×2 (09:16→20:09)
[2024-01-04] MEDS: busPIRone HCl 10 MG TABLET PO ×2 (09:16→20:09)
[2024-01-04] MEDS: Docusate Sodium 100 MG CAPSULE PO (09:16)
[2024-01-04] MEDS: 0.9 % Sodium Chloride Flush 3 ML SYRINGE IVFLUSH ×2 (09:16→17:06)
--- NOTE | 2024-01-04 11:00 | P.PNIM_ITS ---
Subjective Subjective Date of Service: 01/04/24 Interval History: Seen and examined this morning Follow-up for hyponatremia, UTI, pelvic mass Seen by psych-determined to not have capacity to make medical decisions- Healthcare proxy invoked Review of Systems Review of Systems: Yes all other systems are reviewed and are negative Constitutional Constitutional: Denies chills and Denies fever(s) Physical Exam 2 Vital Signs: Vital Signs: Last Vital Signs Temp 99.1 F 01/04/24 07:19 Pulse 81 01/04/24 07:19 Resp 20 01/04/24 07:19 BP 161/80 H 01/04/24 07:19 Pulse Ox 97 01/04/24 07:19 O2 Del Method Room Air 01/04/24 07:19 BMI result Body Mass Index 17.0 Appearing in no acute distress lung sounds are clear to auscultation heart regular rate rhythm, clear S1, S2 positive bowel sounds, abdomen is soft, nontender neuro patient is alert x3, no focal deficits Objective Data Active Medications Acetaminophen (Acetaminophen 325 Mg Tablet) 650 mg PO Q6H PRN PRN Reason: Pain, Mild (Pain Scale 1-3), fever or headache Last Admin: 01/03/24 00:14 Dose: 650 mg Documented By: SHAUNA Buspirone HCl (Buspirone Hcl 10 Mg Tablet) 10 mg PO BID [facility] Last Admin: 01/04/24 09:16 Dose: 10 mg Documented By: SLADE Calcium Carbonate (Calcium Carbonate 750 Mg Tab.Chew) 750 mg PO Q4H PRN PRN Reason: Heartburn Clonidine HCl (Clonidine Hcl 0.2 Mg Tablet) 0.2 mg PO BEDTIME [facility]; Protocol Last Admin: 12/31/23 20:23 Dose: 0.2 mg Documented By: KENNY Docusate Sodium (Docusate Sodium 100 Mg Capsule) 100 mg PO BID [facility] Last Admin: 01/04/24 09:16 Dose: 100 mg Documented By: SLADE Heparin Sodium (Porcine) (Heparin Sodium,Porcine 5,000 Unit/Ml Vial) 5,000 unit SUBCUT Q12H [facility] Last Admin: 01/04/24 01:12 Dose: 5,000 unit Documented By: SHAUNA Dextrose/Sodium Chloride (D5ns) 1,000 mls @ 80 mls/hr IVCONT .[id number] [facility] Last Admin: 01/04/24 01:08 Dose: 80 mls/hr Documented By: SHAUNA Levofloxacin (Levofloxacin 500 Mg Tablet) 500 mg PO Q24H [facility] Levothyroxine Sodium (Levothyroxine Sodium 25 Mcg Tablet) 25 mcg PO DAILY@0600 [facility] Last Admin: 01/04/24 04:42 Dose: 25 mcg Documented By: SHAUNA Lorazepam (Lorazepam 0.5 Mg Tablet) 0.5 mg PO DAILY PRN PRN Reason: severe anxiety Last Admin: 01/04/24 04:43 Dose: 0.5 mg Documented By: SHAUNA Comments: requested for anxiety Lorazepam (Lorazepam 1 Mg Tablet) 1 mg PO BEDTIME [facility] Last Admin: 01/03/24 21:20 Dose: 1 mg Documented By: SHAUNA Magnesium Hydroxide (Milk Of Magnesia 30 Ml Oral.Susp) 30 ml PO DAILY PRN PRN Reason: Constipation Melatonin (Melatonin 3 Mg Tablet) 6 mg PO BEDTIME PRN PRN Reason: Insomnia Last Admin: 01/03/24 21:20 Dose: 6 mg Documented By: SHAUNA Nicotine Polacrilex (Nicotine Polacrilex 2 Mg Gum) 2 mg BUCCAL Q2H PRN PRN Reason: Nicotine Cravings Last Admin: 12/31/23 15:41 Dose: 2 mg Documented By: SAMARA Omeprazole (Omeprazole 40 Mg Capsule.Dr) 40 mg PO DAILY@0630 [facility] Last Admin: 01/04/24 04:42 Dose: 40 mg Documented By: SHAUNA Potassium Chloride (Potassium Chloride Er 20 Meq Tab.Er.Prt) 40 meq PO DAILY [facility] Last Admin: 01/04/24 09:21 Dose: Not Given Documented By: SLADE Non-Admin Reason: patient not able to swallow large pills Prochlorperazine Maleate (Prochlorperazine Maleate 5 Mg Tablet) 5 mg PO BID PRN PRN Reason: nausea and vomiting Last Admin: 01/04/24 04:42 Dose: 5 mg Documented By: SHAUNA Comments: c/o Nausea Sertraline HCl (Sertraline Hcl 100 Mg Tablet) 100 mg PO DAILY [facility] Last Admin: 01/04/24 09:16 Dose: 100 mg Documented By: SLADE Sodium Chloride (0.9 % Sodium Chloride Flush 3 Ml Syringe) 3 ml IVFLUSH QSHIFT [facility] Last Admin: 01/04/24 09:16 Dose: 3 ml Documented By: SLADE Sodium Chloride (Sodium Chloride Tab 1 Gm Tablet) 1 gm PO BID [facility] Last Admin: 01/04/24 09:16 Dose: 1 gm Documented By: SLADE Tizanidine HCl (Tizanidine Hcl 4 Mg Tablet) 4 mg PO TID [facility] Last Admin: 01/04/24 09:15 Dose: 4 mg Documented By: SLADE Vitamin D (Cholecalciferol (Vitamin D3) 25 Mcg Tablet) 50 mcg PO DAILY [facility] Last Admin: 01/04/24 09:15 Dose: 50 mcg Documented By: SLADE Ziprasidone (Ziprasidone 40 Mg Capsule) 40 mg PO DAILY PRN PRN Reason: Agitation Last Admin: 01/03/24 00:15 Dose: 40 mg Documented By: SHAUNA Ziprasidone (Ziprasidone 40 Mg Capsule) 40 mg PO DAILY [facility] Last Admin: 01/04/24 09:16 Dose: 40 mg Documented By: SLADE Labs 01/02/24 07:58 01/04/24 07:57 Labs: Laboratory Results - last 24 hr 01/03/24 01/03/24 01/03/24 12:19 16:38 21:05 Anion Gap Estim Creat Clear Calc Estimated GFR POC Glucose 88 97 155 H Random Glucose Calcium 01/04/24 01/04/24 07:02 07:57 Anion Gap 12 Estim Creat Clear Calc 66.0 Estimated GFR > 60 POC Glucose 99 Random Glucose 102 Calcium 7.5 L Assessment and Plan (1) Bipolar 1 disorder, depressed: Status: Acute (2) Adult failure to thrive: Status: Acute (3) Acute hyponatremia: Status: Acute (4) Pelvic mass: Status: Acute Plan This is a 68-year-old woman admitted with failure to thrive and multiple lab abnormalities Toxic metabolic Encephalopathy with failure to thrive due to underlying UTI with a background of mental health issues seen by Psych - does NOT have capacity to make medical decisions. Healthcare proxy is her Satish. PT consult >rec STR poor appetite>D5NS added UTI Urine culture growing Klebsiella and Pseudomonas Was initially treated with IV ceftriaxone, changed to IV levofloxacin Blood cultures negative to date Abdominal mass Abdominal CT showing partial obstruction possibly due to diverticular stricture versus neoplasm, also noted to have left pelvic mass for which resection was previously recommended by mortgage processing clerk however patient does not recall, she also apparently refused surgery for sigmoid colectomy. 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 urea x1 given Hypothyroidism New onset TSH ,17.47 free T4 0.53 Levothyroxine started 1.6mcg/kg recheck TSH in 6-8 weeks Hypokalemia. Resolved Likely secondary to dehydration Continues on daily replacement (on 10meq daily at baseline) Replete and follow Diabetes with Hypoglycemia. Resolved Likely secondary to dehydration and poor oral intake Hold insulin for now, check point of cares Hypocalcemia Calcium levels normal when corrected for hypoalbuminemia Mildly elevated troponin No ischemic changes noted on EKG Mental health Continue home medications Moderate protein calorie malnutrition BMI 17 Seen by nutrition, supplements added DVT prophylaxis with CHELA neumann Attending Dr. Mcghee Full code Quality Stroke Does the patient have a stroke diagnosis?: No VTE Prior VTE?: No VTE Risk Level:: Medical - moderate - high VTE Device Contraindication: N/A - Device Ordered VTE Drug Contraindication: N/A - Med Ordered
--- NOTE | 2024-01-04 11:23 | MHC.CLN ---
F/U PO INTAKE POOR OVER WEEKEND NOTED SERUM NA IMPROVING SLOWLY DIET RX: 1800DM 1500FLUID RESTRICTION-APPROPRIATE (DIET WILL PROMOTE SLOW WT GAIN) PT RECEIVING ENSURE MAX BID TO INCREASE PO SUPP TO PROVIDE 300KCALS, 60G PROTEIN, 600ML FREE WATER (FOR FLUID RESTRICTION WITH 100% ACCEPTANCE) CONTINUE TO MONITOR PO INTAKE AND ENCOURAGE SUPPLEMENTS
[2024-01-04 11:29] VITALS: BP 94/52; PULSE 68; RESP 20; TEMP 36.6; O2SAT 98
[2024-01-04 11:33] LABS: Glucose, Whole Blood 98 mg/dL (60-115)
[2024-01-04 16:00] VITALS: BP 126/78; PULSE 81; RESP 20; TEMP 36.3; O2SAT 97
[2024-01-04 16:25] LABS: Glucose, Whole Blood 124 mg/dL (60-115)
[2024-01-04 20:00] VITALS: BP 98/57; PULSE 63; RESP 14; TEMP 36.9; O2SAT 100
[2024-01-04] MEDS: LORazepam 1 MG TABLET PO (20:09)
[2024-01-04 20:36] LABS: Glucose, Whole Blood 180 mg/dL (60-115)
[2024-01-04 23:23] VITALS: BP 137/73; PULSE 68; RESP 12; TEMP 37.4; O2SAT 99
[2024-01-05 03:17] VITALS: BP 112/66; PULSE 65; RESP 14; TEMP 36.7; O2SAT 97
[2024-01-05] MEDS: Levothyroxine Sodium 25 MCG TABLET PO (06:15)
[2024-01-05] MEDS: Omeprazole 40 MG CAPSULE.DR PO (06:15)
[2024-01-05] MEDS: 0.9 % Sodium Chloride Flush 3 ML SYRINGE IVFLUSH ×2 (07:24→14:52)
[2024-01-05] MEDS: LORazepam 0.5 MG TABLET PO (08:00)
[2024-01-05] MEDS: Sertraline HCL 100 MG TABLET PO (08:03)
[2024-01-05] MEDS: Sodium Chloride Tab 1 GM TABLET PO (08:04)
[2024-01-05] MEDS: TiZANidine HCL 4 MG TABLET PO ×2 (08:05→14:51)
[2024-01-05] MEDS: busPIRone HCl 10 MG TABLET PO (08:05)
[2024-01-05] MEDS: Docusate Sodium 100 MG CAPSULE PO (08:06)
[2024-01-05] MEDS: Cholecalciferol (Vitamin D3) 25 MCG TABLET 50 MCG PO (08:07)
[2024-01-05] MEDS: Potassium Chloride ER 20 MEQ TAB.ER.PRT 40 MEQ PO (08:08)
[2024-01-05] MEDS: Ziprasidone 40 MG CAPSULE PO (08:28)
[2024-01-05] MEDS: Prochlorperazine Maleate 5 MG TABLET PO (08:28)
[2024-01-05 08:31] VITALS: BP 133/78; PULSE 78; RESP 12; TEMP 36.4; O2SAT 94
[2024-01-05 08:39] LABS: Glucose, Whole Blood 107 mg/dL (60-115)
--- NOTE | 2024-01-05 09:01 | P.PNNP_ITS ---
Subjective Subjective Date of Service: 01/05/24 Interval history: pt is a 68 y/o female with a medical history of bipolar disorder, COPD, DMII, PAD, depression, anxiety and GERD. She lives with her , who called EMS on 12/27. Per records/EMS, pt living in [facility] and crawling on the ground and unable to walk, confused. 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 and high free water intake pt has hypothyroidism as well last sodium 129 on 01/03 pt denies headache, muscle cramping/twitching states she has some nausea today she denies drinking free water, states she has only been drinking gingerale (does have ice cubes at bedside as well) she continues to take sertraline, zaprasidone thyroid hormone is being replaced creatinine 0.58 and GFR> 60 kidneys & ureters uremarkable on 12/[address] scan Patient states today has some mild nausea, appetite is so so denies shortness of breath, chest pain states she is urinating without difficulty, denies urinary/flank pain, denies blood in urine denies new rash or joint pain- states chronic left low back pain denies other questions, concerns Physical Exam 2 Vital Signs: Vital Signs: Last Vital Signs Temp 97.5 F 01/05/24 08:31 Pulse 78 01/05/24 08:31 Resp 12 01/05/24 08:31 BP 133/78 01/05/24 08:31 Pulse Ox 94 01/05/24 08:31 O2 Del Method Room Air 01/05/24 08:31 BMI result Body Mass Index 17.0 Const: General: comfortable and no acute distress Neck: Neck: Yes no JVD Resp: Effort & Inspection: able to speak in complete sentences A uscultation: clear to auscultation bilaterally Cardio: Jugular venous distension: no JVD Rate: regular rate Rhythm: r egular rhythm Heart sounds: S1 normal heart sound present and S2 normal heart sound present GI: Palpation (GI): Soft to palpation : General: Yes no CVA tenderness Back/Spine/Pelvis: Back: no CVA tenderness Skin: Rashes: no rashes Extrem: General: Yes normal to inspection, No edema and No pedal edema Objective Data Labs 01/02/24 07:58 01/04/24 07:57 Labs: Laboratory Results - last 24 hr 01/04/24 01/04/24 01/04/24 11:05 16:10 20:09 POC Glucose 98 124 H 180 H 01/05/24 08:35 POC Glucose 107 Microbiology Microbiology Results: Microbiology 12/28/23 12:05 Blood - Venous Blood Culture - Final No growth after 5 days. 12/28/23 12:05 Blood - Venous Blood Culture - Final No growth after 5 days. 12/28/23 Unknown Urine clean catch - Clean Catch Midstream Urine Culture - Final Klebsiella pneumoniae Pseudomonas aeruginosa Procedures Date of Service Date of Service: 01/05/24 Assessment & Plan Assessment and plan (1) Hyponatremia: Status: Acute (2) Hypokalemia: Status: Acute Plan Hyponatremia seems chronic, likely secondary to underlying chronic SIADH due to bipolar disorder (taking SSRI, may also have increased free water intake), history and imaging also suspicious for malignancy, which may be contributing to hyponatremia and hypokalemia if present. hypothyroidism may also be contributing to hyponatremia; pt receiving levothyroxine; this will take time to correct Continue NaCl 1gm PO BID to regimen restrict free water to 1.2L per 24 hour period; if blood drops may give normal saline IV fluids Recommend continue to monitor electrolytes and renal function daily. Discussed with Dr Collazo Time Spent With Patient Time: Total time managing care of this patient today ____ minutes. Progress Note: Quality Stroke Does the patient have a stroke diagnosis?: No
--- NOTE | 2024-01-05 11:16 | P.DS_ITS ---
DS: Providers Provider Date of Service: 01/05/24 Date of admission: 12/28/23 15:12 Primary care physician: Sloane Mccarthy MD Consults: 12/29/23 04:53 Consult to Wound Care Routine Reason for consultation: bruised areas, frail 12/29/23 10:23 Consult to Nephrology Routine Consulting Provider: [facility] Reason for consultation: hyponatremia 12/30/23 07:45 Consult to Gastroenterology Routine Consulting Provider: Yonas Woodson Reason for consultation: sigmoid mass 12/31/23 10:38 Consult to Psychiatry Routine Consulting Provider: Psych Covering Reason for consultation: competency eval; wants to leave AMA Has provider been notified: No DS: Diagnosis Discharge Diagnosis (1) Hyponatremia: Status: Acute (2) Hypokalemia: Status: Acute DS: Summary Hospital Course Hospital Course: 68-year-old woman treated for toxic metabolic encephalopathy secondary to failure to thrive and Klebsiella and Pseudomonas UTI. Initially treated with IV Rocephin and transitioned to Levaquin, completed more than 5 days of treatment. Blood cultures have remained negative to date. She was seen by psych and was deemed to not have capacity to make medical decisions in her healthcare proxy is her Satish. She was seen evaluated by Physical therapy who recommended short-term rehab. She was noted to have chronic hyponatremia up to 129 today with a history of SIADH and thyroid disease. She is on sodium chloride tabs 1 g twice daily and had received 1 dose of urea. She had been followed closely by Nephrology. She was noted to have hypokalemia as well secondary to dehydration and resolved with replacement. She had a few episodes of hypoglycemia with a history of diabetes likely secondary to dehydration and poor oral intake but treated with D5 normal saline with good resolution. Her TSH was noted to be elevated at 17.47 with free T4 of 0.53, started on levothyroxine 1.6 micrograms/kilogram recheck TSH in 5 weeks Abdominal mass, chronic Abdominal CT showing partial obstruction possibly due to diverticular stricture versus neoplasm, also noted to have left pelvic mass for which resection was previously recommended by licensing specialist however patient does not recall, she also apparently refused surgery for sigmoid colectomy. 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 They do not feel it is necessary for transfer as clinically she does not appear obstructed At this time patient has been able to eat small amounts and drink fluids so there is no reason for any interventions at this time. Moderate protein calorie malnutrition. BMI 17.0. Encourage oral intake, increase protein in diet. Mental health. Continue home medications. Time Attestation Discharge Coordination Time (in mins): 40 Quality: Safe Use of Opioids Does Pt have an Active Cancer Diagnosis on the Problem List?: No Quality: Stroke Does the patient have a stroke diagnosis?: No Physical Exam Vital Signs: Vital Signs: Last Vital Signs Temp 97.5 F 01/05/24 08:31 Pulse 78 01/05/24 08:31 Resp 12 01/05/24 08:31 BP 133/78 01/05/24 08:31 Pulse Ox 94 01/05/24 08:31 O2 Del Method Room Air 01/05/24 08:31 BMI result Body Mass Index 17.0 Appearing in no acute distress head is normocephalic atraumatic eyes pupils are PERRLA sclera is anicteric mouth throat mucous membranes are intact and moist neck is supple no lymphadenopathy, no JVD noted lung sounds are clear to auscultation heart regular rate rhythm, clear S1, S2 positive bowel sounds, abdomen is soft, nontender neuro patient is alert x3, no focal deficits DS: Data Data Completed and Pending Completed studies during hospitalization [Text1]: Procedures Excision of Sigmoid Colon, Via Natural or Artificial Opening Endoscopic, Diagnostic (10/31/20) Labs on day of discharge: Laboratory Results - last 24 hr 01/04/24 01/04/24 01/04/24 11:05 16:10 20:09 POC Glucose 98 124 H 180 H 01/05/24 08:35 POC Glucose 107 Discharge Plan Discharge Anticipated Discharge Date/Time: 01/05/24 11:11 Patient Disposition: Xfer SNF Discharge Diagnosis: Toxic metabolic encephalopathy Failure to thrive UTI Referrals: Sloane Cody MD [Primary Care Provider] - 1 Week Discharge Medications: New levothyroxine 25 mcg Tablet 25 mcg PO DAILY@0600 Qty: 30 0RF Continued (DME) diabetic shoes and inserts 10 See Rx Instructions .Route .MEDSUPPLY Qty: 1 0RF Rx Instructions: As directed cholecalciferol (vitamin D3) 50 mcg (2,000 unit) capsule 50 mcg PO DAILY 90 Days Qty: 90 1RF sertraline 100 mg tablet 100 mg PO DAILY Qty: 30 2RF potassium chloride 10 mEq capsule, extended release 10 meq PO DAILY 7 Days Qty: 7 0RF prochlorperazine maleate [Compazine] 5 mg tablet 5 mg PO BID PRN (Reason: nausea and vomiting) 5 Days Qty: 10 0RF (DME) bedside commode Kit See Rx Instructions .Route Qty: 1 0RF Rx Instructions: As directed omeprazole 40 mg capsule,delayed release(DR/EC) 40 mg PO DAILY@0630 docusate sodium 100 mg Tablet 100 mg PO BID tizanidine 4 mg tablet 4 mg PO TID lorazepam 0.5 mg tablet 1 mg PO BEDTIME lorazepam 0.5 mg tablet 0.5 mg PO BID@0800,1200 ziprasidone HCl 40 mg capsule 40 mg PO DAILY PRN (Reason: Agitation) lorazepam 0.5 mg tablet 0.5 mg PO DAILY PRN (Reason: severe anxiety) ziprasidone HCl 40 mg capsule 40 mg PO DAILY Rx Instructions: give with food (meal/snack) 1 tab daily may take additional tab daily as needed agitation clonidine HCl 0.1 mg tablet 0.2 mg PO BEDTIME 90 Days Qty: 180 1RF buspirone 5 mg tablet 10 mg PO BID 90 Days Qty: 360 1RF Discharge Orders: Discharge Order (Routine); Ordered 01/05/24 Ordered By: Marta Sainz Diet: Advance to usual diet Activity on Discharge: As tolerated Stand Alone Forms: Patient Portal Discharge page Print Language: Uzbek Care Plan Goals: Transfer to short-term rehab for physical therapy Check TSH and free T4 in 5 weeks Health Concerns: Toxic metabolic encephalopathy Failure to thrive UTI Plan of Treatment: Follow-up with primary care provider as needed Take all medications as prescribed Assessment: See discharge summary
[2024-01-05 11:22] LABS: Glucose, Whole Blood 95 mg/dL (60-115)
--- NOTE | 2024-01-05 11:41 | MHC.CM.PN ---
Addendum entered by Caro Perdue RN 01/05/24 13:19: CM spoke w/ /HCP Satish. Agreeable to STR @ [facility]. Addendum entered by Caro Perdue RN 01/05/24 13:06: CM spoke w/ daughter/alternate HCP Alma to inform of dc. In agreement w/ plan. Original Note: Per MD rounds patient medically cleared for dc to STR @ [facility]. LM for /HCP x2 to inform. IMM verbally delivered via VM. BLS transport scheduled for 330pm. RN and LAB TECH aware.
[2024-01-05 11:51] VITALS: BP 108/63; PULSE 75; RESP 18; TEMP 37; O2SAT 97
[2024-01-05] MEDS: Heparin Sodium,Porcine 5,000 UNIT/ML VIAL 5000 UNIT SUBCUT (11:53)
[2024-01-05] MEDS: levoFLOXacin 500 MG TABLET PO (11:53)
--- NOTE | 2024-01-05 11:57 | PC.NURSE ---
patient refuses hygiene care at present
--- NOTE | 2024-01-05 15:02 | PC.NURSE ---
Patient was very anxious and resistive to care this AM,medicated with Ativan with good effect,1:1 sitter in room for patient safety
== END 2024-01-05 16:50 | disposition skilled nursing facility (03) | DRG 689 ==
LOC: HO.ED 13:30 → HO.EDOVER 15:17 → HO.IMC 19:38 → HO.S3 01-05 02:57
PROVIDERS: Nurse Practitioner Family; Physician Assistant Medical; Admitting Provider Nurse Practitioner Acute Care; Emergency Provider Emergency Medicine; PCP Internal Medicine; Visit Provider Nurse Practitioner Acute Care
DX: N39.0 Urinary tract infection, site not specified (principal); G92.8 Other toxic encephalopathy; E44.0 Moderate protein-calorie malnutrition; Z68.1 Body mass index [BMI] 19.9 or less, adult; Z59.19 Other inadequate housing; E22.2 Syndrome of inappropriate secretion of antidiuretic hormone; K56.690 Other partial intestinal obstruction; F17.210 Nicotine dependence, cigarettes, uncomplicated; T43.225A Adverse effect of selective serotonin reuptake inhibitors, initial encounter; R62.7 Adult failure to thrive; E11.51 Type 2 diabetes mellitus with diabetic peripheral angiopathy without gangrene; F31.9 Bipolar disorder, unspecified; B96.1 Klebsiella pneumoniae [K. pneumoniae] as the cause of diseases classified elsewhere; B96.5 Pseudomonas (aeruginosa) (mallei) (pseudomallei) as the cause of diseases classified elsewhere; D49.0 Neoplasm of unspecified behavior of digestive system; J44.9 Chronic obstructive pulmonary disease, unspecified; Z71.6 Tobacco abuse counseling; R19.00 Intra-abdominal and pelvic swelling, mass and lump, unspecified site; E86.0 Dehydration; E11.649 Type 2 diabetes mellitus with hypoglycemia without coma; E87.6 Hypokalemia; E03.9 Hypothyroidism, unspecified; Z20.822 Contact with and (suspected) exposure to COVID-19; Z79.890 Hormone replacement therapy; Z79.899 Other long term (current) drug therapy
CPT/HCPCS: 0241U; 36415; 70450; 71250; 72125; 72197; 74176; 80048; 80053; 80076; 80143; 80179; 80307; 81001; 81003; 82140; 82436; 82550; 82803; 82947; 83605; 83690; 83735; 83930; 84133; 84145; 84295; 84300; 84439; 84443; 84484; 85014; 85018; 85025; 85027; 85652; 86140; 87040; 87086; 87088; 87186; 93005; 97116; 97162; 99285; A9585; C1758; J0696; J1644; J1956; J2060; J3480; J7120; P9047

== ENCOUNTER → 2023-12-28 11:52 | Outpatient (BNV) | payer MEDICARE, MEDICAID, SELFPAY | PROVIDERS: Emergency Provider Emergency Medicine; Visit Provider Surgery | DX: K63.89 Other specified diseases of intestine (principal); R11.2 Nausea with vomiting, unspecified; N94.89 Other specified conditions associated with female genital organs and menstrual cycle | CPT/HCPCS: 99222; 99232 ==

== ENCOUNTER 2023-12-28 15:12 | Outpatient (BNV) | payer MEDICARE, MEDICAID, SELFPAY | END 2023-12-31 13:36 | PROVIDERS: Admitting Provider Nurse Practitioner Acute Care; Emergency Provider Emergency Medicine; PCP Internal Medicine; Visit Provider Internal Medicine Cardiovascular Disease | DX: R94.31 Abnormal electrocardiogram [ECG] [EKG] (principal) | CPT/HCPCS: 93010 ==

== ENCOUNTER → 2023-12-28 15:12 | Outpatient (BNV) | payer MEDICARE, MEDICAID, SELFPAY | PROVIDERS: Admitting Provider Nurse Practitioner Acute Care; Emergency Provider Emergency Medicine; Visit Provider Nurse Practitioner Acute Care | DX: E87.1 Hypo-osmolality and hyponatremia (principal); E87.6 Hypokalemia | CPT/HCPCS: 99222; 99232; 99233; 99239 ==

== ENCOUNTER → 2023-12-28 15:12 | Outpatient (BNV) | payer MEDICARE, MEDICAID, SELFPAY | PROVIDERS: Admitting Provider Nurse Practitioner Acute Care; Emergency Provider Emergency Medicine; Visit Provider Nurse Practitioner Family | DX: E87.1 Hypo-osmolality and hyponatremia (principal); E87.6 Hypokalemia | CPT/HCPCS: 99222; 99232 ==

== ENCOUNTER → 2023-12-28 15:12 | Outpatient (BNV) | payer MEDICARE, MEDICAID, SELFPAY | PROVIDERS: Admitting Provider Nurse Practitioner Acute Care; Emergency Provider Emergency Medicine; PCP Internal Medicine; Visit Provider Psychiatry & Neurology Psychiatry | DX: F31.9 Bipolar disorder, unspecified (principal); R62.7 Adult failure to thrive | CPT/HCPCS: 99233 ==